=== PATIENT | male | born 1985 | race Caucasian/White ===

== ENCOUNTER 2017-09-03 18:35 | Emergency (ER) | payer MEDICAID, SELFPAY ==
[2017-09-03 18:36] VITALS: BP 155/91; PULSE 110; RESP 16; TEMP 36.9; O2SAT 100; BMI 22.5
--- NOTE | 2017-09-03 18:40 | RAD_ITS ---
STUDY: X-RAY - LEFT ANKLE REASON FOR EXAM: Male, 32 years old. Trauma TECHNIQUE: 3 view(s) of the ankle. COMPARISON: None. FINDINGS: Normal visualized distal tibia and fibula. Normal medial and lateral malleoli. Normal tibiotalar articulation and ankle mortise. Normal visualized talus and calcaneus. The visualized subtalar, talonavicular, calcaneocuboid and tarsal articulations are normal. Soft tissue swelling of the lateral malleolus RAD/Ankle min 3 Views IMPRESSION: Lateral malleolus sprain. No evidence for acute fracture Electronically Signed: Dom Hui MD at 19:10 EDT , Service support ,
--- NOTE | 2017-09-03 20:17 | ED.DCSUM_ITS ---
- ER Visit Summary Date of Service: 09/03/17 Chief Complaint: [Injury left ankle] History of Present Illness: The patient is a 32 M [presents to the emergency department after sustaining an injury to his left ankle yesterday around 8 PM. Patient states that he stepped in a hole as he was coming down the steps. Patient is able to bear some weight but is painful.] Physical Examination: [Ankle-patient has soft tissue swelling over the lateral malleolus. Patient has no pain at the proximal fibular head or the base of the fifth metatarsal. He is neurovascular intact distally. No obvious deformity.] Test Results: [Rays of the left ankle obtained read by radiology as no fractures ] Emergency Department Course and Treatment: [Patient was given crutches and air splint] Treatment Plan: [Patient will be given a prescription for Naprosyn and 12 [place] for pain. Patient advised to ice and elevate extremity.] Disposition: [Discharged to home in stable condition.] Impression: [Left ankle sprain] This note was generated with [employer] dictation software. It may contain incorrect words, spelling, and punctuation that were not noted in review of the chart prior to signing ED Disposition - Plan for ED Patient: Chief Complaint: Lower Extremity Injury Referrals: Dom Yanez MD [Primary Care Provider] -
--- NOTE | 2017-09-03 20:17 | ED.DEP ---
ED Disposition - Plan for ED Patient: Chief Complaint: Lower Extremity Injury Instructions: ED Sprain Ankle W X Ray Prescriptions: Hydrocodone Bitart/Apap 5-325 [[place] 5/325] 1 - 2 tab PO Q4H PRN PRN 3 Days #12 tab PRN Reason: Pain Referrals: Dom Yanez MD [Primary Care Provider] - Alexis Beal DO [NON CLINICAL AFFILIATE] - 5-7 Days
== END 2017-09-03 20:25 | disposition home or self-care (01) ==
PROVIDERS: Emergency Provider Emergency Medicine; Family Provider Family Medicine; PCP Family Medicine
DX: S93.402A Sprain of unspecified ligament of left ankle, initial encounter (principal); X50.1XXA Overexertion from prolonged static or awkward postures, initial encounter; Y93.01 Activity, walking, marching and hiking; Y92.9 Unspecified place or not applicable; Z72.0 Tobacco use
CPT/HCPCS: 73610; 99284

== ENCOUNTER → 2017-11-26 13:31 | Outpatient (CLI) | payer MEDICAID, SELFPAY ==
[2017-11-26 14:51] LABS: Absolute Lymphocyte Count 2.97 X10^3/ul (0.83-4.51); Absolute Neutrophil Count 5.2 X10^3/uL (2.0-7.7); Basophil# 0.04 X10^3/uL; Basophil% 0.4 % (0-1); Eosinophil# 0.34 X10^3/uL; Eosinophils% 3.7 % (0-5); Hematocrit 48.8 % (40-54); Hemoglobin 16.6 g/dl (13.0-16.5); Lymphocyte # 2.97 X10^3/ul (4.0); Mean Corpuscular Hgb 32.5 pg (27.0-32.0); Mean Corpuscular Volume 95.5 fL (80-94); Mean Platelet Vol. 10.6 fl (6.2-12.0); Monocyte# 0.68 X10^3/uL; Monocyte% 7.3 % (0-10); Neutrophil # 5.23 X10^3/uL (2.7-7.7); Neutrophil % 56.4 % (47-70); Platelet Count 274 K/mm3 (150-450); RBC Distribution Width CV 13.5 % (11.6-14.6); RBC Distribution Width SD 46.7 fl (35.1-43.9); Red Blood Count 5.11 M/mm3 (4.6-6.2); White Blood Count 9.3 K/mm3 (4.4-11.0)
[2017-11-26 14:52] LABS: POSITIVE COUNT NO; POSITIVE DIFFERENTIAL NO; POSITIVE MORPHOLOGY NO
[2017-11-26 15:31] LABS: ALB/GLOB Ratio 1.1 RATIO (0.9-2.4); AST(SGOT) 47 U/L (15-37); Alanine Aminotransfer ALT/SGPT 137 U/L (16-61); Alkaline Phosphatase 90 U/L (45-117); Anion Gap 6 (5-15); BUN 7 mg/dL (7-18); BUN/Creat Ratio 8.8 RATIO (10-20); Calcium,Total 8.7 mg/dL (8.5-10.1); Chloride 105 mmol/L (98-107); EST Glomerular Filtration Rate 120 mL/min (>60); Est Glom Filt Rate - Afr Amer 145 mL/min (>60); Globulin 3.6 g/dL (2.2-4.2); Glucose 77 mg/dL (74-106); Protein, Total 7.6 g/dL (6.4-8.2); Sodium Level 142 mmol/L (136-145)
== END ==
PROVIDERS: Family Provider Family Medicine; PCP Family Medicine
DX: Z79.899 Other long term (current) drug therapy (principal); F19.10 Other psychoactive substance abuse, uncomplicated; R53.83 Other fatigue
CPT/HCPCS: 36415; 80053; 80178; 84443; 85025

== ENCOUNTER → 2019-09-25 09:56 | Outpatient (CLI) | payer MEDICAID, SELFPAY ==
[2019-09-25 11:26] LABS: Absolute Lymphocyte Count 3.46 X10^3/uL (0.83-4.51); Absolute Neutrophil Count 8.1 X10^3/uL (2.0-7.7); Basophil# 0.09 X10^3/uL; Basophil% 0.7 % (0-1); Eosinophil# 0.32 X10^3/uL; Eosinophils% 2.4 % (0-5); Hematocrit 49.8 % (40-54); Hemoglobin 16.2 g/dL (13.0-16.5); Lymphocyte # 3.46 X10^3/ul (4.0); Lymphocyte % 26.3 % (19-41); Mean Corp Hgb Conc 32.5 g/dL (32-36); Mean Corpuscular Hgb 31.8 pg (27.0-32.0); Mean Corpuscular Volume 97.6 fL (80-94); Mean Platelet Vol. 10.1 fl (6.2-12.0); Monocyte# 1.16 X10^3/uL; Monocyte% 8.8 % (0-10); NRBC Flagged by Analyzer 0 % (0-5); Neutrophil # 8.06 X10^3/uL (2.7-7.7); Neutrophil % 61.3 % (47-70); Platelet Count 402 K/mm3 (150-450); RBC Distribution Width SD 50.5 fl (35.1-43.9); White Blood Count 13.2 K/mm3 (4.4-11.0)
[2019-09-25 12:08] LABS: ALB/GLOB Ratio 1.1 RATIO (0.9-2.4); AST(SGOT) 201 U/L (15-37); Alanine Aminotransfer ALT/SGPT 596 U/L (16-61); Alkaline Phosphatase 115 U/L (45-117); Anion Gap 6 (5-15); BUN 6 mg/dL (7-18); BUN/Creat Ratio 7.2 RATIO (10-20); Calcium,Total 8.9 mg/dL (8.5-10.1); Chloride 105 mmol/L (98-107); Creatinine, Serum 0.84 mg/dL (0.70-1.30); EST Glomerular Filtration Rate 112 mL/min (>60); Est Glom Filt Rate - Afr Amer 135 mL/min (>60); Globulin 3.6 g/dL (2.2-4.2); Glucose 82 mg/dL (74-106); Potassium 3.6 mmol/L (3.5-5.1); Protein, Total 7.6 g/dL (6.4-8.2); Sodium Level 137 mmol/L (136-145)
== END ==
PROVIDERS: PCP Family Medicine; Referring Provider Nurse Practitioner Family; Visit Provider Nurse Practitioner Family
DX: Z79.899 Other long term (current) drug therapy (principal)
CPT/HCPCS: 36415; 80053; 80178; 84443; 85025

== ENCOUNTER 2024-01-11 22:12 | Emergency (ER) | payer MEDICAID, SELFPAY ==
[2024-01-11 22:12] VITALS: BP 123/93; PULSE 87; RESP 14; TEMP 36.6; O2SAT 98
--- NOTE | 2024-01-11 22:30 | EX.ED.GENINJ ---
HPI History of Present Illness Chief Complaint: Bite Detail of Chief Complaint: Dog bite to left forearm Informant: patient Narrative Narrative: Patient presents the emergency department with left forearm injury related to dog bite. Patient states the dog belongs to a brother from another mother. Patient does not not want to give any history otherwise. He is extremely histrionic and refuses to answer whether or not he has been drinking or using drugs. Denies any significant medical history. Unsure of his last tetanus shot. PFSH PFSH Home Medications ?Medication ?Instructions ?Recorded ?Last Taken ?Type hydrocodone-acetaminophen 5-325mg 1 - 2 tab PO Q4H PRN PRN Pain 3 09/03/17 Unknown Rx 5mg-325mg days #12 tabs Allergy/AdvReac Type Severity Reaction Status Date / Time cyclobenzaprine HCl (From Allergy Hives Verified 01/11/24 22:13 Flexeril) naproxen Allergy Rash Verified 01/11/24 22:13 tramadol HCl (From Ultram) Allergy Rash Verified 01/11/24 22:13 Social History Smoking Status: Current every day smoker ROS ROS ED Review of Systems ROS Unobtainable: other Constitutional Constitutional ED: Reports lethargy; Denies chills, fever(s), sweats or weight loss Eyes Eyes: Denies blurry vision, change in vision or diplopia ENT ENT ED: Denies rhinorrhea or sore throat Cardiovascular Cardiovascular: Denies chest pain, orthopnea or racing heartbeat Respiratory/Chest Respiratory/Chest: Denies cough, dyspnea, dyspnea on exertion, orthopnea or sputum Gastrointestinal Gastrointestinal: Denies abdominal pain, diarrhea, nausea or vomiting Genitourinary Genitourinary ED: Denies dysuria, hematuria or urinary frequency Musculoskeletal Musculoskeletal: Reports other Details: Left forearm dog bite ; Denies arthralgias, back pain, myalgias or neck pain Integumentary Denies abscess, Abrasions or rash Neurologic Neurologic: Denies headache(s) or weakness Psychiatric Psychiatric: Denies anxiety, depression or suicidal thoughts Endocrine Endocrinology: Denies polydipsia, polyphagia or polyuria Hematologic/Lymphatic Hematologic/Lymphatic: Denies easy bleeding, easy bruising or lymphadenopathy Allergic/Immunologic Allergic/Immunologic ED: Denies mouth swelling, tongue swelling or urticaria EXAM Physical Exam Const Vital Signs: 01/11/24 22:12 Temperature 98 F Temperature Source Temporal Pulse Rate 87 Respiratory Rate 14 Blood Pressure 123/93 H Blood Pressure Mean 103 Pulse Ox 98 Oxygen Delivery Method Room Air Discharge Plan Triage Chief Complaint: Bite ED Provider: David Squires Dx/Rx/DC Orders Prescriptions: No Action hydrocodone-acetaminophen 1 TABLET tablet 1 - 2 tab PO Q4H PRN PRN (Reason: Pain) 3 Days Qty: 12 0RF Primary Care Provider: Dom Yanez Referrals: Dom Yanez MD [Primary Care Provider] - Print Language: South African
--- NOTE | 2024-01-11 22:33 | EX.ED.VISEXT ---
HPI History of Present Illness Chief Complaint: Bite PFSH [facility] Medical History IV drug user Home Medications ?Medication ?Instructions ?Recorded ?Last Taken ?Type hydrocodone-acetaminophen 5-325mg 1 - 2 tab PO Q4H PRN PRN Pain 3 09/03/17 Unknown Rx 5mg-325mg days #12 tabs amoxicillin 875 mg-potassium 1 tab PO BID #20 tabs 01/11/24 Unknown Rx clavulanate 125 mg tablet Allergy/AdvReac Type Severity Reaction Status Date / Time cyclobenzaprine HCl (From Allergy Hives Verified 01/11/24 22:13 Flexeril) naproxen Allergy Rash Verified 01/11/24 22:13 tramadol HCl (From Ultram) Allergy Rash Verified 01/11/24 22:13 Social History Smoking Status: Current every day smoker tobacco type: cigarettes, e-cigarettes and smokeless tobacco EXAM Physical Exam Const Vital Signs: 01/11/24 22:12 Temperature 98 F Temperature Source Temporal Pulse Rate 87 Respiratory Rate 14 Blood Pressure 123/93 H Blood Pressure Mean 103 Pulse Ox 98 Oxygen Delivery Method Room Air Positive well nourished and well developed General Appearance ED: well developed and NAD HEENT Reports TM's clear and moist mucous membranes normocephalic and atraumatic; Negative for trauma or tenderness Tympanic Membrane ED: Yes TM's clear Eyes PERRL and EOMs intact bilaterally General Eye ED: Negative for pale conjunctiva or scleral icterus Neck no lymphadenopathy, supple and no JVD General: Negative for tenderness Chest Wall inspection of chest normal and palpation of chest normal Chest: Negative for tenderness Resp normal respiratory effort and clear to auscultation bilaterally Effort and Inspection: Negative for respiratory distress or pain with movement Auscultation: Negative for rhonchi, wheezes or diminished lung sounds Cardio regular rate, regular rhythm, S1 normal heart sound, S2 normal heart sound and no murmurs Peripheral Pulses: pulses 2+ throughout GI normal to inspection, nondistended, normoactive bowel sounds, soft to palpation, non-tender, non-distended and no masses Back/Spine no CVA tenderness and no thoracic nor lumbar tenderness Extremity normal to inspection Extremity Narrative: Left forearm-patient has a 3 cm laceration over the proximal forearm with multiple other small puncture wounds to the dorsum and volar aspect of the forearm. He is neurovascular intact distally. He has normal range of motion flexion extension of all digits. General Extremety ED: Negative for edema General Extremity: Negative for edema Neuro oriented x3, CN's II-XII intact bilaterally, no sensory deficits noted and gait normal Sensorium / Orientation: awake, alert, oriented to person, oriented to place and oriented to time Motor Exam: strength 5/5 throughout and strength abnormal Psych mental status grossly normal Skin no rashes or lesions noted and no wounds MDM MDM MDM Narrative Medical decision making narrative: Patient with dog bite to left forearm. Please see procedure note for suture repair. For the wounds had to be loosely approximated given that there was fat extruding. Patient will be started on Augmentin and given first dose in the emergency department. He was given tetanus booster. Patient does state that he has been drinking alcohol tonight and had 6 sliders. Patient also states that he is an addict and has abused heroin in the past. Patient will be referred to primary care physician on-call for no doc for follow-up to have sutures removed in 10 days. Advised to return if increasing pain, redness, swelling, purulent drainage, or condition worsen anyway. Procedures Lacerations Forearm lacerations: Length: 2.36 in Depth: Sub Q Shape: Linear Prep: [place]ya Laceration repair: Irrigated, Lidocaine and Local Irrigated (ml): 100 Number of Sutures/[place]: 6 Suture Information: Ethilon, Simple and 5-0 Comment: Patient has multiple puncture wounds to the volar and dorsum of the left forearm. Largest wound is about 3 cm with fat extruding and gaping. Patient also with 3 other smaller lacerations about a centimeter each 2 on the volar aspect of the forearm and one on the dorsum of the forearm. All the lacerations were loosely approximated as there was fat extruding from them. He tolerated procedure well. Wounds irrigated with copious saline and cleansed with [place]. Discharge Plan Triage Chief Complaint: Bite ED Provider: David Squires Dx/Rx/DC Orders Clinical Impression: Dog bite, Forearm laceration Instructions: ED Dog Bite, ED Laceration Extremity Prescriptions: New amoxicillin-pot clavulanate 875-125 mg tablet 1 tab PO BID Qty: 20 0RF No Action hydrocodone-acetaminophen 1 TABLET tablet 1 - 2 tab PO Q4H PRN PRN (Reason: Pain) 3 Days Qty: 12 0RF Primary Care Provider: Dom Yanez Referrals: Dom Yanez MD [Primary Care Provider] - 10 Day for suture removal Print Language: Armenian Disposition Disposition: Home, Self Care
[2024-01-11] MEDS: Lidocaine 1% (20 ml mdv) 20 ML Vial 10 ML INFILT (22:37)
[2024-01-11] MEDS: Diphth,Pertuss(Acell),Tet Vac 0.5 ML Vial IM (22:37)
--- NOTE | 2024-01-11 22:59 | ED.RN ---
PATIENT REFUSED TO PROVIDE INFORMATION OR FILL OUT ANIMAL BITE FORM. PATIENT REFUSING TO REMAIN IN BED LONGER THAN NEEDED FOR SUTURING BY PRIMARY MD. HE IS PACING IN THE ROOM AND DIFFICULT TO REDIRECT. NORA CHANDLER AT BEDSIDE.
[2024-01-11] MEDS: Amox/Clavulanate 875 MG Tablet PO (23:00)
== END 2024-01-11 23:09 | disposition home or self-care (01) ==
PROVIDERS: Emergency Provider Emergency Medicine; PCP Family Medicine; Visit Provider Emergency Medicine
DX: S51.812A Laceration without foreign body of left forearm, initial encounter (principal); W54.0XXA Bitten by dog, initial encounter; F17.210 Nicotine dependence, cigarettes, uncomplicated; F17.220 Nicotine dependence, chewing tobacco, uncomplicated; F17.290 Nicotine dependence, other tobacco product, uncomplicated; Z23 Encounter for immunization
CPT/HCPCS: 12002; 90715; 99284

== ENCOUNTER 2024-11-14 15:15 | Emergency (ER) | payer MEDICAID, SELFPAY ==
[2024-11-14 15:23] VITALS: BP 101/84; PULSE 74; RESP 16; TEMP 36.9; O2SAT 97; BMI 26.6
--- NOTE | 2024-11-14 16:26 | EX.ED.DYSGE1 ---
HPI History of Present Illness Chief Complaint: Syncope Detail of Chief Complaint: Syncope Informant: patient, EMS and police/deputy sheriff/investigator Narrative Narrative: Patient brought to the emergency department by EMS for possible syncopal episode. Patient was found in a flower bed reported by alexei's and police was called. Patient apparently told police that he was tired and was taking a nap. Patient is homeless. Please give him the option to come to the hospital get checked out or go to long term as apparently he refused to leave at the time. Patient tells me he thinks he is dehydrated. He denies chest pain or abdominal pain. Denies any injury. He denies alcohol or drug use. He admits occasional marijuana and tobacco. [facility] IV drug user Home Medications ?Medication ?Instructions ?Recorded ?Last Taken ?Type hydrocodone-acetaminophen 5-325mg 1 - 2 tab PO Q4H PRN PRN Pain 3 09/03/17 Unknown Rx 5mg-325mg days #12 tabs amoxicillin 875 mg-potassium 1 tab PO BID #20 tabs 01/11/24 Unknown Rx clavulanate 125 mg tablet Allergy/AdvReac Type Severity Reaction Status Date / Time cyclobenzaprine HCl (From Allergy Hives Verified 11/14/24 15:23 Flexeril) naproxen Allergy Rash Verified 11/14/24 15:23 tramadol HCl (From Ultram) Allergy Rash Verified 11/14/24 15:23 Social History Smoking Status: Current every day smoker tobacco type: cigarettes, e-cigarettes and smokeless tobacco ROS ROS ED ROS Narrative Syncopal episode Review of Systems ROS Unobtainable: other Constitutional Constitutional ED: Reports lethargy; Denies chills, fever(s), sweats or weight loss Eyes Eyes: Denies blurry vision, change in vision or diplopia ENT ENT ED: Denies rhinorrhea or sore throat Cardiovascular Cardiovascular: Denies chest pain, orthopnea or racing heartbeat Respiratory/Chest Respiratory/Chest: Denies cough, dyspnea, dyspnea on exertion, orthopnea or sputum Gastrointestinal Gastrointestinal: Denies abdominal pain, diarrhea, nausea or vomiting Genitourinary Genitourinary ED: Denies dysuria, hematuria or urinary frequency Musculoskeletal Musculoskeletal: Denies arthralgias, back pain, myalgias or neck pain Integumentary Denies abscess, Abrasions or rash Neurologic Neurologic: Denies headache(s) or weakness Psychiatric Psychiatric: Denies anxiety, depression or suicidal thoughts Endocrine Endocrinology: Denies polydipsia, polyphagia or polyuria Hematologic/Lymphatic Hematologic/Lymphatic: Denies easy bleeding, easy bruising or lymphadenopathy Allergic/Immunologic Allergic/Immunologic ED: Denies mouth swelling, tongue swelling or urticaria EXAM Physical Exam Narrative Exam Narrative: Patient awake although somewhat somnolent and falling asleep easily. Appropriate and following commands and answering questions. No external evidence of trauma. Const Vital Signs: 11/14/24 15:23 11/14/24 16:24 11/14/24 17:15 Temperature 98.4 F Temperature Source Oral Pulse Rate 74 60 Respiratory Rate 16 16 Respiratory Effort Normal Respiratory Pattern Normal Blood Pressure 101/84 H 119/66 Blood Pressure Mean 89 83 Pulse Ox 97 98 Oxygen Delivery Method Room Air Room Air Positive well nourished and well developed General Appearance ED: well developed and NAD HEENT Reports TM's clear and moist mucous membranes normocephalic and atraumatic; Negative for trauma or tenderness Tympanic Membrane ED: Yes TM's clear Eyes PERRL and EOMs intact bilaterally General Eye ED: Negative for pale conjunctiva or scleral icterus Neck no lymphadenopathy, supple and no JVD General: Negative for tenderness Chest Wall inspection of chest normal and palpation of chest normal Chest: Negative for tenderness Resp normal respiratory effort and clear to auscultation bilaterally Effort and Inspection: Negative for respiratory distress or pain with movement Auscultation: Negative for rhonchi, wheezes or diminished lung sounds Cardio regular rate, regular rhythm, S1 normal heart sound, S2 normal heart sound and no murmurs Peripheral Pulses: pulses 2+ throughout GI normal to inspection, nondistended, normoactive bowel sounds, soft to palpation, non-tender, non-distended and no masses Back/Spine no CVA tenderness and no thoracic nor lumbar tenderness Extremity normal to inspection General Extremety ED: Negative for edema General Extremity: Negative for edema Neuro oriented x3, CN's II-XII intact bilaterally, no sensory deficits noted and gait normal Sensorium / Orientation: awake, alert, oriented to person, oriented to place and oriented to time Motor Exam: strength 5/5 throughout and strength abnormal Psych mental status grossly normal Skin no rashes or lesions noted and no wounds MDM MDM MDM Narrative Medical decision making narrative: Patient presents via EMS for possible syncopal episode as he was found in flower beds. Patient states he was sleeping. He is not sure if he passed out. He is homeless. He denied illicit drug use. Denies any complaints otherwise but thinks he is dehydrated and wants something to eat. EKG obtained arrival showed a sinus rhythm with rate of 60 bpm with no acute ST segment changes. CBC with differential showing a 7.7 hemoglobin 14.2 and platelet count of 320. Chemistries unremarkable. Alcohol was less than 10. I ordered a urine drug screen however patient refused to give a urine sample and eloped from the emergency department before treatment completion. Etiology of what happened unclear hide suspect possibility of drug abuse. Patient had capacity to refuse treatment and eloped the emergency department before treatment completion. Lab Data Attestation: I reviewed the patient's lab results. Labs: Laboratory Results - last 24 hr 11/14/24 16:52 WBC 7.7 RBC 4.54 L Hgb 14.2 Hct 42.5 MCV 93.6 MCH 31.3 MCHC 33.4 RDW Std Deviation 43.2 RDW Coeff of Pati 12.4 Plt Count 320 MPV 10.9 Immature Gran % (Auto) 0.100 Neut % (Auto) 47.0 Lymph % (Auto) 35.5 [place] % (Auto) 10.5 H Eos % (Auto) 6.1 H Baso % (Auto) 0.8 Absolute Neuts (auto) 3.6 Absolute Lymphs (auto) 2.73 Nucleated RBC % 0 Sodium 141 Potassium 3.7 Chloride 106 Carbon Dioxide 25.4 Anion Gap 10 BUN 9 Creatinine 0.80 Estim Creat Clear Calc 141.49 Est GFR (MDRD) Non-Af 116 BUN/Creatinine Ratio 11.3 Glucose 110 H Calcium 8.8 Ethyl Alcohol < 10.1 EKG Initial EKG: Attestation: I personally reviewed and interpreted this EKG as follows: Comments: Sinus rhythm with ventricular rate of of 60 bpm with no acute ST segment changes Discharge Plan Triage Chief Complaint: Syncope ED Provider: David Squires Dx/Rx/DC Orders Clinical Impression: Syncope Instructions: ED Fainting, Uncertain Cause Prescriptions: No Action hydrocodone-acetaminophen 1 TABLET tablet 1 - 2 tab PO Q4H PRN PRN (Reason: Pain) 3 Days Qty: 12 0RF amoxicillin-pot clavulanate 875-125 mg tablet 1 tab PO BID Qty: 20 0RF Primary Care Provider: Dom Yanez Referrals: Dom Yanez MD [Primary Care Provider] - Print Language: [place] Disposition Disposition: Elopement Discharge Date/Time: 11/14/24 18:53
[2024-11-14 17:15] VITALS: BP 119/66; PULSE 60; RESP 16; O2SAT 98
[2024-11-14 17:36] LABS: Absolute Lymphocyte Count 2.73 X10^3/uL (0.83-4.51); Absolute Neutrophil Count 3.6 X10^3/uL (2.0-7.7); Basophil# 0.06 X10^3/uL; Basophil% 0.8 % (0-1); Eosinophil# 0.47 X10^3/uL; Eosinophils% 6.1 % (0-5); Hematocrit 42.5 % (40-54); Hemoglobin 14.2 g/dL (13.0-16.5); Lymphocyte # 2.73 X10^3/ul (0.83-4.51); Lymphocyte % 35.5 % (19-41); Mean Corp Hgb Conc 33.4 g/dL (32-36); Mean Corpuscular Hgb 31.3 pg (27.0-32.0); Mean Corpuscular Volume 93.6 fL (80-94); Mean Platelet Vol. 10.9 fl (6.2-12.0); Monocyte# 0.81 X10^3/uL; Monocyte% 10.5 % (0-10); NRBC Flagged by Analyzer 0 % (0-5); Neutrophil # 3.62 X10^3/uL (2.7-7.7); Platelet Count 320 K/mm3 (150-450); RBC Distribution Width CV 12.4 % (11.6-14.6); RBC Distribution Width SD 43.2 fl (35.1-43.9); Red Blood Count 4.54 M/mm3 (4.6-6.2); White Blood Count 7.7 K/mm3 (4.4-11.0)
[2024-11-14] MEDS: 0.9% Normal Saline (1000mL) 1,000 ML 1000 ML IV (17:38)
[2024-11-14 17:55] LABS: Anion Gap 10 (5-15); BUN 9 mg/dL (4-19); BUN/Creat Ratio 11.3 RATIO (10-20); Calcium,Total 8.8 mg/dL (7.6-11.0); Carbon Dioxide 25.4 mmol/L (21.0-32.0); Chloride 106 mmol/L (98-108); EST Glomerular Filtration Rate 116 (>60); Estimated Creatinine Clearance 141.49 ml/min (50-250); Glucose 110 mg/dL (70-99); Potassium 3.7 mmol/L (3.3-5.1); Sodium Level 141 mmol/L (133-145)
[2024-11-14 18:03] LABS: Alcohol, Blood (Medical)-Serum < 10.1 mg/dL (<=10.0)
--- NOTE | 2024-11-14 18:18 | CM.ED ---
Social Work SW attempted to meet with patient , patient refused to open eyes or acknowledge SW presence. Several attempts made. Trina Key, PLANT CONTROL AIDE, SITE SPECIALIST
--- NOTE | 2024-11-14 18:52 | ED.RN ---
pt. was given the option to give urine sample or be catheterized. Pt. was offered food to give urine sample but refused to respond to nurses when asked for sample. Pt. wanted to leave. PIV removed and escorted out by security.
== END 2024-11-14 18:53 | disposition left against medical advice (07) ==
PROVIDERS: Emergency Provider Emergency Medicine; PCP Family Medicine; Visit Provider Emergency Medicine
DX: R55 Syncope and collapse (principal); F17.210 Nicotine dependence, cigarettes, uncomplicated; F17.290 Nicotine dependence, other tobacco product, uncomplicated; F17.220 Nicotine dependence, chewing tobacco, uncomplicated; Z59.00 Homelessness unspecified
CPT/HCPCS: 80048; 82077; 85025; 93005; 99284; A4216

== ENCOUNTER 2024-11-21 20:11 | Emergency (ER) | payer MEDICAID, SELFPAY ==
[2024-11-21 20:12] VITALS: BP 133/78; PULSE 71; RESP 18; TEMP 36.4; O2SAT 97; BMI 24.3
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
[2024-11-21 20:30] VITALS: BP 143/81; PULSE 68; RESP 18; O2SAT 97
--- NOTE | 2024-11-21 20:46 | CT_ITS ---
PROCEDURE: SPINE CERVICAL WITHOUT CONTRAS 11/21/2024 REASON FOR EXAM: NECK PAIN TECHNIQUE: SPINE CERVICAL WITHOUT CONTRAS Coronal and Sagittal reconstruction series were provided. One or more dose reduction techniques were used (e.g., Automated exposure control, adjustment of the mA and/or kV according to patient size, use of iterative reconstruction technique. RADIATION DOSE SUMMARY: CTDlvol: 68 mGy DLP: 1409 mGycm COMPARISON: No FINDINGS: No cervical spine fracture or dislocation. No soft tissue injury. No apical pneumothorax. CT/Spine Cervical without Contras IMPRESSION: No acute injury. Reading Location: [place] [id number]
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
--- NOTE | 2024-11-21 20:46 | CT_ITS ---
PROCEDURE: SPINE CERVICAL WITHOUT CONTRAS 11/21/2024 REASON FOR EXAM: NECK PAIN TECHNIQUE: SPINE CERVICAL WITHOUT CONTRAS Coronal and Sagittal reconstruction series were provided. One or more dose reduction techniques were used (e.g., Automated exposure control, adjustment of the mA and/or kV according to patient size, use of iterative reconstruction technique. RADIATION DOSE SUMMARY: CTDlvol: 68 mGy DLP: 1409 mGycm COMPARISON: No FINDINGS: No cervical spine fracture or dislocation. No soft tissue injury. No apical pneumothorax. CT/Spine Cervical without Contras IMPRESSION: No acute injury. Reading Location: [place] [address]
[2024-11-21 21:00] VITALS: BP 147/85; PULSE 71; PULSE 72; RESP 14; RESP 15; O2SAT 98; O2SAT 99
--- OUTSIDE RECORDS SUMMARY | 2024-11-21 21:10 | XMS RPT_ITS | CCD ---
Author Organization [facility] Care Team Providers Care Administrative Fellow Name Role Phone Unavailable Primary Care Provider UnavailDom Gagnon MD Primary Care Provider Dom Yanez MD Primary Care Provider Abimael Carson MD Primary Care Provider YAMILETH WHITTINGTON, DR WEAVER Primary Care Physician ANA JOYCE MD Attending Unavailable YAMILETH WHITTINGTON, DR WEAVER Primary Care UnavailBETHANIE Shaw Attending Unavailable YAMILETH WHITTINGTON, DR WEAVER Primary Care UnavailMONTRELL Palma Referring Unavailable YAMILETH, ABIMAEL Primary Care Unavailable YAMILETH, ABIMAEL Primary Care Unavailable YAMILETHABIMAEL Attending Unavailable YAMILETH, ABIMAEL Primary Care Unavailable CAS SALAMANCA Attending Unavailable BERNICE BLUNT Consulting Unavailable YAMILETH, ABIMAEL Primary Care Unavailable LIAM ZAMORA Admitting Unavailable LIAM ZAMORA Attending Unavailable TU RENO Consulting Unavailable YAMILETH, ABIMAEL Primary Care Unavailable SHANE ZAMARRIPA Attending Unavailable YAMILETH, ABIMAEL Primary Care Unavailable DAYNA JAMES Attending Unavailable YAMILETH, ABIMAEL Primary Care Unavailable YAMILETH, ABIMAEL Primary Care Unavailable YAMILETHABIMAEL Attending Unavailable YAMILETHABIMAEL Attending Unavailable YAMILETH, ABIMAEL Primary Care Unavailable YAMILETHABIMAEL Attending Unavailable YAMILETH, ABIMAEL Primary Care Unavailable YAMILETH, ABIMAEL Attending Unavailable YAMILETH, ABIMAEL Primary Care Unavailable Dom aYnez MD Primary Care Provider Dr. Dom Yanez MD Primary Care Provider [phone] Dr. David Squires DO Emergency Provider Dom Yanez Primary Care Unavailable David Squires Attending Unavailable Dom Yanez Primary Care Unavailable David Squires Attending Unavailable Allergies Allergy Classification Reported Allergen(s) Allergy Type Date of Onset Reaction(s) Facility cyclobenzaprine (2 sources) cyclobenzaprine Drug Allergy 10-24-19 [facility] Opioid Agonists (5 sources) traMADol Drug Allergy 03-08-20 12 [facility] (3 sources) NSAIDs Propensity to adverse reactions to drug 12-15-19 17 [facility] (20 sources) traMADol; Translations: [tramadol] Drug Allergy 03-08-20 12 [facility] (5 sources) traMADol Drug Allergy 03-08-20 12 [facility] (20 sources) Non-steroidal anti-inflammatory agent Drug Intolerance 12-15-19 [facility] (12 sources) cyclobenzaprine; Translations: [cyclobenzaprine] Drug Allergy 10-24-19 24 [facility] (3 sources) Naproxen; Translations: [naproxen] Drug Allergy 11-15-19 25 [facility] (2 sources) cyclobenzaprine; Translations: [cyclobenzaprine HCl] Drug Allergy 11-15-19 25 [facility] (1 source) Naproxen Drug Allergy 11-15-19 25 [facility] (1 source) traMADol Drug Allergy 11-15-19 25 [facility] Medications Current Medications Medication Drug Class(es) Dates Sig (Normalized) Sig (Original) acetaminophen 325 mg / HYDROcodone bitartrate 5 mg oral tablet (1 source) Opioid Agonist Start: 09-03-2017 Hydrocodone-Aceta minophen 1 TABLET tablet Active 1 - 2 {tbl} PO EVERY 4 HOURS NEEDED as needed for Pain 12 3 0 September 03, 2017 12:00am Sprain of ankle Sprain of unspecified ligament of unspecified ankle, initial encounter acetaminophen 325 mg / oxyCODONE hydrochloride 5 mg oral tablet (1 source) Opioid Agonist Start: 09-05-2023 End: 09-12-2023 take 1 tablet by mouth every six hours as needed for pain Percocet 5 mg-325 mg oral tablet Dose = 1 tab(s), Oral, q6hr, PRN for pain, X 7 day(s), # 28 tab(s), 0 Refill(s), Closed fracture of right mandibular alveolar ridge, 79.2 Start Date: 09/05/23 Stop Date: 09/12/23 Status: Ordered amoxicillin 875 mg / clavulanate 125 mg oral tablet (2 sources) Penicillin-class Antibacterial Start: 01-11-2024 Amoxicillin-Pot Clavulanate 875-125 mg tablet Active 1 {tbl} PO TWICE A DAY January 11, 2024 12:00am Start: 10-20-2022 End: 10-27-2022 take 1 tablet by mouth twice daily amoxicillin-clavulanic acid (AUGMENTIN) 875-125 mg per tablet Indications: Dental infection Take 1 tablet by mouth twice daily for 7 days. 14 tablet 0 10/20/2022 10/27/2022 Active Comment on above: Take 1 tablet by sp twice daily for 7 days. ARIPiprazole 5 mg oral tablet (4 sources) Atypical Antipsychotic take 1 tablet by mouth once daily ARIPiprazole (ABILIFY) 5 mg tablet Take 5 mg by mouth once daily. Active Comment on above: Take 5 mg by mouth o nce daily. 12 hr buPROPion hydrochloride 150 mg extended release oral tablet (4 sources) Aminoketone take 1 tablet by mouth once daily buPROPion SR (ZYBAN SR; WELLBUTRIN SR) 150 mg 12 hr tablet Take 150 mg by mouth once daily. Active Comment on above: Take 150 mg by mouth once daily. cephalexin 500 mg oral tablet (8 sources) Cephalosporin Antibacterial Start: 10-16-19 End: 10-26-19 cephalexin (Keftab) 500 MG tablet Take 500 mg by mouth in the morning and 500 mg at noon and 500 mg in the evening and 500 mg before bedtime. 0 10/16/2023 10/26/2023 Active FLUoxetine 40 mg oral capsule (4 sources) Serotonin Reuptake Inhibitor Start: 01-28-20 take 1 capsule by mouth once daily in the morning FLUoxetine (PROZAC) 40 mg capsule Take 40 mg by mouth every morning. 01/27/2022 Active Comment on above: Take 40 mg by mouth every morning. loperamide hydrochloride 2 mg oral tablet (1 source) Opioid Agonist Start: 10-24-19 End: 11-03-19 loperamide (Imodium A-D) 2 MG tablet Take 1-2 tablets (2-4 mg) by mouth as needed for diarrhea for up to 10 days. 30 tablet 2 10/24/2023 11/03/2023 Active PARoxetine hydrochloride 40 mg oral tablet (20 sources) Serotonin Reuptake Inhibitor Start: 11-14-19 take 1 tablet by mouth once daily in the morning PARoxetine (Paxil) 40 MG tablet Take 1 tablet (40 mg) by mouth every morning. 30 tablet 1 11/14/2023 Active Start: 11-14-2023 End: 11-14-2023 take 0.5 tablet by mouth once daily in the morning PARoxetine (Paxil) 40 MG tablet Take 0.5 tablets (20 mg) by mouth every morning. 30 tablet 1 11/14/2023 11/14/2023 Discontinued (Reorder) Start: 10-24-2023 End: 11-14-2023 take 1 tablet by mouth once daily in the morning PARoxetine (Paxil) 20 MG tablet Take 1 tablet (20 mg) by mouth every morning. 10 tablet 11/13/2023 11/14/2023 Discontinued (Reorder) Start: 08-13-2023 End: 10-18-2023 take 1 tablet by mouth once daily in the morning PARoxetine (Paxil) 20 MG tablet take 1 tablet by mouth every morning 30 tablet 1 08/13/2023 10/18/2023 Discontinued (Non-compliance) Start: 06-15-2023 take 1 tablet by sp th once daily in the morning PARoxetine (Paxil) 20 MG tablet Take 1 tablet (20 mg) by mouth every morning. 30 tablet 1 06/15/2023 Active Start: 05-23-2023 take 1 tablet by sp th once daily in the morning PARoxetine (Paxil) 20 MG tablet Take 1 tablet (20 mg) by mouth every morning. 30 tablet 0 05/23/2023 Active penicillin v potassium 500 mg oral tablet (1 source) Start: 09-05-2023 End: 09-15-2023 penicillin V potassium 500 mg oral tablet Dose : 500 mg = 1 tab(s), Oral, BID, X 10 day(s), # 20 tab(s), 0 Refill(s), 09/15/23 11:18:00 AM EDT, 79.2 Start Date: 09/05/23 Stop Date: 09/15/23 Status: Ordered 24 hr divalproex sodium 500 mg extended release oral tablet (4 sources) Mood Stabilizer, Anti-epileptic Agent Start: 02-10-2022 take 2 tablets by mouth once daily at bedtime divalproex ER (DEPAKOTE ER) 500 mg 24 hr tablet TAKE 2 TABLETS BY MOUTH DAILY AT BEDTIME 02/10/2022 Active Comment on above: TAKE 2 TABLETS BY MO UTH DAILY AT BEDTIME Completed/Discontinued Medications Medication Drug Class(es) Dates Sig (Normalized) Sig (Original) Acetaminophen (4 sources) Start: 10-18-2023 End: 10-19-2023 take 1 tablet by mouth every six hours as needed for pain and fever acetaminophen (Tylenol) tablet 650 mg Start: 10-18-2023 End: 10-18-2023 acetaminophen (Tylenol) tabl et 650 mg ampicillin-sulbactam (Unasyn) 3,000 mg in sodium chloride 0.9 % 100 mL IVPB (Mini-Bag Plus) (4 sources) Start: 10-18-2023 End: 10-19-2023 take 3000 mg intravenously every six hours ampicillin-sulbactam (Unasyn) 3,000 mg in sodium chloride 0.9 % 100 mL IVPB (Mini-Bag Plus) Start: 10-18-2023 End: 10-18-2023 ampicillin-sulbactam (Unasyn ) 3,000 mg in sodium chloride 0.9 % 100 mL IVPB (Mini-Bag Plus) cariprazine 1.5 mg oral capsule (1 source) Atypical Antipsychotic End: 02-23-2022 cariprazine (VRAYLAR) 1.5 mg capsule Take 1.5 mg by mouth. 0 02/23/2022 Discontinued Comment on above: Take 1.5 mg by mouth . 1 ml haloperidol 5 mg/ml prefilled syringe (2 sources) Typical Antipsychotic Start: 07-20-2023 End: 07-20-2023 haloperidol lactate (Haldol) injection 5 mg lithium carbonate 300 mg oral capsule (1 source) Start: 11-19-2017 End: 02-23-2022 take 1 capsule by mouth three times daily at mealtime lithium carbonate (ESKALITH) 300 mg capsule Take 1 capsule by mouth three times daily with meals. [facility] 0 11/19/2017 02/23/2022 Discontinued Comment on above: Take 1 capsule by mo uth three times daily with meals. Per [facility]. 1 ml LORazepam 2 mg/ml injection (2 sources) Benzodiazepine Start: 07-20-2023 End: 07-20-2023 LORazepam (Ativan) injection 2 mg 2 ml naloxone hydrochloride 1 mg/ml prefilled syringe (4 sources) Opioid Antagonist Start: 11-06-2023 End: 11-06-2023 8 mg, Nasal, Once, On Sun11/06/23 at 2235, For 1 dose, For oversedation/diff icult to rouse, pinpoint pupils, RR Start: 11-06-2023 End: 11-06-2023 8 mg, Nasal, Once, On Sun at 2235, For 1 dose, For oversedation/difficult to rouse, pinpoint pupils, RR Start: 11-06-2023 End: 11-07-2023 0.4 mg, IntraVENous, PRN, op ioid reversal, respiratory depression, Starting on Sun11/06/23 at 2212, For oversedation/difficult to rouse, pinpoint pupils, RR Nicotine (4 sources) Cholinergic Nicotinic Agonist Start: 10-19-2023 End: 10-19-2023 nicotine (Nicoderm, Step 1) 21 MG/24HR patch 1 patch Start: 10-18-2023 End: 10-18-2023 nicotine (Nicoderm, Step 1) 21 MG/24HR patch 1 patch nitroglycerin 0.4 mg sublingual tablet (1 source) Nitrate Vasodilator Start: 08-26-2018 End: 02-23-2022 nitroglycerin sublingual (NITROQUICK) 0.4 mg SL tablet Dissolve 1 tablet under the tongue as needed. for chest pain,every 5 min x3 1 Bottle of 25 3 08/26/2018 02/23/2022 Discontinued Comment on above: Dissolve 1 tablet un eric the tongue as needed. for chest pain,every 5 min x3 ondansetron ODT (Zofran-ODT) disintegrating tablet 4 mg (2 sources) Start: 10-18-2023 End: 10-19-2023 take 1 tablet by mouth every eight hours as needed for nausea and vomiting ondansetron ODT (Zofran-ODT) disintegrating tablet 4 mg polyethylene glycol 3350 10741 mg powder for oral solution (2 sources) Osmotic Laxative Start: 10-18-2023 End: 10-19-2023 take 17 g by mouth every twenty-four hours as needed for constipation 17 g, Oral, Daily PRN, constipation, Starting on Sun10/18/23 at 2215, 1st line for treatment of constipation - give scheduled if no bowel movement in past 24 hours. 50 ml sodium chloride 9 mg/ml injection (6 sources) Start: 11-06-2023 End: 11-07-2023 1,000 mL, IntraVENous, at 1,000 mL/hr, Administer over 1 Hours, Once, On Sun11/06/23 at 2215, For 1 dose Start: 10-18-2023 End: 10-19-2023 take 100 mL intravenously every hour 100 mL/hr, IntraVENous, Continuous, Starting on Sun10/18/23 at 2230 Start: 10-18-2023 End: 10-18-2023 sodium chloride 0.9 % bolus 2,448 mL sofosbuvir 400 mg / velpatasvir 100 mg oral tablet (1 source) Hepatitis C Virus NS5A Inhibitor, Hepatitis C Virus Nucleotide Analog NS5B Polymerase Inhibitor Start: 12-03-2019 End: 02-23-2022 take 1 tablet by mouth once daily sofosbuvir-velpatasvir (EPCLUSA) 400-100 mg Indications: Chronic hepatitis C without hepatic coma (HCC) Take 1 tablet by mouth once daily. 28 tablet 2 12/03/2019 02/23/2022 Discontinued Comment on above: Take 1 tablet by mouth once daily. valproic acid, as sodium salt, (DEPAKENE ORAL) (1 source) End: 02-23-2022 valproic acid, as sodium salt, (DEPAKENE ORAL) Take by mouth. 0 02/23/2022 Discontinued Comment on above: Take by mouth. Vancomycin (4 sources) Glycopeptide Antibacterial Start: 10-19-2023 End: 10-19-2023 take 1750 mg intravenously every twelve hours vancomycin (Vancocin) 1750 mg in NS 500 mL IVPB (compounded premix) Start: 10-18-2023 End: 10-18-2023 vancomycin IVPB 1250 mg in 2 50 mL NS (premix) Problems Active Problems Problem Classification Problem Date Documented Da te Episodic/Chronic Abdominal pain (2 sources) Abdominal pain; Translations: [Abdominal Pain] Onset: 10-24-2023 Episodic Adjustment disorders (4 sources) Acute situational disturbance; Translations: [Adjustment disorder, unspecified] Onset: 11-12-2023 11-12-2023 Chronic Alcohol-related disorders (1 source) Alcohol abuse; Translations: [Alcohol abuse, uncomplicated] Onset: 01-19-2024 01-19-2024 Chronic Anxiety disorders (20 sources) Severe anxiety (panic); Translations: [Anxiety disorder, unspecified] Onset: 11-26-2015 11-26-2015 Chronic Diseases of white blood cells (4 sources) Leukocytosis; Translations: [Elevated white blood cell count, unspecified] Onset: 10-18-2023 10-18-2023 Chronic Disorders of lipid metabolism (20 sources) Hypercholesterolemi a; Translations: [Pure hypercholesterolemi a, unspecified] Onset: 05-31-2023 05-31-2023 Chronic Disorders of teeth and jaw (1 source) Gingivitis; Translations: [Chronic gingivitis, plaque induced] 05-26-2015 Chronic Disorders of teeth and jaw (15 sources) Tooth disorder; Translations: [Disorder of teeth and supporting structures, unspecified] Onset: 01-04-2015 01-04-2015 Episodic E Codes: Natural/environment (1 source) Dog bite - wound; Translations: [Bitten by dog, initial encounter] 01-19-2024 Episodic Fluid and electrolyte disorders (2 sources) Lactic acidosis; Translations: [Lactic acidosis] 10-18-2023 Episodic Genitourinary symptoms and ill-defined conditions (1 source) Blood in urine; Translations: [Hematuria, unspecified] 06-04-2015 Episodic Immunizations and screening for infectious disease (6 sources) Patient encounter status; Translations: [Encounter for immunization] Episodic Mood disorders (20 sources) Recurrent major depressive episodes, moderate ; Translations: [Major depressive disorder, recurrent, moderate] Onset: 12-28-2015 05-17-2021 Chronic Other aftercare (1 source) Drug therapy finding; Translations: [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] Episodic Other gastrointestinal disorders (13 sources) Functional diarrhea; Translations: [Functional diarrhea] Onset: 10-24-2023 10-24-2023 Episodic Other nervous system disorders (4 sources) Expressive dysphasia; Translations: [Aphasia] Onset: 06-05-2014 06-05-2014 Chronic Other non-traumatic joint disorders (2 sources) Knee pain 01-05-2014 Episodic Residual codes; unclassified (2 sources) Restlessness and agitation; Translations: [Restlessness and agitation] 07-20-2023 Chronic Residual codes; unclassified (2 sources) Restlessness and agitation; Translations: [Restlessness and agitation] Onset: 07-20-2023 Chronic Skin and subcutaneous tissue infections (20 sources) Cellulitis of right lower limb; Translations: [Cellulitis of right lower limb] Onset: 10-18-2023 10-18-2023 Episodic Skull and face fractures (1 source) Closed fracture of alveolar border of body of mandible; Translations: [Fracture of alveolus of right mandible, initial encounter for closed fracture] Onset: 09-05-2023 Episodic Substance-related disorders (20 sources) Cannabis dependence; Translations: [Cannabis dependence, uncomplicated] Onset: 11-19-2017 11-19-2017 Chronic Substance-related disorders (4 sources) Accidental heroin overdose; Translations: [Poisoning by heroin, accidental (unintentional), initial encounter] Onset: 11-06-2023 11-06-2023 Episodic Syncope (1 source) Syncope and collapse; Translations: [Syncope and collapse] Onset: 11-18-2024 Episodic Unclassified (2 sources) ER Follow-up; Translations: [ER Follow-up] Onset: 11-14-2023 Unclassified (2 sources) Transitional Care Management Outreach; Translations: [Transitional Care Management Outreach] Onset: 10-24-2023 Unclassified (2 sources) Hospital Follow-up; Translations: [Hospital Follow-up] Onset: 10-24-2023 Unclassified (2 sources) Medication Adherence; Translations: [Medication Adherence] Onset: 10-24-2023 Unclassified (2 sources) R Foot/ Ankle Wound Onset: 10-20-2023 Unclassified (1 source) Acidosis, unspecified; Translations: [Acidosis, unspecified] Onset: 10-18-2023 Unclassified (2 sources) Bipolar; Translations: [Bipolar] Onset: 06-15-2023 Unclassified (2 sources) PTSD (Post-Traumatic Stress Disorder); Translations: [PTSD (Post-Traumatic Stress Disorder)] Onset: 06-15-2023 Unclassified (2 sources) Med Refill; Translations: [Med Refill] Onset: 06-15-2023 Unclassified (1 source) No history of clinical finding in subject 11-14-2015 Past or Other Problems Problem Classification Problem Date Documented Date Episodic/Chronic Administrative/social admission (4 sources) Clinical management plan agreed; Translations: [Encounter for other administrative examinations] Onset: 02-14-2015 05-16-2021 Episodic Blindness and vision defects (4 sources) Eye / vision finding; Translations: [Unspecified visual disturbance] Onset: 06-05-2014 06-05-2014 Episodic Headache; including migraine (4 sources) Headache; Translations: [Cephalalgia] Onset: 01-04-2015 01-04-2015 Episodic Hepatitis (4 sources) Acute hepatitis C; Translations: [Acute hepatitis C without hepatic coma] Onset: 12-12-2017 12-12-2017 Episodic Intracranial injury (20 sources) Traumatic brain injury with loss of consciousness; Translations: [Unspecified intracranial injury with loss of consciousness of any duration with due to brain injury prior to regaining consciousness, initial encounter] Onset: 06-04-2014 Resolved: 05-23-2023 06-04-2014 Episodic Mood disorders (20 sources) Mood disorders Onset: 05-23-2023 Resolved: 11-28-2023 05-23-2023 Open wounds of extremities (2 sources) Laceration of forearm; Translations: [Laceration without foreign body of unspecified forearm, initial encounter] Onset: 03-23-2024 01-19-2024 Episodic Other circulatory disease (20 sources) Elevated blood-pressure reading without diagnosis of hypertension; Translations: [Elevated blood-pressure reading, without diagnosis of hypertension] Onset: 11-26-2015 11-26-2015 Episodic Other nervous system disorders (4 sources) Slurred speech; Translations: [Slurred speech] Onset: 06-05-2014 06-05-2014 Episodic Other non-traumatic joint disorders (4 sources) Pain in lower limb; Translations: [Pain in unspecified knee] Onset: 10-08-2014 10-08-2014 Episodic Other screening for suspected conditions (not mental disorders or infectious disease) (4 sources) Encounter for screening for diabetes mellitus; Translations: [Encounter for screening for lipoid disorders] Onset: 05-23-2023 Episodic Unclassified (1 source) Acidosis, unspecified; Translations: [Acidosis, unspecified] Onset: 10-18-2023 Results Test Name Value Interpretation Reference Range Facility Absolute lymphocyte countOrd ered By: David Shaw on 11-14-2024 Lymphocytes Auto (Unsp spec) [#/Vol] 2.73 10*3/uL 0.83-4.51 [facility] Absolute neutrophil countOrd ered By: David Squires on 11-14-2024 Neutrophils (Bld) [#/Vol] 3.6 10*3/uL 2.0-7.7 [facility] Alcohol, Blood (Medical)-Ser umon 11-14-2024 SERUM ETOH < 10.1 Normal <=10.0 [facility] Comment on above: Result Comment: This test is for medical purposes only. The legal definition of intoxication varies according to local law. Performed By: #### L 500.2500, L501.9100, L505.5000, L100.0100 #### [facility] [address] [place], [place], [id number] Anion gap in Serum or Plasma Ordered By: David Squires on 11-14-2024 Anion gap [Moles/Vol] 10 mmol/L 5-15 [facility] Automated lymphocyte count a s percentage of total leukocytesOrdered By: [facility] Healthcare[facility] Squires on 11-14-2024 Lymphocytes/100 WBC Auto (Unsp spec) 35.5 % 19-41 [facility] BUN/creatinine ratioOrdered By: David Squires on 11-14-2024 Urea nitrogen/Creatinine [Mass ratio] 11.3 mg/mg 10- [facility] Basic Metabolic Profile (BMP )on 11-14-2024 BUN/CRE 11.3 RATIO Normal - [facility] Comment on above: Performed By: #### L 500.2500, L501.9100, L505.5000, L100.0100 #### [facility] [address] [place], [address] Calcium [Mass/Vol] 8.8 mg/dL Normal 7.6-11.0 [facility] Comment on above: Performed By: #### L 500.2500, L501.9100, L505.5000, L100.0100 #### [facility] [address] [place], [address] Chloride [Moles/Vol] 106 mmol/L Normal 98-108 [facility] Comment on above: Performed By: #### L 500.2500, L501.9100, L505.5000, L100.0100 #### [facility] [address] [place], [address] CO2 [Moles/Vol] 25.4 mmol/L Normal 21.0-32.0 [facility] Comment on above: Performed By: #### L 500.2500, L501.9100, L505.5000, L100.0100 #### [facility] [address] [place], [address] Creatinine [Mass/Vol] 0.80 mg/dL Normal 0.70-1.20 [facility] Comment on above: Performed By: #### L 500.2500, L501.9100, L505.5000, L100.0100 #### [facility] [address] [place], [address] ECRCL 141.49 ml/min Normal 50-250 [facility] Comment on above: Performed By: #### L 500.2500, L501.9100, L505.5000, L100.0100 #### [facility] [address] [place], [address] GAP 10 Normal 5-15 [facility] Comment on above: Performed By: #### L 500.2500, L501.9100, L505.5000, L100.0100 #### [facility] [address] [place], [address] GFR/1.73 sq M.predicted among non-blacks MDRD (S/P/Bld) [Vol rate/Area] 116 mL/min/{1.73_m2} Normal >60 [facility] Comment on above: Result Comment: mL/m in/1.73m2 CKD-EPI Creatinine Equation (2020) Performed By: #### L 500.2500, L501.9100, L505.5000, L100.0100 #### [facility] [address] [place], [address] Glucose [Mass/Vol] 110 mg/dL High 70-99 [facility] Comment on above: Performed By: #### L 500.2500, L501.9100, L505.5000, L100.0100 #### [facility] [address] [place], [address] Potassium [Moles/Vol] 3.7 mmol/L Normal 3.3-5.1 [facility] Comment on above: Result Comment: Hemo lysis present, Results??could be affected. ?? Performed By: #### L 500.2500, L501.9100, L505.5000, L100.0100 #### [facility] [address] [place], [address] Sodium [Moles/Vol] 141 mmol/L Normal 133-145 [facility] Comment on above: Performed By: #### L 500.2500, L501.9100, L505.5000, L100.0100 #### [facility] [address] [place], [address] Urea nitrogen [Mass/Vol] 9 mg/dL Normal 4-19 [facility] Comment on above: Performed By: #### L 500.2500, L501.9100, L505.5000, L100.0100 #### [facility] [address] [place], [address] Basophil percentageOrdered B y: Remus Ungur on 11-14-2024 Basophils/100 WBC (Bld) 0.8 % 0-1 [facility] CBC W/Diff, Automatedon 10-20 Absolute Lymph 2.73 X10 3/uL Normal 0.83-4.51 [facility] Comment on above: Performed By: #### L 500.2500, L501.9100, L505.5000, L100.0100 #### [facility] [address] [place], [address] Absolute Neut 3.6 X10 3/uL Normal 2.0-7.7 [facility] Comment on above: Performed By: #### L 500.2500, L501.9100, L505.5000, L100.0100 #### [facility] [address] [place], [address] Basophils/100 WBC (Bld) 0.8 % Normal 0-1 [facility] Comment on above: Performed By: #### L 500.2500, L501.9100, L505.5000, L100.0100 #### [facility] [address] [place], [address] Eosinophils/100 WBC (Bld) 6.1 % High 0-5 [facility] Comment on above: Performed By: #### L 500.2500, L501.9100, L505.5000, L100.0100 #### [facility] [address] [place], [address] Erythrocyte distribution width (RBC) [Ratio] 12.4 % Normal 11.6-14.6 [facility] Comment on above: Performed By: #### L 500.2500, L501.9100, L505.5000, L100.0100 #### [facility] [address] [place], [address] Hematocrit (Bld) [Volume fraction] 42.5 % Normal 40-54 [facility] Comment on above: Performed By: #### L 500.2500, L501.9100, L505.5000, L100.0100 #### [facility] [address] [place], [address] Hemoglobin (Bld) [Mass/Vol] 14.2 g/dL Normal 13.0-16.5 [facility] Comment on above: Performed By: #### L 500.2500, L501.9100, L505.5000, L100.0100 #### [facility] [address] [place], [address] IG% 0.100 Normal 0.0-0.9 [facility] Comment on above: Result Comment: IG% - Immature Granulocytes (promyelocytes, myelocytes and metamyelocytes) > 1% indicates that a LEFT SHIFT is Present. Performed By: #### L 500.2500, L501.9100, L505.5000, L100.0100 #### [facility] [address] [place], [address] Lymphocytes/100 WBC (Bld) 35.5 % Normal 19-41 [facility] Comment on above: Performed By: #### L 500.2500, L501.9100, L505.5000, L100.0100 #### [facility] [address] [place], [address] MCH (RBC) [Entitic mass] 31.3 pg Normal 27.0-32.0 [facility] Comment on above: Performed By: #### L 500.2500, L501.9100, L505.5000, L100.0100 #### [facility] [address] [place], [address] MCHC (RBC) [Mass/Vol] 33.4 g/dL Normal 32-36 [facility] Comment on above: Performed By: #### L 500.2500, L501.9100, L505.5000, L100.0100 #### [facility] [address] [place], [address] MCV (RBC) [Entitic vol] 93.6 fL Normal 80-94 [facility] Comment on above: Performed By: #### L 500.2500, L501.9100, L505.5000, L100.0100 #### [facility] [address] [place], [address] Monocytes/100 WBC (Bld) 10.5 % High 0-10 [facility] Comment on above: Performed By: #### L 500.2500, L501.9100, L505.5000, L100.0100 #### [facility] [address] [place], [address] Neutrophils/100 WBC (Bld) 47.0 % Normal 47-70 [facility] Comment on above: Performed By: #### L 500.2500, L501.9100, L505.5000, L100.0100 #### [facility] [address] [place], [address] Nucleated RBC (Bld) [#/Vol] 0 10*3/uL Normal 0-5 [facility] Comment on above: Performed By: #### L 500.2500, L501.9100, L505.5000, L100.0100 #### [facility] [address] [place], [address] Platelet mean volume (Bld) [Entitic vol] 10.9 fL Normal 6.2-12.0 [facility] Comment on above: Performed By: #### L 500.2500, L501.9100, L505.5000, L100.0100 #### [facility] [address] [place], [address] Platelets (Bld) [#/Vol] 320 10*3/uL Normal 150-450 [facility] Comment on above: Performed By: #### L 500.2500, L501.9100, L505.5000, L100.0100 #### [facility] [address] [place], [address] RBC (Bld) [#/Vol] 4.54 10*6/uL Low 4.6-6.2 [facility] Comment on above: Performed By: #### L 500.2500, L501.9100, L505.5000, L100.0100 #### [facility] [address] [place], [address] RDW SD 43.2 fl Normal 35.1-43.9 [facility] Comment on above: Performed By: #### L 500.2500, L501.9100, L505.5000, L100.0100 #### [facility] [address] [place], [address] WBC (Bld) [#/Vol] 7.7 10*3/uL Normal 4.4-11.0 [facility] Comment on above: Performed By: #### L 500.2500, L501.9100, L505.5000, L100.0100 #### [facility] [address] [place], [address] Carbon dioxide, total [Moles /volume] in Central venous bloodOrdered By: David Squires on 11-14-2024 CO2 [Moles/Vol] 25.4 mmol/L 21.0-32.0 [facility] Chloride assayOrdered By: Tg Squires on 11-14-2024 Chloride [Moles/Vol] 106 mmol/L 98-108 [facility] Emergency Department Summary on 11-14-2024 Emergency Department Summary [facility] Medical Records Department [address] [place] [address] Emergency Department Summary 11/14/24 MR#: [id number] Acct: [id number] Name: GRANT DANIELLE A Rep #: [id number] : 1985 39 From: David Squires DO PCP: Dr. Dom Yanez MD Status:DEP ER Location: ED HPI History of Present Illness Chief Complaint: Syncope Detail of Chief Complaint: Syncope Informant: patient, EMS and police/deputy sheriff generalist/bailiff Narrative Narrative: Patient brought to the emergency department by EMS for possible syncopal episode. Patient was found in a flower bed reported by passerby's and police was called. Patient apparently told police that he was tired and was taking a nap. Patient is homeless. Please give him the option to come to the hospital get checked out or go to snf as apparently he refused to leave at the time. Patient tells me he thinks he is dehydrated. He denies chest pain or abdominal pain. Denies any injury. He denies alcohol or drug use. He admits occasional marijuana and tobacco. PFSH PFSH Medical History IV drug user Home Medications ???Medication ???Instructions ???Recorded ???Last Taken ???Type hydrocodone-acetamin ophen 5-325mg 1 - 2 tab PO Q4H PRN PRN Pain 3 0 09/03/17 Unknown Rx 5mg-325mg days #12 tabs amoxicillin 875 mg-potassium 1 tab PO BID #20 tabs 01/11/24 Unk nown Rx clavulanate 125 mg tablet Allergy/AdvReac Type Severity Reaction Status Date / Time cyclobenzaprine HCl (From Allergy Hives Verified 11/14/24 15:23 Flexeril) naproxen Allergy Rash Verified 11/14/24 15:23 tramadol HCl (From Ultram) Allergy Rash Verified 11/14/24 15:23 Social History Smoking Status: Current every day smoker tobacco type: cigarettes, e-cigarettes and smokeless tobacco ROS ROS ED ROS Narrative Syncopal episode Review of Systems ROS Unobtainable: other Constitutional Constitutional ED: Reports lethargy; Denies chills, fever(s), sweats or weight loss Eyes Eyes: Denies blurry vision, change in vision or diplopia ENT ENT ED: Denies rhinorrhea or sore throat Cardiovascular Cardiovascular: Denies chest pain, orthopnea or racing heartbeat Respiratory/Chest Respiratory/Chest: Denies cough, dyspnea, dyspnea on exertion, orthopnea or sputum Gastrointestinal Gastrointestinal: Denies abdominal pain, diarrhea, nausea or vomiting Genitourinary Genitourinary ED: Denies dysuria, hematuria or urinary frequency Musculoskeletal Musculoskeletal: Denies arthralgias, back pain, myalgias or neck pain Integumentary Denies abscess, Abrasions or rash Neurologic Neurologic: Denies headache(s) or weakness Psychiatric Psychiatric: Denies anxiety, depression or suicidal thoughts Endocrine Endocrinology: Denies polydipsia, polyphagia or polyuria Hematologic/Lymphati c Hematologic/Lymphati c: Denies easy bleeding, easy bruising or lymphadenopathy Allergic/Immunologic Allergic/Immunologic ED: Denies mouth swelling, tongue swelling or urticaria EXAM Physical Exam Narrative Exam Narrative: Patient awake although somewhat somnolent and falling asleep easily. Appropriate and following commands and answering questions. No external evidence of trauma. Const Vital Signs: 11/14/24 15:23 11/14/24 16:24 11/14/24 17:15 Temperature 98.4 F Temperature Source Oral Pulse Rate 74 60 Respiratory Rate 16 16 Respiratory Effort Normal Respiratory Pattern Normal Blood Pressure 101/84 H 119/66 Blood Pressure Mean 89 83 Pulse Ox 97 98 Oxygen Delivery Method Room Air Room Air Positive well nourished and well developed General Appearance ED: well developed and NAD HEENT Reports TM's clear and moist mucous membranes normocephalic and atraumatic; Negative for trauma or tenderness Tympanic Membrane ED: Yes TM's clear Eyes PERRL and EOMs intact bilaterally General Eye ED: Negative for pale conjunctiva or scleral icterus Neck no lymphadenopathy, supple and no JVD General: Negative for tenderness Chest Wall inspection of chest normal and palpation of chest normal Chest: Negative for tenderness Resp normal respiratory effort and clear to auscultation bilaterally Effort and Inspection: Negative for respiratory distress or pain with movement Auscultation: Negative for rhonchi, wheezes or diminished lung sounds Cardio regular rate, regular rhythm, S1 normal heart sound, S2 normal heart sound and no murmurs Peripheral Pulses: pulses 2+ throughout GI normal to inspection, nondistended, normoactive bowel sounds, soft to palpation, non-tender, non- distended and no masses Back/Spine no CVA tenderness and no thoracic nor lumbar tenderness Extremity normal to inspection General Extremety ED: Negative for edema General Extremity: Negative for edema Neuro oriented x3, CN's II-XII intact bilaterally, no sens (more content not included)... Normal [facility] Eosinophil percentageOrdered By: David Squires on 11-14-2024 Eosinophils/100 WBC (Bld) 6.1 % High 0-5 [facility] Erythrocyte distribution wid th ratioOrdered By: David Squires on 11-14-2024 Erythrocyte distribution width (RBC) [Ratio] 12.4 % 11.6-14.6 [facility] Erythrocyte distribution wid th standard deviationOrdered By: David Squires on 11-14-2024 Erythrocyte distribution width (RBC) [Ratio] 43.2 fl 35.1-43.9 [facility] Glomerular filtration rate ( GFR) estimation/1.73 sq m using serum, plasma, or whole bOrdered By: David Squires on 11-14-2024 GFR/1.73 sq M.predicted among non-blacks MDRD (S/P/Bld) [Vol rate/Area] 116 mL/min/{1.73_m2} >60 [facility] Comment on above: mL/min/1.73m2 CKD-EP I Creatinine Equation (2020) Hematocrit Auto (Bld) [Volum e fraction]Ordered By: David Squires on 11-14-2024 Hematocrit (Bld) [Volume fraction] 42.5 % 40-54 [facility] Hemoglobin measurementOrdere d By: David Squires on 11-14-2024 Hemoglobin (Bld) [Mass/Vol] 14.2 g/dL 13.0-16.5 [facility] Immature granulocytes/100 WB C Auto (Bld)Ordered By: David Squires on 11-14-2024 Immature granulocytes/100 WBC (Bld) 0.100 % 0.0-0.9 [facility] Comment on above: IG% - Immature Granu locytes (promyelocytes, myelocytes and metamyelocytes) > 1% indicates that a LEFT SHIFT is Present. MCV (mean corpuscular volume ) determinationOrdered By: David Squires on 11-14-2024 MCV (RBC) [Entitic vol] 93.6 fL 80-94 [facility] Mean corpuscular hemoglobin (MCH) determinationOrdered By: David Squires on 11-14-2024 MCH (RBC) [Entitic mass] 31.3 pg 27.0-32.0 [facility] Mean corpuscular hemoglobin concentration (MCHC) determinationOrdered By: David Squires on 11-14-2024 MCHC (RBC) [Mass/Vol] 33.4 g/dL 32-36 [facility] Mean platelet volume determi nationOrdered By: David Squires on 11-14-2024 Platelet mean volume (Bld) [Entitic vol] 10.9 fL 6.2-12.0 [facility] Monocyte percentageOrdered B y: David Squires on 11-14-2024 Monocytes/100 WBC (Bld) 10.5 % High 0-10 [facility] Neutrophil percentageOrdered By: David Nunezkristyn on 11-14-2024 Neutrophils/100 WBC (Bld) 47.0 % 47-70 [facility] Nucleated red blood cell per centageOrdered By: David Nunezkristyn on 11-14-2024 Nucleated RBC/100 WBC (Bld) [Ratio] 0 % 0-5 [facility] Platelet countOrdered By: Tg srinivas Nunezkristyn on 11-14-2024 Platelets (Bld) [#/Vol] 320 10*3/uL 150-450 [facility] Potassium measurement (mass/ volume)Ordered By: David Nunezkristyn on 11-14-2024 Potassium (Unsp spec) [Mass/Vol] 3.7 mmol/L 3.3-5.1 [facility] Comment on above: Hemolysis present, R esults could be affected. RBC Auto (Bld) [#/Vol]Ordere d By: David Nunezkristyn on 11-14-2024 RBC (Bld) [#/Vol] 4.54 10*6/uL Low 4.6-6.2 [facility] Serum creatinine measurement (mass/volume)Ordered By: David Nunezkristyn on 11-14-2024 Creatinine [Mass/Vol] 0.80 mg/dL 0.70-1.20 [facility] Serum glucose measurement (m ass/volume)Ordered By: David Nunezkristyn on 11-14-2024 Glucose [Mass/Vol] 110 mg/dL High 70-99 [facility] Serum or plasma calcium ivette urement (mass/volume)Ordered By: David Nunezkristyn on 11-14-2024 Calcium [Mass/Vol] 8.8 mg/dL 7.6-11.0 [facility] Serum or plasma ethanol ivette urement (mass/volume)Ordered By: David Nunezkristyn on 11-14-2024 Ethanol [Mass/Vol] mg/dL <10.1 [facility] Comment on above: This test is for med ical purposes only. The legal definition of intoxication varies according to local law. Serum or plasma urea nitroge n measurement (mass/volume)Ordered By: David Squires on 11-14-2024 Urea nitrogen [Mass/Vol] 9 mg/dL 4-19 [facility] Sodium levelOrdered By: Wendy Squires on 11-14-2024 Sodium [Moles/Vol] 141 mmol/L 133-145 [facility] Urine Drug Screen (VISTA)on 11-14-2024 AMPHETAMINES Normal <1000 ng/mL [facility] Comment on above: Result Comment: PT D EPARTED ER OK BY LSPARR Performed By: #### L 500.2500, L501.9100, L505.5000, L100.0100 #### [facility] [address] [place], [address] BARBITIURATES Normal < 200 ng/mL [facility] Comment on above: Result Comment: PT D EPARTED ER OK BY LSPARR Performed By: #### L 500.2500, L501.9100, L505.5000, L100.0100 #### [facility] [address] [facility] [address] BENZODIAZIPINE Normal < 200 ng/mL [facility] Comment on above: Result Comment: PT D EPARTED ER OK BY LSPARR Performed By: #### L 500.2500, L501.9100, L505.5000, L100.0100 #### [facility] [address] [place], [address] BUP Ur Drug Scr Normal < 200 ng/mL [facility] Comment on above: Result Comment: PT D EPARTED ER OK BY LSPARR Performed By: #### L 500.2500, L501.9100, L505.5000, L100.0100 #### [facility] [address] [place], [address] COCAINE Normal < 300 ng/mL [facility] Comment on above: Result Comment: PT D EPARTED ER OK BY LSPARR Performed By: #### L 500.2500, L501.9100, L505.5000, L100.0100 #### [facility] [address] [place], [address] Fentanyl Normal [facility] Comment on above: Result Comment: PT D EPARTED ER OK BY LSPARR Performed By: #### L 500.2500, L501.9100, L505.5000, L100.0100 #### [facility] [address] [place], [address] METHADONE Normal < 300 ng/mL [facility] Comment on above: Result Comment: PT D EPARTED ER OK BY LSPARR Performed By: #### L 500.2500, L501.9100, L505.5000, L100.0100 #### [facility] [address] [place], [address] OPIATES Normal < 300 ng/mL [facility] Comment on above: Result Comment: PT D EPARTED ER OK BY LSPARR Performed By: #### L 500.2500, L501.9100, L505.5000, L100.0100 #### [facility] [address] [place], [address] OXYCODONE Normal < 100 ng/mL [facility] Comment on above: Result Comment: PT D EPARTED ER OK BY LSPARR Performed By: #### L 500.2500, L501.9100, L505.5000, L100.0100 #### [facility] [address] [place], [address] PCP Normal < 25 ng/mL [facility] Comment on above: Result Comment: PT D EPARTED ER OK BY LSPARR Performed By: #### L 500.2500, L501.9100, L505.5000, L100.0100 #### [facility] [address] [place], [address] THC Normal < 50 ng/mL [facility] Comment on above: Result Comment: PT D EPARTED ER OK BY LSPARR Performed By: #### L 500.2500, L501.9100, L505.5000, L100.0100 #### [facility] [address] [place], [address] White blood cell (WBC) count Ordered By: David Squires on 11-14-2024 WBC (Bld) [#/Vol] 7.7 10*3/uL 4.4-11.0 [facility] GRANT DANIELLE ([id number]) 1985 Date Time Provider Department 01/15/24 MERY HIGGINBOTHAM [facility] During your visit today, we recorded the following information about you: Mery Higginbotham MA 01/22/2024 12:22 PM Addendum Left message for patient to contact office. Updated TDAP Was placed on Antibiotic and 10 suture removal with PCP Patient has also not been since in since 02/2022. Needs scheduled for physical. L/m on cell phone number listed. Home number is Disconnected. Patient needs scheduled for Er follow up and suture removal. Was in ER on 01/12/2024 needs 10 day suture removal. Patient is also past due for a physical. If patient wants to continue with Dr. Yanez he will need a physical. Mery Higginbotham MA Allergies As of Date: 01/15/2024 Noted Allergy Reaction ULTRAM (TRAMADOL HCL) 03/08/2012 2 - Rash Date Reviewed: 10/20/2022 Reviewed by: Camryn Bruno APRN.EPIDEMIOLOGIST - Fully Assessed Reason for Visit: Appointment [186] Cmt: ER appointment Prescriptions as of 01/23/2024 - divalproex ER (DEPAKOTE ER) 500 mg 24 hr tablet TAKE 2 TABLETS BY MOUTH DAILY AT BEDTIME - FLUoxetine (PROZAC) 40 mg capsule Take 40 mg by mouth every morning. - ARIPiprazole (ABILIFY) 5 mg tablet Take 5 mg by mouth once daily. - buPROPion SR (ZYBAN SR; WELLBUTRIN SR) 150 mg 12 hr tablet Take 150 mg by mouth once daily. Problem List As Of Date 01/15/2024 Noted Resolved Traumatic brain injury with loss of consciousne*06/04/19 15 Vision changes [H53.9] 06/05/2014 Slurred speech [R47.81] 06/05/2014 Expressive aphasia [R47.01] 06/05/2014 Pain in joint, lower leg [M25.569] 10/08/2014 Cephalalgia [R51.9] 01/04/2015 Poor dentition [K08.9] 01/04/2015 Pain, dental [K08.89] 01/04/2015 Pain medication agreement [Z02.89] 02/14/2015 Severe anxiety [F41.9] 11/26/2015 Elevated blood pressure reading without diagnos*11/26/2015 Moderate episode of recurrent major depressive *12/28/2015 PTSD (post-traumatic stress disorder) [F43.10] 12/28/2015 Bipolar disorder (HCC) [F31.9] 11/19/2017 Marijuana dependence (HCC) [F12.20] 11/19/2017 Acute hepatitis C virus infection without hepat*12/12/2017 Encounter Status:Closed by MERY HIGGINBOTHAM on 01/23/24 [facility] Emergency Department Summary on 01-11-2024 Emergency Department Summary [facility] Medical Records Department [address] [place] [address] Emergency Department Summary 01/11/24 MR#: [id number] Acct: [id number] Name: GRANT DANIELLE Rep #: [id number] : 1985 38 From: David Squires DO PCP: Dr. Dom Yanez MD Status:DEP ER Location: ED HPI History of Present Illness Chief Complaint: Bite PFSH PFSH Medical History IV drug user Home Medications ???Medication ???Instructions ???Recorded ???Last Taken ???Type hydrocodone-acetamin ophen 5-325mg 1 - 2 tab PO Q4H PRN PRN Pain 3 09/03/17 Unknown Rx 5mg-325mg days #12 tabs amoxicillin 875 mg-potassium 1 tab PO BID #20 tabs 01/11/24 Unknown Rx clavulanate 125 mg tablet Allergy/AdvReac Type Severity Reaction Status Date / Time cyclobenzaprine HCl (From Allergy Hives Verified 01/11/24 22:13 Flexeril) naproxen Allergy Rash Verified 01/11/24 22:13 tramadol HCl (From Ultram) Allergy Rash Verified 01/11/24 22:13 Social History Smoking Status: Current every day smoker tobacco type: cigarettes, e-cigarettes and smokeless tobacco EXAM Physical Exam Const Vital Signs: 01/11/24 22:12 Temperature 98 F Temperature Source Temporal Pulse Rate 87 Respiratory Rate 14 Blood Pressure 123/93 H Blood Pressure Mean 103 Pulse Ox 98 Oxygen Delivery Method Room Air Positive well nourished and well developed General Appearance ED: well developed and NAD HEENT Reports TM's clear and moist mucous membranes normocephalic and atraumatic; Negative for trauma or tenderness Tympanic Membrane ED: Yes TM's clear Eyes PERRL and EOMs intact bilaterally General Eye ED: Negative for pale conjunctiva or scleral icterus Neck no lymphadenopathy, supple and no JVD General: Negative for tenderness Chest Wall inspection of chest normal and palpation of chest normal Chest: Negative for tenderness Resp normal respiratory effort and clear to auscultation bilaterally Effort and Inspection: Negative for respiratory distress or pain with movement Auscultation: Negative for rhonchi, wheezes or diminished lung sounds Cardio regular rate, regular rhythm, S1 normal heart sound, S2 normal heart sound and no murmurs Peripheral Pulses: pulses 2+ throughout GI normal to inspection, nondistended, normoactive bowel sounds, soft to palpation, non-tender, non- distended and no masses Back/Spine no CVA tenderness and no thoracic nor lumbar tenderness Extremity normal to inspection Extremity Narrative: Left forearm-patient has a 3 cm laceration over the proximal forearm with multiple other small puncture wounds to the dorsum and volar aspect of the forearm. He is neurovascular intact distally. He has normal range of motion flexion extension of all digits. General Extremety ED: Negative for edema General Extremity: Negative for edema Neuro oriented x3, CN's II-XII intact bilaterally, no sensory deficits noted and gait normal Sensorium / Orientation: awake, alert, oriented to person, oriented to place and oriented to time Motor Exam: strength 5/5 throughout and strength abnormal Psych mental status grossly normal Skin no rashes or lesions noted and no wounds MDM MDM MDM Narrative Medical decision making narrative: Patient with dog bite to left forearm. Please see procedure note for suture repair. For the wounds had to be loosely approximated given that there was fat extruding. Patient will be started on Augmentin and given first dose in the emergency department. He was given tetanus booster. Patient does state that he has been drinking alcohol tonight and had 6 sliders. Patient also states that he is an addict and has abused heroin in the past. Patient will be referred to primary care physician on-call for no doc for follow-up to have sutures removed in 10 days. Advised to return if increasing pain, redness, swelling, purulent drainage, or condition worsen anyway. Procedures Lacerations Forearm lacerations: Length: 2.36 in Depth: Sub Q Shape: Linear Prep: [place]-Nya Laceration repair: Irrigated, Lidocaine and Local Irrigated (ml): 100 Number of Sutures/Wood: 6 Suture Information: Ethilon, Simple and 5-0 Comment: Patient has multiple puncture wounds to the volar and dorsum of the left forearm. Largest wound is about 3 cm with fat extruding and gaping. Patient also with 3 other smaller lacerations about a centimeter each 2 on the volar aspect of the forearm and one on the dorsum of the forearm. All the lacerations were loosely approximated as there was fat extruding from them. He tolerated procedure well. Wounds irrigated with copious saline and cleansed with [place]. Discharge Plan Triage Chief Complaint: Bite ED Provider: David Squires Dx/Rx/DC Orders Clinical Impression: Dog bite, Forearm laceration Inst (more content not included)... Normal [facility] Emergency Department Summary [facility] Medical Records Department [address] [place] [address] Emergency Department Summary 01/11/24 MR#: [id number] Acct: [id number] Name: GRANT DANIELLE Rep #: [id number] : 1985 38 From: David Squires DO PCP: Dr. Dom Yanez MD Status:DEP ER Location: ED HPI History of Present Illness Chief Complaint: Bite Detail of Chief Complaint: Dog bite to left forearm Informant: patient Narrative Narrative: Patient presents the emergency department with left forearm injury related to dog bite. Patient states the dog belongs to a brother from another mother. Patient does not not want to give any history otherwise. He is extremely histrionic and refuses to answer whether or not he has been drinking or using drugs. Denies any significant medical history. Unsure of his last tetanus shot. PFSH PFSH Home Medications ???Medication ???Instructions ???Recorded ???Last Taken ???Type hydrocodone-acetamin ophen 5-325mg 1 - 2 tab PO Q4H PRN PRN Pain 3 09/03/17 Unknown Rx 5mg-325mg days #12 tabs Allergy/AdvReac Type Severity Reaction Status Date / Time cyclobenzaprine HCl (From Allergy Hives Verified 01/11/24 22:13 Flexeril) naproxen Allergy Rash Verified 01/11/24 22:13 tramadol HCl (From Ultram) Allergy Rash Verified 01/11/24 22:13 Social History Smoking Status: Current every day smoker ROS ROS ED Review of Systems ROS Unobtainable: other Constitutional Constitutional ED: Reports lethargy; Denies chills, fever(s), sweats or weight loss Eyes Eyes: Denies blurry vision, change in vision or diplopia ENT ENT ED: Denies rhinorrhea or sore throat Cardiovascular Cardiovascular: Denies chest pain, orthopnea or racing heartbeat Respiratory/Chest Respiratory/Chest: Denies cough, dyspnea, dyspnea on exertion, orthopnea or sputum Gastrointestinal Gastrointestinal: Denies abdominal pain, diarrhea, nausea or vomiting Genitourinary Genitourinary ED: Denies dysuria, hematuria or urinary frequency Musculoskeletal Musculoskeletal: Reports other Details: Left forearm dog bite ; Denies arthralgias, back pain, myalgias or neck pain Integumentary Denies abscess, Abrasions or rash Neurologic Neurologic: Denies headache(s) or weakness Psychiatric Psychiatric: Denies anxiety, depression or suicidal thoughts Endocrine Endocrinology: Denies polydipsia, polyphagia or polyuria Hematologic/Lymphati c Hematologic/Lymphati c: Denies easy bleeding, easy bruising or lymphadenopathy Allergic/Immunologic Allergic/Immunologic ED: Denies mouth swelling, tongue swelling or urticaria EXAM Physical Exam Const Vital Signs: 01/11/24 22:12 Temperature 98 F Temperature Source Temporal Pulse Rate 87 Respiratory Rate 14 Blood Pressure 123/93 H Blood Pressure Mean 103 Pulse Ox 98 Oxygen Delivery Method Room Air Discharge Plan Triage Chief Complaint: Bite ED Provider: David Squires Dx/Rx/DC Orders Prescriptions: No Action hydrocodone-acetamin ophen 1 TABLET tablet 1 - 2 tab PO Q4H PRN PRN (Reason: Pain) 3 Days Qty: 12 0RF Primary Care Provider: Dom Yanez Referrals: Dom Yanez MD [Primary Care Provider] - Print Language: South Korean What to do if you have Problems For any increased pain, shortness of breath, bleeding, nausea or vomiting, chest pain, or any unexpected problems, contact your Primary Care Provider. Call [facility] ([phone]) or report to the closest Emergency Room. Call 911 if necessary. 01/12/24 0694 Cosigner Signature (if applicable): CC: Dr. Dom Yanez MD Signed [facility] 36on 01-07-2024 36 Patient does not have a working number, unable to reach. [facility] 36 Rx sent with no refills. Needs to reschedule appointment he no showed to on 12/12/23. Please schedule. [facility] 36 Prescription Request: Last medication check: 10/24/23 Last physical exam: 05/23/23 Last completed appointment: 11/28/23 Next scheduled appointment: none Last date of refill on this medication: 11/14/23 [facility] 36on 12-14-2023 36 Unable to call pt or MyChart pt to reschedule the missed 12/13 - appointment. [facility] 36on 12-12-2023 36 Grant missed the appointment scheduled at [facility] today. This appointment will need to be rescheduled. Pt does not have a phone number on file d/t not having a phone. [facility] Office Visiton 11-28-2023 Follow-up visit [id number] Grant Danielle 1985 M Date Provider Department Center 11/28/2023 [id number] CARSON [facility] Family History Problem Relation Age of Onset Emphysema Mother No Known Problems Father Family Status - Relation Status Age at Mother Father Level of Service:73535 CT OFFICE/OUTPATIENT ESTABLISHED LOW MDM 20 MIN Reason for Visit and Comments: Anxiety [9] Depression [32] - Bipolar Follow-up [092011] - 2 week [facility] Progress Noteon 11-28-2023 Progress Note Slightly improved on the increased dose of Paxil will give him another 2 weeks and have him come back and see how he is doing. [facility] Progress Note Slightly improved on the increased dose of Paxil will give him another 2 weeks and have him come back and see how he is doing. [facility] Progress Note 11/28/2023 Grant Danielle (: 1985) is a 38 y.o. male , Established patient, here for evaluation of the following chief complaint(s): Anxiety, Depression (Bipolar/), and Follow-up (2 week ) ASSESSMENT/PLAN: 1. Bipolar affective disorder, currently depressed, moderate (HCC) Assessment & Plan: Slightly improved on the increased dose of Paxil will give him another 2 weeks and have him come back and see how he is doing. 2. PTSD (post-traumatic stress disorder) Assessment & Plan: Slightly improved on the increased dose of Paxil will give him another 2 weeks and have him come back and see how he is doing. Follow up in about 2 weeks (around 12/12/2023). SUBJECTIVE/OBJECTIVE : JASPAL Bullock comes in today for follow-up on his bipolar, we increased his medication to 40 mg of Paxil and he says he feels like it is starting to help however he is only been on it for about 10 days. He said he has been in [facility] for the last almost 2 weeks and he missed about 4 days of his medication. He currently has no complaints. Review of Systems Constitutional: Negative for chills and fever. HENT: Negative for congestion, ear pain, rhinorrhea and sinus pressure. Respiratory: Negative for cough and shortness of breath. Cardiovascular: Negative for chest pain and palpitations. Psychiatric/Behavior al: Positive for dysphoric mood. Negative for hallucinations, self-injury and suicidal ideas. The patient is nervous/anxious. Vitals: 11/28/23 1336 BP: 134/84 Pulse: 82 SpO2: 98% Weight: 166 lb 3.2 oz (75.4 kg) Height: 6' (1.829 m) Physical Exam Vitals and nursing note reviewed. Constitutional: General: He is not in acute distress. Appearance: Normal appearance. HENT: Head: Normocephalic. Mouth/Throat: Mouth: Mucous membranes are moist. Pharynx: Oropharynx is clear. Eyes: Extraocular Movements: Extraocular movements intact. Pupils: Pupils are equal, round, and reactive to light. Cardiovascular: Rate and Rhythm: Normal rate and regular rhythm. Heart sounds: Normal heart sounds. Pulmonary: Effort: Pulmonary effort is normal. Breath sounds: Normal breath sounds. Abdominal: General: Bowel sounds are normal. Palpations: Abdomen is soft. Musculoskeletal: Cervical back: Neck supple. Neurological: Mental Status: He is alert. An electronic signature was used to authenticate this note. Abimael Carson MD 11/28/2023 2:49 PM [facility] Progress Note Patient verified by last name and date of . [facility] Office Visiton 11-14-2023 Follow-up visit [id number] BentonGrant ojeda 1985 M Date Provider Department Center 11/14/2023 [id number] History Problem Relation Age of Onset Emphysema Mother No Known Problems Father Family Status - Relation Status Age at Mother Father Level of Service:51042 CT OFFICE/OUTPATIENT ESTABLISHED LOW [facility] 20 MIN Reason for Visit and Comments: Anxiety [9] - Getting worse Depression [32] - bipolar Follow-up [021096] - 3 week ER Follow-up [831] - [facility] 11/12/23- pt is asking maybe to try rehab facility [facility] Progress Noteon 11-14-2023 Progress Note 11/14/2023 Grant Danielle (: 1985) is a 38 y.o. male , Established patient, here for evaluation of the following chief complaint(s): Anxiety (Getting worse ), Depression (bipolar), Follow-up (3 week ), and ER Follow-up ([facility] 11/12/23- pt is asking maybe to try rehab facility ) ASSESSMENT/PLAN: 1. Bipolar affective disorder, currently depressed, moderate ([facility]) Assessment & Plan: We will increase his Paxil to 40 mg, new Rx sent he is to follow-up in 2 weeks and at that time we will consider adding a mood stabilizer. 2. Severe anxiety Assessment & Plan: Currently active we will increase his Paxil to 40 mg daily and follow-up in 2 weeks. Follow up in about 2 weeks (around 11/28/2023). SUBJECTIVE/OBJECTIVE : JASPAL Bullock comes in today for follow-up on his depression/bipolar he is continuing to take his Paxil but he did lose some pills and he was off of it for couple of days. Says he does not feel like it is really helping much. He also has been in the ER twice since we saw him once he overdosed on heroin and meth. At that time he was found unresponsive but no evidence of drug use at that time. Review of Systems Constitutional: Negative for chills and fever. HENT: Negative for congestion, ear pain, rhinorrhea and sinus pressure. Respiratory: Negative for cough and shortness of breath. Cardiovascular: Negative for chest pain and palpitations. Vitals: 11/14/23 0944 BP: 135/87 Pulse: 66 SpO2: 97% Weight: 169 lb (76.7 kg) Height: 6' (1.829 m) Physical Exam Vitals and nursing note reviewed. Constitutional: General: He is not in acute distress. Appearance: Normal appearance. HENT: Head: Normocephalic. Mouth/Throat: Mouth: Mucous membranes are moist. Pharynx: Oropharynx is clear. Eyes: Extraocular Movements: Extraocular movements intact. Pupils: Pupils are equal, round, and reactive to light. Cardiovascular: Rate and Rhythm: Normal rate and regular rhythm. Heart sounds: Normal heart sounds. Pulmonary: Effort: Pulmonary effort is normal. Breath sounds: Normal breath sounds. Musculoskeletal: Cervical back: Neck supple. Neurological: Mental Status: He is alert. An electronic signature was used to authenticate this note. Abimael Carson MD 11/14/2023 10:03 AM [facility] Progress Note Patient verified by last name and date of . [facility] Progress Note Currently active we will increase his Paxil to 40 mg daily and follow-up in 2 weeks. [facility] Progress Note We will increase his Paxil to 40 mg, new Rx sent he is to follow-up in 2 weeks and at that time we will consider adding a mood stabilizer. [facility] 36on 11-13-2023 36 Patient notified [facility] 36 He needs to file a police report bring us a copy of it and then we can send in a prescription for enough pills till he can get his refill filled. [facility] 36 Patient stopped in and said his pills were stolen and there were about 10 left. States he was unsure if he should file a police report or if there is anything that we can do? [facility] ECG 12-LEADon 11-12-2023 ECG 12-LEAD IMPRESSION: Sinus rhythm RSR' in V1 When compared to 07/20/2023 there has been no significant change Electronically Signed On 11-12-2023 16:35:16 EDT by Shane Zamarripa [facility] ED Nursing Noteon 11-12-2023 ED Nursing Note This nurse to patient's room to give him discharge papers. Patient became angry and aggressive stating he doesn't want to leave. Patient screaming obscenities to this nurse, physician and application security architect. Patient making claims that he shit himself and asked if security wanted to wipe his ass. Patient then began throwing food across the room, stating that he needs help and were not giving him any. Patient then got up from ED bed and left via the ambulance, hitting the door on the way out, without his shoes. Physician picked up shoes and sat them down outside of ambulance door. Patient then came back to get shoesyelling more obscenities at application security architect. This nurse then called 911 and made a report with [place] police informing them the patient is currently walking down [facility] and to be on the lookout for patient as he is extremely aggressive and violent. Dasha Delarosa RN 11/12/23 9815 [facility] ED Nursing Note Patient arrived via squad to room 6. Patient ambulated from [facility] to ED bed without difficulty. Medics state patient was found passed out behind an air conditioning unit and a 3rd constitution party called EMS. Patient states he had an anxiety attack 2 hrs prior to passing out. Patient states he is constantly depressed because he is homeless. Patient states he is supposed to be on medication but has not taken any for the past 3 days. Patient verbally aggressive and rude to staff during triage. [facility] ED Provider Noteon ED Provider Note EMERGENCY DEPARTMENT ENCOUNTER Pt Name: Grant Danielle Birthdate 1985 Date of evaluation: 11/12/2023 ED Provider: Shane Zamarripa MD CHIEF COMPLAINT Chief Complaint Patient presents with Depression History from patient and EMS HISTORY OF PRESENT ILLNESS (Location/Symptom, Timing/Onset, Context/Setting, Quality, Duration, Modifying Factors, Severity) Note limiting factors. I wore appropriate PPE for the entirety of this encounter. HPI Grant Danielle is a 38 y.o. who presents to the emergency department complaining of not wanting to be here. Patient states that he may have passed out because he became anxious. He states the last time he passed out was because of drug use. Denies headache chest pain abdominal pain. Denies alcohol or street drugs today. Was found by a bystander not responsive and EMS was called. Unremarkable transport. Patient states he is homeless and was trying to sleep. Nursing Notes were reviewed. Limitations to history: None Outside historians: EMS REVIEW OF SYSTEMS Review of Systems Constitutional: Negative for fever. Eyes: Negative for visual disturbance. Respiratory: Negative for shortness of breath. Cardiovascular: Negative for chest pain. Gastrointestinal: Negative for abdominal pain. Genitourinary: Negative for difficulty urinating. Musculoskeletal: Negative for back pain and neck pain. Skin: Negative for rash. Neurological: Negative for headaches. Psychiatric/Behavior al: Negative for self-injury and suicidal ideas. Pertinent positives and negatives as per HPI PAST MEDICAL HISTORY Past Medical History: Diagnosis Date ADHD Anemia Depression PTSD (post-traumatic stress disorder) Substance abuse ([facility]) ([facility]) TBI (traumatic brain injury) ([facility]) SURGICAL HISTORY History reviewed. No pertinent surgical history. CURRENT MEDICATIONS Previous Medications PAROXETINE (PAXIL) 20 MG TABLET Take 1 tablet (20 mg) by mouth every morning. ALLERGIES Cyclobenzaprine, Nsaids, and Tramadol FAMILY HISTORY Family History Problem Relation Name Age of Onset Emphysema Mother No Known Problems Father SOCIAL HISTORY Social History Socioeconomic History Marital status: Tobacco Use Smoking status: Every Day Current packs/day: 1.00 Average packs/day: 1 pack/day for 20.0 years (20.0 ttl pk-yrs) Types: Cigarettes Smokeless tobacco: Never Vaping Use Vaping status: Never Used Substance and Sexual Activity Alcohol use: Not Currently Drug use: Yes Types: Marijuana, Heroin Comment: pt states he is not using Sexual activity: Yes Partners: Female Social Determinants of Health Financial Resource Strain: High Risk (05/23/2023) Overall Financial Resource Strain (CARDIA) Difficulty of Paying Living Expenses: Very hard Food Insecurity: Food Insecurity Present (05/23/2023) Hunger Vital Sign Worried About Running Out of Food in the Last Year: Often true Ran Out of Food in the Last Year: Often true Transportation Needs: No Transportation Needs (05/23/2023) PRAPARE - Transportation Lack of Transportation (Medical): No Lack of Transportation (Non-Medical): No Physical Activity: Sufficiently Active (05/23/2023) Exercise Vital Sign Days of Exercise per Week: 7 days Minutes of Exercise per Session: 30 min Housing Stability: High Risk (10/18/2023) Housing Stability Vital Sign Unable to Pay for Housing in the Last Year: Yes Unstable Housing in the Last Year: Yes SCREENINGS PHYSICAL EXAM ED Triage Vitals [11/12/23 1552] Temp Heart Rate Resp BP 36.5 ?C (97.7 ?F) 79 18 134/81 SpO2 Temp Source Heart Rate Source Patient Position 100 % Temporal Monitor Sitting BP Location FiO2 (%) Right arm -- Physical Exam Constitutional: Appearance: Normal appearance. HENT: Head: Normocephalic and atraumatic. Eyes: Extraocular Movements: Extraocular movements intact. Pupils: Pupils are equal, round, and reactive to light. Cardiovascular: Rate and Rhythm: Normal rate. Pulmonary: Effort: Pulmonary effort is normal. Musculoskeletal: General: Normal range of motion. Skin: General: Skin is warm and dry. Capillary Refill: Capillary refill takes less than 2 seconds. Neurological: General: No focal deficit present. Mental Status: He is alert. Not febrile not toxic Denies suicidal or homicidal thoughts Occasionally hostile but cooperative DIAGNOSTIC RESULTS Procedures/EKG: EKG was reviewed by myself. Physician EKG interpretation can be found in [facility] EMERGENCY DEPARTMENT COURSE and DIFFERENTIAL DIAGNOSIS/MDM: Vitals: Vitals: 11/12/23 1552 BP: 134/81 BP Location: Right arm Patient Position: Sitting Pulse: 79 Resp: 18 Temp: 36.5 ?C (97.7 ?F) TempSrc: Temporal SpO2: 100% Weight: 68 kg (150 lb) Medications - No data to display Medical Decision Making and ED Course The patient presented with a chief complaint of unresponsive. The differential diagnos (more content not included)... [facility] No Panel Informationon 11-11 P [place] 36 degrees [facility] CT Interval 120 ms [facility] QRS [place] 69 degrees [facility] QRSD Interval 106 ms [facility] QT Interval 379 ms [facility] QTC Interval 423 ms [facility] T Wave [place] 66 degrees [facility] Sinus rhythm RSR' in V1 When compared to 07/20/2023 there has been no significant change Electronically Signed On 11-12-2023 16:35:16 EDT by Shane Zamarripa Shane Pollock MD - 11/12/2023 IMPRESSION: Sinus rhythm RSR' in V1 When compared to 07/20/2023 there has been no significant change Electronically Signed On 11-12-2023 16:35:16 EDT by Shane Zamarripa [facility] Vital signson 11-12-2023 Heart rate 75 /min bpm [facility] Progress Noteon 11-09-2023 Progress Note Chart reviewed of ED follow up Seen in [facility] ED on 11/06/23 Reason: Drug Overdose Discharge instructions: Follow up with Abimael Carson MD Patient has appointment scheduled with PCP on 11/14/23. [facility] ED Nursing Noteon 11-07-2023 ED Nursing Note Steady gait out of ER Ca Will RN 11/07/23 0725 [facility] ED Nursing Note Steady gait to bathroom. Returned to room and advised that is free to leave. Asking where his belongings are-advised that everything he came with is in the room. Has socks, shoes, shorts, shirt Ca Will RN 11/07/23 0725 [facility] CBC W Auto Differential pane l (Bld)on 11-06-2023 Basophils (Bld) [#/Vol] 0.1 10*3/uL 0.0 - 0.2 10*3/uL [facility] Basophils/100 WBC (Bld) 1.1 % 0.0 - 2.0 % [facility] Eosinophils (Bld) [#/Vol] 0.2 10*3/uL 0.0 - 0.5 10*3/uL [facility] Eosinophils/100 WBC (Bld) 2.8 % 0.0 - 6.0 % [facility] Erythrocyte distribution width (RBC) [Ratio] 13.8 % 11.5 - 15.0 % [facility] Hematocrit (Bld) [Volume fraction] 44.0 % 40.0 - 52.0 % [facility] Hemoglobin (Bld) [Mass/Vol] 14.7 g/dL 13.0 - 18.0 g/dL [facility] Immature granulocytes (Bld) [#/Vol] 0.0 10*3/uL NINF - 0.1 10*3/uL [facility] Immature granulocytes/100 WBC (Bld) 0.1 % 0.0 - 2.0 % [facility] Interpretation and review of laboratory results Normal [facility] Lymphocytes (Bld) [#/Vol] 3.1 10*3/uL 1.0 - 4.3 10*3/uL [facility] Lymphocytes/100 WBC (Bld) 41.2 % 15.0 - 45.0 % [facility] MCH (RBC) [Entitic mass] 31.8 pg 26.0 - 34.0 pg [facility] MCHC (RBC) [Mass/Vol] 33.4 % 30.5 - 36.0 % [facility] MCV (RBC) [Entitic vol] 95.2 fL 77.0 - 99.0 fL [facility] Monocytes (Bld) [#/Vol] 0.7 10*3/uL 0.0 - 0.9 10*3/uL [facility] Monocytes/100 WBC (Bld) 9.1 % 5.0 - 13.0 % [facility] Neutrophils (Bld) [#/Vol] 3.5 10*3/uL 1.8 - 7.5 10*3/uL [facility] Neutrophils/100 WBC (Bld) 45.7 % 38.0 - 82.0 % [facility] Nucleated RBC/100 WBC (Bld) [Ratio] 0.0 % [facility] Platelet mean volume (Bld) [Entitic vol] 9.9 fL 9.0 - 12.7 fL [facility] Comment on above: MPV is a calculated measurement using platelet volume ratio Platelets (Bld) [#/Vol] 381 10*3/uL 140 - 440 10*3/uL [facility] RBC (Bld) [#/Vol] 4.62 10*6/uL 4.40 - 5.9 0 10*6/uL [facility] WBC (Bld) [#/Vol] 7.6 10*3/uL 3.6 - 10.7 10*3/uL [facility] CBC WITH AUTO DIFFERENTIALon 11-06-2023 Basophils (Bld) [#/Vol] 0.1 10*3/uL Normal 0.0-0.2 [facility] Comment on above: Performed By: #### L [id number] ####Packerhead Machine Operator: JERARDO NICHOLE ([id number])[facility] GAYLA RITTMAN (SWRLAB)[address] [place] [address] [place] Basophils/100 WBC (Bld) 1.1 % Normal 0.0-2.0 S [facility] Comment on above: Performed By: #### L [id number] ####Packerhead Machine Operator: JERARDO NICHOLE ([id number])[facility] G[facility]LA [facility]ITTMAN (SWRLAB)[address] [place] [address] [place] Eosinophils (Bld) [#/Vol] 0.2 10*3/uL Normal 0.0-0.5 [facility] Comment on above: Performed By: #### L [id number] ####Packerhead Machine Operator: JERARDO NICHOLE ([id number])[facility] GAYLA RITTMAN (SWRLAB)[address] [place] [address] [place] Eosinophils/100 WBC (Bld) 2.8 % Normal 0.0-6.0 [facility] Comment on above: Performed By: #### L [id number] ####Packerhead Machine Operator: JERARDO NICHOLE ([id number])[facility] GAYLA RITTMAN (SWRLAB)[address] [place] [address] Erythrocyte distribution width (RBC) [Ratio] 13.8 % Normal 11.5-15.0 [facility] Comment on above: Performed By: #### L [id number] ####Packerhead Machine Operator: JERARDO NICHOLE ([id number])[facility] SHUKLA RITTMAN (SWRLAB)[address] [place] [address] Hematocrit (Bld) [Volume fraction] 44.0 % Normal 40.0-52.0 [facility] Comment on above: Performed By: #### L [id number] ####Packerhead Machine Operator: JERARDO NICHOLE ([id number])[facility] SHUKLA RITTMAN (SWRLAB)[address] [place] [address] Hemoglobin (Bld) [Mass/Vol] 14.7 g/dL Normal 13.0-18.0 [facility] Comment on above: Performed By: #### L [id number] ####Packerhead Machine Operator: JERARDO NICHOLE ([id number])[facility] SHUKLA RITTMAN (SWRLAB)[address] [place] [address] IMMATURE GRANS % 0.1 % Normal 0.0-2.0 [facility] Comment on above: Performed By: #### L [id number] ####Packerhead Machine Operator: JERARDO NICHOLE ([id number])[facility] SHUKLA RITTMAN (SWRLAB)[address] [place] [address] IMMATURE GRANS ABSOLUTE 0.0 10*3/uL Normal <0.1 [facility] Comment on above: Performed By: #### L [id number] ####Packerhead Machine Operator: JERARDO NICHOLE ([id number])[facility] SHUKLA RITTMAN (SWRLAB)[address] [place] [address] [place] Lymphocytes (Bld) [#/Vol] 3.1 10*3/uL Normal 1.0-4.3 [facility] Comment on above: Performed By: #### L [id number] ####Packerhead Machine Operator: JERARDO NICHOLE ([id number])JEANNA SHUKLA RITTMAN (SWRLAB)[address] [place] [address] [place] Lymphocytes/100 WBC (Bld) 41.2 % Normal 15.0-45.0 [facility] Comment on above: Performed By: #### L [id number] ####Packerhead Machine Operator: JERARDO NICHOLE ([id number])JEANNA SHUKLA RITTMAN (SWRLAB)[address] [place] [address] MCH (RBC) [Entitic mass] 31.8 pg Normal 26.0-34.0 [facility] Comment on above: Performed By: #### L [id number] ####Packerhead Machine Operator: JERARDO NICHOLE ([phone])[facility] HOSPITALNsah SHUKLA RITTMAN (SWRLAB)[address] [place] [address] MCHC 33.4 % Normal 30.5-36.0 [facility] Comment on above: Performed By: #### L [id number] ####Packerhead Machine Operator: JERARDO NICHOLE ([phone])[facility]OSPITALNash HSUKLA RITTMAN (SWRLAB)[address] [place] [address] [place] MCV (RBC) [Entitic vol] 95.2 fL Normal 77.0-99.0 S [facility] Comment on above: Performed By: #### L [id number] ####Packerhead Machine Operator: JERARDO NICHOLE ([phone])[facility]OSPITALNash SHUKLA RITTMAN (SWRLAB)[address] [place] [address] [place] Monocytes (Bld) [#/Vol] 0.7 10*3/uL Normal 0.0-0.9 [facility] Comment on above: Performed By: #### L [id number] ####Packerhead Machine Operator: JERARDO NICHOLE ([id number])[facility]OSPITALNash SHUKLA RITTMAN (SWRLAB)[address] [place] [address] [place] Monocytes/100 WBC (Bld) 9.1 % Normal 5.0-13.0 S [facility] Comment on above: Performed By: #### L [id number] ####Packerhead Machine Operator: JERARDO NICHOLE ([phone])[facility]OSPITALNash SHUKLA RITTMAN (SWRLAB)[address] [place] [address] [place] NEUTROPHILS ABSOLUTE 3.5 10*3/uL Normal 1.8-7.5 [facility] Comment on above: Performed By: #### L [id number] ####Packerhead Machine Operator: JERARDO NICHOLE ([phone])JEANNA SHUKLA RITTMAN (SWRLAB)[address] [place] [address] Neutrophils/100 WBC (Bld) 45.7 % Normal 38.0-82.0 [facility] Comment on above: Performed By: #### L [id number] ####Packerhead Machine Operator: JERARDO NICHOLE ([phone])JEANNA SHUKLA RITTMAN (SWRLAB)[address] [place] [address] NRBC 0.0 /100 WBCs Normal 0.0-2.0 [facility] Comment on above: Performed By: #### L [id number] ####Packerhead Machine Operator: JERARDO NICHOLE ([phone])[facility]PITALNash SHUKLA RITTMAN (SWRLAB)[address] [place] [address] Platelet mean volume (Bld) [Entitic vol] 9.9 fL Normal 9.0-12.7 [facility] Comment on above: Result Comment: MPV is a calculated measurement using platelet volume ratio Performed By: #### L [id number] ####Packerhead Machine Operator: JERARDO NICHOLE ([phone])[facility]OSPITALNash SHUKLA RITTMAN (SWRLAB)[address] [place] [address] [place] Platelets (Bld) [#/Vol] 381 10*3/uL Normal 140-440 [facility] Comment on above: Performed By: #### L [id number] ####Packerhead Machine Operator: JERARDO NICHOLE ([phone])[facility]ITALNash SHUKLA RITTMAN (SWRLAB)[address] [place] [address] [place] RBC (Bld) [#/Vol] 4.62 10*6/uL Normal 4.40-5.90 [facility] Comment on above: Performed By: #### L [id number] ####Packerhead Machine Operator: JERARDO NICHOLE ([phone])[facility]ITALNash SHUKLA RITTMAN (SWRLAB)[address] [place] [address] WBC (Bld) [#/Vol] 7.6 10*3/uL Normal 3.6-10.7 [facility] Comment on above: Performed By: #### L [id number] ####Packerhead Machine Operator: JERARDO NICHOLE ([phone])[facility]OSPITALNash SHUKLA RITTMAN (SWRLAB)[address] CKon 11-06-2023 CK [Catalytic activity/Vol] 269 U/L High 30-170 [facility] Comment on above: Performed By: #### Rea KEMP46, LAB17, LAB62 ####Packerhead Machine Operator: JERARDO NICHOLE ([phone])[facility]PITALNash SHUKLA RITTMAN (SWRLAB)[address] [place] [address] COMPREHENSIVE METABOLIC PANE Chavo 11-06-2023 Albumin [Mass/Vol] 4.0 g/dL Normal 3.5-5.0 [facility] Comment on above: Performed By: #### Rea KEMP46, LAB17, LAB62 ####Packerhead Machine Operator: JERARDO NICHOLE ([phone])[facility]PITALNash SHUKLA RITTMAN (SWRLAB)[address] [place] [address] ALP [Catalytic activity/Vol] 114 U/L Normal 38-126 [facility] Comment on above: Performed By: #### L AB46, LAB17, LAB62 ####Packerhead Machine Operator: JERARDO NICHOLE ([id number])[facility]ITALNash SHUKLA RITTMAN (SWRLAB)[address] ALT [Catalytic activity/Vol] 35 U/L Normal 0-49 [facility] Comment on above: Performed By: #### Rea AB46, LAB17, LAB62 ####Packerhead Machine Operator: JERARDO NICHOLE ([phone])[facility]PITALNash SHUKLA RITTMAN (SWRLAB)[address] [place] [address] [place] Anion gap [Moles/Vol] 12 mmol/L Normal 3-13 [facility] Comment on above: Performed By: #### L AB46, LAB17, LAB62 ####Packerhead Machine Operator: JERARDO NICHOLE ([id number])[facility]PITALNash SHUKLA RITTMAN (SWRLAB)[address] [place] [address] [place] AST [Catalytic activity/Vol] 51 U/L High 15-46 [facility] Comment on above: Performed By: #### Rea KEMP46, LAB17, LAB62 ####Packerhead Machine Operator: JERARDO NICHOLE ([phone])[facility]PITALNash SHUKLA RITTMAN (SWRLAB)[address] Bilirubin [Mass/Vol] 0.5 mg/dL Normal 0.2-1.3 [facility] Comment on above: Performed By: #### Rea VICENTE, LAB17, LAB62 ####Packerhead Machine Operator: JERARDO NICHOLE ([phone])[facility]ITALNash SHUKLA RITTMAN (SWRLAB)[address] [place] [address] [place] Calcium [Mass/Vol] 8.6 mg/dL Normal 8.4-10.4 [facility] Comment on above: Performed By: #### Rea KEMP46, LAB17, LAB62 ####Packerhead Machine Operator: JERARDO NICHOLE ([phone])[facility]OSPITALNash SHUKLA RITTMAN (SWRLAB)[address] [place] [address] [place] Chloride [Moles/Vol] 102 mmol/L Normal 98-107 [facility] Comment on above: Performed By: #### Rea KEMP46, LAB17, LAB62 ####Packerhead Machine Operator: JERARDO NICHOLE ([phone])[facility]PITALNash SHUKLA RITTMAN (SWRLAB)[address] [place] [address] [place] CO2 [Moles/Vol] 23 mmol/L Normal 22-30 [facility] Comment on above: Performed By: #### L AB46, LAB17, LAB62 ####Packerhead Machine Operator: JERARDO NICHOLE ([id number])[facility]OSPITALNash SHUKLA RITTMAN (SWRLAB)[address] [place] [address] [place] Creatinine [Mass/Vol] 0.85 mg/dL Normal 0.66-1.25 [facility] Comment on above: Performed By: #### Rea AB46, LAB17, LAB62 ####Packerhead Machine Operator: JERARDO NICHOLE ([phone])[facility]PITALNash SHUKLA RITTMAN (SWRLAB)[address] [place] [address] GLOMERULAR FILTRATION RATE ML/MIN/1.73 SQ M.PREDICTED >90.0 Normal >60.0 [facility] Comment on above: Result Comment: Calc ulation based on the Chronic Kidney Disease Epidemiology Collaboration (CKD-EPI) equation refit without adjustment for race Performed By: #### Rea VICENTE, LAB17, LAB62 ####Packerhead Machine Operator: JERARDO NICHOLE ([phone])[facility]PITALNash SHUKLA RITTMAN (SWRLAB)[address] [place] [address] [place] Glucose [Mass/Vol] 197 mg/dL High 70-100 [facility] Comment on above: Performed By: #### Rea KEMP46, LAB17, LAB62 ####Packerhead Machine Operator: JERARDO NICHOLE ([id number])[facility]PITALNash SHUKLA RITTMAN (SWRLAB)[address] [place] [address] [place] Potassium [Moles/Vol] 3.2 mmol/L Low 3.5-5.1 [facility] Comment on above: Performed By: #### Rea AB46, LAB17, LAB62 ####Packerhead Machine Operator: JERARDO NICHOLE ([phone])[facility]ITALNash SHUKLA RITTMAN (SWRLAB)[address] [place] [address] [place] Protein [Mass/Vol] 6.8 g/dL Normal 6.3-8.2 [facility] Comment on above: Performed By: #### Rea AB46, LAB17, LAB62 ####Packerhead Machine Operator: JERARDO NICHOLE ([id number])SUMMNash SHUKLA RITTMAN (SWRLAB)[address] Sodium [Moles/Vol] 137 mmol/L Normal 135-145 [facility] Comment on above: Performed By: #### L AB46, LAB17, LAB62 ####Packerhead Machine Operator: JERARDO NICHOLE ([id number])[facility] CENTERGAYLA NILESHTMAN (SWRLAB)[address] Urea nitrogen [Mass/Vol] 13 mg/dL Normal 9-20 [facility] Comment on above: Performed By: #### L AB46, LAB17, LAB62 ####Packerhead Machine Operator: JERARDO NICHOLE ([phone])[facility] MED[facility] CENTERGAYLA REBECCAAN (SWRLAB)[address] Comprehensive metabolic 1998 panelon 11-06-2023 Albumin [Mass/Vol] 4.0 g/dL 3.5 - 5.0 g/dL [facility] ALP [Catalytic activity/Vol] 114 U/L 38 - 126 U/L [facility] ALT [Catalytic activity/Vol] 35 U/L 0 - 49 U/L [facility] Anion gap [Moles/Vol] 12 mmol/L 3 - 13 mmol/L [facility] AST [Catalytic activity/Vol] 51 U/L High 15 - 46 U/L [facility] Bilirubin [Mass/Vol] 0.5 mg/dL 0.2 - 1 .3 mg/dL [facility] Calcium [Mass/Vol] 8.6 mg/dL 8.4 - 10. 4 mg/dL [facility] Chloride [Moles/Vol] 102 mmol/L 98 - 10 7 mmol/L [facility] CO2 [Moles/Vol] 23 mmol/L 22 - 30 mmol/L [facility] Creatinine [Mass/Vol] 0.85 mg/dL 0.66 - 1.25 mg/dL [facility] GFR/1.73 sq M.predicted MDRD (S/P/Bld) [Vol rate/Area] - PINF [facility] Comment on above: Calculation based on the Chronic Kidney Disease Epidemiology Collaboration (CKD-EPI) equation refit without adjustment for race Glucose [Mass/Vol] 197 mg/dL High 70 - 100 mg/dL [facility] Potassium [Moles/Vol] 3.2 mmol/L Low 3.5 - 5.1 mmol/L [facility] Protein [Mass/Vol] 6.8 g/dL 6.3 - 8.2 g/dL [facility] Sodium [Moles/Vol] 137 mmol/L 135 - 145 mmol/L [facility] Urea nitrogen [Mass/Vol] 13 mg/dL 9 - 20 mg/d L [facility] ED Nursing Noteon 11-06-2023 ED Nursing Note Glucose 209, SPO2 decreased to 2 liters Normal [facility] ED Nursing Note Pt sleeping soundly. Pt diaphoretic. Cool cloths placed on pts head and neck. Pt does not arouse easily. Pt will not answer questions. Pt arouses w painful stimuli. narcan 0.4 mg given ivp. Pt with purposeful movements after the narcan. Pt will not answer questions but does pull the blanket of head and curled up in to a position. VSS, pt remains NSR on monitor Normal [facility] ED Nursing Note Pt arouses to voice. Pt positioned for comfort. VSS Normal [facility] ED Nursing Note Pt awake and alert. Pt given dc instructions and follow up care. Pt verbalizes understanding. IV dc'd, cannula intact. Pt waiting for ride home in [facility] Normal [facility] ED [facility]. Pt was found on the ground w pinpoint pupils per ems. Narcan 8mg given intranasal sea captain. Pt arouses w painful stimuli upon arrival. Pt admits to using heroin and meth. Pupils 3mm, equal and reactive. Pt remains drowsy. Narcan 4mg given intranasal upon arrival. IV started, labs drawn. Pt placed on tele, pt NSR in the 80's. Pt on 6L O2 via nasal cannula Normal [facility] ED Provider Noteon ED Provider Note EMERGENCY DEPARTMENT ENCOUNTER Pt Name: Grant Danielle Birthdate 1985 Date of evaluation: 11/06/2023 ED Provider: Dayna James DO CHIEF COMPLAINT Chief Complaint Patient presents with Drug Overdose HISTORY OF PRESENT ILLNESS (Location/Symptom, Timing/Onset, Context/Setting, Quality, Duration, Modifying Factors, Severity) Note limiting factors. I wore appropriate PPE for the entirety of this encounter. HPI 38-year-old male presents emergency department today found down with pinpoint pupils. Has been given a total of 8 mg of Narcan by EMS prior to arrival. Became slightly more responsive. States he used heroin and methamphetamines. Nursing Notes were reviewed. Limitations to history: Intoxication Outside historians: EMS REVIEW OF SYSTEMS Review of Systems Neurological: Decreased responsiveness Pertinent positives and negatives as per HPI. PAST MEDICAL HISTORY Past Medical History: Diagnosis Date ADHD Anemia Depression PTSD (post-traumatic stress disorder) Substance abuse (CMS/HCC) [facility]) TBI (traumatic brain injury) ([facility]) SURGICAL HISTORY No past surgical history on file. CURRENT MEDICATIONS Previous Medications PAROXETINE (PAXIL) 20 MG TABLET Take 1 tablet (20 mg) by mouth every morning. ALLERGIES Cyclobenzaprine, Nsaids, and Tramadol FAMILY HISTORY Family History Problem Relation Name Age of Onset Emphysema Mother No Known Problems Father SOCIAL HISTORY Social History Socioeconomic History Marital status: Tobacco Use Smoking status: Every Day Current packs/day: 1.00 Average packs/day: 1 pack/day for 20.0 years (20.0 ttl pk-yrs) Types: Cigarettes Smokeless tobacco: Never Vaping Use Vaping status: Never Used Substance and Sexual Activity Alcohol use: Not Currently Drug use: Not Currently Types: Marijuana, Heroin Comment: pt states he is not using Sexual activity: Yes Partners: Female Social Determinants of Health Financial Resource Strain: High Risk (05/23/2023) Overall Financial Resource Strain (CARDIA) Difficulty of Paying Living Expenses: Very hard Food Insecurity: Food Insecurity Present (05/23/2023) Hunger Vital Sign Worried About Running Out of Food in the Last Year: Often true Ran Out of Food in the Last Year: Often true Transportation Needs: No Transportation Needs (05/23/2023) PRAPARE - Transportation Lack of Transportation (Medical): No Lack of Transportation (Non-Medical): No Physical Activity: Sufficiently Active (05/23/2023) Exercise Vital Sign Days of Exercise per Week: 7 days Minutes of Exercise per Session: 30 min Housing Stability: High Risk (10/18/2023) Housing Stability Vital Sign Unable to Pay for Housing in the Last Year: Yes Unstable Housing in the Last Year: Yes SCREENINGS PHYSICAL EXAM ED Triage Vitals [11/06/239] Temp Heart Rate Resp BP -- 86 18 128/80 SpO2 Temp src Heart Rate Source Patient Position 99 % -- -- -- BP Location FiO2 (%) -- -- Physical Exam Vitals and nursing note reviewed. Constitutional: Appearance: Normal appearance. Comments: Drowsy but arousable to verbal stimuli or sternal rub HENT: Head: Normocephalic and atraumatic. Nose: Nose normal. Eyes: Pupils: Pupils are equal, round, and reactive to light. Cardiovascular: Rate and Rhythm: Normal rate. Pulmonary: Effort: Pulmonary effort is normal. Skin: General: Skin is warm and dry. Neurological: Mental Status: He is oriented to person, place, and time. DIAGNOSTIC RESULTS Procedures/EKG: RADIOLOGY (Per Emergency Physician): Interpretation per the Radiologist below, if available at the time of this note: No orders to display ED BEDSIDE ULTRASOUND: Performed by ED Physician - none LABS: Labs Reviewed COMPREHENSIVE METABOLIC PANEL - Abnormal Result Value SODIUM 137 POTASSIUM 3.2 (*) CHLORIDE 102 CARBON DIOXIDE 23 ANION GAP 12 UREA NITROGEN 13 CREATININE 0.85 GLUCOSE 197 (*) CALCIUM 8.6 AST (SGOT) 51 (*) ALT 35 ALKALINE PHOSPHATASE 114 ALBUMIN 4.0 BILIRUBIN, TOTAL 0.5 TOTAL PROTEIN 6.8 eGFR >90.0 CK - Abnormal CK 269 (*) CBC WITH AUTO DIFFERENTIAL - Normal Auto WBC 7.6 RBC 4.62 Hemoglobin 14.7 Hematocrit 44.0 MCV 95.2 MCH 31.8 MCHC 33.4 RDW 13.8 Platelets 381 MPV 9.9 nRBC 0.0 Neutrophils Relative 45.7 Lymphocytes Relative 41.2 Monocytes Relative 9.1 Eosinophils Relative 2.8 Basophils Relative 1.1 Immature Grans % 0.1 Neutrophils Absolute 3.5 Lymphocytes Absolute 3.1 Monocytes Absolute 0.7 Eosinophils Absolute 0.2 Basophils Absolute 0.1 Immature Grans Absolute 0.0 ETHANOL - Normal ETHANOL IN SER/PLAS <0.010 Narrative: NOTE: This result is for medical treatment only. Analysis performed using non-forensic procedures. DRUGS OF ABUSE All other labs were within normal range or not returned as of this dictation. EMERGENCY DEPARTMENT COURSE and DIFFERENTIAL DIAGNOSI (more content not included)... Normal [facility] ETHANOLon 11-06-2023 ETHANOL IN SER/PLAS <0.010 Normal 0.000-0.010 [facility] Comment on above: Result Comment: ORDE R COMMENTS: NOTE: This result is for medical treatment only. Analysis performed using non-forensic procedures. Performed By: #### L AB46, LAB17, LAB62 ####Packerhead Machine Operator: JERARDO NICHOLE ([phone])[facility] GAYLA GALLOWAYMURPHY (SWRLAB)[address] [place] [address] Ethanol (Bld) [Mass/Vol]on 0 11-06-2023 Ethanol [Mass/Vol] g/dL 0.000 - 0 .010 g/dL [facility] Interpretation and review of laboratory results Normal [facility] Laboratory - Chemistry and C hemistry - challengeon 11-06-2023 CK [Catalytic activity/Vol] 269 U/L High 30 - 170 U/L [facility] No Panel Informationon 11-05 Interpretation and review of laboratory results Abnormal [facility] Office Visiton 10-24-2023 Follow-up visit [id number] Grant Danielle 1985 M Date Provider Department Center 10/24/2023 [id number] [facility] Family History Problem Relation Age of Onset Emphysema Mother No Known Problems Father Family Status - Relation Status Age at Mother Father Level of Service:91425 CT OFFICE/OUTPATIENT ESTABLISHED MOD MDM 30 MIN Reason for Visit and Comments: Transitional Care Management Outreach [14402] Hospital Follow-up [832] - [facility] 10/17-10/19/23 Cellulitis RLE pt states he was not sent home with anything Abdominal Pain [806021] - Thought from coffee and dairy -stopped both of them and still having pain Diarrhea - all the time Medication Adherence [893] - Pt is currently on no medications for psychiatric issues Normal [facility] Progress Noteon 10-24-2023 Progress Note Prescription for Imodium to be used as directed. Normal [facility] Progress Note Uncontrolled, Paxil 20 mg daily Normal [facility] Progress Note Uncontrolled, we will start him on Paxil 20 mg daily and he is to follow-up with his counselor MARIAMA. Normal [facility] Progress Note Patient verified by last name and date of . Normal [facility] Progress Note 10/24/2023 Grant Danielle (: 1985) is a 38 y.o. male , Established patient, here for evaluation of the following chief complaint(s): Transitional Care Management Outreach, Hospital Follow-up ([facility] 10/17-10/19/23/Celluli therese RLE pt states he was not sent home with anything ), Abdominal Pain (Thought from coffee and dairy -stopped both of them and still having pain//Diarrhea - all the time ), and Medication Adherence (Pt is currently on no medications for psychiatric issues ) ASSESSMENT/PLAN: 1. Bipolar affective disorder, currently depressed, moderate (HCC) Assessment & Plan: Uncontrolled, we will start him on Paxil 20 mg daily and he is to follow-up with his counselor MARIAMA. 2. Severe anxiety Assessment & Plan: Uncontrolled, Paxil 20 mg daily 3. Functional diarrhea Assessment & Plan: Prescription for Imodium to be used as directed. Follow up in about 4 weeks (around 11/21/2023). SUBJECTIVE/OBJECTIVE : JASPAL Bullock comes in today for follow-up on his depression/anxiety/b ipolar. He has not been taking his medication and he has not been seen his psychiatrist. He also was recently in the ER for a wound on the back of his right heel that was caused by his shoes and is a open wound but looks clean. He currently is on Keflex He also says he has been having diarrhea. Review of Systems Constitutional: Negative for chills and fever. Respiratory: Negative for shortness of breath. Cardiovascular: Negative for chest pain and palpitations. Gastrointestinal: Positive for diarrhea. Negative for abdominal pain, blood in stool and constipation. Genitourinary: Negative for dysuria, frequency, hematuria and urgency. Psychiatric/Behavior al: Positive for dysphoric mood. Negative for self-injury and suicidal ideas. The patient is nervous/anxious. Vitals: 10/24/23 0956 BP: 130/81 Pulse: 83 SpO2: 97% Weight: 162 lb 3.2 oz (73.6 kg) Height: 6' (1.829 m) Physical Exam Vitals and nursing note reviewed. Constitutional: General: He is not in acute distress. Appearance: Normal appearance. HENT: Head: Normocephalic. Mouth/Throat: Mouth: Mucous membranes are moist. Pharynx: Oropharynx is clear. Eyes: Extraocular Movements: Extraocular movements intact. Pupils: Pupils are equal, round, and reactive to light. Cardiovascular: Rate and Rhythm: Normal rate and regular rhythm. Heart sounds: Normal heart sounds. No murmur heard. Pulmonary: Effort: Pulmonary effort is normal. Breath sounds: Normal breath sounds. Abdominal: General: Bowel sounds are normal. Palpations: Abdomen is soft. Musculoskeletal: Cervical back: Neck supple. Neurological: Mental Status: He is alert. An electronic signature was used to authenticate this note. Abimael Carson MD 10/24/2023 12:57 PM Normal [facility] 36on 10-23-2023 36 Complexity of Follow up: [] Moderate Complexity: follow up within 7-14 calendar days (80369) [x] Severe Complexity: follow up within 7 calendar days (21861) Follow up Testing, Pending results or Referrals at Transitional Care Visit: [x] yes [] no Instructions to MA: Please call patient on day after discharge (must document patient contacted within 2 business days of discharge). Follow up questions for MA: 1. Did you get medications filled and taking them as instructed from discharge? No new meds 2. Are you following your discharge instructions from your hospital stay? yes 3. Please confirm patient is scheduled for a follow up appointment within the above time frame. Yes, 10/24/23 10am. Normal [facility] BUPRENORPHINE SCREENon 10-18 BUPRENORPHINE SCREEN-BUPR Negative Normal Negative [facility] Comment on above: Result Comment: SONYA Canela COMMENTS: Buprenorphine (Suboxone) has been screened for by Immunoassay at 5 ng/mL threshold. POSITIVE results are not confirmed by a more specific alternative method unless requested. If confirmation is needed, request confirmation under separate order. NOTE: These results are for medical treatment only. Analysis performed using non-forensic procedures. Performed By: #### L AB40 #### Packerhead Machine Operator: JAROD ESPOSITO ([phone]) [facility]ITALNash [facility]W ([facility]) [address] [place], [place] [id number] [facility] C. DIFFICILE BY PCR WITH REF KIRSTEN TO EIAon 10-19-2023 C. DIFFICILE BY PCR WITH REFLEX TO EIA C. DIFFICILE TOXIN PCR Reference Not Detected Not Detected ORDER COMMENTS: C. difficile infection is unlikely to be present. Methodology: Real-time PCR Normal [facility] Comment on above: Performed By: #### L [id number] #### Packerhead Machine Operator: JERARDO NICHOLE ([phone]) [facility] ([facility]) [address] [place] [address] C. difficile toxin genes TRUONG +probe Ql (Stl)on 10-19-2023 C. difficile toxin B tcdB gene TRUONG+probe Ql (Stl) Not detected Not Detected [facility] Interpretation and review of laboratory results Normal [facility] C. difficile infection is unlikely to be present. Methodology: Real-time PCR [facility]2023 [facility] consult for homeless. Notified in rounds this morning, patient has signed out AMA. Normal [facility] CBC W Auto Differential pane l (Bld)on 10-19-2023 Basophils (Bld) [#/Vol] 0.0 10*3/uL 0.0 - 0.2 10*3/uL [facility] Basophils/100 WBC (Bld) 0.3 % 0.0 - 2.0 % [facility] Eosinophils (Bld) [#/Vol] 0.8 10*3/uL High 0.0 - 0.5 10*3/uL [facility] Eosinophils/100 WBC (Bld) 7.0 % High 0.0 - 6.0 % [facility] Erythrocyte distribution width (RBC) [Ratio] 13.2 % 11.5 - 15.0 % [facility] Hematocrit (Bld) [Volume fraction] 42.6 % 40.0 - 52.0 % [facility] Hemoglobin (Bld) [Mass/Vol] 14.4 g/dL 13.0 - 18.0 g/dL [facility] Immature granulocytes (Bld) [#/Vol] 0.0 10*3/uL NINF - 0.1 10*3/uL [facility] Immature granulocytes/100 WBC (Bld) 0.3 % 0.0 - 2.0 % [facility] Interpretation and review of laboratory results Abnormal [facility] Lymphocytes (Bld) [#/Vol] 1.9 10*3/uL 1.0 - 4.3 10*3/uL [facility] Lymphocytes/100 WBC (Bld) 15.9 % 15.0 - 45.0 % [facility] MCH (RBC) [Entitic mass] 32.0 pg 26.0 - 34.0 pg [facility] MCHC (RBC) [Mass/Vol] 33.8 % 30.5 - 36.0 % [facility] MCV (RBC) [Entitic vol] 94.7 fL 77.0 - 99.0 fL [facility] Monocytes (Bld) [#/Vol] 0.5 10*3/uL 0.0 - 0.9 10*3/uL [facility] Monocytes/100 WBC (Bld) 4.1 % Low 5.0 - 13.0 % [facility] Neutrophils (Bld) [#/Vol] 8.4 10*3/uL High 1.8 - 7.5 10*3/uL [facility] Neutrophils/100 WBC (Bld) 72.4 % 38.0 - 82.0 % [facility] Nucleated RBC/100 WBC (Bld) [Ratio] 0.0 % [facility] Platelet mean volume (Bld) [Entitic vol] 10.6 fL 9.0 - 12.7 fL [facility] Platelets (Bld) [#/Vol] 310 10*3/uL 140 - 440 10*3/uL [facility] RBC (Bld) [#/Vol] 4.50 10*6/uL 4.40 - 5.9 0 10*6/uL [facility] WBC (Bld) [#/Vol] 11.7 10*3/uL High 3.6 - 10.7 10*3/uL [facility] CBC WITH AUTO DIFFERENTIALon 10-19-2023 Basophils (Bld) [#/Vol] 0.0 10*3/uL Normal 0.0-0.2 [facility] Comment on above: Performed By: #### L [id number] ####Packerhead Machine Operator: JAROD ESPOSITO ([phone])[facility] ([facility])[address] [place], [place] [id number] [facility] Basophils/100 WBC (Bld) 0.3 % Normal 0.0-2.0 S [facility] Comment on above: Performed By: #### L [id number] ####Packerhead Machine Operator: JAROD ESPOSITO ([phone])[facility] (SB[facility])[address] Eosinophils (Bld) [#/Vol] 0.8 10*3/uL High 0.0-0.5 [facility] Comment on above: Performed By: #### L [id number] ####Packerhead Machine Operator: JAROD TOVARLINDA ([phone])[facility] ([facility])[address] Eosinophils/100 WBC (Bld) 7.0 % High 0.0-6.0 [facility] Comment on above: Performed By: #### L [id number] ####Packerhead Machine Operator: JAROD TOVARLINDA ([phone])[facility] ([facility])[address] [place] [address] Erythrocyte distribution width (RBC) [Ratio] 13.2 % Normal 11.5-15.0 [facility] Comment on above: Performed By: #### L [id number] ####Packerhead Machine Operator: JAROD TOVARLINDA ([phone])[facility] ([facility])[address] [place] [address] Hematocrit (Bld) [Volume fraction] 42.6 % Normal 40.0-52.0 [facility] Comment on above: Performed By: #### L [id number] ####Packerhead Machine Operator: JAROD ESPOSITO ([phone])[facility] ([facility] [place] [address] Hemoglobin (Bld) [Mass/Vol] 14.4 g/dL Normal 13.0-18.0 [facility] Comment on above: Performed By: #### L [id number] ####Packerhead Machine Operator: JAROD ESPOSITO ([phone])[facility] ([facility])[address] IMMATURE GRANS % 0.3 % Normal 0.0-2.0 [facility] Comment on above: Performed By: #### L [id number] ####Packerhead Machine Operator: JAROD ESPOSITO ([phone])[facility]ITALNash GALANSandra (SBHLAB)[address] IMMATURE GRANS ABSOLUTE 0.0 10*3/uL Normal <0.1 [facility] Comment on above: Performed By: #### L [id number] ####Packerhead Machine Operator: JAROD TOVARLINDA ([phone])[facility]ITALNash [facility]PITALSandra (SBHLAB)[address] Lymphocytes (Bld) [#/Vol] 1.9 10*3/uL Normal 1.0-4.3 [facility] Comment on above: Performed By: #### L [id number] ####Packerhead Machine Operator: JAROD TOVARLINDA ([phone])[facility]ITALNash [facility] (SBHL[facility])[address] Lymphocytes/100 WBC (Bld) 15.9 % Normal 15.0-45.0 [facility] Comment on above: Performed By: #### L [id number] ####Packerhead Machine Operator: JAROD TOVARLINDA ([id number])[facility]ITALNash [facility]andra (SBHLAB)[address] MCH (RBC) [Entitic mass] 32.0 pg Normal 26.0-34.0 [facility] Comment on above: Performed By: #### L [id number] ####Packerhead Machine Operator: JAROD ESPOSITO ([phone])[facility]ITAL[facility]REW (SBHLAB)[address] MCHC 33.8 % Normal 30.5-36.0 [facility] Comment on above: Performed By: #### L [id number] ####Packerhead Machine Operator: JAROD ESPOSITO ([phone])[facility]ITALNash [facility]REW (SBHLAB)[address] MCV (RBC) [Entitic vol] 94.7 fL Normal 77.0-99.0 S [facility] Comment on above: Performed By: #### L [id number] ####Packerhead Machine Operator: JAROD ESPOSITO ([phone])[facility] [place] (SB[facility]AB)[address] Monocytes (Bld) [#/Vol] 0.5 10*3/uL Normal 0.0-0.9 [facility] Comment on above: Performed By: #### L [id number] ####Packerhead Machine Operator: JAROD ESPOSITO ([phone])[facility] [place] (SBHLAB)[address] Monocytes/100 WBC (Bld) 4.1 % Low 5.0-13.0 [facility] Comment on above: Performed By: #### L [id number] ####Packerhead Machine Operator: JAROD ESPOSITO ([phone])[facility] [place] (SBHLAB)[address] NEUTROPHILS ABSOLUTE 8.4 10*3/uL High 1.8-7.5 [facility] Comment on above: Performed By: #### L [id number] ####Packerhead Machine Operator: JAROD ESPOSITO ([phone])[facility] [place] (SB[facility])[address] Neutrophils/100 WBC (Bld) 72.4 % Normal 38.0-82.0 [facility] Comment on above: Performed By: #### L [id number] ####Packerhead Machine Operator: JAROD ESPOSITO ([phone])[facility] [place] (SBHLAB)[address] [place] [address] [place] NRBC 0.0 /100 WBCs Normal 0.0-2.0 [facility] Comment on above: Performed By: #### L [id number] ####Packerhead Machine Operator: JAROD ESPOSITO ([phone])[facility] [place] (SB[facility])[address] Platelet mean volume (Bld) [Entitic vol] 10.6 fL Normal 9.0-12.7 [facility] Comment on above: Performed By: #### L [id number] ####Packerhead Machine Operator: JAROD ESPOSITO ([phone])[facility] [place] (SB[facility])[address] Platelets (Bld) [#/Vol] 310 10*3/uL Normal 140-440 [facility] Comment on above: Performed By: #### L [id number] ####Packerhead Machine Operator: JAROD ESPOSITO ([phone])[facility] [place] (SB[facility])[address] RBC (Bld) [#/Vol] 4.50 10*6/uL Normal 4.40-5.90 [facility] Comment on above: Performed By: #### L [id number] ####Packerhead Machine Operator: JAROD ESPOSITO ([phone])[facility] [place] (SB[facility])[address] WBC (Bld) [#/Vol] 11.7 10*3/uL High 3.6-10.7 [facility] Comment on above: Performed By: #### L [id number] ####Packerhead Machine Operator: JAROD ESPOSITO ([phone])[facility] (SB[facility])[address] COMPREHENSIVE METABOLIC PANE Chavo 10-19-2023 Albumin [Mass/Vol] 3.0 g/dL Low 3.5-5.0 [facility] Comment on above: Performed By: #### L [id number] ####Packerhead Machine Operator: JAROD ESPOSITO ([phone])[facility] (SBHLAB)[address] ALP [Catalytic activity/Vol] 86 U/L Normal 38-126 [facility] Comment on above: Performed By: #### L AB17 ####Packerhead Machine Operator: JAROD ESPOSITO ([phone])[facility] (SB[facility]AB)[address] ALT [Catalytic activity/Vol] 20 U/L Normal 0-49 [facility] Comment on above: Performed By: #### L AB17 ####Packerhead Machine Operator: JAROD ESPOSITO ([phone])[facility] [place] (SBHLAB)[address] Anion gap [Moles/Vol] 9 mmol/L Normal 3-13 [facility] Comment on above: Performed By: #### L AB17 ####Packerhead Machine Operator: JAROD ESPOSITO ([id number])[facility] [place] (SBHL[facility])[address] AST [Catalytic activity/Vol] 25 U/L Normal 15-46 [facility] Comment on above: Performed By: #### L AB17 ####Packerhead Machine Operator: JAROD ESPOSITO ([phone])[facility] [place] (SB[facility])[address] Bilirubin [Mass/Vol] 0.3 mg/dL Normal 0.2-1.3 [facility] Comment on above: Performed By: #### L AB17 ####Packerhead Machine Operator: JAROD ESPOSITO ([phone])[facility] [place] (SBHL[facility])[address] Calcium [Mass/Vol] 8.2 mg/dL Low 8.4-10.4 [facility] Comment on above: Performed By: #### L AB17 ####Packerhead Machine Operator: JAROD ESPOSITO ([phone])[facility] [place] (SBHLAB)[address] [place] [address] [place] Chloride [Moles/Vol] 104 mmol/L Normal 98-107 [facility] Comment on above: Performed By: #### L AB17 ####Packerhead Machine Operator: JAROD ESPOSITO ([phone])[facility] [place] (SBHLAB)[address] [place] [address] [place] CO2 [Moles/Vol] 26 mmol/L Normal 22-30 [facility] Comment on above: Performed By: #### L AB17 ####Packerhead Machine Operator: JAROD ESPOSITO ([phone])[facility] [place] (SBHLAB)[address] [place] [address] [place] Creatinine [Mass/Vol] 0.57 mg/dL Low 0.66-1.25 [facility] Comment on above: Performed By: #### L AB17 ####Packerhead Machine Operator: JAROD ESPOSITO ([phone])[facility]OSPITALNash [facility] ([facility])[address] GLOMERULAR FILTRATION RATE ML/MIN/1.73 SQ M.PREDICTED >90.0 Normal >60.0 [facility] Comment on above: Result Comment: Calc ulation based on the Chronic Kidney Disease Epidemiology Collaboration (CKD-EPI) equation refit without adjustment for race Performed By: #### L AB17 ####Packerhead Machine Operator: JAROD ESPOSITO ([phone])[facility]ITALNash [place] ([facility])[address] Glucose [Mass/Vol] 97 mg/dL Normal 70-100 [facility] Comment on above: Performed By: #### L AB17 ####Packerhead Machine Operator: JAROD ESPOSITO ([phone])[facility] ([facility])[address] Potassium [Moles/Vol] 3.7 mmol/L Normal 3.5-5.1 [facility] Comment on above: Performed By: #### L AB17 ####Packerhead Machine Operator: JAROD ESPOSITO ([phone])[facility] ([facility])[address] Protein [Mass/Vol] 5.5 g/dL Low 6.3-8.2 [facility] Comment on above: Performed By: #### L AB17 ####Packerhead Machine Operator: JAROD ESPOSITO ([phone])[facility] (HLAB)[address] Sodium [Moles/Vol] 139 mmol/L Normal 135-145 [facility] Comment on above: Performed By: #### L AB17 ####Packerhead Machine Operator: JAROD ESPOSITO ([phone])[facility] ([facility])[address] [place] [address] [place] Urea nitrogen [Mass/Vol] 9 mg/dL Normal 9-20 [facility] Comment on above: Performed By: #### L AB17 ####Packerhead Machine Operator: JAROD ESPOSITO ([phone])[facility] (SBHLAB)[address] CREATININE, URINE, RANDOMon 10-19-2023 CREATININE, URINE 94.3 mg/dL Normal No Range [facility] Comment on above: Performed By: #### L AB748, [id number], [id number], [id number], [id number] ####Packerhead Machine Operator: JAROD ESPOSITO ([phone])[facility] (SBHLAB)[address] Comprehensive metabolic 1998 panelon 10-19-2023 Albumin [Mass/Vol] 3.0 g/dL Low 3.5 - 5.0 g/dL [facility] ALP [Catalytic activity/Vol] 86 U/L 38 - 126 U/L [facility] ALT [Catalytic activity/Vol] 20 U/L 0 - 49 U/L [facility] Anion gap [Moles/Vol] 9 mmol/L 3 - 13 mmol/L [facility] AST [Catalytic activity/Vol] 25 U/L 15 - 46 U/L [facility] Bilirubin [Mass/Vol] 0.3 mg/dL 0.2 - 1 .3 mg/dL [facility] Calcium [Mass/Vol] 8.2 mg/dL Low 8.4 - 10. 4 mg/dL [facility] Chloride [Moles/Vol] 104 mmol/L 98 - 10 7 mmol/L [facility] CO2 [Moles/Vol] 26 mmol/L 22 - 30 mmol/L [facility] Creatinine [Mass/Vol] 0.57 mg/dL Low 0.66 - 1.25 mg/dL [facility] GFR/1.73 sq M.predicted MDRD (S/P/Bld) [Vol rate/Area] - PINF [facility] Comment on above: Calculation based on the Chronic Kidney Disease Epidemiology Collaboration (CKD-EPI) equation refit without adjustment for race Glucose [Mass/Vol] 97 mg/dL 70 - 100 mg/dL [facility] Interpretation and review of laboratory results Abnormal [facility] Potassium [Moles/Vol] 3.7 mmol/L 3.5 - 5.1 mmol/L [facility] Protein [Mass/Vol] 5.5 g/dL Low 6.3 - 8.2 g/dL [facility] Sodium [Moles/Vol] 139 mmol/L 135 - 145 mmol/L [facility] Urea nitrogen [Mass/Vol] 9 mg/dL 9 - 20 mg/d L [facility] Creatinine (U) [Mass/Vol]on 10-19-2023 CREATININE, URINE 94.3 mg/dL No Range [facility] ealt DRUGS OF ABUSEon 10-19-2023 AMPHETAMINE SCREEN Negative Normal [facility] Comment on above: Performed By: #### L AB748, [id number], [id number], [id number], [id number] ####Packerhead Machine Operator: JAROD ESPOSITO ([phone])[facility] (SBHLAB)[address] [place] [address] BARBITURATES SCREEN Negative Normal [facility] Comment on above: Performed By: #### L AB748, [id number], [id number], [id number], [id number] ####Packerhead Machine Operator: JAROD ESPOSITO ([phone])[facility] (SB[facility])[address] [place] [address] BENZODIAZEPINE SCREEN Negative Normal [facility] Comment on above: Performed By: #### L AB748, TMV784, UAT028, [id number], [id number] ####Packerhead Machine Operator: JAROD ESPOSITO ([phone])[facility] ([facility])[address] [place] [address] COCAINE METAB. SCREEN Negative Normal [facility] Comment on above: Performed By: #### L AB748, OUV681, CGP492, [id number], [id number] ####Packerhead Machine Operator: JAROD ESPOSITO ([phone])[facility] ([facility])[address] [place] [address] METHADONE SCREEN Negative Normal [facility] Comment on above: Performed By: #### L AB748, IOO934, TNV836, [id number], [id number] ####Packerhead Machine Operator: JAROD ESPOSITO ([phone])[facility] (SB[facility])[address] OPIATES SCREEN Negative Normal [facility] Comment on above: Performed By: #### L AB748, UOZ456, LNB283, [id number], YSC515 ####Packerhead Machine Operator: JAROD ESPOSITO ([phone])[facility] (SBHLAB)[address] OXYCODONE SCREEN Negative Normal [facility] Comment on above: Performed By: #### L AB748, ENF793, DMY076, [id number], VTL115 ####Packerhead Machine Operator: JAROD ESPOSITO ([phone])[facility] (HLAB)[address] PHENCYCLIDINE SCREEN Negative Normal [facility] Comment on above: Result Comment: SONYA Canela COMMENTS: The expected value for all of the drugs listed above is Negative. The following drugs or drug groups have been screened for by Immunoassay at the following thresholds: Amphetamine class (1000 ng/mL) Barbiturates (200 ng/mL) Benzodiazepines (200 ng/mL) Cocaine (300 ng/mL) Methadone (300 ng/mL) Opiates (300 ng/mL) Oxycodone (100 ng/mL) PCP (25 ng/mL) NOTE: These results are for medical treatment only. Analysis performed using non-forensic procedures. POSITIVE results are NOT confirmed by a more specific alternative method unless requested. If confirmation is needed, request confirmation under separate order. Performed By: #### L AB748, OZE852, SRM214, [id number], [id number] ####Packerhead Machine Operator: JAROD ESPOSITO ([phone])[facility] (SBHLAB)[address] ETHANOL, URINEon 10-19-2023 ETHANOL, URINE-CAT LIST Not detected Normal None Available. Reporting Limit 0.01 g/dL [facility] Comment on above: Result Comment: SONYA Canela COMMENTS: NOTE:These results are for medical treatment only. Analysis performed using non-forensic procedures. This test has not been cleared by the [place] Food and Drug Administration (FDA). The FDA has determined that such clearance or approval is not necessary. The performance chararcteristics have been determined by the clinical laboratories of [facility]. Performed By: #### L AB40 #### Packerhead Machine Operator: JAROD ESPOSITO ([phone]) [facility] (SBHL[facility]) [address] FENTANYL, URINEon 10-19-2023 FENTANYL SCREEN, URINE Negative Normal Negative [facility] Comment on above: Result Comment: SONYA Canela COMMENTS: Fentanyl has been screened for by Immunoassay at a 1 ng/ml threshold. POSITIVE results are not confirmed by a more specific alternative method unless requested. If confirmation is needed, request confirmation under separate order. NOTE: These results are for medical treatment only. Analysis performed using non-forensic procedures. Performed By: #### L AB40 #### Packerhead Machine Operator: JAROD ESPOSITO ([phone]) [facility] (SB[facility]) [address] GASTROINTESTINAL PCR PANELon 10-19-2023 GASTROINTESTINAL PCR PANEL CAMPYLOBACTER Reference Not Detected Not Detected PLESIOMONAS SHIGELLOIDES Reference Not Detected Not Detected SALMONELLA Reference Not Detected Not Detected VIBRIO SPECIES Reference Not Detected Not Detected VIBRIO CHOLERAE Reference Not Detected Not Detected YERSINIA ENTEROCOLITICA Reference Not Detected Not Detected ENTEROTOXIGENIC E COLI (ETEC) Reference Not Detected Not Detected SHIGA TOXIN-PRODUCING E COLI (STEC) Reference Not Detected Not Detected SHIGELLA/ENTEROINVAS ANGEL E COLI (EIEC) Reference Not Detected Not Detected CRYPTOSPORIDIUM Reference Not Detected Not Detected CYCLOSPORA CAYETANENSIS Reference Not Detected Not Detected ENTAMOEBA HISTOLYTICA Reference Not Detected Not Detected GIARDIA LAMBLIA Reference Not Detected Not Detected ADENOVIRUS F 40/41 Reference Not Detected Not Detected ASTROVIRUS Reference Not Detected Not Detected NOROVIRUS GI/GII (A) Reference Detected Not Detected ROTAVIRUS A Reference Not Detected Not Detected SAPOVIRUS Reference Not Detected Not Detected ORDER COMMENTS: A positive Norovirus result on the Film Array GI panel should be interpreted in the context of the patient's history and clinical picture. If results are not consistent, result should be confirmed with a Norovirus specific assay. Methodology: Multiplex PCR Normal [facility] Comment on above: Performed By: #### L [id number] #### Packerhead Machine Operator: JERARDO NICHOLE ([phone]) [facility] ([facility]) [address] [place] [address] Gastrointestinal pathogens p jose r TRUONG+probe (Stl)Ordered By: Deo Reyes on 10-19-2023 Adenovirus F 40/41 Not detected Not Detected [facility] Astrovirus Not detected Not Detected [facility] Campylobacter Not detected Not Detected [facility] Cryptosporidium Not detected Not Detected [facility] Cyclospora cayetanensis Not detected Not Detect ed [facility] Entamoeba histolytica Not detected Not Detected [facility] Enterotoxigenic E coli (ETEC) Not detected Not Detected [facility] Giardia lamblia Not detected Not Detected [facility] Interpretation and review of laboratory results Abnormal [facility] Norovirus GI/GII Detected Abnormal Not Detected [facility] Plesiomonas shigelloides Not detected Not Detec peter [facility] Rotavirus A Not detected Not Detected [facility] Salmonella Not detected Not Detected [facility] Sapovirus Not detected Not Detected [facility] Shiga toxin-producing E coli (STEC) Not detected Not Detected [facility] Shigella/Enteroinvasive E coli (EIEC) Not detected Not Detected [facility] Vibrio cholerae Not detected Not Detected [facility] Vibrio species Not detected Not Detected [facility] Yersinia enterocolitica Not detected Not Detect ed [facility] A positive Norovirus result on the Film Array GI panel should be interpreted in the context of the patient's history and clinical picture. If results are not consistent, result should be confirmed with a Norovirus specific assay. Methodology: Multiplex PCR [facility] HEPATITIS PANEL, ACUTEon HCV Ab IA Ql Detected Abnormal Not Detected [facility] Comment on above: Result Comment: Rylee ents with DETECTED Hepatitis C Ab results should have a new specimen submitted for supplemental testing with a Hepatitis C Quantitative RNA assay (viral load), if clinically indicated. Performed By: #### L AB551 ####Packerhead Machine Operator: JERARDO NICHOLE ([phone])[facility] ([facility])[address] HEPATITIS A VIRUS AB, IGM Not detected Normal Not Detected [facility] Comment on above: Performed By: #### L AB551 ####Packerhead Machine Operator: JERARDO NICHOLE ([phone])[facility] ([facility])[address] [place] [address] HEPATITIS B VIRUS CORE IGM AB Not detected Normal Not Detected [facility] Comment on above: Performed By: #### L AB551 ####Packerhead Machine Operator: JERARDO NICHOLE ([phone])[facility] ([facility])[address] [place] [address] HEPATITIS B VIRUS SURFACE AG Not detected Normal Not Detected [facility] Comment on above: Performed By: #### L AB551 ####Packerhead Machine Operator: JERARDO NICHOLE ([phone])[facility] ([facility])[address] [place] [address] HIV 1+2 Ab+HIV1 p24 Ag IA Ql Ordered By: Pretty Diamond on 10-19-2023 Interpretation and review of laboratory results Normal [facility] HIV1,2 COMBO ANTIGEN-ANTIBOD Y SCREENon 10-19-2023 HIV 1,2 COMBO ANTIGEN/ANTIBODY Non-Reactive Normal Nonreactive [facility] Comment on above: Result Comment: The specimen was non-reactive for HIV-1 and HIV-2 antibodies and p24 antigen using an FDA-cleared 4th generation HIV test. Based on this non-reactive screen result, further reflexive testing was not indicated and was, therefore, not performed. Performed By: #### L [id number] ####Packerhead Machine Operator: JERARDO NICHOLE ([id number])[facility] [place] [address] Hepatitis 1995 panel (S)Orde red By: Meredith Ruano on 10-19-2023 HAV IgM IA Ql Not detected Not Detected [facility] HBV core IgM IA Ql Not detected Not Detected [facility] HBV surface Ag IA Ql Not detected Not Detected [facility] HCV Ab IA Ql Detected Abnormal Not Detected [facility] Comment on above: Patients with DETECT ED Hepatitis C Ab results should have a new specimen submitted for supplemental testing with a Hepatitis C Quantitative RNA assay (viral load), if clinically indicated. Interpretation and review of laboratory results Abnormal [facility] Laboratory - Chemistry and C hemistry - challengeon 10-19-2023 Osmolality [Osmolality] 285 mosm/kg [facility] Sodium (24H U) [Mass/Vol] 88 mmol/L 30 - 90 mmol/L [facility] Urea nitrogen (U) [Mass/Vol] 639 mg/dL No Range [facility] Laboratory - Drug toxicology on 10-19-2023 Vancomycin [Mass/Vol] 17.6 ug/mL 15.0 - 20.0 ug/mL [facility] Laboratory - Drug toxicology Ordered By: Pretty Burnham on 10-19-2023 Amphetamines Screen method >1000 ng/mL Ql (U) Negative [facility] Barbiturates Screen method >200 ng/mL Ql (U) Negative [facility] Benzodiazepines Ql (U) Negative [facility] Methadone Screen Ql (U) Negative S [facility] Opiates Screen Ql (U) Negative [facility] oxyCODONE Ql (U) Negative [facility]th Phencyclidine Ql (U) Negative [facility] Laboratory - Microbiology an d Antimicrobial susceptibilityOrdered By: Pretty Diamond on 10-19-2023 HIV 1+2 Ab+HIV1 p24 Ag IA Ql Non-Reactive Nonreactive [facility] Comment on above: The specimen was non -reactive for HIV-1 and HIV-2 antibodies and p24 antigen using an FDA-cleared 4th generation HIV test. Based on this non-reactive screen result, further reflexive testing was not indicated and was, therefore, not performed. No Panel InformationOrdered By: Carla Simpson on 10-19-2023 BUPRENORPHINE SCREEN Negative Negative [facility] Buprenorphine (Suboxone) has been screened for by Immunoassay at 5 ng/mL threshold. POSITIVE results are not confirmed by a more specific alternative method unless requested. If confirmation is needed, request confirmation under separate order. NOTE: These results are for medical treatment only. Analysis performed using non-forensic procedures. [facility] No Panel Informationon 10-18 THC Positive Negative [facility] THC metabolites have been screened for by Immunoassay at 50 ng/mL threshold. POSITIVE results are not confirmed by a more specific alternative method unless requested. If confirmation is needed, request confirmation under separate order. NOTE: These results are for medical treatment only. Analysis performed using non-forensic procedures. [facility] FENTANYL SCREEN, URINE Negative Negative [facility] Fentanyl has been screened for by Immunoassay at a 1 ng/ml threshold. POSITIVE results are not confirmed by a more specific alternative method unless requested. If confirmation is needed, request confirmation under separate order. NOTE: These results are for medical treatment only. Analysis performed using non-forensic procedures. [facility] ETHANOL, URINE Not detected None Available. Reporting Limit 0.01 g/dL g/dL [facility] Interpretation and review of laboratory results Normal [facility] Interpretation and review of laboratory results Normal [facility] Interpretation and review of laboratory results Normal [facility] Interpretation and review of laboratory results Normal [facility] OSMOLALITY, URINE 456 [facility] No Panel InformationOrdered By: Pretty Burnham on 10-19-2023 COCAINE METAB. SCREEN Negative [facility] The expected value for all of the drugs listed above is Negative. The following drugs or drug groups have been screened for by Immunoassay at the following thresholds: Amphetamine class (1000 ng/mL) Barbiturates (200 ng/mL) Benzodiazepines (200 ng/mL) Cocaine (300 ng/mL) Methadone (300 ng/mL) Opiates (300 ng/mL) Oxycodone (100 ng/mL) PCP (25 ng/mL) NOTE: These results are for medical treatment only. Analysis performed using non-forensic procedures. POSITIVE results are NOT confirmed by a more specific alternative method unless requested. If confirmation is needed, request confirmation under separate order. [facility] Nursing Noteon 10-19-2023 Nursing Note This RN was informed by Dr. Zamora that patient wanted to leave [place] and to have his iv removed. This RN went to the patient room and asked if he wanted to stay or leave AMA. Patient turned his arm over to have iv removed. Asked what I was doing and this RN stated I was applying pressure to slow bleeding from removal of iv and he stated I don't bleed that bad. This RN taped his iv site. Patient asked to be able to get dressed and was told he could and he would need to sign ama form. I'm not signing until I'm out of here. This RN offered to leave the room and patient stated she was fine. He said what are you waiting for. Told patient just waiting for you to be finished. He stated let's go now. Informed patient I would not be leaving the floor with him that I would show him the elevator. At the central elevator patient signed the ama form and was given instructions on where to go when he stated I know where to go to get out. Normal [facility] Nursing Note This FIRER BOILER was at bedside preparing to insert new IV, pt was cooperative and understanding at the time. Pt asked if cafeteria was open to have a mountain dew and this nurse stated that the cafeteria was open at 0600. Pt immediately became and agitated and sat up removing his tourniquet. Pt began to yell at this FIRER BOILER, becoming verbally aggressive. This FIRER BOILER stepped out of room and called protective services at 0346. Pt became cooperative with protective services at bedside and allowed this FIRER BOILER put in new IV. Pt given jello and is calm at this time. Normal [facility] OSMOLALITY, SERUMon 10-19-19 24 OSMOLALITY, SERUM 285 mOsm/kg Normal 280-300 [facility] Comment on above: Performed By: #### L [id number] #### Packerhead Machine Operator: JAROD ESPOSITO ([id number]) [facility] ([facility]) [address] [place] [address] OSMOLALITY, URINEon 10-19-19 24 OSMOLALITY, URINE 456 mOsm/kg Normal 300-1000 [facility] Comment on above: Performed By: #### L [id number], [id number], [id number], [id number], [id number] ####Packerhead Machine Operator: JAROD ESPOSITO ([phone])[facility] ([facility] [place] [address] SODIUM, URINE, RANDOMon 05- Sodium (U) [Moles/Vol] 88 mmol/L Normal 30-90 [facility] Comment on above: Performed By: #### L [id number], [id number], [id number], [id number], [id number] ####Packerhead Machine Operator: JAROD ESPOSITO ([id number])[facility])[address] THC SCREENon 10-19-2023 THC- THC50 Positive Normal Negative [facility] Comment on above: Result Comment: SONYA Canela COMMENTS: THC metabolites have been screened for by Immunoassay at 50 ng/mL threshold. POSITIVE results are not confirmed by a more specific alternative method unless requested. If confirmation is needed, request confirmation under separate order. NOTE: These results are for medical treatment only. Analysis performed using non-forensic procedures. Performed By: #### L [id number] #### Packerhead Machine Operator: JAROD ESPOSITO ([id number]) [facility] ([facility]) [address] [place] [address] UREA NITROGEN, URINEon 10-18 UREA NITROGEN, URINE 639 mg/dL Normal No Range [facility] Comment on above: Performed By: #### L [id number], [id number], [id number], [id number], [id number] ####Packerhead Machine Operator: JAROD ESPOSITO ([id number])[facility] ([facility])[address] [place] [address] VANCOMYCIN, RANDOMon 024 VANCOMYCIN 17.6 ug/mL Normal 15.0-20.0 [facility] Comment on above: Performed By: #### L [id number] #### Packerhead Machine Operator: JAROD ESPOSITO ([id number]) [facility] ([facility]) [address] [place] [address] BASIC METABOLIC PANELon 09-20 Anion gap [Moles/Vol] 8 mmol/L Normal 3-13 [facility] Comment on above: Performed By: #### L [id number] #### Packerhead Machine Operator: JERARDO NICHOLE ([id number]) [facility] ([facility]) [address] [place] [address] [place] Calcium [Mass/Vol] 8.7 mg/dL Normal 8.4-10.4 [facility] Comment on above: Performed By: #### L [id number] #### Packerhead Machine Operator: JERARDO NICHOLE ([id number]) [facility] ([facility]) [address] [place] [address] [place] Chloride [Moles/Vol] 95 mmol/L Low 98-107 [facility] Comment on above: Performed By: #### L [id number] #### Packerhead Machine Operator: JERARDO NICHOLE ([id number]) [facility] ([facility]) [address] [place] [address] CO2 [Moles/Vol] 27 mmol/L Normal 22-30 [facility] Comment on above: Performed By: #### L [id number] #### Packerhead Machine Operator: JERARDO NICHOLE ([phone]) [facility] ([facility]) [address] [place] [address] Creatinine [Mass/Vol] 0.86 mg/dL Normal 0.66-1.25 [facility] Comment on above: Performed By: #### L [id number] #### Packerhead Machine Operator: JERARDO NICHOLE ([id number]) [facility] ([facility]) [address] [place] [address] GLOMERULAR FILTRATION RATE ML/MIN/1.73 SQ M.PREDICTED >90.0 Normal >60.0 [facility] Comment on above: Result Comment: Calc ulation based on the Chronic Kidney Disease Epidemiology Collaboration (CKD-EPI) equation refit without adjustment for race Performed By: #### L [id number] #### Packerhead Machine Operator: JERARDO NICHOLE ([id number]) [facility] ([facility]) [address] [place] [address] Glucose [Mass/Vol] 109 mg/dL High 70-100 [facility] Comment on above: Performed By: #### L [id number] #### Packerhead Machine Operator: JERARDO NICHOLE ([id number]) [facility] ([facility]) [address] [place] [address] [place] Potassium [Moles/Vol] 3.7 mmol/L Normal 3.5-5.1 [facility] Comment on above: Performed By: #### L [id number] #### Packerhead Machine Operator: JERARDO NICHOLE ([id number]) [facility] ([facility]) [address] [place] [address] [place] Sodium [Moles/Vol] 130 mmol/L Low 135-145 [facility] Comment on above: Performed By: #### L [id number] #### Packerhead Machine Operator: JERARDO NICHOLE ([id number]) [facility]) [address] [place] [address] Urea nitrogen [Mass/Vol] 11 mg/dL Normal 9-20 [facility] Comment on above: Performed By: #### L [id number] #### Packerhead Machine Operator: JERARDO NICHOLE ([id number]) [facility]) [address] [place] [address] BLOOD CULTUREon 10-18-2023 Bacteria identified Cx Nom (Bld) BLOOD CULTURE Reference No growth at 5 days ORDER COMMENTS: Blood Collection Site: Right Antecubital [ S = SUSCEPTIBLE R = RESISTANT I = INTERMEDIATE S-DD = Susceptible-dose dependent NS = Non-susceptible NO = No Interpretation ] Normal [facility] Comment on above: Performed By: #### L [id number] #### Packerhead Machine Operator: JERARDO NICHOLE ([id number]) [facility] ([facility]) [address] [place] [address] Basic metabolic 1998 panelon 10-18-2023 Anion gap [Moles/Vol] 8 mmol/L 3 - 13 mmol/L [facility] Calcium [Mass/Vol] 8.7 mg/dL 8.4 - 10. 4 mg/dL [facility] Chloride [Moles/Vol] 95 mmol/L Low 98 - 10 7 mmol/L [facility] CO2 [Moles/Vol] 27 mmol/L 22 - 30 mmol/L [facility] Creatinine [Mass/Vol] 0.86 mg/dL 0.66 - 1.25 mg/dL [facility] GFR/1.73 sq M.predicted MDRD (S/P/Bld) [Vol rate/Area] - PINF [facility] Comment on above: Calculation based on the Chronic Kidney Disease Epidemiology Collaboration (CKD-EPI) equation refit without adjustment for race Glucose [Mass/Vol] 109 mg/dL High 70 - 100 mg/dL [facility] Interpretation and review of laboratory results Abnormal [facility] Potassium [Moles/Vol] 3.7 mmol/L 3.5 - 5.1 mmol/L [facility] Sodium [Moles/Vol] 130 mmol/L Low 135 - 145 mmol/L [facility] Urea nitrogen [Mass/Vol] 11 mg/dL 9 - 20 mg/d L [facility] C-REACTIVE PROTEINon 024 CRP [Mass/Vol] 132.1 mg/L High <10.0 [facility] Comment on above: Performed By: #### L [id number] #### Packerhead Machine Operator: JAROD ESPOSITO ([id number]) [facility] ([facility]) [address] [place] [address] CBC W Auto Differential pane l (Bld)on 10-18-2023 Basophils (Bld) [#/Vol] 0.1 10*3/uL 0.0 - 0.2 10*3/uL [facility] Basophils/100 WBC (Bld) 0.4 % 0.0 - 2.0 % [facility]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 incisors. IMPRESSION: 1. Displaced fracture of the right mandibular ramus just caudal to the mandibular condylar head and coronoid process with medial displacement of the distal fracture fragment. 2. Associated intramuscular edema/hematoma of the temporalis, masseter, and pterygoid muscles. 3. Soft tissue contusions of the right buccal space with thickening of the platysma. 4. Lucencies surround the left medial and right lateral maxillary incisors. Dental consultation advised. Interpreted by: Rory Thomson MD Preliminary Report By: Rory Thomson MD Electronically signed By Rory Thomson MD Dictated Date: 09/05/2023 10:52:33 AM Prelim Date: 09/05/2023 11:09:54 AM Sign Date: 09/05/2023 11:09:54 AM Ordering Provider: BETHANIE GUERRA [facility] ([facility] 36on 08-13-2023 36 Scheduled. [facility] 36 Rx sent, needs scheduled for follow-up appointment in November Normal [facility] 36 Prescription Request: Last medication check: none, new patient as of 05/23/23 Last physical exam: 05/23/23 Last completed appointment: 06/15/23 Next scheduled appointment: none Last date of refill on this medication: 06/15/23 [facility] 36on 08-10-2023 36 Called the patient and LM---he had a NCNS for an 8 week followup [facility] 36on 07-24-2023 36 Called patient and LM due to missed appointment. Please schedule the patient for an appointment with the same visit type if they call to reschedule. [facility] 36 Okay, thank you looks like he was just in the ER couple of days ago, looks like at that time he was doing methamphetamines [facility] 36 Patient walked into office this morning stating he wanted his blood pressure checked because he felt it is really high. While front office help staff was scheduling a nurse visit appointment she stated he was pacing back and forth and frigidity trying to talk with him. Upon going out to waiting room to call patient back, he was no longer in waiting room, advised front office help staff to advise me if he returns for Blood pressure check. Last Blood pressure documented was on 07/20/23 at [facility] ER and was 128/74. [facility] CBC W Auto Differential pane l (Bld)on 07-20-2023 Basophils (Bld) [#/Vol] 0.1 10*3/uL 0.0 - 0.2 10*3/uL [facility] Basophils/100 WBC (Bld) 0.6 % 0.0 - 2.0 % [facility] Eosinophils (Bld) [#/Vol] 0.1 10*3/uL 0.0 - 0.5 10*3/uL [facility] Eosinophils/100 WBC (Bld) 0.7 % 0.0 - 6.0 % [facility] Erythrocyte distribution width (RBC) [Ratio] 13.1 % 11.5 - 15.0 % [facility] Hematocrit (Bld) [Volume fraction] 46.5 % 40.0 - 52.0 % [facility] Hemoglobin (Bld) [Mass/Vol] 15.6 g/dL 13.0 - 18.0 g/dL [facility] Immature granulocytes (Bld) [#/Vol] 0.0 10*3/uL NINF - 0.1 10*3/uL [facility] Immature granulocytes/100 WBC (Bld) 0.3 % 0.0 - 2.0 % [facility] Interpretation and review of laboratory results Abnormal [facility] Lymphocytes (Bld) [#/Vol] 2.0 10*3/uL 1.0 - 4.3 10*3/uL [facility] Lymphocytes/100 WBC (Bld) 14.6 % Low 15.0 - 45.0 % [facility] MCH (RBC) [Entitic mass] 31.1 pg 26.0 - 34.0 pg [facility] MCHC (RBC) [Mass/Vol] 33.5 % 30.5 - 36.0 % [facility] MCV (RBC) [Entitic vol] 92.8 fL 77.0 - 99.0 fL [facility] Monocytes (Bld) [#/Vol] 0.8 10*3/uL 0.0 - 0.9 10*3/uL [facility] Monocytes/100 WBC (Bld) 5.6 % 5.0 - 13.0 % [facility] Neutrophils (Bld) [#/Vol] 10.5 10*3/uL High 1.8 - 7.5 10*3/uL [facility] Neutrophils/100 WBC (Bld) 78.2 % 38.0 - 82.0 % [facility] Nucleated RBC/100 WBC (Bld) [Ratio] 0.0 % [facility] Platelet mean volume (Bld) [Entitic vol] 9.8 fL 9.0 - 12.7 fL [facility] Platelets (Bld) [#/Vol] 393 10*3/uL 140 - 440 10*3/uL [facility] RBC (Bld) [#/Vol] 5.01 10*6/uL 4.40 - 5.9 0 10*6/uL [facility] WBC (Bld) [#/Vol] 13.4 10*3/uL High 3.6 - 10.7 10*3/uL [facility] CBC WITH AUTO DIFFERENTIALon 07-20-2023 Basophils (Bld) [#/Vol] 0.1 10*3/uL Normal 0.0-0.2 [facility] Comment on above: Performed By: #### L [id number] ####Packerhead Machine Operator: JAROD SUGGSNemesioLINDA ([id number])[facility] ([facility])[address] Basophils/100 WBC (Bld) 0.6 % Normal 0.0-2.0 [facility] Comment on above: Performed By: #### L [id number] ####Packerhead Machine Operator: JAROD VAIBHAV ([id number])[facility] ([facility])[address] Eosinophils (Bld) [#/Vol] 0.1 10*3/uL Normal 0.0-0.5 [facility] Comment on above: Performed By: #### L [id number] ####Packerhead Machine Operator: JAROD VAIBHAV ([id number])[facility] ([facility])[address] Eosinophils/100 WBC (Bld) 0.7 % Normal 0.0-6.0 [facility] Comment on above: Performed By: #### L [id number] ####Packerhead Machine Operator: JAROD VAIBHAV ([id number])[facility] [place] ([facility])[address] Erythrocyte distribution width (RBC) [Ratio] 13.1 % Normal 11.5-15.0 [facility] Comment on above: Performed By: #### L [id number] ####Packerhead Machine Operator: JAROD TOVARLINDA ([id number])[facility] [place] ([facility])[address] Hematocrit (Bld) [Volume fraction] 46.5 % Normal 40.0-52.0 [facility] Comment on above: Performed By: #### L [id number] ####Packerhead Machine Operator: JAROD TOVARLINDA ([id number])[facility] ([facility])[address] Hemoglobin (Bld) [Mass/Vol] 15.6 g/dL Normal 13.0-18.0 [facility] Comment on above: Performed By: #### L [id number] ####Packerhead Machine Operator: JAROD ESPOSITO ([id number])[facility] ([facility])[address] IMMATURE GRANS % 0.3 % Normal 0.0-2.0 [facility] [facility] Comment on above: Performed By: #### L [id number] ####Packerhead Machine Operator: JAROD ESPOSITO ([phone])[facility] (SBHLAB)[address] IMMATURE GRANS ABSOLUTE 0.0 10*3/uL Normal <0.1 [facility] Comment on above: Performed By: #### L [id number] ####Packerhead Machine Operator: JAROD ESPOSITO ([id number])[facility] (SBAB)[address] [place] [address] Lymphocytes (Bld) [#/Vol] 2.0 10*3/uL Normal 1.0-4.3 [facility] Comment on above: Performed By: #### L [id number] ####Packerhead Machine Operator: JAROD ESPOSITO ([id number])[facility] ([facility] Lymphocytes/100 WBC (Bld) 14.6 % Low 15.0-45.0 [facility] Comment on above: Performed By: #### L [id number] ####Packerhead Machine Operator: JAROD ESPOSITO ([id number])[facility] (SBHLAB)[address] MCH (RBC) [Entitic mass] 31.1 pg Normal 26.0-34.0 [facility] Comment on above: Performed By: #### L [id number] ####Packerhead Machine Operator: JAROD ESPOSITO ([id number])[facility] (SBHLAB)[address] MCHC 33.5 % Normal 30.5-36.0 [facility] Comment on above: Performed By: #### L [id number] ####Packerhead Machine Operator: JAROD ESPOSITO ([id number])[facility] (SBHLAB)[address] MCV (RBC) [Entitic vol] 92.8 fL Normal 77.0-99.0 S [facility] Comment on above: Performed By: #### L [id number] ####Packerhead Machine Operator: JAROD ESPOSITO ([id number])[facility] (SBHLAB)[address] Monocytes (Bld) [#/Vol] 0.8 10*3/uL Normal 0.0-0.9 [facility] Comment on above: Performed By: #### L [id number] ####Packerhead Machine Operator: JAROD TOVARLINDA ([id number])[facility] [place] (SBHL[facility])[address] Monocytes/100 WBC (Bld) 5.6 % Normal 5.0-13.0 [facility] Comment on above: Performed By: #### L [id number] ####Packerhead Machine Operator: JAROD TOVARLINDA ([id number])[facility] (SBHLAB)[address] NEUTROPHILS ABSOLUTE 10.5 10*3/uL High 1.8-7.5 [facility] Comment on above: Performed By: #### L [id number] ####Packerhead Machine Operator: JAROD ESPOSITO ([id number])[facility] [place] (SB[facility])[address] Neutrophils/100 WBC (Bld) 78.2 % Normal 38.0-82.0 [facility] Comment on above: Performed By: #### L [id number] ####Packerhead Machine Operator: JAROD ESPOSITO ([id number])[facility] [place] ([facility])[address] NRBC 0.0 /100 WBCs Normal 0.0-2.0 [facility] Comment on above: Performed By: #### L [id number] ####Packerhead Machine Operator: JAROD ESPOSITO ([id number])[facility] (SBHLAB)[address] Platelet mean volume (Bld) [Entitic vol] 9.8 fL Normal 9.0-12.7 [facility] Comment on above: Performed By: #### L [id number] ####Packerhead Machine Operator: JAROD ESPOSITO ([id number])[facility] (SBHLAB)[address] Platelets (Bld) [#/Vol] 393 10*3/uL Normal 140-440 [facility] Comment on above: Performed By: #### L [id number] ####Packerhead Machine Operator: JAROD ESPOSITO ([id number])[facility] (SBHLAB)[address] RBC (Bld) [#/Vol] 5.01 10*6/uL Normal 4.40-5.90 [facility] Comment on above: Performed By: #### L [id number] ####Packerhead Machine Operator: JAROD TOVARLINDA ([phone])[facility] (SBHLAB)[address] WBC (Bld) [#/Vol] 13.4 10*3/uL High 3.6-10.7 [facility] Comment on above: Performed By: #### L [id number] ####Packerhead Machine Operator: JAROD ESPOSITO ([id number])[facility] (SBHLAB)[address] CKon 07-20-2023 CK [Catalytic activity/Vol] 271 U/L High 30-170 [facility] Comment on above: Performed By: #### L AB46, LAB17, HHN156, LAB62 ####Packerhead Machine Operator: JAROD TOVARLINDA ([id number])[facility] (SB[facility]AB)[address] CK [Catalytic activity/Vol]o n 07-20-2023 Interpretation and review of laboratory results Abnormal [facility] COMPREHENSIVE METABOLIC PANE Chavo 07-20-2023 Albumin [Mass/Vol] 4.2 g/dL Normal 3.5-5.0 [facility] Comment on above: Performed By: #### L AB46, LAB17, AUW029, LAB62 ####Packerhead Machine Operator: JAROD ESPOSITO ([id number])[facility] [place] (SBHLAB)[address] ALP [Catalytic activity/Vol] 100 U/L Normal 38-126 [facility] Comment on above: Performed By: #### L AB46, LAB17, EKX145, LAB62 ####Packerhead Machine Operator: JAROD ESPOSITO ([id number])[facility] (SB[facility])[address] ALT [Catalytic activity/Vol] 20 U/L Normal 0-49 [facility] Comment on above: Performed By: #### L AB46, LAB17, LQC701, LAB62 ####Packerhead Machine Operator: JAROD ESPOSITO ([id number])[facility] [place] (SBHLAB)[address] Anion gap [Moles/Vol] 7 mmol/L Normal 3-13 [facility] Comment on above: Performed By: #### L AB46, LAB17, MJA713, LAB62 ####Packerhead Machine Operator: JAROD ESPOSITO ([id number])[facility] ([facility])[address] AST [Catalytic activity/Vol] 32 U/L Normal 15-46 [facility] Comment on above: Performed By: #### L AB46, LAB17, TAO311, LAB62 ####Packerhead Machine Operator: JAROD ESPOSITO ([id number])[facility] ([facility])[address] Bilirubin [Mass/Vol] 0.4 mg/dL Normal 0.2-1.3 [facility] Comment on above: Performed By: #### L AB46, LAB17, YPP968, LAB62 ####Packerhead Machine Operator: JAROD ESPOSITO ([id number])[facility] [place] (SBHLAB)[address] Calcium [Mass/Vol] 9.3 mg/dL Normal 8.4-10.4 [facility] Comment on above: Performed By: #### L AB46, LAB17, EVP660, LAB62 ####Packerhead Machine Operator: JAROD ESPOSITO ([id number])[facility] [place] (SBHLAB)[address] Chloride [Moles/Vol] 104 mmol/L Normal 98-107 [facility] Comment on above: Performed By: #### L AB46, LAB17, XGM877, LAB62 ####Packerhead Machine Operator: JAROD ESPOSITO ([id number])[facility] [place] (SBHLAB)[address] CO2 [Moles/Vol] 30 mmol/L Normal 22-30 [facility] Comment on above: Performed By: #### L AB46, LAB17, BZL630, LAB62 ####Packerhead Machine Operator: JAROD ESPOSITO ([id number])[facility] [place] (SBHLAB)[address] Creatinine [Mass/Vol] 0.84 mg/dL Normal 0.66-1.25 [facility] Comment on above: Performed By: #### L AB46, LAB17, NGW876, LAB62 ####Packerhead Machine Operator: JAROD ESPOSITO ([id number])[facility] [place] (SBHLAB)[address] GLOMERULAR FILTRATION RATE ML/MIN/1.73 SQ M.PREDICTED >90.0 Normal >60.0 [facility] Comment on above: Result Comment: Calc ulation based on the Chronic Kidney Disease Epidemiology Collaboration (CKD-EPI) equation refit without adjustment for race Performed By: #### L AB46, LAB17, VQN906, LAB62 ####Packerhead Machine Operator: JAROD ESPOSITO ([id number])[facility] [place] (SBHLAB)[address] Glucose [Mass/Vol] 89 mg/dL Normal 70-100 [facility] Comment on above: Performed By: #### L AB46, LAB17, WHW431, LAB62 ####Packerhead Machine Operator: JAROD ESPOSITO ([id number])[facility] (SBHLAB)[address] Potassium [Moles/Vol] 4.4 mmol/L Normal 3.5-5.1 [facility] Comment on above: Performed By: #### L AB46, LAB17, CAN053, LAB62 ####Packerhead Machine Operator: JAROD ESOPSITO ([phone])[facility] (SBHLAB)[address] Protein [Mass/Vol] 6.9 g/dL Normal 6.3-8.2 [facility] Comment on above: Performed By: #### L AB46, LAB17, LHX682, LAB62 ####Packerhead Machine Operator: JAROD ESPOSITO ([id number])[facility] (SBHLAB)[address] Sodium [Moles/Vol] 141 mmol/L Normal 135-145 [facility] Comment on above: Performed By: #### L AB46, LAB17, MLL899, LAB62 ####Packerhead Machine Operator: JAROD ESPOSITO ([id number])[facility] (SBHLAB)[address] Urea nitrogen [Mass/Vol] 9 mg/dL Normal 9-20 [facility] Comment on above: Performed By: #### L AB46, LAB17, AJL770, LAB62 ####Packerhead Machine Operator: JAROD ESPOSITO ([id number])[facility] (SBHLAB)[address] Comprehensive metabolic 1998 panelon 07-20-2023 Albumin [Mass/Vol] 4.2 g/dL 3.5 - 5.0 g/dL [facility] ALP [Catalytic activity/Vol] 100 U/L 38 - 126 U/L [facility] ALT [Catalytic activity/Vol] 20 U/L 0 - 49 U/L [facility] Anion gap [Moles/Vol] 7 mmol/L 3 - 13 mmol/L [facility] AST [Catalytic activity/Vol] 32 U/L 15 - 46 U/L [facility] Bilirubin [Mass/Vol] 0.4 mg/dL 0.2 - 1 .3 mg/dL [facility] Calcium [Mass/Vol] 9.3 mg/dL 8.4 - 10. 4 mg/dL [facility] Chloride [Moles/Vol] 104 mmol/L 98 - 10 7 mmol/L [facility] CO2 [Moles/Vol] 30 mmol/L 22 - 30 mmol/L [facility] Creatinine [Mass/Vol] 0.84 mg/dL 0.66 - 1.25 mg/dL [facility] GFR/1.73 sq M.predicted MDRD (S/P/Bld) [Vol rate/Area] - PINF [facility] Comment on above: Calculation based on the Chronic Kidney Disease Epidemiology Collaboration (CKD-EPI) equation refit without adjustment for race Glucose [Mass/Vol] 89 mg/dL 70 - 100 mg/dL [facility] Potassium [Moles/Vol] 4.4 mmol/L 3.5 - 5.1 mmol/L [facility] Protein [Mass/Vol] 6.9 g/dL 6.3 - 8.2 g/dL [facility] Sodium [Moles/Vol] 141 mmol/L 135 - 145 mmol/L [facility] Urea nitrogen [Mass/Vol] 9 mg/dL 9 - 20 mg/d L [facility] ECG 12-LEADon 07-20-2023 ECG 12-LEAD IMPRESSION: Sinus rhythm Borderline short CT interval Normal [place] No ST or T wave changes Electronically Signed On 07-20-2023 13:18:23 EST by Cas Salamanca Normal [facility] ED Provider Noteon ED Provider Note EMERGENCY DEPARTMENT ENCOUNTER Pt Name: Grant Danielle Birthdate 1985 Date of evaluation: 07/20/2023 ED Provider: Cas Salamanca MD CHIEF COMPLAINT Chief Complaint Patient presents with Altered Mental Status HISTORY OF PRESENT ILLNESS (Location/Symptom, Timing/Onset, Context/Setting, Quality, Duration, Modifying Factors, Severity) Note limiting factors. I wore appropriate PPE for the entirety of this encounter. HPI Grant Danielle is a 37 y.o. male who presents to the emergency department with chief complaint of concern for altered mental status due to drug use. Apparently patient was at his 's workplace and causing a public disturbance. Concern was that he was intoxicated with drugs and he admitted to 1 police communications dispatcher that he has used methamphetamines today. He also complained to the police that he had chest pain. He tells me he does not have any chest pain. He denies recent fevers. Denies cough. Denies shortness of breath. Patient appears anxious. Patient exhibits some paranoia. Patient appears intoxicated with drug use, possibly methamphetamines Nursing Notes were reviewed. Limitations to history: None Outside historians: EMS and Law enforcement REVIEW OF SYSTEMS Review of Systems: Pertinent positives as above per history of present illness. Other systems reviewed and found to be negative to a total of 10 systems reviewed. Review may be limited due to drug use. PAST MEDICAL HISTORY Past Medical History: Diagnosis Date ADHD Anemia Depression PTSD (post-traumatic stress disorder) Substance abuse ([facility]) ([facility]) TBI (traumatic brain injury) ([facility]) SURGICAL HISTORY No past surgical history on file. CURRENT MEDICATIONS Previous Medications PAROXETINE (PAXIL) 20 MG TABLET Take 1 tablet (20 mg) by mouth every morning. ALLERGIES Nsaids and Tramadol FAMILY HISTORY Family History Problem Relation Name Age of Onset Emphysema Mother No Known Problems Father SOCIAL HISTORY Social History Socioeconomic History Marital status: Tobacco Use Smoking status: Every Day Packs/day: 0.50 Years: 20.00 Additional pack years: 0.00 Total pack years: 10.00 Types: Cigarettes Vaping Use Vaping Use: Never used Substance and Sexual Activity Alcohol use: Not Currently Drug use: Yes Types: Marijuana Sexual activity: Yes Partners: Female Social Determinants of Health Financial Resource Strain: High Risk (05/23/2023) Overall Financial Resource Strain (CARDIA) Difficulty of Paying Living Expenses: Very hard Food Insecurity: Food Insecurity Present (05/23/2023) Hunger Vital Sign Worried About Running Out of Food in the Last Year: Often true Ran Out of Food in the Last Year: Often true Transportation Needs: No Transportation Needs (05/23/2023) PRAPARE - Transportation Lack of Transportation (Medical): No Lack of Transportation (Non-Medical): No Physical Activity: Sufficiently Active (05/23/2023) Exercise Vital Sign Days of Exercise per Week: 7 days Minutes of Exercise per Session: 30 min Housing Stability: High Risk (05/23/2023) Housing Stability Vital Sign Unable to Pay for Housing in the Last Year: Yes Unstable Housing in the Last Year: Yes SCREENINGS Erika Coma Scale Best Eye Response: Spontaneous Best Verbal Response: Confused Best Motor Response: Follows commands Erika Coma Scale Score: 14 PHYSICAL EXAM ED Triage Vitals [07/20/23 1300] Temp Heart Rate Resp BP 37.2 ?C (98.9 ?F) 105 20 128/74 SpO2 Temp Source Heart Rate Source Patient Position 96 % Tympanic Monitor Lying BP Location FiO2 (%) Left arm -- Physical Exam: Vital signs reviewed in nurse's notes. Patient is nontoxic in appearance. No respiratory distress. Head: Normocephalic, atraumatic Eyes: Pupils are equal, round and reactive to light. EOMI. Conjunctiva clear. Sclera anicteric ENT: Mucous membranes moist. Throat shows no erythema exudates or edema. Mastoids nontender. Neck: No anterior adenopathy. No tenderness or stiffness. Chest: Nontender. No obvious flail segments. Lungs: Clear to auscultation bilaterally. No wheezing rales or rhonchi. Heart: Tachycardic rate and regular rhythm. No audible murmur or gallop. Abdomen: Soft, nondistended, nontender. No rebound or guarding. No signs of peritonitis. Back: No midline tenderness. No flank area tenderness. Extremities: No gross deformity. No obvious tenderness. No obvious joint swelling. No calf tenderness. Negative Homans sign. Good distal pulses in all 4 extremities. Neurologic: Alert and fully oriented. No focal motor, sensory deficits in all 4 extremities. Cranial nerves II through XII grossly intact. Cerebellar testing intact. DIAGNOSTIC RESULTS Procedures/EKG: Normal sinus rhythm. Rate of 93. Normal axis. No acute appearing ST segment elevation. No significant change compared to previous of 08/18/2008. Today's EKG interpreted by this examiner. EK (more content not included)... Normal [facility] ETHANOLon 07-20-2023 ETHANOL IN SER/PLAS <0.010 Normal 0.000-0.010 [facility] Comment on above: Result Comment: SONYA Canela COMMENTS: NOTE: This result is for medical treatment only. Analysis performed using non-forensic procedures. Performed By: #### L AB46, LAB17, [id number], LAB62 ####Packerhead Machine Operator: JAROD ESPOSITO ([id number])[facility] (SBHLAB)[address] [place] [address] Ethanol (Bld) [Mass/Vol]on 0 07-20-2023 Ethanol [Mass/Vol] g/dL 0.000 - 0 .010 g/dL [facility] Laboratory - Chemistry and C hemistry - challengeon 07-20-2023 Troponin I.cardiac [Mass/Vol] ng/mL NINF - 0.034 ng/mL [facility] CK [Catalytic activity/Vol] 271 U/L High 30 - 170 U/L [facility] Laboratory - Microbiology an d Antimicrobial susceptibilityOrdered By: Dalila He on 07-20-2023 SARS-CoV-2 (COVID-19) Ag IA.rapid Ql (Resp) Negative Negative [facility] Comment on above: A negative result do es not rule out the possibility of SARS-CoV-2 infection. NAAT-based methods should be considered for symptomatic patients presenting greater than seven days after onset of symptoms. Method: Lateral flow immunoassay. Fact sheets for healthcare providers and patients can be found at the following sites: https://www.fda.gov/media/882100/download https://www.fda.gov/media/377208/download No Panel Informationon 07-19 Interpretation and review of laboratory results Normal [facility] P [place] 33 degrees [facility] CT Interval 116 ms [facility] QRS [place] 59 degrees [facility] QRSD Interval 98 ms [facility] QT Interval 337 ms [facility] QTC Interval 420 ms [facility] T Wave [place] 54 degrees [facility] Sinus rhythm Borderline short CT interval Normal [place] No ST or T wave changes Electronically Signed On 07-20-2023 13:18:23 EST by Cas Salamanca CV Cas Ozuna MD - 07/20/2023 IMPRESSION: Sinus rhythm Borderline short CT interval Normal [place] No ST or T wave changes Electronically Signed On 07-20-2023 13:18:23 EST by Cas Salamanca [facility] SARS-COV-2 ANTIGENon 024 SARS-COV-2 ANTIGEN SARS-COV-2 ANTIGEN -BINAX Reference Negative Negative A negative result does not rule out the possibility of SARS-CoV-2 infection. NAAT-based methods should be considered for symptomatic patients presenting greater than seven days after onset of symptoms. Method: Lateral flow immunoassay. Fact sheets for healthcare providers and patients can be found at the following sites: https://www.fda.gov/ media/712946/downloa d https://www.fda.gov/ media/499146/downloa d Normal [facility] Comment on above: Performed By: #### L [id number] #### Packerhead Machine Operator: JERARDO NICHOLE ([phone]) [facility] (SACLAB) [address] [place] [address] SARS-CoV-2 (COVID-19) Ag IA. rapid Ql (Resp)Ordered By: Dalila He on 07-20-2023 Interpretation and review of laboratory results Normal [facility] TROPONIN Ion 07-20-2023 Troponin I.cardiac [Mass/Vol] ng/mL Normal <0.034 [facility] Comment on above: Result Comment: SONYA Canela COMMENTS: Patients with high levels of Biotin oral intake (ie >5 mg/day) may have falsely decreased Troponin levels. Performed By: #### L AB46, LAB17, GQW659, LAB62 ####Packerhead Machine Operator: JAROD ESPOSITO ([id number])[facility] (SBHLAB)[address] [place] [address] Troponin I.cardiac [Mass/Vol ]on 07-20-2023 Interpretation and review of laboratory results Normal [facility] Patients with high levels of Biotin oral intake (ie >5 mg/day) may have falsely decreased Troponin levels. [facility] Vital signson 07-20-2023 Heart rate 93 /min bpm [facility] Office Visiton 06-15-2023 Follow-up visit [id number] Grant Danielle 1985 Date Provider Department Center 06/15/2023 [facility] Family History Problem Relation Age of Onset Emphysema Mother No Known Problems Father Family Status - Relation Status Age at Mother Father Level of Service:09365 CT OFFICE/OUTPATIENT ESTABLISHED MOD MDM 30 MIN Reason for Visit and Comments: Bipolar [566741] Anxiety [9] PTSD (Post-Traumatic Stress Disorder) [996427] Follow-up [806023] Med Refill [288180] Normal [facility] Progress Noteon 06-15-2023 Progress Note Partial remission, continue Paxil 20 mg, Rx sent. 5 him follow-up in 8 weeks. Normal [facility] Progress Note Partial remission, continue Paxil 20 mg, Rx sent. 5 him follow-up in 8 weeks. Normal [facility] Progress Note Partial remission, continue Paxil 20 mg, Rx sent. 5 him follow-up in 8 weeks. Normal [facility] Progress Note Blood pressure was initially elevated, he left before we could recheck Normal [facility] Progress Note Awaiting on neurology to set up an appointment Normal [facility] Progress Note 06/15/2023 Grant Danielle (: 1985) is a 37 y.o. male , Established patient, here for evaluation of the following chief complaint(s): Bipolar, Anxiety, PTSD (Post-Traumatic Stress Disorder), Follow-up, and Med Refill ASSESSMENT/PLAN: 1. Bipolar affective disorder, currently depressed, moderate (HCC) Assessment & Plan: Partial remission, continue Paxil 20 mg, Rx sent. 5 him follow-up in 8 weeks. 2. Severe anxiety Assessment & Plan: Partial remission, continue Paxil 20 mg, Rx sent. 5 him follow-up in 8 weeks. 3. PTSD (post-traumatic stress disorder) Assessment & Plan: Partial remission, continue Paxil 20 mg, Rx sent. 5 him follow-up in 8 weeks. 4. History of traumatic brain injury Assessment & Plan: Awaiting on neurology to set up an appointment 5. Elevated BP without diagnosis of hypertension Assessment & Plan: Blood pressure was initially elevated, he left before we could recheck Follow up in about 8 weeks (around 08/10/2023). SUBJECTIVE/OBJECTIVE : JASPAL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 Tomas Pathak on 02-15-2021 Ammonia (P) [Mass/Vol] ug/dL 9 - 30 umol/L [facility] Work Phone: Test Performed by [facility], [address], [place] [address] [facility] Work Phone: 1 [facility] Work Phone: CBC Auto DifferentialOrdered By: Alfred Pathak on 02-15-2021 Absolute Baso # 0.0 10*3/uL 0.0 - 0.2 10*3/uL [facility] Work Phone: 1 Absolute Neut # 6.4 10*3/uL 1.8 - 7.0 10*3/uL [facility] Work Phone: 1 22 Basophils/100 WBC (Bld) 0.4 % 0.0 - 2.0 % [facility] Work Phone: Eosinophils (Bld) [#/Vol] 0.3 10*3/uL 0.0 - 0.5 10*3/uL [facility] Work Phone: 1) 22 Eosinophils/100 WBC (Bld) 2.7 % 1.0 - 6.0 % [facility] Work Phone: Granulocytes/100 WBC (Bld) 58.8 % 40.0 - 80.0 % [facility] Work Phone: 1 Hematocrit (Bld) [Volume fraction] 44.6 % 40.0 - 52.0 % [employer] [facility] Work Phone: 1 Hemoglobin.gastrointesti nal spec 1 Ql (Stl) 15.1 g/dL 13.0 - 18.0 g/dL [facility] Work Phone: Interpretation and review of laboratory results Abnormal [employer] Work Phone: Lymphocytes (Bld) [#/Vol] 3.4 10*3/uL 1.0 - 4.3 10*3/uL [employer] [facility] Work Phone: 1 Lymphocytes/100 WBC (Bld) 31.4 % 20.0 - 40.0 % [employer] [facility] Work Phone: 1 MCH (RBC) [Entitic mass] 32.3 pg 26.0 - 34.0 pg [employer] Work Phone: MCHC (RBC) [Mass/Vol] 33.9 % 32.0 - 36.0 % [employer] [facility] Work Phone: MCV (RBC) [Entitic vol] 95.3 fL 80.0 - 98.0 fL [employer] [facility] Work Phone: Monocytes (Bld) [#/Vol] 0.7 10*3/uL 0.0 - 0.8 10*3/uL [employer] [facility] Work Phone: Monocytes/100 WBC (Bld) 6.7 % 2.0 - 10.0 % [employer] [facility] Work Phone: Platelet distribution width (Bld) [Ratio] 13.7 % 11.5 - 14.5 % [employer] Phone: Platelet mean volume (Bld) [Entitic vol] 7.7 fL 7.4 - 10.4 fL [facility] Work Phone: Platelets (Bld) [#/Vol] 386 10*3/uL 140 - 440 10*3/uL [facility] Work Phone: RBC (Bld) [#/Vol] 4.68 10*6/uL 4.40 - 5.9 0 10*6/uL [facility] Work Phone: WBC (Bld) [#/Vol] 10.9 10*3/uL High 3.6 - 10.7 10*3/uL [facility] Work Phone: Test Performed by [facility], [address] , [place], [place] [address] Work Phone: [phone] [facility] Work Phone: Comp Metabolic Panelon 02-15 ALP [Catalytic activity/Vol] 74 U/L Normal 38-126 [facility] Comment on above: Performed By: #### C MP3, HEMDF, TSH5 #### [facility] [address] [place] [address] #### LI3, VALP3, NH33 #### [facility] [address] [place] [address] ALT [Catalytic activity/Vol] 13 U/L Normal 0-49 [facility] Comment on above: Result Comment: The ALT test is performed by an updated assay method. Please note that the reference intervals have been changed and are now sex specific. Performed By: #### C MP3, HEMDF, TSH5 #### [facility] [address] [place] [address] #### LI3, VALP3, NH33 #### [facility] [address] [place] [address] Calcium [Mass/Vol] 9.7 mg/dL Normal 8.4-10.4 [facility] Comment on above: Performed By: #### C MP3, HEMDF, TSH5 #### [facility] [address] [place] [address] #### LI3, VALP3, NH33 #### [facility] [address] [place] [address] Glucose [Mass/Vol] 97 mg/dL Normal 70-100 [facility] Comment on above: Performed By: #### C MP3, HEMDF, TSH5 #### [facility] [address] [place] [address] #### LI3, VALP3, NH33 #### [facility] [address] [place] [address] Protein [Mass/Vol] 7.3 g/dL Normal 6.3-8.2 [facility] Comment on above: Performed By: #### C MP3, HEMDF, TSH5 #### [facility] [address] [place] [address] #### LI3, VALP3, NH33 #### [facility] [address] [place] [address] Urea nitrogen [Mass/Vol] 7 mg/dL Normal 7-17 [facility] Comment on above: Performed By: #### C MP3, HEMDF, TSH5 #### [facility] [address] [place] [address] #### LI3, VALP3, NH33 #### [place] [address] [place] [address] Anion gap [Moles/Vol] 6 mmol/L Normal 3-13 [facility] Comment on above: Performed By: #### C MP3, HEMDF, TSH5 #### [facility] [address] [place] [address] #### LI3, VALP3, NH33 #### [facility] [address] [place] [address] AST [Catalytic activity/Vol] 23 U/L Normal 15-46 [facility] Comment on above: Performed By: #### C MP3, HEMDF, TSH5 #### [facility] [address] [place] [address] #### LI3, VALP3, NH33 #### [facility] [address] [place] [address] Bilirubin [Mass/Vol] 0.6 mg/dL Normal 0.2-1.3 [facility] Comment on above: Performed By: #### C MP3, HEMDF, TSH5 #### [facility] [address] [place] [address] #### LI3, VALP3, NH33 #### [facility] [address] [place] [address] CO2 [Moles/Vol] 29 mmol/L Normal 22-30 [facility] Comment on above: Performed By: #### C MP3, HEMDF, TSH5 #### [facility] [address] [place] [address] #### LI3, VALP3, NH33 #### [facility] [address] [place] [address] Creatinine [Mass/Vol] 0.86 mg/dL Normal 0.52-1.25 [facility] Comment on above: Performed By: #### C MP3, HEMDF, TSH5 #### [facility] [address] [place] [address] #### LI3, VALP3, NH33 #### [facility] [address] [place] [address] eGFR OTHER > 90.0 Normal >60 [facility] Comment on above: Result Comment: KDIG O guidelines provide the following GFR categories: Stage GFR(ml/min/1.73 m2) Terms G1 >=90 Normal or high G2 60-89 Mildly decreased* G3a 45-59 Mildly to moderately decreased G3b 30-44 Moderately to severely decreased G4 15-29 Severely decreased G5 <15 Kidney failure *Relative to young adult level. In the absence of evidence of kidney damage, neither GFR category G1 nor G2 fulfill the criteria for CKD. The CKD-EPI equation is validated in individuals 18 years of age and older. Currently the best equation for estimating glomerular filtration rate (GFR) from serum creatinine in children is the Bedside Denney equation. It is less accurate in patients with extremes of muscle mass, restriction of dietary protein, ingestion of creatine, extra-renal metabolism of creatinine, or treatment with medications that affect renal tubular creatinine secretion. Performed By: #### C MP3, HEMDF, TSH5 #### [facility] [address] [place] [address] #### LI3, VALP3, NH33 #### [facility] [address] [place] [address] GFR/1.73 sq M.predicted among blacks MDRD (S/P/Bld) [Vol rate/Area] mL/min/{1.73_m2} Normal >60 [facility] Comment on above: Performed By: #### C MP3, HEMDF, TSH5 #### [facility] [address] [place] [address] #### LI3, VALP3, NH33 #### [facility] [address] [place] [address] Chloride [Moles/Vol] 106 mmol/L Normal 98-107 [facility] Comment on above: Performed By: #### C MP3, HEMDF, TSH5 #### [facility] [address] [place] [address] #### LI3, VALP3, NH33 #### [facility] [address] [place] [address] Potassium [Moles/Vol] 3.8 mmol/L Normal 3.5-5.1 [facility] Comment on above: Performed By: #### C MP3, HEMDF, TSH5 #### [facility] [address] [place] [address] #### LI3, VALP3, NH33 #### [facility] [address] [place] [address] Sodium [Moles/Vol] 141 mmol/L Normal 135-145 [facility] Comment on above: Performed By: #### C MP3, HEMDF, TSH5 #### [facility] [address] [place] [address] #### LI3, VALP3, NH33 #### [facility] [address] [place] [address] Albumin [Mass/Vol] 4.4 g/dL Normal 3.5-5.0 [facility] Comment on above: Performed By: #### C MP3, HEMDF, TSH5 #### [facility] [address] [place] [address] #### LI3, VALP3, NH33 #### [facility] [address] [place] [address] Comprehensive Metabolic Pane lOrdered By: Alfred Pathak on 02-15-2021 Albumin [Mass/Vol] 4.4 g/dL 3.5 - 5.0 g/dL [facility] Work Phone: [phone] ALP (Bld) [Catalytic activity/Vol] 74 U/L 38 - 126 U/L [facility] Work Phone: [phone] ALT [Catalytic activity/Vol] 13 U/L 0 - 49 U/L [facility] Work Phone: [phone] Comment on above: The ALT test is perf ormed by an updated assay method. Please note that the reference intervals have been changed and are now sex specific. Anion gap [Moles/Vol] 6 mmol/L 3 - 13 mmol/L [facility] Work Phone: [phone] AST [Catalytic activity/Vol] 23 U/L 15 - 46 U/L [facility] Work Phone: [phone] Bilirubin [Mass/Vol] 0.6 mg/dL 0.2 - 1 .3 mg/dL [facility] Work Phone: [phone] Calcium [Mass/Vol] 9.7 mg/dL 8.4 - 10. 4 mg/dL [facility] Work Phone: [phone] Chloride [Moles/Vol] 106 mmol/L 98 - 10 7 mmol/L [facility] Work Phone: CO2 [Moles/Vol] 29 mmol/L 22 - 30 mmol/L [facility] Work Phone: [phone] Creatinine [Mass/Vol] 0.86 mg/dL 0.52 - 1.25 mg/dL [facility] Work Phone: [phone] EGFR IF NonAfrican Moroccan >90.0 >60 mL/min [facility] Work Phone: [phone] Comment on above: KDIGO guidelines pro vide the following GFR categories: Stage GFR(ml/min/1.73 m2) Terms G1 >=90 Normal or high G2 60-89 Mildly decreased* G3a 45-59 Mildly to moderately decreased G3b 30-44 Moderately to severely decreased G4 15-29 Severely decreased G5 <15 Kidney failure *Relative to young adult level. In the absence of evidence of kidney damage, neither GFR category G1 nor G2 fulfill the criteria for CKD. The CKD-EPI equation is validated in individuals 18 years of age and older. Currently the best equation for estimating glomerular filtration rate (GFR) from serum creatinine in children is the Bedside Denney equation. It is less accurate in patients with extremes of muscle mass, restriction of dietary protein, ingestion of creatine, extra-renal metabolism of creatinine, or treatment with medications that affect renal tubular creatinine secretion. Free PSA/Total PSA [Mass fraction] 7.3 g/dL 6.3 - 8.2 g/dL [facility] Work Phone: [phone] GFR/1.73 sq M.predicted among blacks MDRD (S/P/Bld) [Vol rate/Area] mL/min/{1.73_m2} >60 mL/min [facility] Work Phone: [phone] Glucose [Mass/Vol] 97 mg/dL 70 - 100 mg/dL [facility] Work Phone: [phone] Potassium [Moles/Vol] 3.8 mmol/L 3.5 - 5.1 mmol/L [facility] Work Phone: Sodium [Moles/Vol] 141 mmol/L 135 - 145 mmol/L [facility] Work Phone: [phone] Urea nitrogen (BldV) [Mass/Vol] 7 mg/dL 7 - 17 mg/dL [facility] Work Phone: Test Performed by [facility], [address] , [address] Work Phone: [phone] [facility] Work Phone: [phone] Hemogram w/ Autodiffon 02-15 Abs Baso Cnt 0.0 10*3/uL Normal 0.0-0.2 [facility] Comment on above: Performed By: #### C MP3, HEMDF, TSH5 #### [facility] [address] [place] [address] #### LI3, VALP3, NH33 #### [facility] [address] [place] [address] Abs Neutrophile Cnt 6.4 10*3/uL Normal 1.8-7.0 [facility] Comment on above: Performed By: #### C MP3, HEMDF, TSH5 #### [facility] [address] [place] [address] #### LI3, VALP3, NH33 #### [facility] [address] [place] [address] Basophils/100 WBC (Bld) 0.4 % Normal 0.0-2.0 [facility] Comment on above: Performed By: #### C MP3, HEMDF, TSH5 #### [facility] [address] [place] [address] #### LI3, VALP3, NH33 #### [facility] [address] [place] [address] Eosinophils (Bld) [#/Vol] 0.3 10*3/uL Normal 0.0-0.5 [facility] Comment on above: Performed By: #### C MP3, HEMDF, TSH5 #### [facility] [address] [place] [address] #### LI3, VALP3, NH33 #### [facility] [address] [place] [address] Eosinophils/100 WBC (Bld) 2.7 % Normal 1.0-6.0 [facility] Comment on above: Performed By: #### C MP3, HEMDF, TSH5 #### [facility] [address] [place] [address] #### LI3, VALP3, NH33 #### [facility] [address] [place] [address] Erythrocyte distribution width (RBC) [Ratio] 13.7 % Normal 11.5-14.5 [facility] Comment on above: Performed By: #### C MP3, HEMDF, TSH5 #### [facility] [address] [place] [address] #### LI3, VALP3, NH33 #### [facility] [address] [place] [address] Granulocytes/100 WBC (Bld) 58.8 % Normal 40.0-80.0 [facility] Comment on above: Performed By: #### C MP3, HEMDF, TSH5 #### [facility] [address] [place] [address] #### LI3, VALP3, NH33 #### [facility] [address] [place] [address] Hematocrit (Bld) [Volume fraction] 44.6 % Normal 40.0-52.0 [facility] Comment on above: Performed By: #### C MP3, HEMDF, TSH5 #### [facility] [address] [place] [address] #### LI3, VALP3, NH33 #### [facility] [address] [place] [address] Hemoglobin (Bld) [Mass/Vol] 15.1 g/dL Normal 13.0-18.0 [facility] Comment on above: Performed By: #### C MP3, HEMDF, TSH5 #### [address] [place] [address] #### LI3, VALP3, NH33 #### [place] [address] [place] [address] Lymphocytes (Bld) [#/Vol] 3.4 10*3/uL Normal 1.0-4.3 [facility] Comment on above: Performed By: #### C MP3, HEMDF, TSH5 #### [facility] [address] [place] [address] #### LI3, VALP3, NH33 #### [place] [address] [place] [address] Lymphocytes/100 WBC (Bld) 31.4 % Normal 20.0-40.0 [facility] Comment on above: Performed By: #### C MP3, HEMDF, TSH5 #### [address] [place] [address] #### LI3, VALP3, NH33 #### [facility] [address] [place] [address] MCH (RBC) [Entitic mass] 32.3 pg Normal 26.0-34.0 [facility] Comment on above: Performed By: #### C MP3, HEMDF, TSH5 #### [address] [place] [address] #### LI3, VALP3, NH33 #### [facility] [address] [place] [address] MCHC 33.9 % Normal 32.0-36.0 [facility] Comment on above: Performed By: #### C MP3, HEMDF, TSH5 #### [facility] [address] [place] [address] #### LI3, VALP3, NH33 #### [facility] [address] [place] [address] MCV (RBC) [Entitic vol] 95.3 fL Normal 80.0-98.0 [facility] Comment on above: Performed By: #### C MP3, HEMDF, TSH5 #### [facility] [address] [place] [address] #### LI3, VALP3, NH33 #### [place] [address] [place] [address] Monocytes (Bld) [#/Vol] 0.7 10*3/uL Normal 0.0-0.8 [facility] Comment on above: Performed By: #### C MP3, HEMDF, TSH5 #### [facility] [address] [place] [address] #### LI3, VALP3, NH33 #### [place] [address] [place] [address] Monocytes/100 WBC (Bld) 6.7 % Normal 2.0-10.0 [facility] Comment on above: Performed By: #### C MP3, HEMDF, TSH5 #### [facility] [address] [place] [address] #### LI3, VALP3, NH33 #### [facility] [address] [place] [address] Platelet mean volume (Bld) [Entitic vol] 7.7 fL Normal 7.4-10.4 [facility] Comment on above: Performed By: #### C MP3, HEMDF, TSH5 #### [facility] [address] [place] [address] #### LI3, VALP3, NH33 #### [facility] [address] [place] [address] Platelets (Bld) [#/Vol] 386 10*3/uL Normal 140-440 [facility] Comment on above: Performed By: #### C MP3, HEMDF, TSH5 #### [facility] [address] [place] [address] #### LI3, VALP3, NH33 #### [facility] [address] [place] [address] RBC (Bld) [#/Vol] 4.68 10*6/uL Normal 4.40-5.90 [facility] Comment on above: Performed By: #### C MP3, HEMDF, TSH5 #### [facility] [address] [place] [address] #### LI3, VALP3, NH33 #### [facility] [address] [place] [address] WBC (Bld) [#/Vol] 10.9 10*3/uL High 3.6-10.7 [facility] Comment on above: Performed By: #### C MP3, HEMDF, TSH5 #### [facility] [address] [place] [address] #### LI3, VALP3, NH33 #### [facility] [address] [place] [address] Lithiumon 02-15-2021 [place] [Moles/Vol] 0.5 mmol/L Low 0.6-1.2 [facility] Comment on above: Performed By: #### V ALP3, NH33 #### [facility] [address] [place] [address] #### CMP3 #### [facility] [address] [place] [address] [place] LevelOrdered By: Derek Pathak on 02-15-2021 Interpretation and review of laboratory results Abnormal [facility] Work Phone: [place] Lvl 0.5 mmol/L Low 0.6 - 1.2 mmol/L [facility] Work Phone: 1 Test Performed by [facility], [address], [place], [place] [address] [facility] Work Phone: 1 [facility] Work Phone: TSH without ReflexOrdered By : Alfred Pathak on 02-15-2021 TSH Qn 3.494 u[IU]/mL 0.465 - 4.680 u[IU]/mL [facility] Work Phone: 1 Test Performed by [facility], [address] , [place] [address] [facility] Work Phone: 1 [facility] Work Phone: 1 Thyroid Stim. Hormoneon 01-20 Thyroid Stim. Hormone 3.494 u[IU]/mL Normal 0.465-4.68 0 [facility] Comment on above: Performed By: #### V ALP3, NH33 #### [facility] [address] [place] [address] #### CMP3 #### [facility] [address] [place] [address] Valproic Acidon 02-15-2021 Valproic Acid 33 ug/mL Low 50-120 [facility] Comment on above: Performed By: #### V ALP3, NH33 #### [facility] [address] [place] [address] #### CMP3 #### [facility] [address] [place] [address] Valproic acid level, totalOr dered By: Alfred Pathak on 02-15-2021 Interpretation and review of laboratory results Abnormal [facility] Work Phone: 1 Valproic Acid Lvl 33 ug/mL Low 50 - 120 ug/mL [facility] Work Phone: Test Performed by [facility], [address] [place], [place] [address] [facility] Work Phone: 1 [facility] Work Phone: [phone] PROGRESSon 07-02-2020 PROGRESS HNO ID: [id number] Author: Alpa Nunez Service: ? Author Type: Nurse Practitioner Type: Progress Notes Filed: 07/02/2020 3:09 PM Note Text: Completed treatment for Hep C in January of 2020. Alpa Nunez RN OUTSOLE M[employer]DER.[facility] US ABD RIGHT UPPER QUADRANTo n 11-13-2019 US ABD RIGHT UPPER QUADRANT Final Report DATE OF EXAM: Nov 13 2019 2:58PM [facility] 1032 - US ABD RIGHT UPPER QUADRANT / PROCEDURE REASON: Chronic hepatitis C without hepatic coma (HCC) Physician Interpretation EXAMINATION: RIGHT UPPER QUADRANT ULTRASOUND CLINICAL HISTORY: Chronic hepatitis C TECHNIQUE: Sonography of the right upper quadrant was performed. Images were obtained and stored in a permanent archive. MQ: [id number] COMPARISON: None. RESULT: Pancreas: Normal sonographic appearance. Portions obscured: tail Liver: Echotexture: Normal, homogeneous. Echogenicity: Normal Surface contour: Smooth Lesions: None. Biliary: No intrahepatic biliary duct dilation. CBD: 0.4 cm at the hilum. Gallbladder: Normal caliber -Contents: No cholelithiasis -Wall: Normal -Other: No pericholecystic fluid. Right Kidney: No hydronephrosis. Ascites: None. IMPRESSION: Normal sonographic appearance of the right upper quadrant. House Rn: PSCB Transcribe Date/Time: Nov 13 2019 4:56P Dictated by : SERGEI DUMONT MD This examination was interpreted and the report reviewed and electronically signed by: SERGEI DUMONT MD on Nov 13 2019 4:57PM EST Normal [facility] Vital Signs Date Time Vital Sign Value Performing Clinician Facility 11-14-2024 17:15-0400 Diastolic blood pressure 66 mm[Hg] Dr. Dom Yanez MD Work Phone: [facility] 11-14-2024 17:15-0400 Heart rate 60 /min Dr. Dom Yanez MD Work Phone: [facility] 11-14-2024 17:15-0400 Respiratory rate 16 /min Dr. Dom Yanez MD Work Phone: [facility] 11-14-2024 17:15-0400 SaO2% (BldA) [Mass fraction] 98 % Dr. Dom Yanez MD Work Phone: [facility] 11-14-2024 17:15-0400 Systolic blood pressure 119 mm[Hg] Dr. Dom Yanez MD Work Phone: [facility] 11-14-2024 15:23-0400 Body height 185.[address] Dom Yanez MD Work Phone: [facility] 11-14-2024 15:23-0400 Body mass index (BMI) [Ratio] 26.6 kg/m2 Dr. Dom Yanez MD Work Phone: [facility] 11-14-2024 15:23-0400 Body temperature 98.4 [degF] Dr. Dom Yanez MD Work Phone: [facility] 11-14-2024 15:23-0400 Body weight 91.[address] Dom Yanez MD Work Phone: [facility] 11-28-2023 13:36-0400 Body height 182.9 cm Abimael Carson MD Work Phone: [facility] 11-28-2023 13:36-0400 Body mass index (BMI) [Ratio] 22.54 kg/m2 Abimael Carson MD Work Phone: [facility] 11-28-2023 13:36-0400 Body weight 75.39 kg Abimael Carson MD Work Phone: [facility] 11-28-2023 13:36-0400 Diastolic blood pressure 84 mm[Hg] Abimael Carson MD Work Phone: [facility] 11-28-2023 13:36-0400 Heart rate 82 /min Abimael Carson MD Work Phone: [facility] 11-28-2023 13:36-0400 SaO2% (BldA) [Mass fraction] 98 % Abimael Carson MD Work Phone: [facility] 11-28-2023 13:36-0400 Systolic blood pressure 134 mm[Hg] Abimael Carson MD Work Phone: [facility] 11-14-2023 09:44-0400 Body height 182.9 cm Abimael Carson MD Work Phone: [facility] 11-14-2023 09:44-0400 Body mass index (BMI) [Ratio] 22.92 kg/m2 Abimael Carson MD Work Phone: [facility] 11-14-2023 09:44-0400 Body weight 76.66 kg Abimael Carson MD Work Phone: [facility] 11-14-2023 09:44-0400 Diastolic blood pressure 87 mm[Hg] Abimael Carson MD Work Phone: [facility] 11-14-2023 09:44-0400 Heart rate 66 /min Abimael Carson MD Work Phone: [facility] 11-14-2023 09:44-0400 SaO2% (BldA) [Mass fraction] 97 % Abimael Carson MD Work Phone: [facility] 11-14-2023 09:44-0400 Systolic blood pressure 135 mm[Hg] Abimael Carson MD Work Phone: [facility] 11-12-2023 15:52-0400 Body mass index (BMI) [Ratio] 20.34 kg/m2 Shane Zamarripa MD Work Phone: [facility] 11-12-2023 15:52-0400 Body temperature 97.7 [degF] Shane Zamarripa MD Work Phone: [facility] 11-12-2023 15:52-0400 Body weight 68.04 kg Shane Zamarripa MD Work Phone: [facility] 11-12-2023 15:52-0400 Diastolic blood pressure 81 mm[Hg] Shane Zamarripa MD Work Phone: [facility] 11-12-2023 15:52-0400 Heart rate 79 /min Shane Zamarripa MD Work Phone: [facility] 11-12-2023 15:52-0400 Respiratory rate 18 /min Shane Zamarripa MD Work Phone: [employer] 11-12-2023 15:52-0400 SaO2% (BldA) [Mass fraction] 100 % Shane Zamarripa MD Work Phone: [employer] 11-12-2023 15:52-0400 Systolic blood pressure 134 mm[Hg] Shane Zamarripa MD Work Phone: [employer] [facility] 11-07-2023 06:05-0400 Diastolic blood pressure 84 mm[Hg] Dayna Jacob DO Work Phone: [employer] 11-07-2023 06:05-0400 Heart rate 59 /min Dayna Jacob DO Work Phone: [employer] 11-07-2023 06:05-0400 Respiratory rate 13 /min Dayna Jacob DO Work Phone: [employer] 11-07-2023 06:05-0400 SaO2% (BldA) [Mass fraction] 100 % Dayna Jacob DO Work Phone: [employer] 11-07-2023 06:05-0400 Systolic blood pressure 136 mm[Hg] Dayna Jacob DO Work Phone: [facility] 10-24-2023 09:56-0400 Body height 182.9 cm Abimael Carson MD Work Phone: [facility] 10-24-2023 09:56-0400 Body mass index (BMI) [Ratio] 22 kg/m2 Abimael Carson MD Work Phone: [employer] 10-24-2023 09:56-0400 Body weight 73.57 kg Abimael Carson MD Work Phone: [employer] 10-24-2023 09:56-0400 Diastolic blood pressure 81 mm[Hg] Abimael Carson MD Work Phone: [facility] 10-24-2023 09:56-0400 Heart rate 83 /min Abimael Carson MD Work Phone: [facility] 10-24-2023 09:56-0400 SaO2% (BldA) [Mass fraction] 97 % Abimael Carson MD Work Phone: [facility] 10-24-2023 09:56-0400 Systolic blood pressure 130 mm[Hg] Abimael Carson MD Work Phone: [facility] 10-19-2023 08:57-0400 Body height 182.9 cm Montrell Delarosa MD Work Phone: [facility] 10-19-2023 07:50-0400 Body temperature 97.81 [degF] Montrell Delarosa MD Work Phone: [facility] 10-19-2023 07:50-0400 Diastolic blood pressure 67 mm[Hg] Montrell Delarosa MD Work Phone: [facility] 10-19-2023 07:50-0400 Heart rate 78 /min Montrell Delarosa MD Work Phone: [facility] 10-19-2023 07:50-0400 Respiratory rate 16 /min Montrell Delarosa MD Work Phone: [facility] 10-19-2023 07:50-0400 SaO2% (BldA) [Mass fraction] 98 % Montrell Delarosa MD Work Phone: [facility] 10-19-2023 07:50-0400 Systolic blood pressure 127 mm[Hg] Montrell Delarosa MD Work Phone: [facility] 10-18-2023 08:16-0400 Body mass index (BMI) [Ratio] 24.41 kg/m2 Montrell Delarosa MD Work Phone: [facility] 10-18-2023 08:16-0400 Body weight 81.65 kg Montrell Delarosa MD Work Phone: [facility] 10-16-2023 19:48-0400 Body height 185.4 cm ANA JOYCE MD [facility] 10-16-2023 19:48-0400 Body temperature 100.04 [degF] ANA JOYCE MD [facility] 10-16-2023 19:48-0400 Body weight 81.8 kg ANA JOYCE MD [facility] 10-16-2023 19:48-0400 Diastolic Blood Pressure Non-Invasive 78 mm[Hg] ANA JOYCE MD [facility] 10-16-2023 19:48-0400 Heart rate 90 /min ANA JOYCE MD [facility] 10-16-2023 19:48-0400 Respiratory rate 18 /min ANA JOYCE MD [facility] 10-16-2023 19:48-0400 Systolic Blood Pressure Non-Invasive 148 mm[Hg] ANA JOYCE MD [facility] 09-05-2023 10:15-0400 Body temperature 97.7 [degF] BETHANIE GUERRA MD [facility] 09-05-2023 10:15-0400 Body weight 79.2 kg BETHANIE GUERRA MD [facility] 09-05-2023 10:15-0400 Diastolic Blood Pressure Non-Invasive 83 mm[Hg] BETHANIE GUERRA MD [facility] 09-05-2023 10:15-0400 Heart rate 95 /min BETHANIE GUERRA MD [facility] 09-05-2023 10:15-0400 Respiratory rate 16 /min BETHANIE GUERRA MD [facility] 09-05-2023 10:15-0400 Systolic Blood Pressure Non-Invasive 137 mm[Hg] BETHANIE GUERRA MD [facility] 07-20-2023 17:06-0500 Diastolic blood pressure 71 mm[Hg] Cas Salamanca MD Work Phone: [facility] 07-20-2023 17:06-0500 Heart rate 66 /min Cas Salamanca MD Work Phone: [facility] 07-20-2023 17:06-0500 Respiratory rate 14 /min Cas Salamanca MD Work Phone: [facility] 07-20-2023 17:06-0500 SaO2% (BldA) [Mass fraction] 98 % Cas Salamanca MD Work Phone: [facility] 07-20-2023 17:06-0500 Systolic blood pressure 122 mm[Hg] Cas Salamanca MD Work Phone: [facility] 07-20-2023 13:00-0500 Body height 182.9 cm Cas Salamanca MD Work Phone: [facility] 07-20-2023 13:00-0500 Body mass index (BMI) [Ratio] 25.5 kg/m2 Cas Salamanca MD Work Phone: [facility] 07-20-2023 13:00-0500 Body temperature 98.91 [degF] Cas Salamanca MD Work Phone: [facility] 07-20-2023 13:00-0500 Body weight 85.28 kg Cas Salamanca MD Work Phone: [employer] 05-23-2023 10:31-0500 Body height 185.4 cm Abimael Carson MD Work Phone: [facility] 05-23-2023 10:31-0500 Body mass index (BMI) [Ratio] 23.88 kg/m2 Abimael Carson MD Work Phone: [facility] 05-23-2023 10:31-0500 Body weight 82.1 kg Abimael Carson MD Work Phone: [facility] 05-23-2023 10:31-0500 Diastolic blood pressure 86 mm[Hg] Abimael Carson MD Work Phone: [facility] 05-23-2023 10:31-0500 Heart rate 80 /min Abimael Carson MD Work Phone: [facility] 05-23-2023 10:31-0500 SaO2% (BldA) [Mass fraction] 97 % Abimael Carson MD Work Phone: [facility] 05-23-2023 10:31-0500 Systolic blood pressure 134 mm[Hg] Abimael Carson MD Work Phone: [facility] 10-20-2022 18:06-0400 Body weight 94.35 kg Camryn Bruno OUTSOLE MOLDER.EPIDEMIOLOGIST Work Phone: [facility] 10-20-2022 18:06-0400 Diastolic blood pressure 95 mm[Hg] Camryn Bruno OUTSOLE MOLDER.EPIDEMIOLOGIST Work Phone: [facility] 10-20-2022 18:06-0400 Heart rate 77 /min Camryn Bruno OUTSOLE MOLDER.EPIDEMIOLOGIST Work Phone: [facility] 10-20-2022 18:06-0400 SaO2% (BldA) [Mass fraction] 97 % Camryn Bruno OUTSOLE MOLDER.EPIDEMIOLOGIST Work Phone: [facility] 10-20-2022 18:06-0400 Systolic blood pressure 140 mm[Hg] Camryn Bruno OUTSOLE MOLDER.EPIDEMIOLOGIST Work Phone: [facility] 02-23-2022 12:06-0400 Body weight 93.8 kg Sarah Prabha OUTSOLE MOLDER.EPIDEMIOLOGIST Work Phone: [facility] 02-23-2022 12:06-0400 Diastolic blood pressure 82 mm[Hg] Sarah Prabha OUTSOLE MOLDER.EPIDEMIOLOGIST Work Phone: [facility] 10-06-2022 12:06-0400 Heart rate 81 /min Sarah Armando OUTSOLE MOLDER.EPIDEMIOLOGIST Work Phone: [facility] 02-23-2022 12:06-0400 Respiratory rate 16 /min Sarah Armando OUTSOLE MOLDER.EPIDEMIOLOGIST Work Phone: [facility] 02-23-2022 12:06-0400 SaO2% (BldA) [Mass fraction] 98 % Sarah Armando OUTSOLE MOLDER.EPIDEMIOLOGIST Work Phone: [facility] 02-23-2022 12:06-0400 Systolic blood pressure 112 mm[Hg] Sarah Armando OUTSOLE MOLDER.EPIDEMIOLOGIST Work Phone: [facility] Encounters Encounter Date Encounter Type Care Provider Facility Start: 11-14-2024 End: 11-14-2024 Emergency department patient visit Dr. Dom Yanez MD Work Phone: -Emergency Department Work Phone: Start: 01-15-2024 End: 01-15-2024 Chart abstracting Mery Higginbotham MA [facility] [place] Comment on above: ER F/U ([facility] ) Start: 01-15-2024 End: 01-23-2024 Telephone encounter Mery Higginbotham MA [facility] [place] Comment on above: Appointment (ER appo intment ) Start: 01-11-2024 End: 01-11-2024 Emergency department patient visit Dom Yanez Facility:[facility] Start: 12-14-2023 End: 12-14-2023 Telephone encounter Abimael Carson MD Work Phone: [facility] Start: 11-28-2023 End: 11-28-2023 Office outpatient visit 15 minutes Abimael Carson MD Work Phone: [facility] Comment on above: Bipolar affective di sorder, currently depressed, moderate (HCC) (Primary Dx); PTSD (post-traumatic stress disorder) Start: 11-28-2023 End: 11-28-2023 ambulatory ABIMAEL CARSON [facility] Start: 11-14-2023 End: 11-14-2023 Office outpatient visit 15 minutes Abimael Carson MD Work Phone: [facility] Comment on above: Bipolar affective di sorder, currently depressed, moderate (HCC) (Primary Dx); Severe anxiety Start: 11-14-2023 End: 11-14-2023 ambulatory [facility] Start: 11-13-2023 End: 11-13-2023 Telephone encounter Abimael Carson MD Work Phone: [facility] Start: 11-12-2023 End: 11-12-2023 Emergency department patient visit Shane Zamarripa MD Work Phone: [facility] ED Comment on above: Adult situational st ress disorder (Primary Dx) Start: 11-06-2023 End: 11-07-2023 Emergency department patient visit Dayna Angulojhoana NICOLE Work Phone: [facility] Comment on above: Accidental overdose of heroin, initial encounter ([facility]) (Primary Dx); Methamphetamine abuse (CMS/HCC) (HCC) Start: 10-24-2023 End: 10-24-2023 Office outpatient visit 25 minutes Abimael Carson MD Work Phone: [facility] Comment on above: Bipolar affective di sorder, currently depressed, moderate (HCC) (Primary Dx); Severe anxiety; Functional diarrhea Start: 10-24-2023 End: 10-24-2023 ambulatory [facility] Start: 10-20-2023 End: 10-20-2023 Emergency department patient visit [facility] Start: 10-18-2023 End: 10-18-2023 Subsequent hospital visit by physician [facility] [employer] [facility] Radiology Comment on above: Arrived Start: 10-18-2023 End: 10-18-2023 Emergency department patient visit MONTRELL DELAROSA [facility] Start: 10-18-2023 End: 10-19-2023 Evaluation and management of inpatient Montrell Delarosa MD Work Phone: [facility] Medical Surgical Unit MSU 1E Comment on above: Cellulitis of right lower extremity (Primary Dx); Leukocytosis, unspecified type; Lactic acidosis Start: 10-16-2023 End: 10-16-2023 Emergency department patient visit ANA JOYCE MD [facility] Start: 09-05-2023 End: 09-05-2023 Emergency department patient visit BETHANIE GUERRA MD [facility] Start: 07-24-2023 Telephone encounter Karissa Menon [facility] Comment on above: Other Start: 07-20-2023 End: 07-20-2023 Emergency department patient visit Cas Salamanca MD Work Phone: [facility] ED Comment on above: Agitation (Primary D x); Methamphetamine abuse (CMS/HCC) (HCC) Start: 06-15-2023 End: 06-15-2023 ambulatory [facility] Start: 05-23-2023 End: 05-23-2023 Initial preventive medicine new pt age 18-39yrs Abimael Carson MD Work Phone: [facility] Comment on above: Annual physical exam (Primary Dx); Bipolar affective disorder, currently depressed, moderate (HCC); Severe anxiety; PTSD (post-traumatic stress disorder); History of traumatic brain injury; Screening for diabetes mellitus; Screening for lipid disorders Start: 05-23-2023 End: 05-23-2023 Patient encounter procedure Abimael Carson MD Work Phone: [facility] Work Phone: Start: 05-23-2023 End: 05-23-2023 ambulatory [facility] Start: 05-23-2023 End: 05-23-2023 Encounter for general adult medical examination without abnormal findings [facility] Start: 10-20-2022 End: 10-20-2022 Patient encounter procedure Camryn Bruno APRN.CNP Work Phone: [facility] Comment on above: Dental infection (Pr imary Dx) Start: 02-23-2022 End: 02-23-2022 Patient encounter procedure Sarah Armando EPIDEMIOLOGIST Work Phone: [facility] Comment on above: Wellness examination (Primary Dx); On plumbing and heating contractor drug therapy; Screening for lipid disorders; Screening for thyroid disorder; Screening for diabetes mellitus; Encounter for immunization Start: 02-23-2022 End: 02-23-2022 Patient encounter status Sarah Armando EPIDEMIOLOGIST Work Phone: [facility] [place] Start: 11-02-2021 End: 11-02-2021 Subsequent hospital visit by physician Alfred Pathak APRN Work Phone: [facility] Start: 09-13-2021 End: 09-13-2021 Subsequent hospital visit by physician Alfred Pathak APRN Work Phone: [facility] Start: 02-15-2021 End: 02-15-2021 Subsequent hospital visit by physician Alfred Pathak APRN Work Phone: [facility] Procedures Date Procedure Procedure Detail Performing Clinician Start: 11-14-[address] Dom Yanez MD Work Phone: Start: 11-14-2023 Follow-up visit Follow-up ABIMAEL WHITNEYMER Start: 11-12-2023 Ecg routine ecg w/le ast 12 lds i&r only Shane Zamarripa MD Work Phone: Start: 11-06-2023 Comprehensive metabo lic panel Dayna James DO Work Phone: Start: 11-06-2023 Drug test def 1-7 classes Dayna James DO Work Phone: Start: 10-19-2023 Comprehensive metabo lic panel Ruthie Costa MD Work Phone: Start: 10-19-2023 End: 10-19-2023 Drug screen quantitative vancomycin Ruthie Costa MD Work Phone: Start: 10-19-2023 End: 10-19-2023 Iaad ia hiv-1 ag w/hiv-1 & hiv-2 antbdy single Ruthie Costa MD Work Phone: Start: 10-19-2023 BUPRENORPHINE SCREEN Ca joaquin Costa MD Work Phone: Start: 10-19-2023 Creatinine other source Ruthie Costa MD Work Phone: Start: 10-19-2023 Drug test def 1-7 classes Ruthie Costa MD Work Phone: Start: 10-19-2023 THC SCREEN Ruthie Costa MD Work Phone: Start: 10-18-2023 Assay of lactate Rodolfo Delarosa MD Work Phone: Start: 10-18-2023 End: 10-18-2023 Radex ankle complete minimum 3 views Montrell Delarosa MD Work Phone: Start: 10-18-2023 Bacteria identified in Blood by Culture Montrell Delarosa MD Work Phone: Start: 10-18-2023 Basic metabolic pane l calcium total Montrell Delarosa MD Work Phone: Start: 10-18-2023 C-reactive protein Bronson Delarosa MD Work Phone: Start: 07-20-2023 SARS-CoV-2 (COVID-19 ) Ag [Presence] in Respiratory specimen by Rapid immunoassay Cas Salamanca MD Work Phone: Start: 07-20-2023 Comprehensive metabo lic panel Cas Salamanca MD Work Phone: Start: 07-20-2023 Drug test def 1-7 classes Cas Salamanca MD Work Phone: Start: 07-20-2023 Ecg routine ecg w/le ast 12 lds trcg only w/o i&r Cas Salamanca MD Work Phone: Start: 05-23-2023 Lipid 1996 panel - S teetee or Plasma Cas Salamanca MD Work Phone: Start: 11-02-2021 Comprehensive metabo lic panel Alfred Pathak OUTSOLE MOLDER Work Phone: Start: 11-02-2021 Drug assay valproic dipropylacetic acid total Alfred Pathak OUTSOLE MOLDER Work Phone: Start: 09-13-2021 Comprehensive metabo lic panel Alfred Pathak OUTSOLE MOLDER Work Phone: Start: 09-13-2021 Drug assay valproic dipropylacetic acid total Alfred Pathak OUTSOLE MOLDER Work Phone: Start: 02-15-2021 Comprehensive metabo lic panel Alfred Pathak OUTSOLE MOLDER Work Phone: Start: 02-15-2021 Drug assay valproic dipropylacetic acid total Alfred Pathak OUTSOLE MOLDER Work Phone: None (qualifier value) BETHANIE GUERRA MD Plan of Treatment Date Care Activity Detail Author Start: 2046 RSV Immunization age d 60 or older (1 - 1-dose 60+ series) RSV Immunization aged 60 or older (1 - 1-dose 60+ series) [facility] Start: 2036 Zoster Vaccines (1 of 2) Zoste r Vaccines (1 of 2) [facility] Start: 01-11-2034 Urine microalbumin profile DTaP,Tdap,Td Vaccine (3 - Td or Tdap) [facility] Start: 02-24-2032 DTaP/Tdap/Td Vaccine s (2 - Td or Tdap) DTaP/Tdap/Td Vaccines (2 - Td or Tdap) [facility] Start: 02-24-2032 Urine microalbumin profile DTAP,TDAP,TD (2 - Td or Tdap) [facility] Start: 05-23-2028 Lipid panel Lipid Panel [facility] Start: 05-30-2024 Depression Monitoring [facility] Start: 05-23-2024 Hepatitis A Vaccines (1 of 2 - Risk 2-dose series) Hepatitis A Vaccines (1 of 2 - Risk 2-dose series) [facility] Comment on above: Postponed from 07/28 (Patient Refused) Start: 05-23-2024 Hepatitis B Vaccines (1 of 3 - 19+ 3-dose series) Hepatitis B Vaccines (1 of 3 - 19+ 3-dose series) [facility] Comment on above: Postponed from 07/28 (Patient Refused) Start: 05-23-2024 HIV screening HIV Screening [facility] ever Comment on above: Postponed from 07/28 (Patient Refused) Start: 05-23-2024 Pneumococcal Vaccine : Pediatrics (0 to 5 Years) and At-Risk Patients (6 to 64 Years) (1 of 2 - PCV) Pneumococcal Vaccine: Pediatrics (0 to 5 Years) and At-Risk Patients (6 to 64 Years) (1 of 2 - PCV) [facility] Comment on above: Postponed from 07/28 (Patient Refused) Start: 05-15-2024 Depression Monitoring Depression [facility] Start: 04-24-2024 Depression Monitoring Depression [facility] Start: 01-20-2024 Covid-19 Vaccine ( season) Covid-19 Vaccine ( season) [facility] Start: 01-20-2024 Influenza vaccination [facility] Start: 12-14-2023 End: 12-14-2023 Patient encounter procedure 12/14/2023 9:30 AM EDT Office Visit [address] [place] [address] Abimael Carson MD [address] [place], [place] [address] [address] [facility] Start: 12-12-2023 End: 12-12-2023 Patient encounter procedure 12/12/2023 1:00 PM EDT Office Visit [address] [place] [address] Abimael Carson MD [address] [place], [place] [address] [address] [facility] Start: 11-28-2023 End: 11-28-2023 Patient encounter procedure 11/28/2023 2:45 PM EDT Office Visit [address] [place] [address] Abimael Carson MD [address] [facility] [place] [address] [facility] Start: 11-21-2023 Depression Monitoring Depression Mon itoring [facility] Start: 11-21-2023 Depresssion Monitoring Depresssion M onitoring [facility] Start: 11-14-2023 End: 11-14-2023 Patient encounter procedure 11/14/2023 9:00 AM EDT Office Visit [facility] [address] [facility] [place] [address] Abimael Carson MD [address] [facility] [place] [address] [facility] Start: 08-10-2023 End: 08-10-2023 Patient encounter procedure 08/10/2023 11:15 AM EDT Office Visit [address] [place] [address] Abimael Carson MD [address] [facility] [place] [address] [facility] Start: 05-23-2023 End: 05-23-2024 Comprehensive metabolic 1998 panel - Serum or Plasma Comprehensive metabolic panel Lab Routine Screening for diabetes mellitus Expected: 05/23/2023 (Approximate), Expires: 05/23/2024 [facility] Comment on above: Expected: 05/23/2023 (Approximate), Expires: 05/23/2024 Start: 05-23-2023 End: 05-23-2024 Lipid 1996 panel - Serum or Plasma Lipid panel Lab Routine Screening for lipid disorders Expected: 05/23/2023 (Approximate), Expires: 05/23/2024 [facility] Work Phone: Comment on above: Expected: 05/23/2023 (Approximate), Expires: 05/23/2024 Start: 02-23-2023 COVID-19 VACCINE (#1) COVID-19 VACCI NE (#1) [facility] Comment on above: Postponed from 01/28 (Declined at this time) Start: 02-23-2023 HEPATITIS B (1 of 3 - 3-dose series) HEPATITIS B (1 of 3 - 3-dose series) [facility] Comment on above: Postponed from 07/28 (Declined at this time) Start: 02-23-2023 PNEUMOCOCCAL (1 - PCV) PNEUMOCOCCAL (1 - PCV) [facility] Comment on above: Postponed from 07/28 (Declined at this time) Start: 01-19-2023 Covid-19 Vaccine (2022- season) Covid-19 Vaccine ( season) [facility] Start: 01-19-2023 Influenza vaccination [facility] Start: 11-17-2022 Influenza vaccination INFLUENZA (#1) [facility] Comment on above: Postponed from 01/19 (Declined at this time) Start: 02-23-2022 End: 04-25-2022 25-hydroxyvitamin D3 [Mass/volume] in Serum or Plasma VITAMIN D 25 HYDROXY Lab Routine On plumbing and heating contractor drug therapy Wellness examination Expected: 02/23/2022, Expires: 04/25/2022 [facility] Work Phone: Comment on above: Expected: 02/23/2022 , Expires: 04/25/2022 Start: 02-23-2022 End: 04-25-2022 Ammonia [Moles/volume] in Plasma AMMONIA BLD Lab Routine On [facility] drug therapy Expected: 02/23/2022, Expires: 04/25/2022 [facility] Work Phone: Comment on above: Expected: 02/23/2022 , Expires: 04/25/2022 Start: 02-23-2022 End: 04-25-2022 CBC panel - Blood by Automated count CBC Lab Routine On plumbing and heating contractor drug therapy Wellness examination Screening for diabetes mellitus Expected: 02/23/2022, Expires: 04/25/2022 [facility] Work Phone: Comment on above: Expected: 02/23/2022 , Expires: 04/25/2022 Start: 02-23-2022 End: 04-25-2022 Comprehensive metabolic 2000 panel - Serum or Plasma COMP METABOLIC PANEL Lab Routine On mcc drug therapy Wellness examination Screening for diabetes mellitus Expected: 02/23/2022, Expires: 04/25/2022 [facility] Work Phone: Comment on above: Expected: 02/23/2022 , Expires: 04/25/2022 Start: 02-23-2022 End: 04-25-2022 Hemoglobin A1c in Blood HGB A1C Lab Routine On mcc drug therapy Wellness examination Screening for diabetes mellitus Expected: 02/23/2022, Expires: 04/25/2022 [facility] Work Phone: Comment on above: Expected: 02/23/2022 , Expires: 04/25/2022 Start: 02-23-2022 End: 04-25-2022 Lipid 1996 panel - Serum or Plasma LIPID PANEL BASIC Lab Routine Wellness examination Screening for lipid disorders Expected: 02/23/2022, Expires: 04/25/2022 [facility] Work Phone: Comment on above: Expected: 02/23/2022 , Expires: 04/25/2022 Start: 02-23-2022 End: 04-25-2022 Thyrotropin [Units/volume] in Serum or Plasma TSH BLD Lab Routine On plumbing and heating contractor drug therapy Wellness examination Screening for thyroid disorder Expected: 02/23/2022, Expires: 04/25/2022 [facility] Work Phone: Comment on above: Expected: 02/23/2022 , Expires: 04/25/2022 Start: 02-23-2022 End: 04-25-2022 Valproate [Mass/volume] in Serum or Plasma VALPROIC A/DEPAKENE Lab Routine On mcc drug therapy Expected: 02/23/2022, Expires: 04/25/2022 [facility] Work Phone: Comment on above: Expected: 02/23/2022 , Expires: 04/25/2022 Start: 01-19-2022 Influenza vaccination Flu vacc ine (Season Ended) [facility] Start: 2021 Lipid panel Lipid Screening [facility] Start: 2021 LIPID SCREEN LIPID SCREEN [facility] Start: 01-19-2021 Influenza vaccination Flu vaccine (# 1) [facility] Start: 2005 DTaP/Tdap/Td vaccine (1 - Tdap) DTaP/Tdap/Td vaccine (1 - Tdap) [facility] Start: 2005 Hepatitis A Vaccines (1 of 2 - Risk 2-dose series) Hepatitis A Vaccines (1 of 2 - Risk 2-dose series) [facility] Start: 2005 Hepatitis B Vaccine (1 of 3 - 19+ 3-dose series) Hepatitis B Vaccine (1 of 3 - 19+ 3-dose series) [facility] System Start: 2004 Hepatitis C screening Hepatitis C Sc reening [facility] Start: 1998 COVID-19 Vaccine (1) COVID-19 Vaccin e (1) [facility] Work Phone: Start: 1992 Pneumococcal vaccination Pneum ococcal Vaccine (1 of 2 - PCV) [facility] Start: 1992 Pneumococcal Vaccine : Pediatrics (0 to 5 Years) and At-Risk Patients (6 to 64 Years) (1 of 2 - PCV) Pneumococcal Vaccine: Pediatrics (0 to 5 Years) and At-Risk Patients (6 to 64 Years) (1 of 2 - PCV) [facility] Start: 07-29-1991 COVID-19 Vaccine (1) COVID-19 Vaccin e (1) [facility] Start: 07-29-1987 MMR Vaccines (1 of 1 - Standard series) MMR Vaccines (1 of 1 - Standard series) [facility] Start: 07-29-1987 Varicella vaccination Varicell a Vaccines (1 of 2 - 2-dose childhood series) [facility] Start: 01-28-1987 COVID-19 Vaccine (#1) COVID-19 Vacci ne (#1) [facility] Start: 1986 Hepatitis B Vaccines (1 of 3 - 3-dose series) Hepatitis B Vaccines (1 of 3 - 3-dose series) [facility] Start: 1986 HIV screening HIV Screening [facility] ever Start: 1986 Lipid panel Lipid Panel [facility] End: 11-02-2021 Ammonia [Mass/volume] in Plasma Ammonia Lab Routine Once for 1 Occurrences starting 11/02/2021 until 11/02/2021 [facility] Work Phone: Comment on above: Once for 1 Occurrenc es starting 11/02/2021 until 11/02/2021 Ammonia [Mass/volume ] in Plasma Ammonia Lab Routine 11/02/2021 2:50 PM EDT [facility] Work Phone: Amphetamines [Presen ce] in Urine by Screen method >1000 ng/mL [facility] Bacteria identified in Blood by Culture Blood culture Site #1 - Suspected Infection Microbiology STAT 10/18/2023 9:23 AM EDT [facility] System Work Phone: Benzodiazepine measurement, urine [facility] Cocaine measurement, urine [facility] fentaNYL [Presence] in Urine by Screen method [facility] Methadone measuremen t, urine [facility] Phencyclidine [Prese nce] in Urine [facility] Urine cannabinoid measurement [facility] Urine opiate measurement [facility] Immunizations Immunization Date Immunization Notes Care Provider Brett jaramillo 01-12-2024 tetanus toxoid, redu brock diphtheria toxoid, and acellular pertussis vaccine, adsorbed Mery Higginbotham MA [facility] 01-11-2024 tetanus toxoid, redu brock diphtheria toxoid, and acellular pertussis vaccine, adsorbed Dr. Dom Yanez MD Work Phone: [facility] 02-23-2022 tetanus toxoid, redu brock diphtheria toxoid, and acellular pertussis vaccine, adsorbed Sarah Armando APRN.CNP Work Phone: [facility] Payers Date Payer Category Payer Self-pay 2023 Unknown MIHAI RESENDEZ [facility] [employer] [id number] 2023-Present [phone] [address] [address] [place] [address] Exchange Plan [id number] 2023 Unknown [id number] 2020 Unknown [id number] 2018 Medicaid [id number] 1985 Unknown [id number] 1986 Unknown [id number] Unknown [id number] Unknown [id number] Unknown [id number] Social History Date Type Detail Facility Start: 12-14-2016 End: 11-14-2024 Tobacco smoking status [email or web address] Start: 1985 Sex Assigned At Not on file [employer] Phone: History of tobacco use Cigarette Smoker [facility] Start: 02-23-2022 End: 06-13-2022 Cigarettes smoked current (pack per day) - Reported 1.5 [facility] Start: 02-23-2022 End: 11-12-2023 Tobacco use and exposure Smokeless tobacco non-user [facility] Start: 02-23-2022 End: 10-20-2022 Alcohol intake Current non-drinker of alcohol (finding) [facility] Start: 03-08-2012 History SDOH Alcohol Comment occasionally [facility] Start: 02-13-2022 End: 02-23-2022 Exposure to SARS-CoV-2 (event) Not sure [facility] Start: 05-23-2023 End: 11-28-2023 Alcohol intake Ex-drinker (finding) [facility] Start: 06-13-2022 End: 05-23-2023 Alcohol Use Disorder Identification Test - Consumption [AUDIT-C] [facility] Frequency of Alcohol Consumption Not on file [facility] How hard is it for y ou to pay for the very basics like food, housing, medical care, and heating Very hard [facility] (I/We) worried wheth er (my/our) food would run out before (I/we) got money to buy more. Often true [facility] In the past 12 month s, was there a time when you were not able to pay the mortgage or rent on time? Yes [facility] How often to you hav e a drink containing alcohol? Never [facility] Sex Assigned At Sex [facility] Start: 05-25-2015 Alcohol Alcohol [facility] Start: 05-25-2015 Drugs Drugs [facility] Start: 05-25-2015 Lives Lives [facility] Start: 1985 Sex Assigned At Male [facility] Functional Status Date Assessment Result Facility 10-16-2023 Functional Status ID band on, Call device within reach, Bed in low position, Wheels locked, Upper/Half-Length side-rails up [facility] 09-05-2023 [facility] 09-05-2023 Functional Status Standard Safet y ID band on, Allergy Band on, Call device within reach, Bed in low position, Wheels locked, personal items within reach [facility] Mental Status Date Assessment Result Facility 11-14-2024 Cognitive function Level Of Cons ciousness Awake;Alert;Appropriate;Follow s Commands [facility] Work Phone: 10-16-2023 Mental Status Orientation Oriented x 4 [facility] 09-05-2023 Mental Status Orientation Oriented x 4 [facility] 09-05-2023 Mental Status [facility] Clinical Notes 02-23-2022 to 01-15-2024 Telephone Encounter - Mery Higginbotham MA - 01/15/2024 8:39 AM EDTTelephone Encounter - Mery Higginbotham MA - 01/15/2024 8:39 AM Mery Abarca MA - 01/15/2024 8:31 AM EDTPatient Instructions Note Date & Type Note Facility 01-15-2024 Telephone encounter Note Left message for patient to contact office. Updated TDAP Was placed on Antibiotic and 10 suture removal with PCP Patient has also not been since in since 02/2022. Needs scheduled for physical. L/m on cell phone number listed. Home number is Disconnected. Patient needs scheduled for Er follow up and suture removal. Was in ER on 01/12/2024 needs 10 day suture removal. Patient is also past due for a physical. If patient wants to continue with Dr. Yanez he will need a physical. Mery Higginbotham MA [facility] 01-15-2024 Miscellaneous Notes Left message for patient to contact office. Updated TDAP Was placed on Antibiotic and 10 suture removal with PCP Patient has also not been since in since 02/2022. Needs scheduled for physical. L/m on cell phone number listed. Home number is Disconnected. Patient needs scheduled for Er follow up and suture removal. Was in ER on 01/12/2024 needs 10 day suture removal. Patient is also past due for a physical. If patient wants to continue with Dr. Yanez he will need a physical. Mery Higginbotham MA documented in this encounter [facility] 01-15-2024 Note HNO ID: [id number] Author: MERY HIGGINBOTHAM MA Service: ? Author Type: [employer] Type: Progress Notes Filed: 01/15/2024 08:40 Note Text: Scan on 01/12/2024 7:02 AM by Provider, External, PA-C: Consultation - Emergency Medicine Updated TDAP Was placed on Antibiotic and 10 suture removal with PCP Patient has also not been since in since 02/2022. Needs scheduled for physical. L/m on cell phone number listed. Home number is Disconnected. Patient needs scheduled for Er follow up and suture removal. Was in ER on 01/12/2024 needs 10 day suture removal. Patient is also past due for a physical. If patient wants to continue with Dr. Yanez he will need a physical. SEE PHONE NOTE. Mery Higginbotham MA [facility] 01-15-2024 History of Presen t illness Narrative Scan on 01/12/2024 7:02 AM by Provider, VERONICA Boland: Consultation - Emergency Medicine Updated TDAP Was placed on Antibiotic and 10 suture removal with PCP Patient has also not been since in since 02/2022. Needs scheduled for physical. L/m on cell phone number listed. Home number is Disconnected. Patient needs scheduled for Er follow up and suture removal. Was in ER on 01/12/2024 needs 10 day suture removal. Patient is also past due for a physical. If patient wants to continue with Dr. Yanez he will need a physical. SEE PHONE NOTE. Mery Higginbotham MA documented in this encounter [facility] 12-14-2023 Telephone encounter Note Unable to call pt or MyChart pt to reschedule the missed 12/13 - appointment. [facility] 12-14-2023 Miscellaneous Notes Unable to call pt or MyChart pt to reschedule the missed 12/13 - appointment. documented in this encounter [facility] 11-28-2023 Evaluation + Plan note Associated Problem(s): PTSD (post-traumatic stress disorder) Slightly improved on the increased dose of Paxil will give him another 2 weeks and have him come back and see how he is doing. [facility] 11-28-2023 Evaluation + Plan note Associated Problem(s): Bipolar disorder (HCC) Slightly improved on the increased dose of Paxil will give him another 2 weeks and have him come back and see how he is doing. [facility] 11-28-2023 Miscellaneous Notes Associated Problem(s): PTSD (post-traumatic stress disorder) Slightly improved on the increased dose of Paxil will give him another 2 weeks and have him come back and see how he is doing. Associated Problem(s): Bipolar disorder (HCC) Slightly improved on the increased dose of Paxil will give him another 2 weeks and have him come back and see how he is doing. documented in this encounter [facility] 11-28-2023 History of Presen t illness Narrative Patient verified by last name and date of . Images from the original note were not included. 11/28/2023 Grant Danielle (: 1985) is a 38 y.o. male , Established patient, here for evaluation of the following chief complaint(s): Anxiety, Depression (Bipolar/), and Follow-up (2 week ) ASSESSMENT/PLAN: 1. Bipolar affective disorder, currently depressed, moderate (HCC) Assessment & Plan: Slightly improved on the increased dose of Paxil will give him another 2 weeks and have him come back and see how he is doing. 2. PTSD (post-traumatic stress disorder) Assessment & Plan: Slightly improved on the increased dose of Paxil will give him another 2 weeks and have him come back and see how he is doing. Follow up in about 2 weeks (around 12/12/2023). SUBJECTIVE/OBJECTIVE: JASPAL Bullock comes in today for follow-up on his bipolar, we increased his medication to 40 mg of Paxil and he says he feels like it is starting to help however he is only been on it for about 10 days. He said he has been in [place] sn[place] for the last almost 2 weeks and he missed about 4 days of his medication. He currently has no complaints. Review of Systems Constitutional: Negative for chills and fever. HENT: Negative for congestion, ear pain, rhinorrhea and sinus pressure. Respiratory: Negative for cough and shortness of breath. Cardiovascular: Negative for chest pain and palpitations. Psychiatric/Behavioral: Positive for dysphoric mood. Negative for hallucinations, self-injury and suicidal ideas. The patient is nervous/anxious. Vitals: 11/28/23 1336 BP: 134/84 Pulse: 82 SpO2: 98% Weight: 166 lb 3.2 oz (75.4 kg) Height: 6' (1.829 m) Physical Exam Vitals and nursing note reviewed. Constitutional: General: He is not in acute distress. Appearance: Normal appearance. HENT: Head: Normocephalic. Mouth/Throat: Mouth: Mucous membranes are moist. Pharynx: Oropharynx is clear. Eyes: Extraocular Movements: Extraocular movements intact. Pupils: Pupils are equal, round, and reactive to light. Cardiovascular: Rate and Rhythm: Normal rate and regular rhythm. Heart sounds: Normal heart sounds. Pulmonary: Effort: Pulmonary effort is normal. Breath sounds: Normal breath sounds. Abdominal: General: Bowel sounds are normal. Palpations: Abdomen is soft. Musculoskeletal: Cervical back: Neck supple. Neurological: Mental Status: He is alert. An electronic signature was used to authenticate this note. Abimael Carson MD 11/28/2023 2:49 PM documented in this encounter [facility] 11-14-2023 History of Presen t illness Narrative Patient verified by last name and date of . Images from the original note were not included. 11/14/2023 Grant Danielle (: 1985) is a 38 y.o. male , Established patient, here for evaluation of the following chief complaint(s): Anxiety (Getting worse ), Depression (bipolar), Follow-up (3 week ), and ER Follow-up (WR 11/12/23- pt is asking maybe to try rehab facility ) ASSESSMENT/PLAN: 1. Bipolar affective disorder, currently depressed, moderate (HCC) Assessment & Plan: We will increase his Paxil to 40 mg, new Rx sent he is to follow-up in 2 weeks and at that time we will consider adding a mood stabilizer. 2. Severe anxiety Assessment & Plan: Currently active we will increase his Paxil to 40 mg daily and follow-up in 2 weeks. Follow up in about 2 weeks (around 11/28/2023). SUBJECTIVE/OBJECTIVE: JASPAL Bullock comes in today for follow-up on his depression/bipolar he is continuing to take his Paxil but he did lose some pills and he was off of it for couple of days. Says he does not feel like it is really helping much. He also has been in the ER twice since we saw him once he overdosed on heroin and meth. At that time he was found unresponsive but no evidence of drug use at that time. Review of Systems Constitutional: Negative for chills and fever. HENT: Negative for congestion, ear pain, rhinorrhea and sinus pressure. Respiratory: Negative for cough and shortness of breath. Cardiovascular: Negative for chest pain and palpitations. Vitals: 11/14/23 0944 BP: 135/87 Pulse: 66 SpO2: 97% Weight: 169 lb (76.7 kg) Height: 6' (1.829 m) Physical Exam Vitals and nursing note reviewed. Constitutional: General: He is not in acute distress. Appearance: Normal appearance. HENT: Head: Normocephalic. Mouth/Throat: Mouth: Mucous membranes are moist. Pharynx: Oropharynx is clear. Eyes: Extraocular Movements: Extraocular movements intact. Pupils: Pupils are equal, round, and reactive to light. Cardiovascular: Rate and Rhythm: Normal rate and regular rhythm. Heart sounds: Normal heart sounds. Pulmonary: Effort: Pulmonary effort is normal. Breath sounds: Normal breath sounds. Musculoskeletal: Cervical back: Neck supple. Neurological: Mental Status: He is alert. An electronic signature was used to authenticate this note. Abimael Carson MD 11/14/2023 10:03 AM documented in this encounter [facility] 11-14-2023 Evaluation + Plan note Associated Problem(s): Severe anxiety Currently active we will increase his Paxil to 40 mg daily and follow-up in 2 weeks. [facility] 11-14-2023 Evaluation + Plan note Associated Problem(s): Bipolar disorder (HCC) We will increase his Paxil to 40 mg, new Rx sent he is to follow-up in 2 weeks and at that time we will consider adding a mood stabilizer. [facility] 11-14-2023 Miscellaneous Notes Associated Problem(s): Severe anxiety Currently active we will increase his Paxil to 40 mg daily and follow-up in 2 weeks. Associated Problem(s): Bipolar disorder (HCC) We will increase his Paxil to 40 mg, new Rx sent he is to follow-up in 2 weeks and at that time we will consider adding a mood stabilizer. documented in this encounter [facility] 11-13-2023 Telephone encounter Note Patient notified [facility] 11-13-2023 Miscellaneous Notes Patient notified He needs to file a police report bring us a copy of it and then we can send in a prescription for enough pills till he can get his refill filled. Patient stopped in and said his pills were stolen and there were about 10 left. States he was unsure if he should file a police report or if there is anything that we can do? documented in this encounter [facility] 11-13-2023 Telephone encounter Note He needs to file a police report bring us a copy of it and then we can send in a prescription for enough pills till he can get his refill filled. [facility] 11-13-2023 Telephone encounter Note Patient stopped in and said his pills were stolen and there were about 10 left. States he was unsure if he should file a police report or if there is anything that we can do? [facility] 11-12-2023 Emergency department Note This nurse to patient's room to give him discharge papers. Patient became angry and aggressive stating he doesn't want to leave. Patient screaming obscenities to this nurse, physician and application security architect. Patient making claims that he shit himself and asked if security wanted to wipe his ass. Patient then began throwing food across the room, stating that he needs help and were not giving him any. Patient then got up from ED bed and left via the ambulance, hitting the door on the way out, without his shoes. Physician picked up shoes and sat them down outside of ambulance door. Patient then came back to get shoes yelling more obscenities at application security architect. This nurse then called 911 and made a report with [place] police informing them the patient is currently walking down [facility] and to be on the lookout for patient as he is extremely aggressive and violent. Dasha Delarosa RN 11/12/23 2118 [facility] 11-12-2023 Emergency department Note This nurse to patient's room to give him discharge papers. Patient became angry and aggressive stating he doesn't want to leave. Patient screaming obscenities to this nurse, physician and application security architect. Patient making claims that he shit himself and asked if security wanted to wipe his ass. Patient then began throwing food across the room, stating that he needs help and were not giving him any. Patient then got up from ED bed and left via the ambulance, hitting the door on the way out, without his shoes. Physician picked up shoes and sat them down outside of ambulance door. Patient then came back to get shoes yelling more obscenities at application security architect. This nurse then called 911 and made a report with [place] police informing them the patient is currently walking down [facility] and to be on the lookout for patient as he is extremely aggressive and violent. Dasha Delarosa RN 11/12/23 1649 EMERGENCY DEPARTMENT ENCOUNTER Pt Name: Grant Danielle Birthdate 1985 Date of evaluation: 11/12/2023 ED Provider: Shane Zamarripa MD CHIEF COMPLAINT Chief Complaint Patient presents with Depression History from patient and EMS HISTORY OF PRESENT ILLNESS (Location/Symptom, Timing/Onset, Context/Setting, Quality, Duration, Modifying Factors, Severity) Note limiting factors. I wore appropriate PPE for the entirety of this encounter. HPI Grant Danielle is a 38 y.o. who presents to the emergency department complaining of not wanting to be here. Patient states that he may have passed out because he became anxious. He states the last time he passed out was because of drug use. Denies headache chest pain abdominal pain. Denies alcohol or street drugs today. Was found by a bystander not responsive and EMS was called. Unremarkable transport. Patient states he is homeless and was trying to sleep. Nursing Notes were reviewed. Limitations to history: None Outside historians: EMS REVIEW OF SYSTEMS Review of Systems Constitutional: Negative for fever. Eyes: Negative for visual disturbance. Respiratory: Negative for shortness of breath. Cardiovascular: Negative for chest pain. Gastrointestinal: Negative for abdominal pain. Genitourinary: Negative for difficulty urinating. Musculoskeletal: Negative for back pain and neck pain. Skin: Negative for rash. Neurological: Negative for headaches. Psychiatric/Behavioral: Negative for self-injury and suicidal ideas. Pertinent positives and negatives as per HPI PAST MEDICAL HISTORY Past Medical History: Diagnosis Date ADHD Anemia Depression PTSD (post-traumatic stress disorder) Substance abuse ([facility]/HCC) ([facility]) TBI (traumatic brain injury) ([facility]) SURGICAL HISTORY History reviewed. No pertinent surgical history. CURRENT MEDICATIONS Previous Medications PAROXETINE (PAXIL) 20 MG TABLET Take 1 tablet (20 mg) by mouth every morning. ALLERGIES Cyclobenzaprine, Nsaids, and Tramadol FAMILY HISTORY Family History Problem Relation Name Age of Onset Emphysema Mother No Known Problems Father SOCIAL HISTORY Social History Socioeconomic History Marital status: Tobacco Use Smoking status: Every Day Current packs/day: 1.00 Average packs/day: 1 pack/day for 20.0 years (20.0 ttl pk-yrs) Types: Cigarettes Smokeless tobacco: Never Vaping Use Vaping status: Never Used Substance and Sexual Activity Alcohol use: Not Currently Drug use: Yes Types: Marijuana, Heroin Comment: pt states he is not using Sexual activity: Yes Partners: Female Social Determinants of Health Financial Resource Strain: High Risk (05/23/2023) Overall Financial Resource Strain (CARDIA) Difficulty of Paying Living Expenses: Very hard Food Insecurity: Food Insecurity Present (05/23/2023) Hunger Vital Sign Worried About Running Out of Food in the Last Year: Often true Ran Out of Food in the Last Year: Often true Transportation Needs: No Transportation Needs (05/23/2023) PRAPARE - Transportation Lack of Transportation (Medical): No Lack of Transportation (Non-Medical): No Physical Activity: Sufficiently Active (05/23/2023) Exercise Vital Sign Days of Exercise per Week: 7 days Minutes of Exercise per Session: 30 min Housing Stability: High Risk (10/18/2023) Housing Stability Vital Sign Unable to Pay for Housing in the Last Year: Yes Unstable Housing in the Last Year: Yes SCREENINGS PHYSICAL EXAM ED Triage Vitals [11/12/23 1552] Temp Heart Rate Resp BP 36.5 C (97.7 F) 79 18 134/81 SpO2 Temp Source Heart Rate Source Patient Position 100 % Temporal Monitor Sitting BP Location FiO2 (%) Right arm -- Physical Exam Constitutional: Appearance: Normal appearance. HENT: Head: Normocephalic and atraumatic. Eyes: Extraocular Movements: Extraocular movements intact. Pupils: Pupils are equal, round, and reactive to light. Cardiovascular: Rate and Rhythm: Normal rate. Pulmonary: Effort: Pulmonary effort is normal. Musculoskeletal: General: Normal range of motion. Skin: General: Skin is warm and dry. Capillary Refill: Capillary refill takes less than 2 seconds. Neurological: General: No focal deficit present. Mental Status: He is alert. Not febrile not toxic Denies suicidal or homicidal thoughts Occasionally hostile but cooperative DIAGNOSTIC RESULTS Procedures/EKG: EKG was reviewed by myself. Physician EKG interpretation can be found in [facility] EMERGENCY DEPARTMENT COURSE and DIFFERENTIAL DIAGNOSIS/MDM: Vitals: Vitals: 11/12/23 1552 BP: 134/81 BP Location: Right arm Patient Position: Sitting Pulse: 79 Resp: 18 Temp: 36.5 C (97.7 F) TempSrc: Temporal SpO2: 100% Weight: 68 kg (150 lb) Medications - No data to display Medical Decision Making and ED Course The patient presented with a chief complaint of unresponsive. The differential diagnosis associated with this patient's presentation includes syncope sleeping drug use cardiac rhythm disturbance. Our workup consisted of ordering/reviewing history physical exam and EKG. patient denies drug use today. He said he is depressed but does not have an active suicidal or homicidal plan. He states all he wants to do is sleep. He was given food and water in the emergency department and allowed to sleep. EKG showed no acute process. He will be referred for outpatient follow-up. Independent test interpretation by me: EKG Chronic conditions impacting care: Substance use disorder Social determinants of health affecting care: Homeless Consideration of hospitalization or de-escalation of care: Alert oriented x 3 no focal neurologic deficit and not suicidal or homicidal does not meet criteria for hospitalization REVAL: 4:15 PM All data now available and reviewed with patient. FINAL IMPRESSION 1. Adult situational stress disorder DISPOSITION Discharge 11/12/2023 04:21:32 PM PATIENT REFERRED TO: Abimael Carson MD [address] [place] [address], [facility] B [facility] [id number] as previously scheduled [facility] Psychiatry [address] [facility] [phone] As needed DISCHARGE MEDICATIONS: New Prescriptions No medications on file (Comment: Please note this report has been produced using speech recognition software and may contain errors related to that system including errors in grammar, punctuation, and spelling, as well as words and phrases that may be inappropriate. If there are any questions or concerns please feel free to contact the dictating provider for clarification.) Shane Zamarripa MD (electronically signed) Emergency Medicine Provider Shane Zamarripa MD 11/12/23 1717 Patient arrived via squad to room 6. Patient ambulated from gurney to ED bed without difficulty. Medics state patient was found passed out behind an air conditioning unit and a 3rd constitution party called EMS. Patient states he had an anxiety attack 2 hrs prior to passing out. Patient states he is constantly depressed because he is homeless. Patient states he is supposed to be on medication but has not taken any for the past 3 days. Patient verbally aggressive and rude to staff during triage. documented in this encounter [facility] 11-12-2023 Emergency department Triage note Patient arrived via squad to room 6. Patient ambulated from gurney to ED bed without difficulty. Medics state patient was found passed out behind an air conditioning unit and a 3rd constitution party called EMS. Patient states he had an anxiety attack 2 hrs prior to passing out. Patient states he is constantly depressed because he is homeless. Patient states he is supposed to be on medication but has not taken any for the past 3 days. Patient verbally aggressive and rude to staff during triage. [facility] 11-12-2023 Physician Emergency department Note EMERGENCY DEPARTMENT ENCOUNTER Pt Name: Grant Danielle Birthdate 1985 Date of evaluation: 11/12/2023 ED Provider: Shane Zamarripa MD CHIEF COMPLAINT Chief Complaint Patient presents with Depression History from patient and EMS HISTORY OF PRESENT ILLNESS (Location/Symptom, Timing/Onset, Context/Setting, Quality, Duration, Modifying Factors, Severity) Note limiting factors. I wore appropriate PPE for the entirety of this encounter. HPI Grant Danielle is a 38 y.o. who presents to the emergency department complaining of not wanting to be here. Patient states that he may have passed out because he became anxious. He states the last time he passed out was because of drug use. Denies headache chest pain abdominal pain. Denies alcohol or street drugs today. Was found by a bystander not responsive and EMS was called. Unremarkable transport. Patient states he is homeless and was trying to sleep. Nursing Notes were reviewed. Limitations to history: None Outside historians: EMS REVIEW OF SYSTEMS Review of Systems Constitutional: Negative for fever. Eyes: Negative for visual disturbance. Respiratory: Negative for shortness of breath. Cardiovascular: Negative for chest pain. Gastrointestinal: Negative for abdominal pain. Genitourinary: Negative for difficulty urinating. Musculoskeletal: Negative for back pain and neck pain. Skin: Negative for rash. Neurological: Negative for headaches. Psychiatric/Behavioral: Negative for self-injury and suicidal ideas. Pertinent positives and negatives as per HPI PAST MEDICAL HISTORY Past Medical History: Diagnosis Date ADHD Anemia Depression PTSD (post-traumatic stress disorder) Substance abuse ([facility]) ([facility]) TBI (traumatic brain injury) ([facility]) SURGICAL HISTORY History reviewed. No pertinent surgical history. CURRENT MEDICATIONS Previous Medications PAROXETINE (PAXIL) 20 MG TABLET Take 1 tablet (20 mg) by mouth every morning. ALLERGIES Cyclobenzaprine, Nsaids, and Tramadol FAMILY HISTORY Family History Problem Relation Name Age of Onset Emphysema Mother No Known Problems Father SOCIAL HISTORY Social History Socioeconomic History Marital status: Tobacco Use Smoking status: Every Day Current packs/day: 1.00 Average packs/day: 1 pack/day for 20.0 years (20.0 ttl pk-yrs) Types: Cigarettes Smokeless tobacco: Never Vaping Use Vaping status: Never Used Substance and Sexual Activity Alcohol use: Not Currently Drug use: Yes Types: Marijuana, Heroin Comment: pt states he is not using Sexual activity: Yes Partners: Female Social Determinants of Health Financial Resource Strain: High Risk (05/23/2023) Overall Financial Resource Strain (CARDIA) Difficulty of Paying Living Expenses: Very hard Food Insecurity: Food Insecurity Present (05/23/2023) Hunger Vital Sign Worried About Running Out of Food in the Last Year: Often true Ran Out of Food in the Last Year: Often true Transportation Needs: No Transportation Needs (05/23/2023) PRAPARE - Transportation Lack of Transportation (Medical): No Lack of Transportation (Non-Medical): No Physical Activity: Sufficiently Active (05/23/2023) Exercise Vital Sign Days of Exercise per Week: 7 days Minutes of Exercise per Session: 30 min Housing Stability: High Risk (10/18/2023) Housing Stability Vital Sign Unable to Pay for Housing in the Last Year: Yes Unstable Housing in the Last Year: Yes SCREENINGS PHYSICAL EXAM ED Triage Vitals [11/12/23 1552] Temp Heart Rate Resp BP 36.5 C (97.7 F) 79 18 134/81 SpO2 Temp Source Heart Rate Source Patient Position 100 % Temporal Monitor Sitting BP Location FiO2 (%) Right arm -- Physical Exam Constitutional: Appearance: Normal appearance. HENT: Head: Normocephalic and atraumatic. Eyes: Extraocular Movements: Extraocular movements intact. Pupils: Pupils are equal, round, and reactive to light. Cardiovascular: Rate and Rhythm: Normal rate. Pulmonary: Effort: Pulmonary effort is normal. Musculoskeletal: General: Normal range of motion. Skin: General: Skin is warm and dry. Capillary Refill: Capillary refill takes less than 2 seconds. Neurological: General: No focal deficit present. Mental Status: He is alert. Not febrile not toxic Denies suicidal or homicidal thoughts Occasionally hostile but cooperative DIAGNOSTIC RESULTS Procedures/EKG: EKG was reviewed by myself. Physician EKG interpretation can be found in [facility] EMERGENCY DEPARTMENT COURSE and DIFFERENTIAL DIAGNOSIS/MDM: Vitals: Vitals: 11/12/23 1552 BP: 134/81 BP Location: Right arm Patient Position: Sitting Pulse: 79 Resp: 18 Temp: 36.5 C (97.7 F) TempSrc: Temporal SpO2: 100% Weight: 68 kg (150 lb) Medications - No data to display Medical Decision Making and ED Course The patient presented with a chief complaint of unresponsive. The differential diagnosis associated with this patient's presentation includes syncope sleeping drug use cardiac rhythm disturbance. Our workup consisted of ordering/reviewing history physical exam and EKG. patient denies drug use today. He said he is depressed but does not have an active suicidal or homicidal plan. He states all he wants to do is sleep. He was given food and water in the emergency department and allowed to sleep. EKG showed no acute process. He will be referred for outpatient follow-up. Independent test interpretation by me: EKG Chronic conditions impacting care: Substance use disorder Social determinants of health affecting care: Homeless Consideration of hospitalization or de-escalation of care: Alert oriented x 3 no focal neurologic deficit and not suicidal or homicidal does not meet criteria for hospitalization REVAL: 4:15 PM All data now available and reviewed with patient. FINAL IMPRESSION 1. Adult situational stress disorder DISPOSITION Discharge 11/12/2023 04:21:32 PM PATIENT REFERRED TO: Abimael Carson MD [address] [place] [address] B [facility] [address] as previously scheduled [facility] Psychiatry [address] [place] [phone] As needed DISCHARGE MEDICATIONS: New Prescriptions No medications on file (Comment: Please note this report has been produced using speech recognition software and may contain errors related to that system including errors in grammar, punctuation, and spelling, as well as words and phrases that may be inappropriate. If there are any questions or concerns please feel free to contact the dictating provider for clarification.) Shane Zamarripa MD (electronically signed) Emergency Medicine Provider Shane Zamarripa MD 11/12/23 1717 [facility] 11-07-2023 Emergency department Note Steady gait out of ER Ca Will RN 11/07/23 0725 [facility] 11-07-2023 Emergency department Note Steady gait out of ER Ca Will RN 11/07/23 0725 Steady gait to bathroom. Returned to room and advised that is free to leave. Asking where his belongings are-advised that everything he came with is in the room. Has socks, shoes, shorts, shirt Ca Will RN 11/07/23 0725 EMERGENCY DEPARTMENT ENCOUNTER Pt Name: Grant Danielle Birthdate 1985 Date of evaluation: 11/06/2023 ED Provider: Dayna James DO CHIEF COMPLAINT Chief Complaint Patient presents with Drug Overdose HISTORY OF PRESENT ILLNESS (Location/Symptom, Timing/Onset, Context/Setting, Quality, Duration, Modifying Factors, Severity) Note limiting factors. I wore appropriate PPE for the entirety of this encounter. HPI 38-year-old male presents emergency department today found down with pinpoint pupils. Has been given a total of 8 mg of Narcan by EMS prior to arrival. Became slightly more responsive. States he used heroin and methamphetamines. Nursing Notes were reviewed. Limitations to history: Intoxication Outside historians: EMS REVIEW OF SYSTEMS Review of Systems Neurological: Decreased responsiveness Pertinent positives and negatives as per HPI. PAST MEDICAL HISTORY Past Medical History: Diagnosis Date ADHD Anemia Depression PTSD (post-traumatic stress disorder) Substance abuse ([facility]) ([facility]) TBI (traumatic brain injury) ([facility]) SURGICAL HISTORY No past surgical history on file. CURRENT MEDICATIONS Previous Medications PAROXETINE (PAXIL) 20 MG TABLET Take 1 tablet (20 mg) by mouth every morning. ALLERGIES Cyclobenzaprine, Nsaids, and Tramadol FAMILY HISTORY Family History Problem Relation Name Age of Onset Emphysema Mother No Known Problems Father SOCIAL HISTORY Social History Socioeconomic History Marital status: Tobacco Use Smoking status: Every Day Current packs/day: 1.00 Average packs/day: 1 pack/day for 20.0 years (20.0 ttl pk-yrs) Types: Cigarettes Smokeless tobacco: Never Vaping Use Vaping status: Never Used Substance and Sexual Activity Alcohol use: Not Currently Drug use: Not Currently Types: Marijuana, Heroin Comment: pt states he is not using Sexual activity: Yes Partners: Female Social Determinants of Health Financial Resource Strain: High Risk (05/23/2023) Overall Financial Resource Strain (CARDIA) Difficulty of Paying Living Expenses: Very hard Food Insecurity: Food Insecurity Present (05/23/2023) Hunger Vital Sign Worried About Running Out of Food in the Last Year: Often true Ran Out of Food in the Last Year: Often true Transportation Needs: No Transportation Needs (05/23/2023) PRAPARE - Transportation Lack of Transportation (Medical): No Lack of Transportation (Non-Medical): No Physical Activity: Sufficiently Active (05/23/2023) Exercise Vital Sign Days of Exercise per Week: 7 days Minutes of Exercise per Session: 30 min Housing Stability: High Risk (10/18/2023) Housing Stability Vital Sign Unable to Pay for Housing in the Last Year: Yes Unstable Housing in the Last Year: Yes SCREENINGS PHYSICAL EXAM ED Triage Vitals [11/06/23 2219] Temp Heart Rate Resp BP -- 86 18 128/80 SpO2 Temp src Heart Rate Source Patient Position 99 % -- -- -- BP Location FiO2 (%) -- -- Physical Exam Vitals and nursing note reviewed. Constitutional: Appearance: Normal appearance. Comments: Drowsy but arousable to verbal stimuli or sternal rub HENT: Head: Normocephalic and atraumatic. Nose: Nose normal. Eyes: Pupils: Pupils are equal, round, and reactive to light. Cardiovascular: Rate and Rhythm: Normal rate. Pulmonary: Effort: Pulmonary effort is normal. Skin: General: Skin is warm and dry. Neurological: Mental Status: He is oriented to person, place, and time. DIAGNOSTIC RESULTS Procedures/EKG: RADIOLOGY (Per Emergency Physician): Interpretation per the Radiologist below, if available at the time of this note: No orders to display ED BEDSIDE ULTRASOUND: Performed by ED Physician - none LABS: Labs Reviewed COMPREHENSIVE METABOLIC PANEL - Abnormal Result Value SODIUM 137 POTASSIUM 3.2 (*) CHLORIDE 102 CARBON DIOXIDE 23 ANION GAP 12 UREA NITROGEN 13 CREATININE 0.85 GLUCOSE 197 (*) CALCIUM 8.6 AST (SGOT) 51 (*) ALT 35 ALKALINE PHOSPHATASE 114 ALBUMIN 4.0 BILIRUBIN, TOTAL 0.5 TOTAL PROTEIN 6.8 eGFR >90.0 CK - Abnormal CK 269 (*) CBC WITH AUTO DIFFERENTIAL - Normal Auto WBC 7.6 RBC 4.62 Hemoglobin 14.7 Hematocrit 44.0 MCV 95.2 MCH 31.8 MCHC 33.4 RDW 13.8 Platelets 381 MPV 9.9 nRBC 0.0 Neutrophils Relative 45.7 Lymphocytes Relative 41.2 Monocytes Relative 9.1 Eosinophils Relative 2.8 Basophils Relative 1.1 Immature Grans % 0.1 Neutrophils Absolute 3.5 Lymphocytes Absolute 3.1 Monocytes Absolute 0.7 Eosinophils Absolute 0.2 Basophils Absolute 0.1 Immature Grans Absolute 0.0 ETHANOL - Normal ETHANOL IN SER/PLAS <0.010 Narrative: NOTE: This result is for medical treatment only. Analysis performed using non-forensic procedures. DRUGS OF ABUSE All other labs were within normal range or not returned as of this dictation. EMERGENCY DEPARTMENT COURSE and DIFFERENTIAL DIAGNOSIS/MDM: Vitals: Vitals: 11/07/23 0404 11/07/23 0435 11/07/23 0505 11/07/23 0605 BP: (!) 136/97 (!) 145/99 116/73 136/84 Pulse: 63 61 60 59 Resp: 16 14 13 SpO2: 94% 94% 98% 100% ED Course as of 11/07/23 0648 SunNov 06, [id number] 38-year-old male presents emergency department today found down with pinpoint pupils. Has been given a total of 8 mg of Narcan by EMS prior to arrival. Became slightly more responsive. Here in the ED becoming less responsive 90% on room air was placed on 6 L nasal cannula and given another total of 8 mg of Narcan now becoming more responsive and answering some questions. Will monitor closely, titrated down to 3 L nasal cannula. [BM] ED Course User Index [BM] Dayna James DO Diagnoses as of 11/07/23 0648 Accidental overdose of heroin, initial encounter ([facility]) Methamphetamine abuse ([facility]) ([facility]) On reevaluation at 6:45 AM patient is easily arousable and he states he wants a cigarette. Will discharge home. Medications naloxone (Narcan) injection 0.4 mg (0.4 mg IntraVENous Given 11/06/232299) sodium chloride 0.9 % bolus 1,000 mL (1,000 mL IntraVENous New Bag 11/06/232316) naloxone (Narcan) injection 8 mg (8 mg Nasal Given 11/06/232201) REVAL: CRITICAL CARE TIME FINAL IMPRESSION 1. Accidental overdose of heroin, initial encounter ([facility]) 2. Methamphetamine abuse (CMS/HCC) ([facility]) DISPOSITION Discharge 11/07/2023 05:41:03 AM PATIENT REFERRED TO: Abmiael Carson MD [address] [facility] [facility] [id number] In 1 week [facility] ED [address] [facility] [phone] As needed, If symptoms worsen DISCHARGE MEDICATIONS: New Prescriptions No medications on file (Comment: Please note this report has been produced using speech recognition software and may contain errors related to that system including errors in grammar, punctuation, and spelling, as well as words and phrases that may be inappropriate. If there are any questions or concerns please feel free to contact the dictating provider for clarification.) Dayna James DO (electronically signed) Emergency Medicine Provider Dayna James DO 11/07/23 0649 Pt arrives to the ED via [facility] for a overdose. Pt was found on the ground w pinpoint pupils per ems. Narcan 8mg given intranasal sea captain. Pt arouses w painful stimuli upon arrival. Pt admits to using heroin and meth. Pupils 3mm, equal and reactive. Pt remains drowsy. Narcan 4mg given intranasal upon arrival. IV started, labs drawn. Pt placed on tele, pt NSR in the 80's. Pt on 6L O2 via nasal cannula Glucose 209, SPO2 decreased to 2 liters Pt sleeping soundly. Pt diaphoretic. Cool cloths placed on pts head and neck. Pt does not arouse easily. Pt will not answer questions. Pt arouses w painful stimuli. narcan 0.4 mg given ivp. Pt with purposeful movements after the narcan. Pt will not answer questions but does pull the blanket of head and curled up in to a position. VSS, pt remains NSR on monitor Pt arouses to voice. Pt positioned for comfort. VSS Pt awake and alert. Pt given dc instructions and follow up care. Pt verbalizes understanding. IV dc'd, cannula intact. Pt waiting for ride home in lobby documented in this encounter [facility] 11-07-2023 Emergency department Note Steady gait to bathroom. Returned to room and advised that is free to leave. Asking where his belongings are-advised that everything he came with is in the room. Has socks, shoes, shorts, shirt Ca Will RN 11/07/23 0725 [facility] 11-06-2023 Note NOTE: This result is for medical treatment only. Analysis performed using non-forensic procedures. [facility] 11-06-2023 Emergency department Triage note Pt arrives to the ED via [facility] for a overdose. Pt was found on the ground w pinpoint pupils per ems. Narcan 8mg given intranasal sea captain. Pt arouses w painful stimuli upon arrival. Pt admits to using heroin and meth. Pupils 3mm, equal and reactive. Pt remains drowsy. Narcan 4mg given intranasal upon arrival. IV started, labs drawn. Pt placed on tele, pt NSR in the 80's. Pt on 6L O2 via nasal cannula [facility] 11-06-2023 Emergency department Triage note Glucose 209, SPO2 decreased to 2 liters [facility] 11-06-2023 Emergency department Triage note Pt sleeping soundly. Pt diaphoretic. Cool cloths placed on pts head and neck. Pt does not arouse easily. Pt will not answer questions. Pt arouses w painful stimuli. narcan 0.4 mg given ivp. Pt with purposeful movements after the narcan. Pt will not answer questions but does pull the blanket of head and curled up in to a position. VSS, pt remains NSR on monitor [facility] 11-06-2023 Emergency department Triage note Pt arouses to voice. Pt positioned for comfort. VSS [facility] 11-06-2023 Emergency department Triage note Pt awake and alert. Pt given dc instructions and follow up care. Pt verbalizes understanding. IV dc'd, cannula intact. Pt waiting for ride home in [facility] 11-06-2023 Physician Emergency department Note EMERGENCY DEPARTMENT ENCOUNTER Pt Name: Grant Danielle Birthdate 1985 Date of evaluation: 11/06/2023 ED Provider: Dayna James DO CHIEF COMPLAINT Chief Complaint Patient presents with Drug Overdose HISTORY OF PRESENT ILLNESS (Location/Symptom, Timing/Onset, Context/Setting, Quality, Duration, Modifying Factors, Severity) Note limiting factors. I wore appropriate PPE for the entirety of this encounter. HPI 38-year-old male presents emergency department today found down with pinpoint pupils. Has been given a total of 8 mg of Narcan by EMS prior to arrival. Became slightly more responsive. States he used heroin and methamphetamines. Nursing Notes were reviewed. Limitations to history: Intoxication Outside historians: EMS REVIEW OF SYSTEMS Review of Systems Neurological: Decreased responsiveness Pertinent positives and negatives as per HPI. PAST MEDICAL HISTORY Past Medical History: Diagnosis Date ADHD Anemia Depression PTSD (post-traumatic stress disorder) Substance abuse (CMS/HCC) ([facility]) TBI (traumatic brain injury) ([facility]) SURGICAL HISTORY No past surgical history on file. CURRENT MEDICATIONS Previous Medications PAROXETINE (PAXIL) 20 MG TABLET Take 1 tablet (20 mg) by mouth every morning. ALLERGIES Cyclobenzaprine, Nsaids, and Tramadol FAMILY HISTORY Family History Problem Relation Name Age of Onset Emphysema Mother No Known Problems Father SOCIAL HISTORY Social History Socioeconomic History Marital status: Tobacco Use Smoking status: Every Day Current packs/day: 1.00 Average packs/day: 1 pack/day for 20.0 years (20.0 ttl pk-yrs) Types: Cigarettes Smokeless tobacco: Never Vaping Use Vaping status: Never Used Substance and Sexual Activity Alcohol use: Not Currently Drug use: Not Currently Types: Marijuana, Heroin Comment: pt states he is not using Sexual activity: Yes Partners: Female Social Determinants of Health Financial Resource Strain: High Risk (05/23/2023) Overall Financial Resource Strain (CARDIA) Difficulty of Paying Living Expenses: Very hard Food Insecurity: Food Insecurity Present (05/23/2023) Hunger Vital Sign Worried About Running Out of Food in the Last Year: Often true Ran Out of Food in the Last Year: Often true Transportation Needs: No Transportation Needs (05/23/2023) PRAPARE - Transportation Lack of Transportation (Medical): No Lack of Transportation (Non-Medical): No Physical Activity: Sufficiently Active (05/23/2023) Exercise Vital Sign Days of Exercise per Week: 7 days Minutes of Exercise per Session: 30 min Housing Stability: High Risk (10/18/2023) Housing Stability Vital Sign Unable to Pay for Housing in the Last Year: Yes Unstable Housing in the Last Year: Yes SCREENINGS PHYSICAL EXAM ED Triage Vitals [11/06/23 2219] Temp Heart Rate Resp BP -- 86 18 128/80 SpO2 Temp src Heart Rate Source Patient Position 99 % -- -- -- BP Location FiO2 (%) -- -- Physical Exam Vitals and nursing note reviewed. Constitutional: Appearance: Normal appearance. Comments: Drowsy but arousable to verbal stimuli or sternal rub HENT: Head: Normocephalic and atraumatic. Nose: Nose normal. Eyes: Pupils: Pupils are equal, round, and reactive to light. Cardiovascular: Rate and Rhythm: Normal rate. Pulmonary: Effort: Pulmonary effort is normal. Skin: General: Skin is warm and dry. Neurological: Mental Status: He is oriented to person, place, and time. DIAGNOSTIC RESULTS Procedures/EKG: RADIOLOGY (Per Emergency Physician): Interpretation per the Radiologist below, if available at the time of this note: No orders to display ED BEDSIDE ULTRASOUND: Performed by ED Physician - none LABS: Labs Reviewed COMPREHENSIVE METABOLIC PANEL - Abnormal Result Value SODIUM 137 POTASSIUM 3.2 (*) CHLORIDE 102 CARBON DIOXIDE 23 ANION GAP 12 UREA NITROGEN 13 CREATININE 0.85 GLUCOSE 197 (*) CALCIUM 8.6 AST (SGOT) 51 (*) ALT 35 ALKALINE PHOSPHATASE 114 ALBUMIN 4.0 BILIRUBIN, TOTAL 0.5 TOTAL PROTEIN 6.8 eGFR >90.0 CK - Abnormal CK 269 (*) CBC WITH AUTO DIFFERENTIAL - Normal Auto WBC 7.6 RBC 4.62 Hemoglobin 14.7 Hematocrit 44.0 MCV 95.2 MCH 31.8 MCHC 33.4 RDW 13.8 Platelets 381 MPV 9.9 nRBC 0.0 Neutrophils Relative 45.7 Lymphocytes Relative 41.2 Monocytes Relative 9.1 Eosinophils Relative 2.8 Basophils Relative 1.1 Immature Grans % 0.1 Neutrophils Absolute 3.5 Lymphocytes Absolute 3.1 Monocytes Absolute 0.7 Eosinophils Absolute 0.2 Basophils Absolute 0.1 Immature Grans Absolute 0.0 ETHANOL - Normal ETHANOL IN SER/PLAS <0.010 Narrative: NOTE: This result is for medical treatment only. Analysis performed using non-forensic procedures. DRUGS OF ABUSE All other labs were within normal range or not returned as of this dictation. EMERGENCY DEPARTMENT COURSE and DIFFERENTIAL DIAGNOSIS/MDM: Vitals: Vitals: 11/07/23 0404 11/07/23 0435 11/07/23 0505 11/07/23 0605 BP: (!) 136/97 (!) 145/99 116/73 136/84 Pulse: 63 61 60 59 Resp: 16 14 13 SpO2: 94% 94% 98% 100% ED Course as of 11/07/23 0648 SunNov 06, [id number] 38-year-old male presents emergency department today found down with pinpoint pupils. Has been given a total of 8 mg of Narcan by EMS prior to arrival. Became slightly more responsive. Here in the ED becoming less responsive 90% on room air was placed on 6 L nasal cannula and given another total of 8 mg of Narcan now becoming more responsive and answering some questions. Will monitor closely, titrated down to 3 L nasal cannula. [BM] ED Course User Index [BM] Dayna James DO Diagnoses as of 11/07/23 0648 Accidental overdose of heroin, initial encounter ([facility]) Methamphetamine abuse ([facility]) ([facility]) On reevaluation at 6:45 AM patient is easily arousable and he states he wants a cigarette. Will discharge home. Medications naloxone (Narcan) injection 0.4 mg (0.4 mg IntraVENous Given 11/06/230) sodium chloride 0.9 % bolus 1,000 mL (1,000 mL IntraVENous New Bag 11/06/23 2317) naloxone (Narcan) injection 8 mg (8 mg Nasal Given 11/06/232201) REVAL: CRITICAL CARE TIME FINAL IMPRESSION 1. Accidental overdose of heroin, initial encounter ([facility]) 2. Methamphetamine abuse ([facility]) ([facility]) DISPOSITION Discharge 11/07/2023 05:41:03 AM PATIENT REFERRED TO: Abimael Carson MD [address] [place] [address], [address] [facility] [address] In 1 week [facility] ED [address] [facility] [id number] As needed, If symptoms worsen DISCHARGE MEDICATIONS: New Prescriptions No medications on file (Comment: Please note this report has been produced using speech recognition software and may contain errors related to that system including errors in grammar, punctuation, and spelling, as well as words and phrases that may be inappropriate. If there are any questions or concerns please feel free to contact the dictating provider for clarification.) Dayna James DO (electronically signed) Emergency Medicine Provider Dayna James DO 11/07/23 0649 [facility] 10-24-2023 Evaluation + Plan note Associated Problem(s): Functional diarrhea Prescription for Imodium to be used as directed. [facility] 10-24-2023 Miscellaneous Notes Associated Problem(s): Functional diarrhea Prescription for Imodium to be used as directed. Associated Problem(s): Severe anxiety Uncontrolled, Paxil 20 mg daily Associated Problem(s): Bipolar disorder (HCC) Uncontrolled, we will start him on Paxil 20 mg daily and he is to follow-up with his counselor MARIAMA. documented in this encounter [facility] 10-24-2023 Evaluation + Plan note Associated Problem(s): Severe anxiety Uncontrolled, Paxil 20 mg daily [facility] 10-24-2023 Evaluation + Plan note Associated Problem(s): Bipolar disorder (HCC) Uncontrolled, we will start him on Paxil 20 mg daily and he is to follow-up with his counselor MARIAMA. [facility] 10-24-2023 History of Presen t illness Narrative Patient verified by last name and date of . Images from the original note were not included. 10/24/2023 Grant Danielle (: 1985) is a 38 y.o. male , Established patient, here for evaluation of the following chief complaint(s): Transitional Care Management Outreach, Hospital Follow-up ([facility] 10/17-10/19/23/Cellulitis RLE pt states he was not sent home with anything ), Abdominal Pain (Thought from coffee and dairy -stopped both of them and still having pain//Diarrhea - all the time ), and Medication Adherence (Pt is currently on no medications for psychiatric issues ) ASSESSMENT/PLAN: 1. Bipolar affective disorder, currently depressed, moderate (HCC) Assessment & Plan: Uncontrolled, we will start him on Paxil 20 mg daily and he is to follow-up with his counselor MARIAMA. 2. Severe anxiety Assessment & Plan: Uncontrolled, Paxil 20 mg daily 3. Functional diarrhea Assessment & Plan: Prescription for Imodium to be used as directed. Follow up in about 4 weeks (around 11/21/2023). SUBJECTIVE/OBJECTIVE: JASPAL Bullock comes in today for follow-up on his depression/anxiety/bipolar. He has not been taking his medication and he has not been seen his psychiatrist. He also was recently in the ER for a wound on the back of his right heel that was caused by his shoes and is a open wound but looks clean. He currently is on Keflex He also says he has been having diarrhea. Review of Systems Constitutional: Negative for chills and fever. Respiratory: Negative for shortness of breath. Cardiovascular: Negative for chest pain and palpitations. Gastrointestinal: Positive for diarrhea. Negative for abdominal pain, blood in stool and constipation. Genitourinary: Negative for dysuria, frequency, hematuria and urgency. Psychiatric/Behavioral: Positive for dysphoric mood. Negative for self-injury and suicidal ideas. The patient is nervous/anxious. Vitals: 10/24/23 0956 BP: 130/81 Pulse: 83 SpO2: 97% Weight: 162 lb 3.2 oz (73.6 kg) Height: 6' (1.829 m) Physical Exam Vitals and nursing note reviewed. Constitutional: General: He is not in acute distress. Appearance: Normal appearance. HENT: Head: Normocephalic. Mouth/Throat: Mouth: Mucous membranes are moist. Pharynx: Oropharynx is clear. Eyes: Extraocular Movements: Extraocular movements intact. Pupils: Pupils are equal, round, and reactive to light. Cardiovascular: Rate and Rhythm: Normal rate and regular rhythm. Heart sounds: Normal heart sounds. No murmur heard. Pulmonary: Effort: Pulmonary effort is normal. Breath sounds: Normal breath sounds. Abdominal: General: Bowel sounds are normal. Palpations: Abdomen is soft. Musculoskeletal: Cervical back: Neck supple. Neurological: Mental Status: He is alert. An electronic signature was used to authenticate this note. Abimael Carson MD 10/24/2023 12:57 PM documented in this encounter [facility] 10-19-2023 Note Formatting of this n ote might be different from the original. SW consult for homeless. Notified in rounds this morning, patient has signed out AMA. [facility] 10-19-2023 Note Formatting of this n ote might be different from the original. SW consult for homeless. Notified in rounds this morning, patient has signed out AMA. [facility] 10-19-2023 Miscellaneous Notes SW consult for homeless. Notified in rounds this morning, patient has signed out AMA. [employer] Grant Danielle : 1985 Primary Care Physician: Abimael Carson MD The patient and/or family/surrogate voluntarily agreed to participate in ACP services. Patient s cognitive capacity: intact Code Status: [X] [FULL CODE - Continue all advanced life support: CPR,intubation,invasive procedures] [_] [DNR-CCA - DO NOT do CPR, intubation] [_] [DNR-STEMMING MACHINE OPERATOR - Comfort care only] [_] DNR form [was/was not] signed Summary of discussion: The patient health care POA/ surrogate is the following: does not have one. [Condition that instigated the ACP on this DOS, relevant PMH, functional status, goals of care, and whom this was discussed with including names and relationship to the patient, and any relevant advance care documentation discussion] I answered all the patient/family questions that I could within the range and scope of the current medical situation. We discussed the medical conditions, risks, benefits, outcomes, and goals of care at this time for the patient's medical issues at hand in the face of the patient's chronic issues and current presentation. Total time spent: 2 minutes were spent discussing the patient's resuscitation status, advance care planning, and end of life care, with patient and/or family/surrogate. Ruthie Costa MD Division of Hospitalist Medicine [facility] documented in this encounter [facility] 10-19-2023 Nurse Note This RN was informed by Dr. Zamora that patient wanted to leave AMA and to have his iv removed. This RN went to the patient room and asked if he wanted to stay or leave AMA. Patient turned his arm over to have iv removed. Asked what I was doing and this RN stated I was applying pressure to slow bleeding from removal of iv and he stated I don't bleed that bad. This RN taped his iv site. Patient asked to be able to get dressed and was told he could and he would need to sign ama form. I'm not signing until I'm out of here. This RN offered to leave the room and patient stated she was fine. He said what are you waiting for. Told patient just waiting for you to be finished. He stated let's go now. Informed patient I would not be leaving the floor with him that I would show him the elevator. At the central elevator patient signed the ama form and was given instructions on where to go when he stated I know where to go to get out. [facility] 10-19-2023 Nurse Note This RN was informed by Dr. Zamora that patient wanted to leave AMA and to have his iv removed. This RN went to the patient room and asked if he wanted to stay or leave AMA. Patient turned his arm over to have iv removed. Asked what I was doing and this RN stated I was applying pressure to slow bleeding from removal of iv and he stated I don't bleed that bad. This RN taped his iv site. Patient asked to be able to get dressed and was told he could and he would need to sign ama form. I'm not signing until I'm out of here. This RN offered to leave the room and patient stated she was fine. He said what are you waiting for. Told patient just waiting for you to be finished. He stated let's go now. Informed patient I would not be leaving the floor with him that I would show him the elevator. At the central elevator patient signed the ama form and was given instructions on where to go when he stated I know where to go to get out. This FIRER BOILER was at bedside preparing to insert new IV, pt was cooperative and understanding at the time. Pt asked if cafeteria was open to have a mountain dew and this nurse stated that the cafeteria was open at 0600. Pt immediately became and agitated and sat up removing his tourniquet. Pt began to yell at this FIRER BOILER, becoming verbally aggressive. This FIRER BOILER stepped out of room and called protective services at 0346. Pt became cooperative with protective services at bedside and allowed this FIRER BOILER put in new IV. Pt given jello and is calm at this time. Upon entering pt room pt is yelling and cussing. Pt states he does not want to be bothered. Pt states he is bipolar and has not been able to take his medication since he has been homeless. Pt states he is anxious and depressed because he relapsed using heroin 5 days ago. Pt states he also uses to marijuana and states, if I could get my hands on some percocet I would. documented in this encounter [facility] 10-19-2023 Hospital course Narrative Hospitalist Discharge Summary Grant Danielle : 1985 Admit date: 10/18/2023 Discharge date: 10/19/2023 Admitting Physician: Liam Zamora MD Primary Care Physician: Abimael Carson MD Visit Status: OBS Code Status: Full Code BRIEF HOSPITAL COURSE: Mr. Danielle is a 38 year old male who presents to [facility] ED with complaints of right ankle pain. States that he injured it in [place] and placed in a wrap around it. However a blister and redness developed. Of note, patient is homeless and currently uses methamphetamines and heroin. Due to worsening symptoms, came to the ED for further evaluation. In the ED, patient was febrile at 100.5 with otherwise stable vital signs. Labs are consistent with a WBC of 16.3, sodium 130, chloride 95, glucose 109, lactic acid 2.5, ESR 19, CRP 132, UDS + THC. X-ray of the right foot and ankle consistent with no acute process. Patient met criteria for severe sepsis and septic 1 core measure documented per ED provider. Started on vancomycin, Unasyn and 30 ml/kg bolus and admitted for further evaluation. Infectious workup was come back for norovirus in the GI panel. Treated with vancomycin and Unasyn therapy. Patient became verbally aggressive with staff and asked to leave AMA. Acute, acute on chronic, unstable/uncontrolled chronic problems/diagnoses: Severe sepsis RLE cellulitis Norovirus Lactic acidosis Acute hyponatremia with overcorrection Polysubstance use - Meth and Heroin Homelessness Stable chronic problems affecting care, new non-acute diagnoses: Chronic Hep C Hx of TBI Bipolar disorder ADHD Depression Past Medical History: Diagnosis Date ADHD Anemia Depression PTSD (post-traumatic stress disorder) Substance abuse (CMS/HCC) ([facility]) TBI (traumatic brain injury) ([facility]) Procedures: None Hospital Course: See discharge diagnoses list above and medication adjustments below in med rec.The patient is discharged in improved and stable condition. Consults: PHARMACY TO DOSE VANCO IP WOUND CARE NURSE CONSULT TO EVAL IP CONSULT TO SOCIAL WORK IP CONSULT TO CASE MANAGEMENT PHARMACY TO DOSE VANCO IP CONSULT TO PSYCHIATRY IP CONSULT TO NEPHROLOGY Discharge Instructions: Diet: Dietary Orders (From admission, onward) Start Ordered 10/18/232215 Adult diet Regular Diet effective now Question: Diet type Answer: Regular 10/18/232224 Activity: as tolerated Recommended Outpatient Tests: Disposition: Patient discharged in stable condition to [facility]. Spent 40 min discharging the patient and coming up with patient discharge plan. Vitals: BP 127/67 Pulse 78 Temp 36.6 C (97.8 F) (Temporal) Resp 16 Ht 6' (1.829 m) Wt 180 lb (81.6 kg) SpO2 98% BMI 24.41 kg/m Pulse Ox: SpO2 Av.4 % Min: 96 % Max: 99 % Supplemental O2: Physical Exam Constitutional: Appearance: He is not ill-appearing. Cardiovascular: Rate and Rhythm: Normal rate. Heart sounds: No murmur heard. Pulmonary: Effort: No respiratory distress. Breath sounds: No wheezing. Abdominal: General: There is no distension. Tenderness: There is no abdominal tenderness. Musculoskeletal: General: Tenderness and signs of injury present. Skin: Findings: Erythema present. Neurological: Mental Status: Mental status is at baseline. LABS: Recent Labs 10/18/23 0923 10/19/23 0416 NA 130* 139 K 3.7 3.7 CL 95* 104 CO2 27 26 BUN 11 9 CREATININE 0.86 0.57* GLUCOSE 109* 97 CALCIUM 8.7 8.2* Recent Labs 10/18/23 0923 10/19/23 0416 WBC 16.3* 11.7* RBC 5.13 4.50 HGB 16.3 14.4 HCT 47.6 42.6 MCV 92.8 94.7 MCH 31.8 32.0 MCHC 34.2 33.8 RDW 12.9 13.2 PLT 320 310 MPV 10.4 10.6 Discharge Medications: Medication List ASK your doctor about these medications cephalexin 500 MG tablet Commonly known as: Keftab Recommended Follow-up: Abimael Carson MD [facility] [id number] Complexity of Follow up: [] Moderate Complexity: follow up within 7-14 calendar days (92601) [x] Severe Complexity: follow up within 7 calendar days (12245) Follow up Testing, Pending results or Referrals at Transitional Care Visit: [x] yes [] no Instructions to MA: Please call patient on day after discharge (must document patient contacted within 2 business days of discharge). Follow up questions for MA: 1. Did you get medications filled and taking them as instructed from discharge? 2. Are you following your discharge instructions from your hospital stay? 3. Please confirm patient is scheduled for a follow up appointment within the above time frame. Signed: Liam Zamora MD Division of Hospitalist Medicine [facility] 10/19/2023, 11:02 AM documented in this encounter [facility] 10-19-2023 Note Hospitalist Discharg e Summary Grant Danielle : 1985 Admit date: 10/18/2023 Discharge date: 10/19/2023 Admitting Physician: Liam Zamora MD Primary Care Physician: Abimael Carson MD Visit Status: OBS Code Status: Full Code BRIEF HOSPITAL COURSE: Mr. Danielle is a 38 year old male who presents to [facility] ED with complaints of right ankle pain. States that he injured it in [place] and placed in a wrap around it. However a blister and redness developed. Of note, patient is homeless and currently uses methamphetamines and heroin. Due to worsening symptoms, came to the ED for further evaluation. In the ED, patient was febrile at 100.5 with otherwise stable vital signs. Labs are consistent with a WBC of 16.3, sodium 130, chloride 95, glucose 109, lactic acid 2.5, ESR 19, CRP 132, UDS + THC. X-ray of the right foot and ankle consistent with no acute process. Patient met criteria for severe sepsis and septic 1 core measure documented per ED provider. Started on vancomycin, Unasyn and 30 ml/kg bolus and admitted for further evaluation. Infectious workup was come back for norovirus in the GI panel. Treated with vancomycin and Unasyn therapy. Patient became verbally aggressive with staff and asked to leave AMA. Acute, acute on chronic, unstable/uncontrolled chronic problems/diagnoses: Severe sepsis RLE cellulitis Norovirus Lactic acidosis Acute hyponatremia with overcorrection Polysubstance use - Meth and Heroin Homelessness Stable chronic problems affecting care, new non-acute diagnoses: Chronic Hep C Hx of TBI Bipolar disorder ADHD Depression Past Medical History: Diagnosis Date ADHD Anemia Depression PTSD (post-traumatic stress disorder) Substance abuse ([facility]/HCC) ([facility]) TBI (traumatic brain injury) ([facility]) Procedures: None Hospital Course: See discharge diagnoses list above and medication adjustments below in med rec.The patient is discharged in improved and stable condition. Consults: PHARMACY TO DOSE VANCO IP WOUND CARE NURSE CONSULT TO EVAL IP CONSULT TO SOCIAL WORK IP CONSULT TO CASE MANAGEMENT PHARMACY TO DOSE VANCO IP CONSULT TO PSYCHIATRY IP CONSULT TO NEPHROLOGY Discharge Instructions: Diet: Dietary Orders (From admission, onward) Start Ordered 10/18/232215 Adult diet Regular Diet effective now Question: Diet type Answer: Regular 10/18/232224 Activity: as tolerated Recommended Outpatient Tests: Disposition: Patient discharged in stable condition to [facility]. Spent 40 min discharging the patient and coming up with patient discharge plan. Vitals: BP 127/67 Pulse 78 Temp 36.6 ?C (97.8 ?F) (Temporal) Resp 16 Ht 6' (1.829 m) Wt 180 lb (81.6 kg) SpO2 98% BMI 24.41 kg/m? Pulse Ox: SpO2 Av.4 % Min: 96 % Max: 99 % Supplemental O2: Physical Exam Constitutional: Appearance: He is not ill-appearing. Cardiovascular: Rate and Rhythm: Normal rate. Heart sounds: No murmur heard. Pulmonary: Effort: No respiratory distress. Breath sounds: No wheezing. Abdominal: General: There is no distension. Tenderness: There is no abdominal tenderness. Musculoskeletal: General: Tenderness and signs of injury present. Skin: Findings: Erythema present. Neurological: Mental Status: Mental status is at baseline. LABS: Recent Labs 10/18/23 0923 10/19/23 0416 NA 130* 139 K 3.7 3.7 CL 95* 104 CO2 27 26 BUN 11 9 CREATININE 0.86 0.57* GLUCOSE 109* 97 CALCIUM 8.7 8.2* Recent Labs 10/18/23 0923 10/19/23 0416 WBC 16.3* 11.7* RBC 5.13 4.50 HGB 16.3 14.4 HCT 47.6 42.6 MCV 92.8 94.7 MCH 31.8 32.0 MCHC 34.2 33.8 RDW 12.9 13.2 PLT 320 310 MPV 10.4 10.6 Discharge Medications: Medication List ASK your doctor about these medications cephalexin 500 MG tablet Commonly known as: Keftab Recommended Follow-up: Abimael Carson MD [address] [place] [address], [address] [facility] [address] Complexity of Follow up: [] Moderate Complexity: follow up within 7-14 calendar days (14237) [x] Severe Complexity: follow up within 7 calendar days (81446) Follow up Testing, Pending results or Referrals at Transitional Care Visit: [x] yes [] no Instructions to MA: Please call patient on day after discharge (must document patient contacted within 2 business days of discharge). Follow up questions for MA: 1. Did you get medications filled and taking them as instructed from discharge? 2. Are you following your discharge instructions from your hospital stay? 3. Please confirm patient is scheduled for a follow up appointment within the above time frame. Signed: Liam Zamora MD Division of Hospitalist Medicine [facility] 10/19/2023, 11:02 AM [facility] 10-19-2023 Note Hospitalist Progress Note 10/19/2023 Subjective: Admit Date: 10/18/2023 PCP: Abimael Carson MD Room#: B1145/[id number] A BRIEF HOSPITAL COURSE: Mr. Danielle is a 38 year old male who presents to [facility] ED with complaints of right ankle pain. States that he injured it in [place] and placed in a wrap around it. However a blister and redness developed. Of note, patient is homeless and currently uses methamphetamines and heroin. Due to worsening symptoms, came to the ED for further evaluation. In the ED, patient was febrile at 100.5 with otherwise stable vital signs. Labs are consistent with a WBC of 16.3, sodium 130, chloride 95, glucose 109, lactic acid 2.5, ESR 19, CRP 132, UDS + THC. X-ray of the right foot and ankle consistent with no acute process. Patient met criteria for severe sepsis and septic 1 core measure documented per ED provider. Started on vancomycin, Unasyn and 30 ml/kg bolus and admitted for further evaluation. Interval History: No overnight issues. Case and plan discussed with patient and bedside nurse. All questions answered. Adult diet Regular 24HR INTAKE/OUTPUT: Intake/Output Summary (Last 24 hours) at 10/19/2023 0757 Last data filed at 10/19/2023 0000 Gross per 24 hour Intake 2898 ml Output 900 ml Net 1998 ml Past Medical History: Past Medical History: Diagnosis Date ADHD Anemia Depression PTSD (post-traumatic stress disorder) Substance abuse ([facility]) ([facility]) TBI (traumatic brain injury) ([facility]) LABS: CBC: Recent Labs 10/18/2392210/19/23415 WBC 16.3* 11.7* RBC 5.13 4.50 HGB 16.3 14.4 HCT 47.6 42.6 MCV 92.8 94.7 RDW 12.9 13.2 PLT 320 310 BMP: Recent Labs 10/18/23 0910/19/23415 NA 130* 139 K 3.7 3.7 CL 95* 104 CO2 27 26 BUN 11 9 CREATININE 0.86 0.57* GLUCOSE 109* 97 CALCIUM 8.7 8.2* ANIONGAP 8 9 LIVER PROFILE: Recent Labs 10/19/23415 AST 25 ALT 20 BILITOT 0.3 ALKPHOS 86 PROT 5.5* PT/INR: No results for input(s): PROTIME, INR in the last 72 hours. CARDIAC ENZYMES: No results for input(s): TROPONINI in the last 72 hours. Procalcitonin: No results found for: PROCAL COVID-19 PCR: No results for input(s): COVID19 in the last 72 hours. Objective: Vitals: BP 127/67 Pulse 78 Temp 36.6 ?C (97.8 ?F) (Temporal) Resp 16 Wt 180 lb (81.6 kg) SpO2 98% BMI 24.41 kg/m? Pulse Ox: SpO2 Av % Min: 96 % Max: 100 % Supplemental O2: Physical Exam Constitutional: Appearance: He is not ill-appearing. Cardiovascular: Rate and Rhythm: Normal rate. Heart sounds: No murmur heard. Pulmonary: Effort: No respiratory distress. Breath sounds: No wheezing. Abdominal: General: There is no distension. Tenderness: There is no abdominal tenderness. Musculoskeletal: General: Tenderness and signs of injury present. Skin: Findings: Erythema present. Neurological: Mental Status: Mental status is at baseline. Medications: Scheduled PRN ampicillin-sulbactam, 3,000 mg, IntraVENous, q6h nicotine, 1 patch, TransDERmal, Daily Followed by [START ON 11/30/2023] nicotine, 1 patch, TransDERmal, Daily Followed by [START ON 12/14/2023] nicotine, 1 patch, TransDERmal, Daily vancomycin, 1,750 mg, IntraVENous, q12h PRN medications: acetaminophen OR acetaminophen, ondansetron ODT OR ondansetron, polyethylene glycol (PEG) 3350 Continuous sodium chloride, 100 mL/hr, Last Rate: 100 mL/hr (10/18/23 8245) Assessment Data: (CAT1) Reviewed 3 or more notes from different specialty or health system (each=1). (CAT1) Reviewed 3 or more labs/studies ordered by another provider not previously counted (each=1, panels count as 1). (CAT1) Reviewed 3 or more labs/studies previously ordered by me not previously counted (each=1, panels count as 1). (CAT1) Ordered 3 or more new labs and/or studies (each=1, panels count as 1). (LOW: 2x CAT1 or independent historian MOD: 3x CAT1 or 1x CAT3 EXTENSIVE: 3x CAT1 and 1x CAT3) Acute, acute on chronic, unstable/uncontrolled chronic problems/diagnoses: Severe sepsis RLE cellulitis Norovirus Lactic acidosis Acute hyponatremia with overcorrection Polysubstance use - Meth and Heroin Homelessness Stable chronic problems affecting care, new non-acute diagnoses: Chronic Hep C Hx of TBI Bipolar disorder ADHD Depression Plan As a result of the above findings & factors, the following mgmt was pursued: -Infectious workup was come back for norovirus in the GI panel. Will continue vancomycin and Unasyn therapy and de-escalate accordingly after following up blood culture results. Lactic acid resolved. -Consult nephrology given overcorrection of sodium from 130->139. Likely induced by a normal saline bolus. -Psychiatry consulted by overnight physician due to untreated bipolar disorder - Patient was verbally abrasive and asking to leave AMA. Discussed with risks and benefits of staying and leaving. Patient insisted (more content not included)... [facility] 10-19-2023 History of Presen t illness Narrative Hospitalist Progress Note 10/19/2023 Subjective: Admit Date: 10/18/2023 PCP: Abimael Carson MD Room#: [id number] A BRIEF HOSPITAL COURSE: Mr. Danielle is a 38 year old male who presents to [facility] ED with complaints of right ankle pain. States that he injured it in [place] and placed in a wrap around it. However a blister and redness developed. Of note, patient is homeless and currently uses methamphetamines and heroin. Due to worsening symptoms, came to the ED for further evaluation. In the ED, patient was febrile at 100.5 with otherwise stable vital signs. Labs are consistent with a WBC of 16.3, sodium 130, chloride 95, glucose 109, lactic acid 2.5, ESR 19, CRP 132, UDS + THC. X-ray of the right foot and ankle consistent with no acute process. Patient met criteria for severe sepsis and septic 1 core measure documented per ED provider. Started on vancomycin, Unasyn and 30 ml/kg bolus and admitted for further evaluation. Interval History: No overnight issues. Case and plan discussed with patient and bedside nurse. All questions answered. Adult diet Regular 24HR INTAKE/OUTPUT: Intake/Output Summary (Last 24 hours) at 10/19/2023 0757 Last data filed at 10/19/2023 0000 Gross per 24 hour Intake 2898 ml Output 900 ml Net 1998 ml Past Medical History: Past Medical History: Diagnosis Date ADHD Anemia Depression PTSD (post-traumatic stress disorder) Substance abuse ([facility]) ([facility]) TBI (traumatic brain injury) ([facility]) LABS: CBC: Recent Labs 10/18/23 0923 10/19/23 0416 WBC 16.3* 11.7* RBC 5.13 4.50 HGB 16.3 14.4 HCT 47.6 42.6 MCV 92.8 94.7 RDW 12.9 13.2 PLT 320 310 BMP: Recent Labs 10/18/23 0923 10/19/23 0416 NA 130* 139 K 3.7 3.7 CL 95* 104 CO2 27 26 BUN 11 9 CREATININE 0.86 0.57* GLUCOSE 109* 97 CALCIUM 8.7 8.2* ANIONGAP 8 9 LIVER PROFILE: Recent Labs 10/19/23 0416 AST 25 ALT 20 BILITOT 0.3 ALKPHOS 86 PROT 5.5* PT/INR: No results for input(s): PROTIME, INR in the last 72 hours. CARDIAC ENZYMES: No results for input(s): TROPONINI in the last 72 hours. Procalcitonin: No results found for: PROCAL COVID-19 PCR: No results for input(s): COVID19 in the last 72 hours. Objective: Vitals: BP 127/67 Pulse 78 Temp 36.6 C (97.8 F) (Temporal) Resp 16 Wt 180 lb (81.6 kg) SpO2 98% BMI 24.41 kg/m Pulse Ox: SpO2 Av % Min: 96 % Max: 100 % Supplemental O2: Physical Exam Constitutional: Appearance: He is not ill-appearing. Cardiovascular: Rate and Rhythm: Normal rate. Heart sounds: No murmur heard. Pulmonary: Effort: No respiratory distress. Breath sounds: No wheezing. Abdominal: General: There is no distension. Tenderness: There is no abdominal tenderness. Musculoskeletal: General: Tenderness and signs of injury present. Skin: Findings: Erythema present. Neurological: Mental Status: Mental status is at baseline. Medications: Scheduled PRN ampicillin-sulbactam, 3,000 mg, IntraVENous, q6h nicotine, 1 patch, TransDERmal, Daily Followed by [START ON 11/30/2023] nicotine, 1 patch, TransDERmal, Daily Followed by [START ON 12/14/2023] nicotine, 1 patch, TransDERmal, Daily vancomycin, 1,750 mg, IntraVENous, q12h PRN medications: acetaminophen OR acetaminophen, ondansetron ODT OR ondansetron, polyethylene glycol (PEG) 3350 Continuous sodium chloride, 100 mL/hr, Last Rate: 100 mL/hr (10/18/23 4275) Assessment Data: (CAT1) Reviewed 3 or more notes from different specialty or health system (each=1). (CAT1) Reviewed 3 or more labs/studies ordered by another provider not previously counted (each=1, panels count as 1). (CAT1) Reviewed 3 or more labs/studies previously ordered by me not previously counted (each=1, panels count as 1). (CAT1) Ordered 3 or more new labs and/or studies (each=1, panels count as 1). (LOW: 2x CAT1 or independent historian MOD: 3x CAT1 or 1x CAT3 EXTENSIVE: 3x CAT1 and 1x CAT3) Acute, acute on chronic, unstable/uncontrolled chronic problems/diagnoses: Severe sepsis RLE cellulitis Norovirus Lactic acidosis Acute hyponatremia with overcorrection Polysubstance use - Meth and Heroin Homelessness Stable chronic problems affecting care, new non-acute diagnoses: Chronic Hep C Hx of TBI Bipolar disorder ADHD Depression Plan As a result of the above findings & factors, the following mgmt was pursued: -Infectious workup was come back for norovirus in the GI panel. Will continue vancomycin and Unasyn therapy and de-escalate accordingly after following up blood culture results. Lactic acid resolved. -Consult nephrology given overcorrection of sodium from 130->139. Likely induced by a normal saline bolus. -Psychiatry consulted by overnight physician due to untreated bipolar disorder - Patient was verbally abrasive and asking to leave AMA. Discussed with risks and benefits of staying and leaving. Patient insisted on leaving AMA - Discussed with nurse and TCC during IDR's this morning - am labs, replace lytes prn - PT/OT/CM/SW - delirium precautions: increase activity - DVT prophylaxis: SCDs and encourage ambulation Complexity: Acute illness or injury posing a threat to life or body function (HIGH). Chronic illness with mild to moderate exacerbation, progression, or side effect of tx (MOD). Risk: Admission to hospital-level care was considered or occurred (HIGH). Advance Directive: Full Code Anticipated Discharge - Date - 10/19 - Location - Home with Home Health Care - Pending the following - Sx Total time spent (which include face to face and non face to face encounters) : 54 minutes Toxic drug monitoring/narrow therapeutic index drug monitoring : # Drug name : Vanco # Route administered : IV # Method of monitoring : Vanco Trough Extended Emergency Contact Information Primary Emergency Contact: Ca Danielle Mobile Relation: Sister Secondary Emergency Contact: Crystal Danielle Mobile Relation: Spouse Liam Zamora MD Division of Hospitalist Medicine [employer] [facility] Pharmacy to Dose Vancomycin - Progress Note Recent Labs 10/18/2392210/19/23 0416 BUN 11 9 CREATININE 0.86 0.57* Lab Results Component Value Date VANCJUVENALNDOM 17.6 10/19/2023 Doses, serum creatinine, and vancomycin levels interfaced automatically to Agent Partner and data has been analyzed and interpreted. Infectious Diagnosis: SSTI Est CrCl: 125 mL/min (Cockcroft-Gault) Assessment: Current regimen vancomycin 1750 mg every 12 hours. Predicted AUC = 408 mg/L*hr (goal 400-600 mg/L*hr) Plan: Is the current dose therapeutic? [x] Yes - obtain next level on 10/25 unless predicted AUC is sub-/supra-therapeutic or change in serum creatinine. Trend serum creatinine. Trend AUC using Bayesian Modeling. Orders placed. DATE: 10/19/23 TIME: 6:12 AM Naila Orellana RPh Clinical Pharmacist Available via Secure Chat documented in this encounter [facility] 10-19-2023 Note NOTE:These results a re for medical treatment only. Analysis performed using non-forensic procedures. This test has not been cleared by the US Food and Drug Administration (FDA). The FDA has determined that such clearance or approval is not necessary. The performance chararcteristics have been determined by the clinical laboratories of [facility]. [facility] 10-19-2023 Note NOTE:These results a re for medical treatment only. Analysis performed using non-forensic procedures. This test has not been cleared by the US Food and Drug Administration (FDA). The FDA has determined that such clearance or approval is not necessary. The performance chararcteristics have been determined by the clinical laboratories of [facility]. [facility] 10-19-2023 Note Pharmacy to Dose Van comycin - Progress Note Recent Labs 05/30/24 0923 05/31/24 0416 BUN 11 9 CREATININE 0.86 0.57* Lab Results Component Value Date VANCORANDOM 17.6 10/19/2023 Doses, serum creatinine, and vancomycin levels interfaced automatically to Agent Partner and data has been analyzed and interpreted. Infectious Diagnosis: SSTI Est CrCl: 125 mL/min (Cockcroft-Gault) Assessment: Current regimen vancomycin 1750 mg every 12 hours. Predicted AUC = 408 mg/L*hr (goal 400-600 mg/L*hr) Plan: Is the current dose therapeutic? [x] Yes - obtain next level on 10/25 unless predicted AUC is sub-/supra-therapeutic or change in serum creatinine. Trend serum creatinine. Trend AUC using Bayesian Modeling. Orders placed. DATE: 10/19/23 TIME: 6:12 AM Naila Orellana [facility] Clinical Pharmacist Available via Secure Chat [facility] 10-19-2023 Nurse Note This FIRER BOILER was at bedside preparing to insert new IV, pt was cooperative and understanding at the time. Pt asked if cafeteria was open to have a mountain dew and this nurse stated that the cafeteria was open at 0600. Pt immediately became and agitated and sat up removing his tourniquet. Pt began to yell at this FIRER BOILER, becoming verbally aggressive. This FIRER BOILER stepped out of room and called protective services at 0346. Pt became cooperative with protective services at bedside and allowed this FIRER BOILER put in new IV. Pt given jello and is calm at this time. [facility] 10-18-2023 Consult note Formatting of th is note is different from the original. Images from the original note were not included. Pharmacy Managed Vancomycin Dosing Service Consult Note Consult Date: 10/18/23 Patient Name: Grant Danielle Allergies: Nsaids and Tramadol Age: 38 y.o. Sex: male Estimated body mass index is 24.41 kg/m as calculated from the following: Height as of 07/20/23: 1.829 m (6'). Weight as of this encounter: 81.6 kg (180 lb). Lab Results Component Value Date CREATININE 0.86 10/18/2023 CREATININE 0.84 07/20/2023 BUN 11 10/18/2023 BUN 9 07/20/2023 WBC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 (Patient not taking: Reported on 10/18/2023) 30 tablet 1 Allergies: Allergies Allergen Reactions Nsaids Tramadol Rash REVIEW OF SYSTEMS: As above Vitals: BP 100/50 (BP Location: Right arm, Patient Position: Lying) Pulse 98 Temp 37 C (98.6 F) (Temporal) Resp 18 Wt 180 lb (81.6 kg) SpO2 97% BMI 24.41 kg/m BMI Classification: Normal Weight (BMI 18.5-24.9) Pulse Ox: SpO2 Av % Min: 96 % Max: 100 % Supplemental O2: PHYSICAL EXAM: Physical Exam Vitals and nursing note reviewed. Constitutional: General: He is not in acute distress. Appearance: Normal appearance. He is not ill-appearing. Comments: Agitated, HENT: Head: Normocephalic. Nose: No congestion or rhinorrhea. Mouth/Throat: Mouth: Mucous membranes are moist. Pharynx: Oropharynx is clear. Eyes: General: No scleral icterus. Right eye: No discharge. Left eye: No discharge. Extraocular Movements: Extraocular movements intact. Conjunctiva/sclera: Conjunctivae normal. Pupils: Pupils are equal, round, and reactive to light. Neck: Vascular: No carotid bruit. Cardiovascular: Rate and Rhythm: Regular rhythm. Tachycardia present. Heart sounds: No murmur heard. Pulmonary: Effort: No respiratory distress. Breath sounds: No wheezing or rales. Abdominal: General: Abdomen is flat. Bowel sounds are normal. Comments: flatus Musculoskeletal: General: Signs of injury present. Cervical back: No tenderness. Right lower leg: No edema. Left lower leg: No edema. Lymphadenopathy: Cervical: No cervical adenopathy. Skin: General: Skin is warm and dry. Coloration: Skin is pale. Neurological: Mental Status: He is alert and oriented to person, place, and time. DATA: CBC: Recent Labs 10/18/23 0923 WBC 16.3* RBC 5.13 HGB 16.3 HCT 47.6 MCV 92.8 RDW 12.9 PLT 320 BMP: Recent Labs 10/18/23 0923 NA 130* K 3.7 CL 95* CO2 27 BUN 11 CREATININE 0.86 GLUCOSE 109* CALCIUM 8.7 ANIONGAP 8 LIVER PROFILE:No results for input(s): AST, ALT, BILITOT, ALKPHOS, PROT in the last 72 hours. No lab exists for component: LABALBU PT/INR: No results for input(s): PROTIME, INR in the last 72 hours. CARDIAC ENZYMES: No results for input(s): TROPONINI in the last 72 hours. Procalcitonin: No results found for: PROCAL Urine Culture: No results found for this or any previous visit. COVID-19 PCR: No results for input(s): COVID19 in the last 72 hours. I reviewed: [x] laboratory results [x] radiographic results At the time of today's encounter. Pt was advised of the results. Data: (CAT1) Reviewed 3 or more notes from different specialty or health system (each=1). (CAT1) Reviewed 3 or more labs/studies ordered by another provider not previously counted (each=1, panels count as 1). (CAT1) Ordered 3 or more new labs and/or studies (each=1, panels count as 1). (LOW: 2x CAT1 or independent historian MOD: 3x CAT1 or 1x CAT3 EXTENSIVE: 3x CAT1 and 1x CAT3) Assessment Discussed management with the ED provider and agree with hospitalization. Acute, acute on chronic, unstable/uncontrolled chronic problems/diagnoses: Right foot cellulitis 2/2 to blister from walking in tight shoes Admit to floor Antibiotics, wound care, and monitor progression LEONELA mIVF Severe sepsis - 100.4, HR>90, Lactate >2; WBC 16.3, down to 1.7 after fluids. Antibiotics Vancomycin Amp-Sulbactam. Wound care Analgesic and anti-emetic Follow up blood cultures. Nausea & diarrhea GI panel, C-diff Hx of hep c - treated - will repeat hepatitis panel, and HIV Hx of Hep C- treated. Smoking Nicotine patch Homeless Methamphetamine use Obtain drug screen. Un treated bipolar, Psychiatry consult Hx of Traumatic brain injury - when 18 Plan As a result of the above findings & factors, the following mgmt was pursued: - - am labs, replace lytes prn - PT/OT/CM/SW - delirium precautions: increase activity and limit nighttime disturbances - DVT prophylaxis: encourage ambulation Complexity: Acute illness with systemic symptoms (MOD). Risk: Admission to hospital-level care was considered or occurred (HIGH). Care and management is being impacted by the following SDOH: homelessness/undomiciled, unemployed or low income, alcohol or polysubstance abuse, and relational problems with spouse or partner (MOD). Advance Directive: No Order Anticipated Discharge - Date - 2 - Location - home vs [facility] - Pending the following - clinical improvement Total time spent (which include face to face and non face to face encounters) : 79 minutes. Toxic drug monitoring/narrow therapeutic index drug monitoring : # Drug name : NA # Route administered : Na # Method of monitoring : NA No emergency contact information on file. ADVANCED CARE PLANNING Grant Danielle : 1985 Primary Care Physician: Abimael Carson MD The patient and/or family/surrogate voluntarily agreed to participate in ACP services. Patient s cognitive capacity: intact Code Status: [X] [FULL CODE - Continue all advanced life support: CPR,intubation,invasive procedures] [_] [DNR-CCA - DO NOT do CPR, intubation] [_] [DNR-STEMMING MACHINE OPERATOR - Comfort care only] [_] DNR form [was/was not] signed Summary of discussion: The patient health care POA/ surrogate is the following: does not have one. [Condition that instigated the ACP on this DOS, relevant PMH, functional status, goals of care, and whom this was discussed with including names and relationship to the patient, and any relevant advance care documentation discussion] I answered all the patient/family questions that I could within the range and scope of the current medical situation. We discussed the medical conditions, risks, benefits, outcomes, and goals of care at this time for the patient's medical issues at hand in the face of the patient's chronic issues and current presentation. Total time spent: 2 minutes were spent discussing the patient's resuscitation status, advance care planning, and end of life care, with patient and/or family/surrogate. Ruthie Costa MD Division of Hospitalist Medicine [facility] documented in this encounter [facility] 10-18-2023 Emergency department Note Report called to 1E at [facility] Elvia Lee RN 10/18/[id number] [facility] 10-18-2023 Emergency department Note Report called to 1E at [facility] Elvia Lee RN 10/18/232044 Phoned [facility] regarding bed assignment. They are currently moving patients around and will be cleaning his room soon. Patient informed. Dasha Delarosa RN 10/18/23 1839 Patient rang call light to go to restroom. IV antibx stopped and patient ambulated to restroom without difficulty. Dasha Delarosa RN 10/18/23 1421 Phoned patient's sister, Ca, and informed patient will be getting admitted. Communicated that he doesn't have a room yet and we don't know how long it will be for transportation. Sister verbalized understanding and appreciated information. Dasha Delarosa RN 10/18/23 1341 Patient disconnected from IV fluids to go to restroom. Patient given socks to ambulate to restroom. Patient carried socks in hands and states he'll be going outside to smoke a cigarette after he gets back. Informed patient he is not allowed to go outside to smoke and that he has nicotine patch on. Dasha Delarosa RN 10/18/23 1135 Patient requested that his sister be contacted to let her know he is currently in ED. Ca Danielle, sister, called and informed patient is currently here. Sister would like to be updated on patient's condition and whether or not he is admitted. Dasha Delarosa RN 10/18/23 1055 Patient rang call light to use restroom. Patient declined to put socks on to ambulate down hernandez. Patient ambulated down hernandez to restroom and back to room without socks on. Dasha Delarosa RN 10/18/23 1041 Tried for second set of blood cultures in left arm without success. After sticking patient twice in left arm, patient states that we are unable to use left arm due to his previous drug abuse. Patient refuses to be stuck again in right arm for second set of cultures. Physician informed. Dasha Delarosa RN 10/18/23 1005 Patient given a meal and taking a shower per request. Dasha Delarosa RN 10/18/23 0841 [facility] ED EMERGENCY DEPARTMENT ENCOUNTER Pt Name: Grant Danielle Birthdate 1985 Date of evaluation: 10/18/2023 Provider: Montrell Delarosa MD CHIEF COMPLAINT Chief Complaint Patient presents with Ankle Pain Right HISTORY OF PRESENT ILLNESS (Location/Symptom, Timing/Onset,Context/Setting, Quality, Duration, Modifying Factors, Severity) Note limiting factors. Grant Danielle is a 38 y.o. male who presents to the emergency department with right ankle pain. He says that he injured it and was seen at [place] they put an Jb wrap on it he said it was too tight he has been walking now he has a blister and redness there. He said he slept in a silas potty last night because he is homeless. Brought here via squad. He denies chest pain, shortness breath, fever, chills, lightheadedness, dizziness. Patient has history of post medic stress disorder anxiety bipolar HPI Historian is the patient and squad Nurse's notes for past medical history, surgical history, social history were reviewed. Medications and allergies reviewed. PAST MEDICAL HISTORY Past Medical History: Diagnosis Date ADHD Anemia Depression PTSD (post-traumatic stress disorder) Substance abuse ([facility]) ([facility]) TBI (traumatic brain injury) ([facility]) SURGICALHISTORY History reviewed. No pertinent surgical history. CURRENT MEDICATIONS Previous Medications PAROXETINE (PAXIL) 20 MG TABLET take 1 tablet by mouth every morning Nsaids and Tramadol FAMILY HISTORY Family History Problem Relation Name Age of Onset Emphysema Mother No Known Problems Father SOCIAL HISTORY Social History Socioeconomic History Marital status: Tobacco Use Smoking status: Every Day Packs/day: 1.00 Years: 20.00 Additional pack years: 0.00 Total pack years: 20.00 Types: Cigarettes Vaping Use Vaping Use: Never used Substance and Sexual Activity Alcohol use: Not Currently Drug use: Not Currently Types: Marijuana Sexual activity: Yes Partners: Female Social Determinants of Health Financial Resource Strain: High Risk (05/23/2023) Overall Financial Resource Strain (CARDIA) Difficulty of Paying Living Expenses: Very hard Food Insecurity: Food Insecurity Present (05/23/2023) Hunger Vital Sign Worried About Running Out of Food in the Last Year: Often true Ran Out of Food in the Last Year: Often true Transportation Needs: No Transportation Needs (05/23/2023) PRAPARE - Transportation Lack of Transportation (Medical): No Lack of Transportation (Non-Medical): No Physical Activity: Sufficiently Active (05/23/2023) Exercise Vital Sign Days of Exercise per Week: 7 days Minutes of Exercise per Session: 30 min Housing Stability: High Risk (05/23/2023) Housing Stability Vital Sign Unable to Pay for Housing in the Last Year: Yes Unstable Housing in the Last Year: Yes SCREENINGS PHYSICAL EXAM (up to 7 for level 4, 8 or more for level 5) @EDTRIAGEVSS@ Appropriate PPE including n 95, gown, gloves, goggles where worn when appropriate with this patient. Physical Exam Vital signs reviewed general: Alert and oriented 3 but seems angry but cooperative. Patient is very head: Atraumatic eyes: Equal round reactive to light and accommodating, pupils are equal, round and reactive to light and accommodation oropharynx: Clear and well hydrated neck: Supple heart: Regular rate and rhythm, no murmurs lungs: Clear to auscultation bilaterally abdomen: Soft nontender, positive bowel sounds, no peritoneal findings. Extremities: Moving all fours, no tenderness. Normal capillary refill. Skin: Patient has significant blister and redness to the right ankle heel region. There is local erythema around this there is nothing to drain but I do believe this is likely his source of infection. He has equal pulses distally neurologically: Alert and oriented 3, no focal deficit DIAGNOSTIC RESULTS RADIOLOGY: Interpretation per the Radiologist below, if availableat the time of this note: XR foot 3+ views right Final Result Impression: Unremarkable right foot and ankle radiographs. Report Dictated on Electronically Signed By: Abhi Marrufo MD Electronically Signed Date/Time: 10/18/2023 10:29 AM EDT XR ankle 3+ views right Final Result Impression: Unremarkable right foot and ankle radiographs. Report Dictated on Electronically Signed By: Abhi Marrufo MD Electronically Signed Date/Time: 10/18/2023 10:29 AM EDT ED BEDSIDE ULTRASOUND: Performed by ED Physician - none LABS: Labs Reviewed BASIC METABOLIC PANEL - Abnormal Result Value SODIUM 130 (*) POTASSIUM 3.7 CHLORIDE 95 (*) CARBON DIOXIDE 27 UREA NITROGEN 11 CREATININE 0.86 GLUCOSE 109 (*) CALCIUM 8.7 ANION GAP 8 eGFR >90.0 LACTIC ACID WITH REFLEX - Abnormal LACTIC ACID 2.5 (*) CBC WITH AUTO DIFFERENTIAL - Abnormal Auto WBC 16.3 (*) RBC 5.13 Hemoglobin 16.3 Hematocrit 47.6 MCV 92.8 MCH 31.8 MCHC 34.2 RDW 12.9 Platelets 320 MPV 10.4 nRBC 0.0 Neutrophils Relative 89.4 (*) Lymphocytes Relative 5.0 (*) Monocytes Relative 4.5 (*) Eosinophils Relative 0.4 Basophils Relative 0.4 Immature Grans % 0.3 Neutrophils Absolute 14.6 (*) Lymphocytes Absolute 0.8 (*) Monocytes Absolute 0.7 Eosinophils Absolute 0.1 Basophils Absolute 0.1 Immature Grans Absolute 0.1 (*) C-REACTIVE PROTEIN - Abnormal C REACTIVE PROTEIN 132.1 (*) SEDIMENTATION RATE, AUTOMATED - Abnormal Sed Rate 19 (*) BLOOD CULTURE - Normal Blood Culture Blood culture incubation started Narrative: Blood Collection Site: Right Antecubital CK - Normal CK 137 LACTIC ACID WITH REFLEX - Normal LACTIC ACID 1.7 All other labs were within normal range or not returned as of thisdictation. EMERGENCYDEPARTMENT COURSE and DIFFERENTIAL DIAGNOSIS/MDM: Vitals: Vitals: 10/18/23 1333 10/18/23 1358 10/18/23 18310/18/232028 BP: (!) 99/42 114/52 126/58 115/69 BP Location: Left arm Right arm Right arm Patient Position: Lying Lying Sitting Pulse: 76 84 74 Resp: 12 14 Temp: 37.1 C (98.8 F) 36.8 C (98.3 F) 37.4 C (99.3 F) TempSrc: Oral Oral SpO2: 97% 96% 99% Weight: Medical Decision Making Problems Addressed: Cellulitis of right lower extremity: complicated acute illness or injury Lactic acidosis: complicated acute illness or injury Leukocytosis, unspecified type: complicated acute illness or injury Amount and/or Complexity of Data Reviewed Labs: ordered. Radiology: ordered. Risk OTC drugs. Prescription drug management. Decision regarding hospitalization. EMERGENCY DEPARTMENT COURSE and DIFFERENTIAL DIAGNOSIS/MDM: Vitals: Vitals: 10/18/23 1333 10/18/23 1358 10/18/23183810/18/232028 BP: (!) 99/42 114/52 126/58 115/69 BP Location: Left arm Right arm Right arm Patient Position: Lying Lying Sitting Pulse: 76 84 74 Resp: 12 14 Temp: 37.1 C (98.8 F) 36.8 C (98.3 F) 37.4 C (99.3 F) TempSrc: Oral Oral SpO2: 97% 96% 99% Weight: The patient presented with a chief complaint of ankle pain. The differential diagnosis associated with this patient's presentation includes ankle fracture, ankle sprain, cellulitis, deep space infection, osteomyelitis. Our workup consisted of ordering/reviewing patient had a temperature here orally of 100.5. Heart rate 97 blood pressure 102/55.. Will check blood work including lactic acid blood culture sed rate CRP. Will get x-rays of the right ankle and foot. Given his overall unkept and dirt on his skin I thought it was in the best interest to have the patient shower and then we will initiate blood work and labs. He is not hypotensive he is not tachycardic. Obviously does have a fever which I believe is likely from cellulitis. Patient will be given a nicotine patch. ED Course as of 10/18/232050 [facility] October 18, [id number] I did write for every 6 hours Unasyn. Will also do every 12 hours vancomycin [GS] 2049 Patient's vancomycin was completed at 1:00 so is not yet due for second dose of that. He did get a second dose of Unasyn. Has been afebrile. Hemodynamically stable. He is being transferred to [place] at 850. [GS] ED Course User Index [GS] Montrell Delarosa MD Diagnoses as of 10/18/232050 Cellulitis of right lower extremity Leukocytosis, unspecified type Lactic acidosis SEP-1 CORE MEASURE DATA SIRS Criteria Sepsis Criteria Severe Sepsis Criteria Septic Shock Criteria Must meet 2: [x] Temperature > 100.4 F (38 C) or < 96.8 F (36 C) [x] HR > 90 [] RR > 20 [] WBC > 12 or < 4 or 10% bands Must be confirmed or suspected to move forward with diagnosis of sepsis. Must select at least one: [] Bacterial Infection Confirmed or Suspected. [] Viral Infection Confirmed or Suspected. [] No infection present. Patient does not meet criteria for Sepsis. Must meet 1: [x] Lactate > 2 or [] Signs of Organ Dysfunction: - SBP < 90 or MAP < 65 - Altered mental status - Creatinine > 2 or increased from baseline - Urine Output < 0.5 ml/kg/hr - Bilirubin > 2 - INR > 1.5 - Platelets < 100,000 - Acute Respiratory Failure as evidenced by new need for NIPPV or mechanical ventilation [] No criteria met for Severe Sepsis. Must meet 1: [] Lactate = or > 4 or [] SBP < 90 or MAP < 65 for at least two readings in the first hour after fluid bolus administration [] No criteria met for Septic Shock. No data found. Recent Labs 10/18/23 0923 10/18/23 1150 WBC 16.3* -- LACTATE 2.5* 1.7 CREATININE 0.86 -- PLT 320 -- Sepsis Identified at 945 - when we were called by lab . Fluid Resuscitation Rational: at least 30mL/kg based on ideal body weight due to obesity defined as BMI >30 (patient's BMI is @BMI@ and IBW is @idealbodyweight@) Infection Source: Skin or Soft Tissue Reassessment Exam: Not applicable. Patient does not have Septic Shock. Montrell Delarosa MD C-reactive protein is 132. Sodium 130. ESR 19. Normal CK. Initial lactic acid 2.5 after treatment is 1.7. Initially the patient did not have hypotension or tachycardia above 100 although he did have a fever. I had a shoulders of his leg and I believe the blister secondary infected and cellulitis x-ray of his right foot and leg revealed no osteomyelitis, however his lactic acid came back at 2.5. Before this the patient was given 30 cc/kg of IV fluids. I did order IV Unasyn. Repeat lactic acid is 1.7. He is not septic shock. I do not believe he has severe sepsis. I believe he does have cellulitis and infection and I think given his initial presentation having cellulitis the derangements on labs I think he warrants admission for IV antibiotics possible ID or wound center consult and also will need social work involvement because he currently is homeless. Patient agrees to this. I spoke with Dr. Zamora via secure chat who agreed to accept the patient. Diagnostics considered but not indicated based on history, physical, testing: None External records reviewed: Records reviewed it appears that he was seen on the at [facility] however could not review those records. He has a history of bipolar and agitation seen on 07/20/2023 for agitation methamphetamine abuse. Will also check a CK level today. Radiologic diagnostics interpreted by me: film images such as CT, Ultrasound and MRI are read by the radiologist. Plain radiographic images are visualized and preliminarily interpreted by the emergency physician with the below findings: Xray(s) of right foot and ankle per my interpretation no acute fracture or osteolytic lesion. Discussions with other clinicians: Admitting team hospitalist Dr. Zamora. I explained all clinical findings, signs, symptoms, diagnostic studies, treatment, intervention, in the Emergency Department. Chronic conditions impacting care: Bipolar + stress disorder anxiety Traumatic brain injury attention deficit post medic stress disorder Social determinants of health affecting care: Drug addiction Patient is homeless Shared decision making: Patient agrees to treatment plan Reasons for admission: Patient has acute cellulitis with laboratory derangement initial elevation of lactic acid. In addition, patient is currently homeless. Patient will need social work involvement, IV antibiotics repeat assessment possible ID and wound care involvement. Given his initial presentation my concern if this patient goes home is that he would not get his prescriptions filled it would not be able to take proper care of his leg and therefore would lead to further healthcare issues and debility and therefore requires admission. ED Medications managed: Medications nicotine (Nicoderm, Step 1) 21 MG/24HR patch 1 patch (1 patch TransDERmal Medication Applied 10/18/23 09) ampicillin-sulbactam (Unasyn) 3,000 mg in sodium chloride 0.9 % 100 mL IVPB (Mini-Bag Plus) (0 mg IntraVENous Stopped 10/18/23 1735) acetaminophen (Tylenol) tablet 650 mg (650 mg Oral Given 10/18/23933) sodium chloride 0.9 % bolus 2,448 mL (0 mL IntraVENous Stopped 10/18/23 1133) ampicillin-sulbactam (Unasyn) 3,000 mg in sodium chloride 0.9 % 100 mL IVPB (Mini-Bag Plus) (0 mg IntraVENous Stopped 10/18/23 1047) vancomycin IVPB 1250 mg in 250 mL NS (premix) (0 mg IntraVENous Stopped 10/18/23 1510) Critical care time: I personally saw the patient and independently provided at least 35 minutes of non-concurrent critical care out of the total shared critical care time provided. Independent of any separately billable procedures. Prescription drugs prescribed: PROCEDURES: Unless otherwise noted below, none Procedures IMPRESSION 1. Cellulitis of right lower extremity 2. Leukocytosis, unspecified type 3. Lactic acidosis DISPOSITION/PLAN DISPOSITION Admit 10/18/2023 01:19:39 PM PATIENT REFERRED TO: No follow-up provider specified. DISCHARGE MEDICATIONS: New Prescriptions No medications on file @[facility]([id number]:LAST:1)@ (Comment: Please notethis report has been produced using speech recognition software and may contain errors related to that system including errors in grammar, punctuation, and spelling, as well as words and phrases that may be inappropriate.If there is any questions or concerns please feel free to contact the dictating provider for clarification). Montrell Delarosa MD (electronically signed) Attending Emergency Physician Montrell Delarosa MD 10/18/23 9913 Montrell Delarosa MD 10/18/232050 Patient arrived via [facility] squad to room 7. Patient transferred himself from [facility] to ED without difficulty. Medics state patient walked to station and asked for help with his bandage. Patient states he got a blister on his right ankle from walking and riding his bike. Patient unsure of timeline because he is homeless. Patient was seen at [place] on 10/15 and patient states they wrapped his bandage too tight. Patient's ankle is red and warm to touch. Patient verbally aggressive to this nurse and physician during triage. documented in this encounter [facility] 10-18-2023 Emergency department Note Phoned [facility] regarding bed assignment. They are currently moving patients around and will be cleaning his room soon. Patient informed. Dasha Delarosa RN 10/18/23 1839 [facility] 10-18-2023 Emergency department Note Patient rang call light to go to restroom. IV antibx stopped and patient ambulated to restroom without difficulty. Dasha Delarosa RN 10/18/23 1421 [facility] 10-18-2023 Emergency department Note Phoned patient's sister, Ca, and informed patient will be getting admitted. Communicated that he doesn't have a room yet and we don't know how long it will be for transportation. Sister verbalized understanding and appreciated information. Dasha Delarosa RN 10/18/23 1341 [facility] 10-18-2023 Emergency department Note Patient disconnected from IV fluids to go to restroom. Patient given socks to ambulate to restroom. Patient carried socks in hands and states he'll be going outside to smoke a cigarette after he gets back. Informed patient he is not allowed to go outside to smoke and that he has nicotine patch on. Dasha Delarosa RN 10/18/23 1135 [facility] 10-18-2023 Emergency department Note Patient requested that his sister be contacted to let her know he is currently in ED. Ca Danielle, sister, called and informed patient is currently here. Sister would like to be updated on patient's condition and whether or not he is admitted. Dasha Delarosa RN 10/18/23 1055 [facility] 10-18-2023 Emergency department Note Patient rang call light to use restroom. Patient declined to put socks on to ambulate down hernandez. Patient ambulated down hernandez to restroom and back to room without socks on. Dasha Delarosa RN 10/18/23 1041 [facility] 10-18-2023 Emergency department Note Tried for second set of blood cultures in left arm without success. After sticking patient twice in left arm, patient states that we are unable to use left arm due to his previous drug abuse. Patient refuses to be stuck again in right arm for second set of cultures. Physician informed. Dasha Delarosa RN 10/18/23 1005 [facility] 10-18-2023 Emergency department Note Patient given a meal and taking a shower per request. Dasha Delarosa RN 10/18/23 0841 [facility] 10-18-2023 Emergency department Triage note Patient arrived via [facility] to room 7. Patient transferred himself from [facility] to ED without difficulty. Medics state patient walked to station and asked for help with his bandage. Patient states he got a blister on his right ankle from walking and riding his bike. Patient unsure of timeline because he is homeless. Patient was seen at [place] on 10/15 and patient states they wrapped his bandage too tight. Patient's ankle is red and warm to touch. Patient verbally aggressive to this nurse and physician during triage. [facility] 10-18-2023 Physician Emergency department Note [facility] ED EMERGENCY DEPARTMENT ENCOUNTER Pt Name: Grant Danielle Birthdate 1985 Date of evaluation: 10/18/2023 Provider: Montrell Delarosa MD CHIEF COMPLAINT Chief Complaint Patient presents with Ankle Pain Right HISTORY OF PRESENT ILLNESS (Location/Symptom, Timing/Onset,Context/Setting, Quality, Duration, Modifying Factors, Severity) Note limiting factors. Grant Danielle is a 38 y.o. male who presents to the emergency department with right ankle pain. He says that he injured it and was seen at [place] they put an Jb wrap on it he said it was too tight he has been walking now he has a blister and redness there. He said he slept in a silas potty last night because he is homeless. Brought here via squad. He denies chest pain, shortness breath, fever, chills, lightheadedness, dizziness. Patient has history of post medic stress disorder anxiety bipolar HPI Historian is the patient and squad Nurse's notes for past medical history, surgical history, social history were reviewed. Medications and allergies reviewed. PAST MEDICAL HISTORY Past Medical History: Diagnosis Date ADHD Anemia Depression PTSD (post-traumatic stress disorder) Substance abuse (CMS/HCC) ([facility]) TBI (traumatic brain injury) ([facility]) SURGICALHISTORY History reviewed. No pertinent surgical history. CURRENT MEDICATIONS Previous Medications PAROXETINE (PAXIL) 20 MG TABLET take 1 tablet by mouth every morning Nsaids and Tramadol FAMILY HISTORY Family History Problem Relation Name Age of Onset Emphysema Mother No Known Problems Father SOCIAL HISTORY Social History Socioeconomic History Marital status: Tobacco Use Smoking status: Every Day Packs/day: 1.00 Years: 20.00 Additional pack years: 0.00 Total pack years: 20.00 Types: Cigarettes Vaping Use Vaping Use: Never used Substance and Sexual Activity Alcohol use: Not Currently Drug use: Not Currently Types: Marijuana Sexual activity: Yes Partners: Female Social Determinants of Health Financial Resource Strain: High Risk (05/23/2023) Overall Financial Resource Strain (CARDIA) Difficulty of Paying Living Expenses: Very hard Food Insecurity: Food Insecurity Present (05/23/2023) Hunger Vital Sign Worried About Running Out of Food in the Last Year: Often true Ran Out of Food in the Last Year: Often true Transportation Needs: No Transportation Needs (05/23/2023) PRAPARE - Transportation Lack of Transportation (Medical): No Lack of Transportation (Non-Medical): No Physical Activity: Sufficiently Active (05/23/2023) Exercise Vital Sign Days of Exercise per Week: 7 days Minutes of Exercise per Session: 30 min Housing Stability: High Risk (05/23/2023) Housing Stability Vital Sign Unable to Pay for Housing in the Last Year: Yes Unstable Housing in the Last Year: Yes SCREENINGS PHYSICAL EXAM (up to 7 for level 4, 8 or more for level 5) @EDTRIAGEVSS@ Appropriate PPE including n 95, gown, gloves, goggles where worn when appropriate with this patient. Physical Exam Vital signs reviewed general: Alert and oriented 3 but seems angry but cooperative. Patient is very head: Atraumatic eyes: Equal round reactive to light and accommodating, pupils are equal, round and reactive to light and accommodation oropharynx: Clear and well hydrated neck: Supple heart: Regular rate and rhythm, no murmurs lungs: Clear to auscultation bilaterally abdomen: Soft nontender, positive bowel sounds, no peritoneal findings. Extremities: Moving all fours, no tenderness. Normal capillary refill. Skin: Patient has significant blister and redness to the right ankle heel region. There is local erythema around this there is nothing to drain but I do believe this is likely his source of infection. He has equal pulses distally neurologically: Alert and oriented 3, no focal deficit DIAGNOSTIC RESULTS RADIOLOGY: Interpretation per the Radiologist below, if availableat the time of this note: XR foot 3+ views right Final Result Impression: Unremarkable right foot and ankle radiographs. Report Dictated on Electronically Signed By: Abhi Marrufo MD Electronically Signed Date/Time: 10/18/2023 10:29 AM EDT XR ankle 3+ views right Final Result Impression: Unremarkable right foot and ankle radiographs. Report Dictated on Electronically Signed By: Abhi Marrufo MD Electronically Signed Date/Time: 10/18/2023 10:29 AM EDT ED BEDSIDE ULTRASOUND: Performed by ED Physician - none LABS: Labs Reviewed BASIC METABOLIC PANEL - Abnormal Result Value SODIUM 130 (*) POTASSIUM 3.7 CHLORIDE 95 (*) CARBON DIOXIDE 27 UREA NITROGEN 11 CREATININE 0.86 GLUCOSE 109 (*) CALCIUM 8.7 ANION GAP 8 eGFR >90.0 LACTIC ACID WITH REFLEX - Abnormal LACTIC ACID 2.5 (*) CBC WITH AUTO DIFFERENTIAL - Abnormal Auto WBC 16.3 (*) RBC 5.13 Hemoglobin 16.3 Hematocrit 47.6 MCV 92.8 MCH 31.8 MCHC 34.2 RDW 12.9 Platelets 320 MPV 10.4 nRBC 0.0 Neutrophils Relative 89.4 (*) Lymphocytes Relative 5.0 (*) Monocytes Relative 4.5 (*) Eosinophils Relative 0.4 Basophils Relative 0.4 Immature Grans % 0.3 Neutrophils Absolute 14.6 (*) Lymphocytes Absolute 0.8 (*) Monocytes Absolute 0.7 Eosinophils Absolute 0.1 Basophils Absolute 0.1 Immature Grans Absolute 0.1 (*) C-REACTIVE PROTEIN - Abnormal C REACTIVE PROTEIN 132.1 (*) SEDIMENTATION RATE, AUTOMATED - Abnormal Sed Rate 19 (*) BLOOD CULTURE - Normal Blood Culture Blood culture incubation started Narrative: Blood Collection Site: Right Antecubital CK - Normal CK 137 LACTIC ACID WITH REFLEX - Normal LACTIC ACID 1.7 All other labs were within normal range or not returned as of thisdictation. EMERGENCYDEPARTMENT COURSE and DIFFERENTIAL DIAGNOSIS/MDM: Vitals: Vitals: 10/18/23 1333 10/18/23 1358 10/18/23 1839 05/30/24 2029 BP: (!) 99/42 114/52 126/58 115/69 BP Location: Left arm Right arm Right arm Patient Position: Lying Lying Sitting Pulse: 76 84 74 Resp: 12 14 Temp: 37.1 C (98.8 F) 36.8 C (98.3 F) 37.4 C (99.3 F) TempSrc: Oral Oral SpO2: 97% 96% 99% Weight: Medical Decision Making Problems Addressed: Cellulitis of right lower extremity: complicated acute illness or injury Lactic acidosis: complicated acute illness or injury Leukocytosis, unspecified type: complicated acute illness or injury Amount and/or Complexity of Data Reviewed Labs: ordered. Radiology: ordered. Risk OTC drugs. Prescription drug management. Decision regarding hospitalization. EMERGENCY DEPARTMENT COURSE and DIFFERENTIAL DIAGNOSIS/MDM: Vitals: Vitals: 10/18/23 1333 10/18/23 1358 10/18/23 1839 10/18/232028 BP: (!) 99/42 114/52 126/58 115/69 BP Location: Left arm Right arm Right arm Patient Position: Lying Lying Sitting Pulse: 76 84 74 Resp: 12 14 Temp: 37.1 C (98.8 F) 36.8 C (98.3 F) 37.4 C (99.3 F) TempSrc: Oral Oral SpO2: 97% 96% 99% Weight: The patient presented with a chief complaint of ankle pain. The differential diagnosis associated with this patient's presentation includes ankle fracture, ankle sprain, cellulitis, deep space infection, osteomyelitis. Our workup consisted of ordering/reviewing patient had a temperature here orally of 100.5. Heart rate 97 blood pressure 102/55.. Will check blood work including lactic acid blood culture sed rate CRP. Will get x-rays of the right ankle and foot. Given his overall unkept and dirt on his skin I thought it was in the best interest to have the patient shower and then we will initiate blood work and labs. He is not hypotensive he is not tachycardic. Obviously does have a fever which I believe is likely from cellulitis. Patient will be given a nicotine patch. ED Course as of 10/18/232050 [facility] October 18, [id number] I did write for every 6 hours Unasyn. Will also do every 12 hours vancomycin [GS] 2049 Patient's vancomycin was completed at 1:00 so is not yet due for second dose of that. He did get a second dose of Unasyn. Has been afebrile. Hemodynamically stable. He is being transferred to [place] at 850. [GS] ED Course User Index [GS] Montrell Delarosa MD Diagnoses as of 10/18/232050 Cellulitis of right lower extremity Leukocytosis, unspecified type Lactic acidosis SEP-1 CORE MEASURE DATA SIRS Criteria Sepsis Criteria Severe Sepsis Criteria Septic Shock Criteria Must meet 2: [x] Temperature > 100.4 F (38 C) or < 96.8 F (36 C) [x] HR > 90 [] RR > 20 [] WBC > 12 or < 4 or 10% bands Must be confirmed or suspected to move forward with diagnosis of sepsis. Must select at least one: [] Bacterial Infection Confirmed or Suspected. [] Viral Infection Confirmed or Suspected. [] No infection present. Patient does not meet criteria for Sepsis. Must meet 1: [x] Lactate > 2 or [] Signs of Organ Dysfunction: - SBP < 90 or MAP < 65 - Altered mental status - Creatinine > 2 or increased from baseline - Urine Output < 0.5 ml/kg/hr - Bilirubin > 2 - INR > 1.5 - Platelets < 100,000 - Acute Respiratory Failure as evidenced by new need for NIPPV or mechanical ventilation [] No criteria met for Severe Sepsis. Must meet 1: [] Lactate = or > 4 or [] SBP < 90 or MAP < 65 for at least two readings in the first hour after fluid bolus administration [] No criteria met for Septic Shock. No data found. Recent Labs 10/18/23 0923 10/18/23 1150 WBC 16.3* -- LACTATE 2.5* 1.7 CREATININE 0.86 -- PLT 320 -- Sepsis Identified at [phone] - when we were called by lab . Fluid Resuscitation Rational: at least 30mL/kg based on ideal body weight due to obesity defined as BMI >30 (patient's BMI is @BMI@ and IBW is @idealbodyweight@) Infection Source: Skin or Soft Tissue Reassessment Exam: Not applicable. Patient does not have Septic Shock. Montrell Delarosa MD C-reactive protein is 132. Sodium 130. ESR 19. Normal CK. Initial lactic acid 2.5 after treatment is 1.7. Initially the patient did not have hypotension or tachycardia above 100 although he did have a fever. I had a shoulders of his leg and I believe the blister secondary infected and cellulitis x-ray of his right foot and leg revealed no osteomyelitis, however his lactic acid came back at 2.5. Before this the patient was given 30 cc/kg of IV fluids. I did order IV Unasyn. Repeat lactic acid is 1.7. He is not septic shock. I do not believe he has severe sepsis. I believe he does have cellulitis and infection and I think given his initial presentation having cellulitis the derangements on labs I think he warrants admission for IV antibiotics possible ID or wound center consult and also will need social work involvement because he currently is homeless. Patient agrees to this. I spoke with Dr. Zamora via secure chat who agreed to accept the patient. Diagnostics considered but not indicated based on history, physical, testing: None External records reviewed: Records reviewed it appears that he was seen on the at [facility] however could not review those records. He has a history of bipolar and agitation seen on 07/20/2023 for agitation methamphetamine abuse. Will also check a CK level today. Radiologic diagnostics interpreted by me: film images such as CT, Ultrasound and MRI are read by the radiologist. Plain radiographic images are visualized and preliminarily interpreted by the emergency physician with the below findings: Xray(s) of right foot and ankle per my interpretation no acute fracture or osteolytic lesion. Discussions with other clinicians: Admitting team hospitalist Dr. Zamora. I explained all clinical findings, signs, symptoms, diagnostic studies, treatment, intervention, in the Emergency Department. Chronic conditions impacting care: Bipolar + stress disorder anxiety Traumatic brain injury attention deficit post medic stress disorder Social determinants of health affecting care: Drug addiction Patient is homeless Shared decision making: Patient agrees to treatment plan Reasons for admission: Patient has acute cellulitis with laboratory derangement initial elevation of lactic acid. In addition, patient is currently homeless. Patient will need social work involvement, IV antibiotics repeat assessment possible ID and wound care involvement. Given his initial presentation my concern if this patient goes home is that he would not get his prescriptions filled it would not be able to take proper care of his leg and therefore would lead to further healthcare issues and debility and therefore requires admission. ED Medications managed: Medications nicotine (Nicoderm, Step 1) 21 MG/24HR patch 1 patch (1 patch TransDERmal Medication Applied 10/18/23 0934) ampicillin-sulbactam (Unasyn) 3,000 mg in sodium chloride 0.9 % 100 mL IVPB (Mini-Bag Plus) (0 mg IntraVENous Stopped 10/18/23 1735) acetaminophen (Tylenol) tablet 650 mg (650 mg Oral Given 10/18/23 0934) sodium chloride 0.9 % bolus 2,448 mL (0 mL IntraVENous Stopped 10/18/23 1133) ampicillin-sulbactam (Unasyn) 3,000 mg in sodium chloride 0.9 % 100 mL IVPB (Mini-Bag Plus) (0 mg IntraVENous Stopped 10/18/23 1047) vancomycin IVPB 1250 mg in 250 mL NS (premix) (0 mg IntraVENous Stopped 10/18/23 1510) Critical care time: I personally saw the patient and independently provided at least 35 minutes of non-concurrent critical care out of the total shared critical care time provided. Independent of any separately billable procedures. Prescription drugs prescribed: PROCEDURES: Unless otherwise noted below, none Procedures IMPRESSION 1. Cellulitis of right lower extremity 2. Leukocytosis, unspecified type 3. Lactic acidosis DISPOSITION/PLAN DISPOSITION Admit 10/18/2023 01:19:39 PM PATIENT REFERRED TO: No follow-up provider specified. DISCHARGE MEDICATIONS: New Prescriptions No medications on file @[id number]:LAST:1)@ (Comment: Please notethis report has been produced using speech recognition software and may contain errors related to that system including errors in grammar, punctuation, and spelling, as well as words and phrases that may be inappropriate.If there is any questions or concerns please feel free to contact the dictating provider for clarification). Montrell Delarosa MD (electronically signed) Attending Emergency Physician Montrell Delarosa MD 10/18/231746 Montrell Delarosa MD 10/18/232050 [facility] 10-16-2023 Hospital Discharg e instructions Patient Education 10/16/2023 20:57:25 Cellulitis Skin Infection Cellulitis Cellulitis is an infection of the deep layers of skin. A break in the skin, such as a cut or scratch, can let bacteria under the skin. If the bacteria get to deep layers of the skin, it can be serious. If not treated, cellulitis can get into the bloodstream and lymph nodes. The infection can then spread throughout the body. This causes serious illness. Cellulitis causes the affected skin to become red, swollen, warm, and sore. The reddened areas have a visible border. An open sore may leak fluid (pus). You may have a fever, chills, and pain. Cellulitis is treated with antibiotics taken for 7 to 10 days. An open sore may be cleaned and covered with cool wet gauze. Symptoms should get better 1 to 2 days after treatment is started. Make sure to take all the antibiotics for the full number of days until they are gone. Keep taking the medicine even if your symptoms go away. Home care Follow these tips: Limit the use of the part of your body with cellulitis. If the infection is on your leg, keep your leg raised while sitting. This will help to reduce swelling. Take all of the antibiotic medicine exactly as directed until it is gone. Do not miss any doses, especially during the first 7 days. Don t stop taking the medicine when your symptoms get better. Keep the affected area clean and dry. Wash your hands with soap and warm water before and after touching your skin. Anyone else who touches your skin should also wash his or her hands. Don't share towels. Follow-up care Follow up with your healthcare provider, or as advised. If your infection does not go away on the first antibiotic, your healthcare provider will prescribe a different one. When to seek medical advice Call your healthcare provider right away if any of these occur: Red areas that spread Swelling or pain that gets worse Fluid leaking from the skin (pus) Fever higher of 100.4 F (38.0 C) or higher after 2 days on antibiotics [id number] [employer]. [address] [place] [address], [place] [address]. All rights reserved. This information is not intended as a substitute for professional medical care. Always follow your healthcare professional's instructions. 10/16/2023 20:57:16 Blister (Adult) Blister (Adult) A blister is a raised area of skin with clear, watery fluid inside. A blister can occur when the skin is damaged. Blisters can hurt when they are pressed, or if they break open. Blisters can be caused in many ways. This can happen if the skin is rubbed too hard or often. Or they can occur if the skin is hurt by the sun, a virus, or even a medicine. Most blisters need little treatment. They often dry up and go away in a few days to weeks after the cause is stopped. A blister may need to be cleaned. A broken (open) blister may be bandaged to prevent infection. Blisters caused by insect bites or drug reactions may be more serious. These should be looked at by a healthcare provider. Home care Your healthcare provider may prescribe pain medicine. He or she may also prescribe an antibiotic cream or ointment to put on an open blister. Follow all instructions when using these medicines. General care: Follow all instructions on how to care for the blister. If a bandage was put on, change the bandage as instructed. . If the blister breaks, the area will leak a clear fluid for a day or 2. Wash the area with soap and water every day or as advised by your healthcare provider. You may use njiq-pfi-hqkuzuo pain medicines to control pain, unless another medicine was prescribed. If you have chronic liver or kidney disease, talk with your healthcare provider before using these medicines. Also talk with your provider if you've had a stomach ulcer or gastrointestinal bleeding. Follow-up care Follow up with your healthcare provider, or as advised. When to seek medical advice Call your healthcare provider right away if any of these occur: Fever of 100.4 F (38 C) or higher Redness or swelling that is new or gets worse Foul-smelling fluid leaking from the blister Pain doesn t go away, or gets worse Increase in size of the blister Blister doesn t get better after several days [id number] [employer]. [address] [place] [address], [place] [address]. All rights reserved. This information is not intended as a substitute for professional medical care. Always follow your healthcare professional's instructions. Follow Up Care 10/16/2023 19:18:25 With:ABIMAEL CARSON Address: [address] [place] [id number] Business (1) When:2-4 days Comments:Schedule appointment for close follow-up.Daily wound care with application of topical antibiotic ointment and dressing changes.Use Tylenol for pain and fever as needed.Use antibiotic (cephalexin) as prescribed to treat for skin infection.Return to the ED if symptoms worsen. [facility] 10-16-2023 Note Discharge Instructions Thank you for allowing [facility] to assist you with your healthcare needs. The following is important discharge information regarding your hospital visit. What to Do Next Instructions from Your Care Team No qualifying data available. Post Acute Orders No qualifying data available. You Need to Schedule the Following Appointments Follow Up with ABIMAEL CARSON When:Within 2-4 days [facility] [facility] [place] [address]- Business (1) Additional Information: Schedule appointment for close follow-up. Daily wound care with application of topical antibiotic ointment and dressing changes. Use Tylenol for pain and fever as needed. Use antibiotic (cephalexin) as prescribed to treat for skin infection. Return to the ED if symptoms worsen. Allergies Flexeril Ultram Hives naproxen Medications Please ask your primary doctor or pharmacist before taking any other medication not listed, including over the counter drugs, herbal medications, vitamins and or supplements as they may interact with your home medications. What How Much When Instructions Last Dose New cephalexin (cephalexin 500 mg oral tablet) 1 tab(s) by mouth Four (4) times a day Duration: 10 Days Printed Prescription Please take this list to your next doctor s visit. Bring all medications you take, including over the counter medications, herbals and other supplements with you to your doctor s visit. Patients and families are reminded to discard old lists and to update any records with all medication providers or retail pharmacies. Education Materials Cellulitis Cellulitis is an infection of the deep layers of skin. A break in the skin, such as a cut or scratch, can let bacteria under the skin. If the bacteria get to deep layers of the skin, it can be serious. If not treated, cellulitis can get into the bloodstream and lymph nodes. The infection can then spread throughout the body. This causes serious illness. Cellulitis causes the affected skin to become red, swollen, warm, and sore. The reddened areas have a visible border. An open sore may leak fluid (pus). You may have a fever, chills, and pain. Cellulitis is treated with antibiotics taken for 7 to 10 days. An open sore may be cleaned and covered with cool wet gauze. Symptoms should get better 1 to 2 days after treatment is started. Make sure to take all the antibiotics for the full number of days until they are gone. Keep taking the medicine even if your symptoms go away. Home care Follow these tips: Limit the use of the part of your body with cellulitis. If the infection is on your leg, keep your leg raised while sitting. This will help to reduce swelling. Take all of the antibiotic medicine exactly as directed until it is gone. Do not miss any doses, especially during the first 7 days. Don t stop taking the medicine when your symptoms get better. Keep the affected area clean and dry. Wash your hands with soap and warm water before and after touching your skin. Anyone else who touches your skin should also wash his or her hands. Don't share towels. Follow-up care Follow up with your healthcare provider, or as advised. If your infection does not go away on the first antibiotic, your healthcare provider will prescribe a different one. When to seek medical advice Call your healthcare provider right away if any of these occur: Red areas that spread Swelling or pain that gets worse Fluid leaking from the skin (pus) Fever higher of 100.4 F (38.0 C) or higher after 2 days on antibiotics [id number] [employer]. [address] [place] [address]. All rights reserved. This information is not intended as a substitute for professional medical care. Always follow your healthcare professional's instructions. Blister (Adult) A blister is a raised area of skin with clear, watery fluid inside. A blister can occur when the skin is damaged. Blisters can hurt when they are pressed, or if they break open. Blisters can be caused in many ways. This can happen if the skin is rubbed too hard or often. Or they can occur if the skin is hurt by the sun, a virus, or even a medicine. Most blisters need little treatment. They often dry up and go away in a few days to weeks after the cause is stopped. A blister may need to be cleaned. A broken (open) blister may be bandaged to prevent infection. Blisters caused by insect bites or drug reactions may be more serious. These should be looked at by a healthcare provider. Home care Your healthcare provider may prescribe pain medicine. He or she may also prescribe an antibiotic cream or ointment to put on an open blister. Follow all instructions when using these medicines. General care: Follow all instructions on how to care for the blister. If a bandage was put on, change the bandage as instructed. . If the blister breaks, the area will leak a clear fluid for a day or 2. Wash the area with soap and water every day or as advised by your healthcare provider. You may use nrdv-wbu-upridth pain medicines to control pain, unless another medicine was prescribed. If you have chronic liver or kidney disease, talk with your healthcare provider before using these medicines. Also talk with your provider if you've had a stomach ulcer or gastrointestinal bleeding. Follow-up care Follow up with your healthcare provider, or as advised. When to seek medical advice Call your healthcare provider right away if any of these occur: Fever of 100.4 F (38 C) or higher Redness or swelling that is new or gets worse Foul-smelling fluid leaking from the blister Pain doesn t go away, or gets worse Increase in size of the blister Blister doesn t get better after several days [id number] [employer]. [address] [place] [address]. All rights reserved. This information is not intended as a substitute for professional medical care. Always follow your healthcare professional's instructions. Additional Information VACCINATE! IT SAVES LIVES! Members of the community who have not yet received the COVID-19 vaccine and would like to receive it can visit one of [facility] vaccine clinics. There are many vaccine clinic locations within the [facility]. For locations and available times, please visit www.[email or web address].[place]. gov/. It is important to note that some COVID mobile vaccine clinics are held outdoors and may be canceled in rainy or stormy conditions. To learn more about pediatric vaccinations (ages 5-11), we invite you to visit the [facility] webpage. https://www.[facility].org/p ages/8013-Zxlpu-Yrijznfqhpx-Freq xsyqbi-Odiuz-Iriqwofun.html To learn more about the COVID-19 vaccine, we invite you to visit the CDC website for a list of frequently asked questions. https://www.cdc.gov/coronavirus/ 2019-ncov/vaccines/faq.html [facility] Patient Portal Access Instructions: Stay connected with your healthcare team and access your personal medical information anytime with the [facility] Patient Portal. If you would like a full copy of your medical records please contact the [facility] Medical Records Department Sunday through Sunday between 8a.m. and 4:30p.m. Please follow the directions below to access the portal: 1.Access the email account you provided upon registration to the [facility].2.Look for an invitation email from [facility].3.Open the email and access the invitation link: Accept Invitation to [facility]4.Fill in the required garcia to create your account. Sign into www.[employer] with your username and password that you created in the above steps to stay up to date. You can then view a summary of results, a summary of your visits, and the ability to download your summaries to your computer or send the information securely to a physician. Remember that your healthcare information is confidential, so carefully consider who you will allow to register on the [facility] Patient Portal for access to your information. You can also access the [facility] Patient Portal on the [employer] kyleigh. Simply click on Health Records under Health Data and then click on the [facility] logo. HOW TO SAFELY DISPOSE OF PRESCRIPTION MEDICATIONS Please use one of the following methods to safely dispose of your unused medications. 1.Use a drug disposal kit: the drug disposal pouch allows you to safely discard your old and unused drugs. Ask your nurse to give you one when you are discharged.2.Visit a local take-back location: Many local pharmacies and police departments have programs that collect old and unwanted prescription drugs. Call your local pharmacy or go to http://bit.[employer]/2F0Qm6e to find one close to you.3.Make use of household items: Use cat litter or old coffee grounds to dispose medications if other options are not available. Mix your drugs with these household products, seal them in an airtight container and throw it into the garbage. Call [facility]: [phone] to be sure your drugs can be disposed of in this way. Some medicines may require a different approach.4.Never flush your medications down the toilet. IF YOU HAVE BEEN PRESCRIBED AN OPIOIDS FOR PAIN If you have been prescribed an opioid (such as hydrocodone, oxycodone or morphine), it is critical to understand the possible side effects and risks of opioid pain medications. Even when taken as directed, opioids can have several side effects including: Tolerance, meaning you might need to take more of a medication for the same pain relief. Nausea, vomiting and/or constipation. Sleepiness, dizziness, dry mouth, confusion, depression or itching. Physical dependence, meaning you have withdrawal symptoms when a medication is stopped ? this can develop within a few days. KNOW YOUR RESPONSIBILITIES It is important to know exactly how much and how often to take the opioid pain medications you are prescribed. Never take opioids in higher amounts or more often than prescribed. Do not combine opioids with alcohol or other drugs that cause drowsiness, such as benzodiazepines, also known as benzos, including diazepam and alprazolam, muscle relaxants or sleep aids. Never sell or share prescription opioids. This is illegal. Store opioids in a secure place and out of reach of others (including children, family, friends and visitors). The last page(s) of this document has been signed and retained as a CHART COPY Signatures Patient Education Materials Cellulitis Skin Infection Blister (Adult) Medication Leaflets My discharge plan and instructions have been reviewed and explained to me and I,GRANT DANIELLE understand my current condition and have read and understand these discharge instructions. I have received a written copy of the plan/instructions. If I have questions, I am aware that I should contact my doctor. Patient/[employer] Signature: Date/Time: Relationship to Patient: Witness Name/Signature: Date/Time: [facility] 09-05-2023 Hospital Discharg e instructions Patient Education 09/05/2023 11:28:06 Jaw Fracture Jaw Fracture You have a broken jaw, or mandible bone. It may be a minor break in the bone. Or you may have a major break, with the bone moving out of place. This causes swelling, pain, and bruising in your lower face. You may have a cut and bleeding inside your mouth. Most jaw fractures are stable. They can be treated by wiring the upper and lower teeth together. This keeps the fracture from moving while the bone heals. The bone should heal in about 4 to 6 weeks. But you may need surgery to put the broken bone back in place. A blow to the face that s strong enough to break a jaw may also cause a concussion or more serious brain injury. You should watch for the warning signs listed below. Home care If your jaw was wired shut, it s important for you to be able to open the wires in any emergency that makes it hard to breathe. This includes vomiting, extreme coughing, or choking. You must carry a pair of small wire-cutters with you at all times. Keep them near your bed at night. Be sure you know which wires to cut in case you need to do this. If you don't know, ask your healthcare provider. If a bandage was wrapped around your jaw, leave this in place, even when you are sleeping. Do this until you are seen at your next appointment. This will keep the broken bones from moving until you see the oral surgeon or ENT (ear, nose and throat surgeon). If your jaw was wired shut, follow a full liquid diet. Drink liquids and blended drinks, or smoothies, through a straw. If your jaw was not wired shut, you may follow a full liquid diet plus soft foods. Don t try to open your mouth wide or chew on solid food. Use an ice pack on the injured area for no more than 20 minutes at a time. Do this every 1 to 2 hours for the first 24 to 48 hours. Then use ice packs as needed to ease pain and swelling. To make an ice pack, put ice cubes in a plastic bag that seals at the top. Wrap the bag in a clean, thin towel or cloth. Never put ice or an ice pack directly on the skin. You may use amdf-ahu-weaegjn pain medicine to control pain, unless another pain medicine was prescribed. If you have chronic liver or kidney disease, talk with your provider before using this medicine. Use the children's liquid form of the medicine if your jaw was wired closed. If you were given antibiotics to prevent an infection, take them as directed until you have finished the prescription Special note on concussions If you had any symptoms of a concussion today, don t return to sports or any activity that could result in another head injury. These are symptoms of a concussion: Nausea Vomiting Dizziness Confusion Headache Memory loss Loss of consciousness Wait until all of your symptoms are gone and your provider says it s OK to resume your activity. Having a second head injury before you fully recover from the first one can lead to serious brain injury. Follow-up care Follow up with your healthcare provider in 1 week, or as advised. If you had X-rays or CT scans taken, you will be told of any new findings that may affect your care. When to seek medical advice Call your healthcare provider right away if any of these occur: Facial swelling or pain that gets worse Fever of 100.4 F (38 C) or higher, or as directed by your healthcare provider Chills You can t swallow liquids Bleeding from mouth or gums You had to cut the wires placed on your teeth Call 911 Call 911 if you have: Repeated vomiting Severe headache or dizziness Headache or dizziness that gets worse Abnormal drowsiness, or you can't wake up as usual Confusion or change in behavior or speech Convulsion or seizure [id number] [employer]. [address] [place] [address]. All rights reserved. This information is not intended as a substitute for professional medical care. Always follow your healthcare professional's instructions. 09/05/2023 11:18:18 Dental Abscess Dental Abscess An abscess is a sac of pus. A dental abscess forms when a tooth or the tissue around it becomes infected with bacteria. The bacteria can enter through a cavity or a crack in a tooth. It can also infect the gum tissue or bone around a tooth. An untreated abscess can cause the loss of the tooth. It can even spread to other parts of the body and become life-threatening. Symptoms of a dental abscess Signs of a dental abscess include: Toothache, often severe Tooth pain with hot, cold, or pressure Pain in the gums, cheek, or jaw Bad breath or bitter taste in the mouth Trouble swallowing or opening the mouth Fever Swollen or enlarged glands in the neck Diagnosing a dental abscess An abscess is diagnosed by looking at your teeth and gums. You will be told if any tests are needed, such as dental X-rays. Treating a dental abscess Treatments for a dental abscess may include the following: Antibiotic medicines. These treat the underlying infection. Pain relievers. These help you feel more comfortable. Your healthcare provider may prescribe a medicine for you. Or you may use gble-hqz-dohrwzg pain relievers, such as acetaminophen or ibuprofen. Warm saltwater rinses. These can soothe discomfort and help clear away pus. Root canal surgery. This may be done if needed to save the tooth. With a root canal, the infected part of the tooth is removed. A special substance is then used to fill the empty space in the tooth. Draining the abscess. This may be doneif needed. Incisions are made to allow the infected material to drain from the tooth. Removing the tooth. This is done in cases of severe infection that can t be treated another way. You may need to be admitted to a hospital if the infection is severe, has spread, or doesn t respond to treatment. When to call the dentist Call your dentist right away if you have any of the following: Fever of 100.4 F (38 C) or higher Increased pain, redness, drainage, or swelling in the treated area Swelling of the face or jawbone Pain that can't be controlled with medicines Preventing dental abscess To prevent another abscess in the future, keep your teeth clean and healthy. Tiline twice a day and floss at least once daily. See your dentist for regular tooth cleanings. And stay away from sugary foods and drinks that can lead to tooth decay. 5942-3127 [employer]. [address] [place] [address]. All rights reserved. This information is not intended as a substitute for professional medical care. Always follow your healthcare professional's instructions. Follow Up Care 09/05/2023 10:14:05 With:VIRIDIANA DYE DO Address: [address] [place] [address] [phone] When:2-4 days With:NEVAEH NGUYEN MD, [facility] Address: [address] [facility] [place] [address] [phone] When:2-4 days With:ABIMAEL CARSON MD Address: [address] [place] [address]- When:2-4 days [facility] 09-05-2023 Note Discharge Instructions Thank you for allowing [facility] to assist you with your healthcare needs. The following is important discharge information regarding your hospital visit. Diagnosis from Today's Visit Closed fracture of right mandibular alveolar ridge Dental infection Jaw pain Jaw pain What to Do Next Instructions from Your Care Team No qualifying data available. Post Acute Orders No qualifying data available. You Need to Schedule the Following Appointments Follow Up with VIRIDIANA DYE DO When Within 2-4 days Where: [address] [place], [place] [address]- [phone] Follow Up with NEVAEH NGUYEN MD, [facility] When Within 2-4 days Where: [address] [place] [address]- [phone] Follow Up with ABIMAEL CARSON MD When Within 2-4 days Where: [address] [place] [address]- Allergies Flexeril Ultram (Hives) naproxen Medications Please ask your primary doctor or pharmacist before taking any other medication not listed, including over the counter drugs, herbal medications, vitamins and or supplements as they may interact with your home medications. What How Much When Why Instructions Last Dose New acetaminophen-oxyCODONE (Percocet 5 mg-325 mg oral tablet) 1 tab(s) by mouth Every 6 hours as needed for for pain Closed fracture of right mandibular alveolar ridge Duration: 7 Days Printed Prescription New penicillin V potassium (penicillin V potassium 500 mg oral tablet) 1 tab(s) by mouth Two (2) times a day Duration: 10 Days Printed Prescription Please take this list to your next doctor s visit. Bring all medications you take, including over the counter medications, herbals and other supplements with you to your doctor s visit. Patients and families are reminded to discard old lists and to update any records with all medication providers or retail pharmacies. Medication Leaflets penicillin V potassium (oral) (PEN i FRANSISCO in V mark TAS ee um) What is the most important information I should know about penicillin V potassium? You should not be treated with this medicine if you are allergic to penicillin. What is penicillin V potassium? Penicillin V potassium is a slow-onset antibiotic that is used to treat many types of mild to moderate infections caused by bacteria, including scarlet fever, pneumonia, skin infections, and infections affecting the nose, mouth, or throat. Penicillin V potassium is also used to prevent the symptoms of rheumatic fever. Penicillin V potassium is also used to prevent infections of the heart valves in people with certain heart conditions who need to have dental work or surgery. Penicillin V potassium may also be used for purposes not listed in this medication guide. What should I discuss with my healthcare provider before taking penicillin V potassium? You should not be treated with this medicine if you are allergic to penicillin. Tell your doctor if you have ever had: an allergic reaction to a cephalosporin antibiotic (Keflex, Omnicef, and others); any type of allergy; asthma or breathing problems; a stomach or intestinal disorder; heart disease; or kidney disease. If you have stomach problems or are sick with severe vomiting or diarrhea, your medication may not be as effective. Penicillin V potassium oral liquid may contain phenylalanine. Tell your doctor if you have phenylketonuria (PKU). Tell your doctor if you are or . Do not give this medicine to a child without medical advice. How should I take penicillin V potassium? Follow all directions on your prescription label and read all medication guides or instruction sheets. Use the medicine exactly as directed. You may take penicillin V potassium with or without food. Shake the oral liquid before you measure a dose. Use the dosing syringe provided, or use a medicine dose-measuring device (not a kitchen spoon). When given before surgery or dental work, penicillin V potassium is usually taken 1 hour before and 6 hours after the procedure. Follow your doctor's dosing instructions very carefully. Use this medicine for the full prescribed length of time, even if your symptoms quickly improve. Skipping doses can increase your risk of infection that is resistant to medication. Penicillin V potassium will not treat a viral infection such as the flu or a common cold. After you have finished all doses, your doctor may want to do tests to make sure your infection has completely cleared up. Store the tablets at room temperature away from moisture, heat, and light. Store the liquid in a refrigerator. Do not freeze. Throw away any unused liquid after 14 days. What happens if I miss a dose? Take the medicine as soon as you can, but skip the missed dose if it is almost time for your next dose. Do not take two doses at one time. What happens if I overdose? Seek emergency medical attention or call the Poison Help line at . What should I avoid while taking penicillin V potassium? Do not share this medicine with another person, even if they have the same symptoms you have. Antibiotic medicines can cause diarrhea, which may be a sign of a new infection. If you have diarrhea that is watery or bloody, call your doctor before using anti-diarrhea medicine. What are the possible side effects of penicillin V potassium? Get emergency medical help if you have signs of an allergic reaction: hives; fever, chills, joint pain; difficult breathing; swelling of your face, lips, tongue, or throat. Call your doctor at once if you have: severe stomach pain, diarrhea that is watery or bloody (even if it occurs months after your last dose); easy bruising or bleeding; pale or yellowed skin, dark colored urine; numbness, tingling, or burning pain; urination problems; or fever, swollen glands, itching, joint pain, or not feeling well. Common side effects may include: nausea, vomiting, upset stomach; diarrhea; swollen, black, or 'hairy' tongue; rash; or vaginal itching or discharge. This is not a complete list of side effects and others may occur. Call your doctor for medical advice about side effects. You may report side effects to FDA at 3-936-RKJ-5799. What other drugs will affect penicillin V potassium? Penicillin V potassium can make control pills less effective. Ask your doctor about using a non-hormonal control (condom, diaphragm with spermicide) to prevent . Other drugs may affect penicillin V potassium, including prescription and tshq-qmb-thxbbig medicines, vitamins, and herbal products. Tell your doctor about all your current medicines and any medicine you start or stop using. Where can I get more information? Your doctor or pharmacist can provide more information about penicillin V potassium. Remember, keep this and all other medicines out of the reach of children, never share your medicines with others, and use this medication only for the indication prescribed. Every effort has been made to ensure that the information provided by [employer]') is accurate, up-to-date, and complete, but no guarantee is made to that effect. Drug information contained herein may be time sensitive. [employer] information has been compiled for use by healthcare practitioners and consumers in the [place] and therefore [employer] does not warrant that uses outside of the [place] are appropriate, unless specifically indicated otherwise. [employer]'s drug information does not endorse drugs, diagnose patients or recommend therapy. [employer] drug information is an informational resource designed to assist licensed healthcare practitioners in caring for their patients and/or to serve consumers viewing this service as a supplement to, and not a substitute for, the expertise, skill, knowledge and judgment of healthcare practitioners. The absence of a warning for a given drug or drug combination in no way should be construed to indicate that the drug or drug combination is safe, effective or appropriate for any given patient. [employer] does not assume any responsibility for any aspect of healthcare administered with the aid of information [employer] provides. The information contained herein is not intended to cover all possible uses, directions, precautions, warnings, drug interactions, allergic reactions, or adverse effects. If you have questions about the drugs you are taking, check with your doctor, nurse or pharmacist. Copyright 8478-0961 [employer]. Version: 2.01. Revision Date: 02/03/2019. acetaminophen and oxycodone (a SEET a MIN oh fen and OX i KOE done) Endocet 10/325, Endocet 2.5/325, Endocet 5/325, Endocet 7.5/325, Nalocet, Percocet, Prolate What is the most important information I should know about acetaminophen and oxycodone? MISUSE OF OPIOID MEDICINE CAN CAUSE ADDICTION, OVERDOSE, OR . Keep the medication in a place where others cannot get to it. Taking opioid medicine during may cause life-threatening withdrawal symptoms in the . Fatal side effects can occur if you use opioid medicine with alcohol, or with other drugs that cause drowsiness or slow your breathing. Stop taking this medicine and call your doctor right away if you have skin redness or a rash that spreads and causes blistering and peeling. What is acetaminophen and oxycodone? Acetaminophen and oxycodone is a combination medicine used to relieve moderate to severe pain. Acetaminophen and oxycodone contains an opioide medicine and may be habit-forming. Acetaminophen and oxycodone may also be used for purposes not listed in this medication guide. What should I discuss with my healthcare provider before taking acetaminophen and oxycodone? You should not use this medicine if you are allergic to acetaminophen or oxycodone, or if you have: severe asthma or breathing problems; or a blockage in your stomach or intestines. Tell your doctor if you have ever had: breathing problems, sleep apnea; liver disease; a drug or alcohol addiction; kidney disease; a head injury or seizures; urination problems; or problems with your thyroid, pancreas, or gallbladder. If you use opioid medicine while you are , your baby could become dependent on the drug. This can cause life-threatening withdrawal symptoms in the baby after it is born. Babies born dependent on opioids may need medical treatment for several weeks. Ask a doctor before using opioid medicine if you are . Tell your doctor if you notice severe drowsiness or slow breathing in the nursing baby. How should I take acetaminophen and oxycodone? Follow all directions on your prescription label. Never take this medicine in larger amounts, or for longer than prescribed. An overdose can damage your liver or cause . Tell your doctor if you feel an increased urge to use more of this medicine. Never share opioid medicine with another person, especially someone with a history of drug abuse or addiction. MISUSE CAN CAUSE ADDICTION, OVERDOSE, OR . Keep the medicine in a place where others cannot get to it. Selling or giving away opioid medicine is against the law. Measure liquid medicine carefully. Use the dosing syringe provided, or use a medicine dose-measuring device (not a kitchen spoon). If you need surgery or medical tests, tell the doctor ahead of time that you are using this medicine. You should not stop using this medicine suddenly. Follow your doctor's instructions about tapering your dose. Store at room temperature away from moisture and heat. Keep track of your medicine. You should be aware if anyone is using it improperly or without a prescription. Do not keep leftover opioid medication. Just one dose can cause in someone using this medicine accidentally or improperly. Ask your pharmacist where to locate a drug take-back disposal program. If there is no take-back program, flush the unused medicine down the toilet. What happens if I miss a dose? Since this medicine is used for pain, you are not likely to miss a dose. Skip any missed dose if it is almost time for your next dose. Do not use two doses at one time. What happens if I overdose? Seek emergency medical attention or call the Poison Help line at . An overdose of this medicine can be fatal, especially in a child or other person using the medicine without a prescription. Overdose symptoms may include nausea, vomiting, sweating, severe drowsiness, pinpoint pupils, slow breathing, or no breathing. Your doctor may recommend you get naloxone (a medicine to reverse an opioid overdose) and keep it with you at all times. A person caring for you can give the naloxone if you stop breathing or don't wake up. Your caregiver must still get emergency medical help and may need to perform CPR (cardiopulmonary resuscitation) on you while waiting for help to arrive. Anyone can buy naloxone from a pharmacy or local health department. Make sure any person caring for you knows where you keep naloxone and how to use it. What should I avoid while taking acetaminophen and oxycodone? Avoid driving or operating machinery until you know how this medicine will affect you. Dizziness or drowsiness can cause falls, accidents, or severe injuries. Do not drink alcohol. Dangerous side effects or could occur. Ask a doctor or pharmacist before using any other medicine that may contain acetaminophen (sometimes abbreviated as APAP). Taking certain medications together can lead to a fatal overdose. What are the possible side effects of acetaminophen and oxycodone? Get emergency medical help if you have signs of an allergic reaction: hives; difficulty breathing; swelling of your face, lips, tongue, or throat. Opioid medicine can slow or stop your breathing, and may occur. A person caring for you should give naloxone and/or seek emergency medical attention if you have slow breathing with long pauses, blue colored lips, or if you are hard to wake up. In rare cases, acetaminophen may cause a severe skin reaction that can be fatal. This could occur even if you have taken acetaminophen in the past and had no reaction. Stop taking this medicine and call your doctor right away if you have skin redness or a rash that spreads and causes blistering and peeling. Call your doctor at once if you have: noisy breathing, sighing, shallow breathing, breathing that stops; a light-headed feeling, like you might pass out; weakness, tiredness, fever, unusual bruising or bleeding; confusion, unusual thoughts or behavior; problems with urination; liver problems--nausea, upper stomach pain, tiredness, loss of appetite, dark urine, roberta-colored stools, jaundice (yellowing of the skin or eyes); low cortisol levels-- nausea, vomiting, loss of appetite, dizziness, worsening tiredness or weakness; or high levels of serotonin in the body--agitation, hallucinations, fever, sweating, shivering, fast heart rate, muscle stiffness, twitching, loss of coordination, nausea, vomiting, diarrhea. Serious breathing problems may be more likely in older adults and in those who are debilitated or have wasting syndrome or chronic breathing disorders. Common side effects include: dizziness, drowsiness, feeling tired; feelings of extreme happiness or sadness; nausea, vomiting, stomach pain; constipation; or headache. This is not a complete list of side effects and others may occur. Call your doctor for medical advice about side effects. You may report side effects to FDA at 9-694-RYD-2201. What other drugs will affect acetaminophen and oxycodone? You may have breathing problems or withdrawal symptoms if you start or stop taking certain other medicines. Tell your doctor if you also use an antibiotic, antifungal medication, heart or blood pressure medication, seizure medication, or medicine to treat HIV or hepatitis C. Opioid medication can interact with many other drugs and cause dangerous side effects or . Be sure your doctor knows if you also use: cold or allergy medicines, bronchodilator asthma/COPD medication, or a diuretic ('water pill'); medicines for motion sickness, irritable bowel syndrome, or overactive bladder; other opioids--opioid pain medicine or prescription cough medicine; a sedative like Valium--diazepam, alprazolam, lorazepam, Xanax, Klonopin, Versed, and others; drugs that make you sleepy or slow your breathing--a sleeping pill, muscle relaxer, medicine to treat mood disorders or mental illness; drugs that affect serotonin levels in your body--a stimulant, or medicine for depression, Parkinson's disease, migraine headaches, serious infections, or nausea and vomiting. This list is not complete. Other drugs may affect acetaminophen and oxycodone, including prescription and oiae-tbp-kbllrzd medicines, vitamins, and herbal products. Not all possible interactions are listed here. Where can I get more information? Your doctor or pharmacist can provide more information about acetaminophen and oxycodone. Remember, keep this and all other medicines out of the reach of children, never share your medicines with others, and use this medication only for the indication prescribed. Every effort has been made to ensure that the information provided by [employer]') is accurate, up-to-date, and complete, but no guarantee is made to that effect. Drug information contained herein may be time sensitive. [employer] information has been compiled for use by healthcare practitioners and consumers in the [place] and therefore [employer] does not warrant that uses outside of the [place] are appropriate, unless specifically indicated otherwise. [employer] drug information does not endorse drugs, diagnose patients or recommend therapy. [employer] drug information is an informational resource designed to assist licensed healthcare practitioners in caring for their patients and/or to serve consumers viewing this service as a supplement to, and not a substitute for, the expertise, skill, knowledge and judgment of healthcare practitioners. The absence of a warning for a given drug or drug combination in no way should be construed to indicate that the drug or drug combination is safe, effective or appropriate for any given patient. [employer] does not assume any responsibility for any aspect of healthcare administered with the aid of information [employer] provides. The information contained herein is not intended to cover all possible uses, directions, precautions, warnings, drug interactions, allergic reactions, or adverse effects. If you have questions about the drugs you are taking, check with your doctor, nurse or pharmacist. Copyright 7296-4648 [employer]. Version: 22.. Revision Date: 12/21/2022. penicillin V potassium (oral) (PEN i FRANSISCO in V mark TAS ee um) What is the most important information I should know about penicillin V potassium? You should not be treated with this medicine if you are allergic to penicillin. What is penicillin V potassium? Penicillin V potassium is a slow-onset antibiotic that is used to treat many types of mild to moderate infections caused by bacteria, including scarlet fever, pneumonia, skin infections, and infections affecting the nose, mouth, or throat. Penicillin V potassium is also used to prevent the symptoms of rheumatic fever. Penicillin V potassium is also used to prevent infections of the heart valves in people with certain heart conditions who need to have dental work or surgery. Penicillin V potassium may also be used for purposes not listed in this medication guide. What should I discuss with my healthcare provider before taking penicillin V potassium? You should not be treated with this medicine if you are allergic to penicillin. Tell your doctor if you have ever had: an allergic reaction to a cephalosporin antibiotic (Keflex, Omnicef, and others); any type of allergy; asthma or breathing problems; a stomach or intestinal disorder; heart disease; or kidney disease. If you have stomach problems or are sick with severe vomiting or diarrhea, your medication may not be as effective. Penicillin V potassium oral liquid may contain phenylalanine. Tell your doctor if you have phenylketonuria (PKU). Tell your doctor if you are or . Do not give this medicine to a child without medical advice. How should I take penicillin V potassium? Follow all directions on your prescription label and read all medication guides or instruction sheets. Use the medicine exactly as directed. You may take penicillin V potassium with or without food. Shake the oral liquid before you measure a dose. Use the dosing syringe provided, or use a medicine dose-measuring device (not a kitchen spoon). When given before surgery or dental work, penicillin V potassium is usually taken 1 hour before and 6 hours after the procedure. Follow your doctor's dosing instructions very carefully. Use this medicine for the full prescribed length of time, even if your symptoms quickly improve. Skipping doses can increase your risk of infection that is resistant to medication. Penicillin V potassium will not treat a viral infection such as the flu or a common cold. After you have finished all doses, your doctor may want to do tests to make sure your infection has completely cleared up. Store the tablets at room temperature away from moisture, heat, and light. Store the liquid in a refrigerator. Do not freeze. Throw away any unused liquid after 14 days. What happens if I miss a dose? Take the medicine as soon as you can, but skip the missed dose if it is almost time for your next dose. Do not take two doses at one time. What happens if I overdose? Seek emergency medical attention or call the Poison Help line at . What should I avoid while taking penicillin V potassium? Do not share this medicine with another person, even if they have the same symptoms you have. Antibiotic medicines can cause diarrhea, which may be a sign of a new infection. If you have diarrhea that is watery or bloody, call your doctor before using anti-diarrhea medicine. What are the possible side effects of penicillin V potassium? Get emergency medical help if you have signs of an allergic reaction: hives; fever, chills, joint pain; difficult breathing; swelling of your face, lips, tongue, or throat. Call your doctor at once if you have: severe stomach pain, diarrhea that is watery or bloody (even if it occurs months after your last dose); easy bruising or bleeding; pale or yellowed skin, dark colored urine; numbness, tingling, or burning pain; urination problems; or fever, swollen glands, itching, joint pain, or not feeling well. Common side effects may include: nausea, vomiting, upset stomach; diarrhea; swollen, black, or 'hairy' tongue; rash; or vaginal itching or discharge. This is not a complete list of side effects and others may occur. Call your doctor for medical advice about side effects. You may report side effects to FDA at 4-744-CAA-4989. What other drugs will affect penicillin V potassium? Penicillin V potassium can make control pills less effective. Ask your doctor about using a non-hormonal control (condom, diaphragm with spermicide) to prevent . Other drugs may affect penicillin V potassium, including prescription and pqrx-jxh-ahqjbbi medicines, vitamins, and herbal products. Tell your doctor about all your current medicines and any medicine you start or stop using. Where can I get more information? Your doctor or pharmacist can provide more information about penicillin V potassium. Remember, keep this and all other medicines out of the reach of children, never share your medicines with others, and use this medication only for the indication prescribed. Every effort has been made to ensure that the information provided by [employer]. ('[employer]') is accurate, up-to-date, and complete, but no guarantee is made to that effect. Drug information contained herein may be time sensitive. [employer] information has been compiled for use by healthcare practitioners and consumers in the [place] and therefore [employer] does not warrant that uses outside of the [place] are appropriate, unless specifically indicated otherwise. [employer] drug information does not endorse drugs, diagnose patients or recommend therapy. [employer] drug information is an informational resource designed to assist licensed healthcare practitioners in caring for their patients and/or to serve consumers viewing this service as a supplement to, and not a substitute for, the expertise, skill, knowledge and judgment of healthcare practitioners. The absence of a warning for a given drug or drug combination in no way should be construed to indicate that the drug or drug combination is safe, effective or appropriate for any given patient. [facility] does not assume any responsibility for any aspect of healthcare administered with the aid of information [facility] provides. The information contained herein is not intended to cover all possible uses, directions, precautions, warnings, drug interactions, allergic reactions, or adverse effects. If you have questions about the drugs you are taking, check with your doctor, nurse or pharmacist. Copyright 9986-4169 [employer]. Version: 2.01. Revision Date: 02/03/2019. Education Materials Jaw Fracture You have a broken jaw, or mandible bone. It may be a minor break in the bone. Or you may have a major break, with the bone moving out of place. This causes swelling, pain, and bruising in your lower face. You may have a cut and bleeding inside your mouth. Most jaw fractures are stable. They can be treated by wiring the upper and lower teeth together. This keeps the fracture from moving while the bone heals. The bone should heal in about 4 to 6 weeks. But you may need surgery to put the broken bone back in place. A blow to the face that s strong enough to break a jaw may also cause a concussion or more serious brain injury. You should watch for the warning signs listed below. Home care If your jaw was wired shut, it s important for you to be able to open the wires in any emergency that makes it hard to breathe. This includes vomiting, extreme coughing, or choking. You must carry a pair of small wire-cutters with you at all times. Keep them near your bed at night. Be sure you know which wires to cut in case you need to do this. If you don't know, ask your healthcare provider. If a bandage was wrapped around your jaw, leave this in place, even when you are sleeping. Do this until you are seen at your next appointment. This will keep the broken bones from moving until you see the oral surgeon or ENT (ear, nose and throat surgeon). If your jaw was wired shut, follow a full liquid diet. Drink liquids and blended drinks, or smoothies, through a straw. If your jaw was not wired shut, you may follow a full liquid diet plus soft foods. Don t try to open your mouth wide or chew on solid food. Use an ice pack on the injured area for no more than 20 minutes at a time. Do this every 1 to 2 hours for the first 24 to 48 hours. Then use ice packs as needed to ease pain and swelling. To make an ice pack, put ice cubes in a plastic bag that seals at the top. Wrap the bag in a clean, thin towel or cloth. Never put ice or an ice pack directly on the skin. You may use laym-sde-yjvhcxk pain medicine to control pain, unless another pain medicine was prescribed. If you have chronic liver or kidney disease, talk with your provider before using this medicine. Use the children's liquid form of the medicine if your jaw was wired closed. If you were given antibiotics to prevent an infection, take them as directed until you have finished the prescription Special note on concussions If you had any symptoms of a concussion today, don t return to sports or any activity that could result in another head injury. These are symptoms of a concussion: Nausea Vomiting Dizziness Confusion Headache Memory loss Loss of consciousness Wait until all of your symptoms are gone and your provider says it s OK to resume your activity. Having a second head injury before you fully recover from the first one can lead to serious brain injury. Follow-up care Follow up with your healthcare provider in 1 week, or as advised. If you had X-rays or CT scans taken, you will be told of any new findings that may affect your care. When to seek medical advice Call your healthcare provider right away if any of these occur: Facial swelling or pain that gets worse Fever of 100.4 F (38 C) or higher, or as directed by your healthcare provider Chills You can t swallow liquids Bleeding from mouth or gums You had to cut the wires placed on your teeth Call 911 Call 911 if you have: Repeated vomiting Severe headache or dizziness Headache or dizziness that gets worse Abnormal drowsiness, or you can't wake up as usual Confusion or change in behavior or speech Convulsion or seizure [id number] [employer]. [address] [place] [address]. All rights reserved. This information is not intended as a substitute for professional medical care. Always follow your healthcare professional's instructions. Dental Abscess An abscess is a sac of pus. A dental abscess forms when a tooth or the tissue around it becomes infected with bacteria. The bacteria can enter through a cavity or a crack in a tooth. It can also infect the gum tissue or bone around a tooth. An untreated abscess can cause the loss of the tooth. It can even spread to other parts of the body and become life-threatening. Symptoms of a dental abscess Signs of a dental abscess include: Toothache, often severe Tooth pain with hot, cold, or pressure Pain in the gums, cheek, or jaw Bad breath or bitter taste in the mouth Trouble swallowing or opening the mouth Fever Swollen or enlarged glands in the neck Diagnosing a dental abscess An abscess is diagnosed by looking at your teeth and gums. You will be told if any tests are needed, such as dental X-rays. Treating a dental abscess Treatments for a dental abscess may include the following: Antibiotic medicines. These treat the underlying infection. Pain relievers. These help you feel more comfortable. Your healthcare provider may prescribe a medicine for you. Or you may use rlun-hvr-vrwimbb pain relievers, such as acetaminophen or ibuprofen. Warm saltwater rinses. These can soothe discomfort and help clear away pus. Root canal surgery. This may be done if needed to save the tooth. With a root canal, the infected part of the tooth is removed. A special substance is then used to fill the empty space in the tooth. Draining the abscess. This may be doneif needed. Incisions are made to allow the infected material to drain from the tooth. Removing the tooth. This is done in cases of severe infection that can t be treated another way. You may need to be admitted to a hospital if the infection is severe, has spread, or doesn t respond to treatment. When to call the dentist Call your dentist right away if you have any of the following: Fever of 100.4 F (38 C) or higher Increased pain, redness, drainage, or swelling in the treated area Swelling of the face or jawbone Pain that can't be controlled with medicines Preventing dental abscess To prevent another abscess in the future, keep your teeth clean and healthy. Tiline twice a day and floss at least once daily. See your dentist for regular tooth cleanings. And stay away from sugary foods and drinks that can lead to tooth decay. 7260-8840 [employer]. [address] [place] [address], [place] [address]. All rights reserved. This information is not intended as a substitute for professional medical care. Always follow your healthcare professional's instructions. Additional Information VACCINATE! IT SAVES LIVES! Members of the community who have not yet received the COVID-19 vaccine and would like to receive it can visit one of [facility] vaccine clinics. There are many vaccine clinic locations within the [facility]. For locations and available times, please visit [email or web address] [email or web address] It is important to note that some COVID mobile vaccine clinics are held outdoors and may be canceled in rainy or stormy conditions. To learn more about pediatric vaccinations (ages 5-11), we invite you to visit the [employer] webpage. [email or web address] [email or web address]-[email or web address] To learn more about the COVID-19 vaccine, we invite you to visit the CDC website for a list of frequently asked questions. https://www.cdc.gov/coronavirus/ 2019-ncov/vaccines/faq.html [employer] Patient Portal Access Instructions: Stay connected with your healthcare team and access your personal medical information anytime with the [employer] Patient Portal. If you would like a full copy of your medical records please contact the [facility] Medical Records Department Sunday through Sunday between 8a.m. and 4:30p.m. Please follow the directions below to access the portal: 1.Access the email account you provided upon registration to the hospital.2.Look for an invitation email from [facility].3.Open the email and access the invitation link: Accept Invitation to [facility].Fill in the required garcia to create your account. Sign into [email or web address] with your username and password that you created in the above steps to stay up to date. You can then view a summary of results, a summary of your visits, and the ability to download your summaries to your computer or send the information securely to a physician. Remember that your healthcare information is confidential, so carefully consider who you will allow to register on the [employer] Patient Portal for access to your information. You can also access the [employer] Patient Portal on the [employer] kyleigh. Simply click on Health Records under Health Data and then click on the [employer] logo. HOW TO SAFELY DISPOSE OF PRESCRIPTION MEDICATIONS Please use one of the following methods to safely dispose of your unused medications. 1.Use a drug disposal kit: the drug disposal pouch allows you to safely discard your old and unused drugs. Ask your nurse to give you one when you are discharged.2.Visit a local take-back location: Many local pharmacies and police departments have programs that collect old and unwanted prescription drugs. Call your local pharmacy or go to http://Cellabus.[employer]/8I9Qd0b to find one close to you.3.Make use of household items: Use cat litter or old coffee grounds to dispose medications if other options are not available. Mix your drugs with these household products, seal them in an airtight container and throw it into the garbage. Call [facility]: [phone] to be sure your drugs can be disposed of in this way. Some medicines may require a different approach.4.Never flush your medications down the toilet. IF YOU HAVE BEEN PRESCRIBED AN OPIOIDS FOR PAIN If you have been prescribed an opioid (such as hydrocodone, oxycodone or morphine), it is critical to understand the possible side effects and risks of opioid pain medications. Even when taken as directed, opioids can have several side effects including: Tolerance, meaning you might need to take more of a medication for the same pain relief. Nausea, vomiting and/or constipation. Sleepiness, dizziness, dry mouth, confusion, depression or itching. Physical dependence, meaning you have withdrawal symptoms when a medication is stopped ? this can develop within a few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 Specialty Start Date End Date Dom Yanez MD [address] [place] [address] PCP - General Family Medicine 06/04/14 Administrative Fellow Relationship Specialty Start Date End Date Dom Yanez MD [address] [place] [address] PCP - General Family Medicine 06/04/14 Administrative Fellow Relationship Specialty Start Date End Date Abimael Carson MD [address] [place] [id number] PCP - General Family Medicine 05/02/23 Administrative Fellow Relationship Specialty Start Date End Date Abimael Carson MD [address] [place] [place] [id number] PCP - General Family Medicine 05/02/23 Administrative Fellow Relationship Specialty Start Date End Date Abimael Carson MD [address] [place] [address] [place] [address] PCP - General Family Medicine 05/02/23 Administrative Fellow Relationship Specialty Start Date End Date Abimael Carson MD [address] [facility] [address] [place] [address] PCP - General Family Medicine 05/02/23 Administrative Fellow Relationship Specialty Start Date End Date Abimael Carson MD [address] [facility] [place] [address] PCP - General Family Medicine 05/02/23 Administrative Fellow Relationship Specialty Start Date End Date Abimael Carson MD [address] [facility] [address] [place] [address] PCP - General Family Medicine 05/02/23 Administrative Fellow Relationship Specialty Start Date End Date Abimael Carson MD [address] [facility] [place] [address] PCP - General Family Medicine 05/02/23 Administrative Fellow Relationship Specialty Start Date End Date Abimael Carson MD [address] [facility] [place] [address] PCP - General Family Medicine 05/02/23 Administrative Fellow Relationship Specialty Start Date End Date Abimael Carson MD [address] [facility] [place] [address] PCP - General Family Medicine 05/02/23 Administrative Fellow Relationship Specialty Start Date End Date Abimael Carson MD [address] [place] [address] PCP - General Family Medicine 05/02/23 Administrative Fellow Relationship Specialty Start Date End Date Abimael Carson MD [address] [place] [address], [address] [place], [place] [id number] PCP - General Family Medicine 05/02/23 Administrative Fellow Relationship Specialty Start Date End Date Dom Yanez MD [address] [place], [place] [phone] PCP - General [facility] 06/04/14 Administrative Fellow Relationship Specialty Start Date End Date Dom Yanez MD [address] [place], [place] [id number] PCP - [facility] 06/04/14 Team Status: Active Member Role/Relationship Status Dates Dr. Dom Yanez MD Primary Care Provider Active Team Status: Inactive Member Role/Relationship Status Dates Dr. Dom Yanez MD Primary Care Provider Active Start: November 14, 2024 End: November 14, 2024 Dr. David Squires DO Emergency Provider Active S tart: November 14, 2024 End: November 14, 2024 Scheduled Active and Recently Administ ered Medications (unrecognized section and content) Medication Order 07/18/2023 07/19/2023 07/20/2023 haloperidol lactate (Haldol) injection 5 mg (COMPLETED) 5 mg, IntraMUSCular, Once, On Sun07/20/23 at 1325, For 1 dose, IM route of administration preferred. Because of the risk of TdP and QT prolongation, ECG monitoring is recommended if haloperidol is given IV 1327 (Given - Provid er: Cas Pavon RN) LORazepam (Ativan) injection 2 mg (COMPLETED) 2 mg, IntraMUSCular, Once, On Sun07/20/23 at 1325, For 1 dose, For IV doses dilute dose with 1ml NS. 1327 (Given - Provid er: Cas Pavon RN) Scheduled Medication Order 10/17/2023 10/18/2023 10/19/2023 acetaminophen (Tylenol) tablet 650 mg (COMPLETED) 650 mg, Oral, Once, On Meche 10/18/23 at 0830, For 1 dose, Maximum dose of acetaminophen is 4000 mg from all sources in 24 hours. 0934 (Given - Provider: Dasha Delarosa RN) ampicillin-sulbactam (Unasyn) 3,000 mg in sodium chloride 0.9 % 100 mL IVPB (Mini-Bag Plus) (COMPLETED) 3,000 mg, IntraVENous, at 200 mL/hr, Administer over 30 Minutes, Once, On Meche 10/18/23 at 1005, For 1 dose, Mini-Bag Plus bag, Suspected Indication (Select all that apply): Skin and Soft Tissue Infection 1014 (New Bag - Provider: Dasha Delarosa RN)1047 (Stopped - Provider: Dasha Delarosa RN) ampicillin-sulbactam (Unasyn) 3,000 mg in sodium chloride 0.9 % 100 mL IVPB (Mini-Bag Plus) 3,000 mg, IntraVENous, at 200 mL/hr, Administer over 30 Minutes, Every 6 hours, First dose on Meche 10/18/23 at 1640, Mini-Bag Plus bag, Suspected Indication (Select all that apply): Skin and Soft Tissue Infection 1703 (New Bag - Provider: Dasha Delarosa RN)1735 (Stopped - Provider: Dasha Delarosa RN)2255 (New Bag - Provider: Nicci Boyer LPN)2325 (Stopped - Provider: Nicci Boyer LPN) 0418 (New Bag - Provider: Nicci Boyer LPN)0448 (Stopped - Provider: Nicci Boyer LPN)1040 (Canceled Entry - Provider: Automatic Discharge Provider - Comment: Automatically canceled at discontinue of medication order) nicotine (Nicoderm, Step 1) 21 MG/24HR patch 1 patch (CANCELED) 1 patch, TransDERmal, Administer over 24 Hours, Once, On Meche 10/18/23 at 0905, For 1 dose, Apply new patch to nonhairy, clean, dry skin on the upper body or upper outer arm. Rotate patch sites. Notify Pharmacy if patient or provider prefers patch to be removed at bedtime and replaced in the morning. 0934 (Medication Applied - Provider: Dasha Delarosa RN)2225 (Medication Removed - Provider: Nicci Boyer LPN - Comment: Time automatically adjusted from order being discontinued) nicotine (Nicoderm, Step 1) 21 MG/24HR patch 1 patch(Linked Group 1) 1 patch, TransDERmal, Administer over 24 Hours, Daily, First dose on Sun10/19/23 at 0900, For 42 days, Apply new patch to nonhairy, clean, dry skin on the upper body or upper outer arm. Rotate patch sites. Notify Pharmacy if patient or provider prefers patch to be removed at bedtime and replaced in the morning. 0900 (Canceled Entry - Provider: Automatic Discharge Provider - Comment: Automatically canceled at discontinue of medication order) nicotine (Nicoderm, Step 2) 14 MG/24HR patch 1 patch(Linked Group 1) 1 patch, TransDERmal, Administer over 24 Hours, Daily, First dose on Sun11/30/23 at 0900, For 14 days, Apply new patch to nonhairy, clean, dry skin on the upper body or upper outer arm. Rotate patch sites. Notify Pharmacy if patient or provider prefers patch to be removed at bedtime and replaced in the morning. nicotine (Nicoderm, Step 3) 7 MG/24HR patch 1 patch(Linked Group 1) 1 patch, TransDERmal, Administer over 24 Hours, Daily, First dose on Sun12/14/23 at 0900, For 14 days, Apply new patch to nonhairy, clean, dry skin on the upper body or upper outer arm. Rotate patch sites. Notify Pharmacy if patient or provider prefers patch to be removed at bedtime and replaced in the morning. sodium chloride 0.9 % bolus 2,448 mL (COMPLETED) 2,448 mL (30 mL/kg 81.6 kg), IntraVENous, at 2,448 mL/hr, Administer over 1 Hours, Once, On Sun10/18/23 at 0835, For 1 dose 0926 (New Bag - Provider: Kasey Coon RN)1133 (Stopped - Provider: Dasha Delarosa RN) vancomycin (Vancocin) 1750 mg in NS 500 mL IVPB (compounded premix) 1,750 mg, IntraVENous, at 250 mL/hr, Administer over 120 Minutes, Every 12 hours, First dose (after last reorder) on Sun10/19/23 at 0100, premix bag, Suspected Indication (Select all that apply): Skin and Soft Tissue Infection 0034 (New Bag - Provider: Nicci Boyer LPN)0234 (Stopped - Provider: Nicci Boyer LPN) vancomycin IVPB 1250 mg in 250 mL NS (premix) (COMPLETED) 1,250 mg, IntraVENous, Administer over 90 Minutes, Once, On Meche 10/18/23 at 1300, For 1 dose, premix bag, Suspected Indication (Select all that apply): Skin and Soft Tissue Infection 1330 (New Bag - Provider: Dasha Delarosa, LAITH)1510 (Stopped - Provider: Dasha Delarosa RN) Continuous Medication Order 10/17/2023 10/18/2023 10/19/2023 sodium chloride 0.9 % infusion (CANCELED) 100 mL/hr, IntraVENous, Continuous, Starting on Meche 10/18/23 at 2230 2255 (New Bag - Provider: Nicci Boyer LPN) PRN Medication Order 10/17/2023 10/18/2023 10/19/2023 acetaminophen (Tylenol) suppository 650 mg(Linked Group 2) 650 mg, Rectal, Every 6 hours PRN, mild pain (1-3), fever, For temp greater than 100.4 F (38 C), Starting on Meche 10/18/23 at 2215, Administer if oral route cannot be used. Maximum dose of acetaminophen is 4000 mg from all sources in 24 hours. acetaminophen (Tylenol) tablet 650 mg(Linked Group 2) 650 mg, Oral, Every 6 hours PRN, mild pain (1-3), fever, For temp greater than 100.4 F (38 C), Starting on Meche 10/18/23 at 2215, Maximum dose of acetaminophen is 4000 mg from all sources in 24 hours. ondansetron (Zofran) injection 4 mg(Linked Group 3) 4 mg, IntraVENous, Every 6 hours PRN, nausea, vomiting, Starting on Meche 10/18/23 at 2215, 1st Line. Give IV if patient is unable to take orally. If inadequate response within 60 minutes, proceed to next-line agent or contact provider if no further options ordered. ondansetron ODT (Zofran-ODT) disintegrating tablet 4 mg(Linked Group 3) 4 mg, Oral, Every 8 hours PRN, nausea, vomiting, Starting on Meche 10/18/23 at 2215, 1st Line. If inadequate response within 60 minutes, proceed to next-line agent or contact provider if no further options ordered. Patient should allow tablet to dissolve on tongue. Do not remove from blister pack until just before administering. polyethylene glycol (PEG) 3350 (Miralax) packet 17 g 17 g, Oral, Daily PRN, constipation, Starting on Meche 10/18/23 at 2215, 1st line for treatment of constipation - give scheduled if no bowel movement in past 24 hours. Linked Groups Order Group 1: nicotine (Nicoderm, Step 1) 21 MG/24HR patch 1 patchJump to med 1 patch, TransDERmal, Administer over 24 Hours, Daily, First dose on Sun10/19/23 at 0900, For 42 days, Apply new patch to nonhairy, clean, dry skin on the upper body or upper outer arm. Rotate patch sites. Notify Pharmacy if patient or provider prefers patch to be removed at bedtime and replaced in the morning. Followed by nicotine (Nicoderm, Step 2) 14 MG/24HR patch 1 patchJump to med 1 patch, TransDERmal, Administer over 24 Hours, Daily, First dose on Sun11/30/23 at 0900, For 14 days, Apply new patch to nonhairy, clean, dry skin on the upper body or upper outer arm. Rotate patch sites. Notify Pharmacy if patient or provider prefers patch to be removed at bedtime and replaced in the morning. Followed by nicotine (Nicoderm, Step 3) 7 MG/24HR patch 1 patchJump to med 1 patch, TransDERmal, Administer over 24 Hours, Daily, First dose on Sun12/14/23 at 0900, For 14 days, Apply new patch to nonhairy, clean, dry skin on the upper body or upper outer arm. Rotate patch sites. Notify Pharmacy if patient or provider prefers patch to be removed at bedtime and replaced in the morning. Group 2: acetaminophen (Tylenol) tablet 650 mgJump to med 650 mg, Oral, Every 6 hours PRN, mild pain (1-3), fever, For temp greater than 100.4 F (38 C), Starting on Meche 10/18/23 at 2215, Maximum dose of acetaminophen is 4000 mg from all sources in 24 hours. Or acetaminophen (Tylenol) suppository 650 mgJump to med 650 mg, Rectal, Every 6 hours PRN, mild pain (1-3), fever, For temp greater than 100.4 F (38 C), Starting on Meche 10/18/23 at 2215, Administer if oral route cannot be used. Maximum dose of acetaminophen is 4000 mg from all sources in 24 hours. Group 3: ondansetron ODT (Zofran-ODT) disintegrating tablet 4 mgJump to med 4 mg, Oral, Every 8 hours PRN, nausea, vomiting, Starting on Meche 10/18/23 at 2215, 1st Line. If inadequate response within 60 minutes, proceed to next-line agent or contact provider if no further options ordered. Patient should allow tablet to dissolve on tongue. Do not remove from blister pack until just before administering. Or ondansetron (Zofran) injection 4 mgJump to med 4 mg, IntraVENous, Every 6 hours PRN, nausea, vomiting, Starting on Meche 10/18/23 at 2215, 1st Line. Give IV if patient is unable to take orally. If inadequate response within 60 minutes, proceed to next-line agent or contact provider if no further options ordered. Scheduled Medication Order 11/05/2023 11/06/2023 11/07/2023 naloxone (Narcan) injection 8 mg (COMPLETED) 8 mg, Nasal, Once, On Sun11/06/23 at 2235, For 1 dose, For oversedation/difficult to rouse, pinpoint pupils, RR < 8; notify primary team plant protection supervisor if used 2201 (Given - Provider: Didi Lozano RN) sodium chloride 0.9 % bolus 1,000 mL (COMPLETED) 1,000 mL, IntraVENous, at 1,000 mL/hr, Administer over 1 Hours, Once, On Sun11/06/23 at 2215, For 1 dose 2317 (New Bag - Provider: Didi Lozano RN) 0017 (Due: Stopped - Provider: Didi Lozano RN) PRN Medication Order 11/05/2023 11/06/2023 11/07/2023 naloxone (Narcan) injection 0.4 mg 0.4 mg, IntraVENous, PRN, opioid reversal, respiratory depression, Starting on Sun11/06/23 at 2212, For oversedation/difficult to rouse, pinpoint pupils, RR < 8; notify primary team plant protection supervisor if used 2300 (Given - Provider: Didi Lozano RN) Goals (unrecognized section and content) Goals may be documented in a n alternate section FOR RECORDS PERTAINING TO PATIENTS WHO ARE OR HAVE BEEN ENROLLED IN A CHEMICAL DEPENDENCY/SUBSTANCEABUSE PROGRAM, SOME INFORMATION MAY BE OMITTED. This clinical summary was aggregated from multiple sources. Caution should be exercised in using it in the provision of clinical care. This summary normalizes information from multiple sources, and as a consequence, information in this document may materially change the coding, format and clinical context of patient data. In addition, data may be omitted in some cases. CLINICAL DECISIONS SHOULD BE BASED ON THE PRIMARY CLINICAL RECORDS. [employer] provides no warranty or guarantee of the accuracy or completeness of information in this document.
--- OUTSIDE RECORDS SUMMARY | 2024-11-21 21:10 | XMS RPT_ITS | CCD ---
Author Organization [facility] Care Team Providers Care Marketing Support Manager Name Role Phone Unavailable Primary Care Provider UnavailDom Gagnon MD Primary Care Provider Dom Yanez MD Primary Care Provider [phone] Abimael Carson MD Primary Care Provider YAMILETH WHITTINGTON, DR WEVAER Primary Care Physician ANA JOYCE MD Attending [...] Unavailable YAMILETH, ABIMAEL Primary Care Unavailable Dom Yanez MD Primary Care Provider Dr. Dom Yanez MD Primary Care Provider Dr. David Squires DO Emergency Provider Dom Yanez Primary Care Unavailable David Squires Attending Unavailable Dom Yanez Primary Care Unavailable David Squires Attending Unavailable Allergies Allergy Classification Reported Allergen(s) Allergy Type Date of Onset Reaction(s) Facility cyclobenzaprine (2 sources) cyclobenzaprine Drug Allergy 10-24-19 [facility] (5 sources) traMADol Drug Allergy 03-08-20 12 [facility] (3 sources) NSAIDs Propensity to adverse reactions to drug 12-15-19 17 [facility] (20 sources) traMADol; Translations: [tramadol] Drug Allergy 03-08-20 12 [facility] (5 sources) traMADol Drug Allergy 03-08-20 12 [facility] (20 sources) Non-steroidal anti-inflammatory agent Drug Intolerance 12-15-19 [facility] (12 sources) cyclobenzaprine; Translations: [cyclobenzaprine] Drug Allergy 10-24-19 24 [facility] (3 sources) Naproxen; Translations: [naproxen] Drug Allergy 11-15-19 25 [facility] (2 sources) cyclobenzaprine; Translations: [cyclobenzaprine HCl] Drug Allergy 11-15-19 25 [facility] (1 source) Naproxen Drug Allergy 11-15-19 25 [facility] (1 source) traMADol Drug Allergy 11-15-19 25 [facility] Medications Current Medications Medication Drug Class(es) [...] disintegrating tablet 4 mg polyethylene glycol 3350 [id number] mg powder for oral solution (2 sources) [...] (1 source) Drug therapy finding; Translations: [Other terminologist (current) drug therapy] Episodic Other gastrointestinal disorders [...] Auto (Unsp spec) [#/Vol] 2.73 10*3/uL 0.83-4.51 [facility] Absolute neutrophil countOrd ered By: David Squires on 11-14-2024 Neutrophils (Bld) [#/Vol] 3.6 10*3/uL 2.0-7.7 [facility] Alcohol, Blood (Medical)-Ser umon 11-14-2024 SERUM ETOH < 10.1 Normal <=10.0 [facility] Comment on above: Result Comment: This test is for medical purposes only. The legal definition of intoxication varies according to local law. Performed By: #### L 500.2500, L501.9100, L505.5000, L100.0100 #### [facility] [address] [place], [place], [id number] Anion gap in Serum or Plasma Ordered By: David Squires on 11-14-2024 Anion gap [Moles/Vol] 10 mmol/L 5-15 [facility] Automated lymphocyte count a s percentage of total leukocytesOrdered By: [facility] Squires on 11-14-2024 Lymphocytes/100 WBC Auto (Unsp spec) 35.5 % 19-41 [facility] BUN/creatinine ratioOrdered By: David Squires on 11-14-2024 Urea nitrogen/Creatinine [Mass ratio] 11.3 mg/mg 10- [facility] Basic Metabolic Profile (BMP )on 11-14-2024 BUN/CRE 11.3 RATIO Normal - [facility] Comment on above: Performed By: #### L 500.2500, L501.9100, L505.5000, L100.0100 #### [facility] [address] [place], [address] Calcium [Mass/Vol] 8.8 mg/dL Normal 7.6-11.0 [facility] Comment on above: Performed By: #### L 500.2500, L501.9100, L505.5000, L100.0100 #### [facility] [address] [place], [address] Chloride [Moles/Vol] 106 mmol/L Normal 98-108 [facility] Comment on above: Performed By: #### L 500.2500, L501.9100, L505.5000, L100.0100 #### [facility] [address] [place], [address] CO2 [Moles/Vol] 25.4 mmol/L Normal 21.0-32.0 [facility] Comment on above: Performed By: #### L 500.2500, L501.9100, L505.5000, L100.0100 #### [facility] [address] [place], [address] Creatinine [Mass/Vol] 0.80 mg/dL Normal 0.70-1.20 [facility] Comment on above: Performed By: #### L 500.2500, L501.9100, L505.5000, L100.0100 #### [facility] [address] [place], [address] ECRCL 141.49 ml/min Normal 50-250 [facility] Comment on above: Performed By: #### L 500.2500, L501.9100, L505.5000, L100.0100 #### [facility] [address] [place], [address] GAP 10 Normal 5-15 [facility] Comment on above: Performed By: #### L 500.2500, L501.9100, L505.5000, L100.0100 #### [facility] [address] [place], [address] GFR/1.73 sq M.predicted among non-blacks MDRD (S/P/Bld) [Vol rate/Area] 116 mL/min/{1.73_m2} Normal >60 [facility] Comment on above: Result Comment: mL/m in/1.73m2 CKD-EPI Creatinine Equation (2020) Performed By: #### L 500.2500, L501.9100, L505.5000, L100.0100 #### [facility] [address] [place], [address] Glucose [Mass/Vol] 110 mg/dL High 70-99 [facility] Comment on above: Performed By: #### L 500.2500, L501.9100, L505.5000, L100.0100 #### [facility] [address] [place], [address] Potassium [Moles/Vol] 3.7 mmol/L Normal 3.3-5.1 [facility] Comment on above: Result Comment: Hemo lysis present, Results??could be affected. ?? Performed By: #### L 500.2500, L501.9100, L505.5000, L100.0100 #### [facility] [address] [place], [address] Sodium [Moles/Vol] 141 mmol/L Normal 133-145 [facility] Comment on above: Performed By: #### L 500.2500, L501.9100, L505.5000, L100.0100 #### [facility] [address] [place], [address] Urea nitrogen [Mass/Vol] 9 mg/dL Normal 4-19 [facility] Comment on above: Performed By: #### L 500.2500, L501.9100, L505.5000, L100.0100 #### [facility] [address] [place], [address] Basophil percentageOrdered B y: Remus Ungur on 11-14-2024 Basophils/100 WBC (Bld) 0.8 % 0-1 [facility] CBC W/Diff, Automatedon 10-20 Absolute Lymph 2.73 X10 3/uL Normal 0.83-4.51 [facility] Comment on above: Performed By: #### L 500.2500, L501.9100, L505.5000, L100.0100 #### [facility] [address] [place], [address] Absolute Neut 3.6 X10 3/uL Normal 2.0-7.7 [facility] Comment on above: Performed By: #### L 500.2500, L501.9100, L505.5000, L100.0100 #### [facility] [address] [place], [address] Basophils/100 WBC (Bld) 0.8 % Normal 0-1 [facility] Comment on above: Performed By: #### L 500.2500, L501.9100, L505.5000, L100.0100 #### [facility] [address] [place], [address] Eosinophils/100 WBC (Bld) 6.1 % High 0-5 [facility] Comment on above: Performed By: #### L 500.2500, L501.9100, L505.5000, L100.0100 #### [facility] [address] [place], [address] Erythrocyte distribution width (RBC) [Ratio] 12.4 % Normal 11.6-14.6 [facility] Comment on above: Performed By: #### L 500.2500, L501.9100, L505.5000, L100.0100 #### [facility] [address] [place], [address] Hematocrit (Bld) [Volume fraction] 42.5 % Normal 40-54 [facility] Comment on above: Performed By: #### L 500.2500, L501.9100, L505.5000, L100.0100 #### [facility] [address] [place], [address] Hemoglobin (Bld) [Mass/Vol] 14.2 g/dL Normal 13.0-16.5 [facility] Comment on above: Performed By: #### L 500.2500, L501.9100, L505.5000, L100.0100 #### [facility] [address] [place], [address] IG% 0.100 Normal 0.0-0.9 [facility] Comment on above: Result Comment: IG% - Immature Granulocytes (promyelocytes, myelocytes and metamyelocytes) > 1% indicates that a LEFT SHIFT is Present. Performed By: #### L 500.2500, L501.9100, L505.5000, L100.0100 #### [facility] [address] [place], [address] Lymphocytes/100 WBC (Bld) 35.5 % Normal 19-41 [facility] Comment on above: Performed By: #### L 500.2500, L501.9100, L505.5000, L100.0100 #### [facility] [address] [place], [address] MCH (RBC) [Entitic mass] 31.3 pg Normal 27.0-32.0 [facility] Comment on above: Performed By: #### L 500.2500, L501.9100, L505.5000, L100.0100 #### [facility] [address] [place], [address] MCHC (RBC) [Mass/Vol] 33.4 g/dL Normal 32-36 [facility] Comment on above: Performed By: #### L 500.2500, L501.9100, L505.5000, L100.0100 #### [facility] [address] [place], [address] MCV (RBC) [Entitic vol] 93.6 fL Normal 80-94 [facility] Comment on above: Performed By: #### L 500.2500, L501.9100, L505.5000, L100.0100 #### [facility] [address] [place], [address] Monocytes/100 WBC (Bld) 10.5 % High 0-10 [facility] Comment on above: Performed By: #### L 500.2500, L501.9100, L505.5000, L100.0100 #### [facility] [address] [place], [address] Neutrophils/100 WBC (Bld) 47.0 % Normal 47-70 [facility] Comment on above: Performed By: #### L 500.2500, L501.9100, L505.5000, L100.0100 #### [facility] [address] [place], [address] Nucleated RBC (Bld) [#/Vol] 0 10*3/uL Normal 0-5 [facility] Comment on above: Performed By: #### L 500.2500, L501.9100, L505.5000, L100.0100 #### [facility] [address] [place], [address] Platelet mean volume (Bld) [Entitic vol] 10.9 fL Normal 6.2-12.0 [facility] Comment on above: Performed By: #### L 500.2500, L501.9100, L505.5000, L100.0100 #### [facility] [address] [place], [address] Platelets (Bld) [#/Vol] 320 10*3/uL Normal 150-450 [facility] Comment on above: Performed By: #### L 500.2500, L501.9100, L505.5000, L100.0100 #### [facility] [address] [place], [address] RBC (Bld) [#/Vol] 4.54 10*6/uL Low 4.6-6.2 [facility] Comment on above: Performed By: #### L 500.2500, L501.9100, L505.5000, L100.0100 #### [facility] [address] [place], [address] RDW SD 43.2 fl Normal 35.1-43.9 [facility] Comment on above: Performed By: #### L 500.2500, L501.9100, L505.5000, L100.0100 #### [facility] [address] [place], [address] WBC (Bld) [#/Vol] 7.7 10*3/uL Normal 4.4-11.0 [facility] Comment on above: Performed By: #### L 500.2500, L501.9100, L505.5000, L100.0100 #### [facility] [address] [place], [address] Carbon dioxide, total [Moles /volume] in Central venous bloodOrdered By: David Squires on 11-14-2024 CO2 [Moles/Vol] 25.4 mmol/L 21.0-32.0 [facility] Chloride assayOrdered By: Tg Squires on 11-14-2024 Chloride [Moles/Vol] 106 mmol/L 98-108 [facility] Emergency Department Summary on 11-14-2024 Emergency Department Summary [facility] Medical Records Department [address] [place] [address] Emergency Department Summary 11/14/24 MR#: [id number] Acct: [id number] Name: GRANT DANIELLE A Rep #: [id number] : 1985 39 From: David Squires DO PCP: Dr. Dom Yanez MD Status:DEP ER Location: ED HPI History of Present Illness Chief Complaint: Syncope Detail of Chief Complaint: Syncope Informant: patient, EMS and police/peoplesoft Narrative Narrative: Patient brought to the emergency department by EMS for possible syncopal episode. Patient was found in a flower bed reported by passerby's and police was called. Patient apparently told police that he was tired and was taking a nap. Patient is homeless. Please give him the option to come to the hospital get checked out or go to care home as apparently he refused to leave at [...] no sens (more content not included)... Normal [facility] Eosinophil percentageOrdered By: David Squires on 11-14-2024 Eosinophils/100 WBC (Bld) 6.1 % High 0-5 [facility] Erythrocyte distribution wid th ratioOrdered By: David Squires on 11-14-2024 Erythrocyte distribution width (RBC) [Ratio] 12.4 % 11.6-14.6 [facility] Erythrocyte distribution wid th standard deviationOrdered By: David Squires on 11-14-2024 Erythrocyte distribution width (RBC) [Ratio] 43.2 fl 35.1-43.9 [facility] Glomerular filtration rate ( GFR) estimation/1.73 sq m using serum, plasma, or whole bOrdered By: David Squires on 11-14-2024 GFR/1.73 sq M.predicted among non-blacks MDRD (S/P/Bld) [Vol rate/Area] 116 mL/min/{1.73_m2} >60 [facility] Comment on above: mL/min/1.73m2 CKD-EP I Creatinine Equation (2020) Hematocrit Auto (Bld) [Volum e fraction]Ordered By: David Squires on 11-14-2024 Hematocrit (Bld) [Volume fraction] 42.5 % 40-54 [facility] Hemoglobin measurementOrdere d By: David Squires on 11-14-2024 Hemoglobin (Bld) [Mass/Vol] 14.2 g/dL 13.0-16.5 [facility] Immature granulocytes/100 WB C Auto (Bld)Ordered By: David Squires on 11-14-2024 Immature granulocytes/100 WBC (Bld) 0.100 % 0.0-0.9 [facility] Comment on above: IG% - Immature Granu locytes (promyelocytes, myelocytes and metamyelocytes) > 1% indicates that a LEFT SHIFT is Present. MCV (mean corpuscular volume ) determinationOrdered By: David Squires on 11-14-2024 MCV (RBC) [Entitic vol] 93.6 fL 80-94 [facility] Mean corpuscular hemoglobin (MCH) determinationOrdered By: Dvaid Squires on 11-14-2024 MCH (RBC) [Entitic mass] 31.3 pg 27.0-32.0 [facility] Mean corpuscular hemoglobin concentration (MCHC) determinationOrdered By: David Squires on 11-14-2024 MCHC (RBC) [Mass/Vol] 33.4 g/dL 32-36 [facility] Mean platelet volume determi nationOrdered By: David Squires on 11-14-2024 Platelet mean volume (Bld) [Entitic vol] 10.9 fL 6.2-12.0 [facility] Monocyte percentageOrdered B y: David Squires on 11-14-2024 Monocytes/100 WBC (Bld) 10.5 % High 0-10 [facility] Neutrophil percentageOrdered By: David Nunezkristyn on 11-14-2024 Neutrophils/100 WBC (Bld) 47.0 % 47-70 [facility] Nucleated red blood cell per centageOrdered By: David Nunezkristyn on 11-14-2024 Nucleated RBC/100 WBC (Bld) [Ratio] 0 % 0-5 [facility] Platelet countOrdered By: Tg srinivas Nunezkristyn on 11-14-2024 Platelets (Bld) [#/Vol] 320 10*3/uL 150-450 [facility] Potassium measurement (mass/ volume)Ordered By: David Nunezkristyn on 11-14-2024 Potassium (Unsp spec) [Mass/Vol] 3.7 mmol/L 3.3-5.1 [facility] Comment on above: Hemolysis present, R esults could be affected. RBC Auto (Bld) [#/Vol]Ordere d By: David Nunezkristyn on 11-14-2024 RBC (Bld) [#/Vol] 4.54 10*6/uL Low 4.6-6.2 [facility] Serum creatinine measurement (mass/volume)Ordered By: David Nunezkristyn on 11-14-2024 Creatinine [Mass/Vol] 0.80 mg/dL 0.70-1.20 [facility] Serum glucose measurement (m ass/volume)Ordered By: David Nunezkristyn on 11-14-2024 Glucose [Mass/Vol] 110 mg/dL High 70-99 [facility] Serum or plasma calcium ivette urement (mass/volume)Ordered By: David Nunezkristyn on 11-14-2024 Calcium [Mass/Vol] 8.8 mg/dL 7.6-11.0 [facility] Serum or plasma ethanol ivette urement (mass/volume)Ordered By: David Nunezkristyn on 11-14-2024 Ethanol [Mass/Vol] mg/dL <10.1 [facility] Comment on above: This test is for med ical purposes only. The legal definition of intoxication varies according to local law. Serum or plasma urea nitroge n measurement (mass/volume)Ordered By: David Squires on 11-14-2024 Urea nitrogen [Mass/Vol] 9 mg/dL 4-19 [facility] Sodium levelOrdered By: Wendy Squires on 11-14-2024 Sodium [Moles/Vol] 141 mmol/L 133-145 [facility] Urine Drug Screen (VISTA)on 11-14-2024 AMPHETAMINES Normal <1000 ng/mL [facility] Comment on above: Result Comment: PT D EPARTED ER OK BY LSPARR Performed By: #### L 500.2500, L501.9100, L505.5000, L100.0100 #### [facility] [address] [place], [address] BARBITIURATES Normal < 200 ng/mL [facility] Comment on above: Result Comment: PT D EPARTED ER OK BY LSPARR Performed By: #### L 500.2500, L501.9100, L505.5000, L100.0100 #### [facility] [address] [facility] [address] BENZODIAZIPINE Normal < 200 ng/mL [facility] Comment on above: Result Comment: PT D EPARTED ER OK BY LSPARR Performed By: #### L 500.2500, L501.9100, L505.5000, L100.0100 #### [facility] [address] [place], [address] BUP Ur Drug Scr Normal < 200 ng/mL [facility] Comment on above: Result Comment: PT D EPARTED ER OK BY LSPARR Performed By: #### L 500.2500, L501.9100, L505.5000, L100.0100 #### [facility] [address] [place], [address] COCAINE Normal < 300 ng/mL [facility] Comment on above: Result Comment: PT D EPARTED ER OK BY LSPARR Performed By: #### L 500.2500, L501.9100, L505.5000, L100.0100 #### [facility] [address] [place], [address] Fentanyl Normal [facility] Comment on above: Result Comment: PT D EPARTED ER OK BY LSPARR Performed By: #### L 500.2500, L501.9100, L505.5000, L100.0100 #### [facility] [address] [place], [address] METHADONE Normal < 300 ng/mL [facility] Comment on above: Result Comment: PT D EPARTED ER OK BY LSPARR Performed By: #### L 500.2500, L501.9100, L505.5000, L100.0100 #### [facility] [address] [place], [address] OPIATES Normal < 300 ng/mL [facility] Comment on above: Result Comment: PT D EPARTED ER OK BY LSPARR Performed By: #### L 500.2500, L501.9100, L505.5000, L100.0100 #### [facility] [address] [place], [address] OXYCODONE Normal < 100 ng/mL [facility] Comment on above: Result Comment: PT D EPARTED ER OK BY LSPARR Performed By: #### L 500.2500, L501.9100, L505.5000, L100.0100 #### [facility] [address] [place], [address] PCP Normal < 25 ng/mL [facility] Comment on above: Result Comment: PT D EPARTED ER OK BY LSPARR Performed By: #### L 500.2500, L501.9100, L505.5000, L100.0100 #### [facility] [address] [place], [address] THC Normal < 50 ng/mL [facility] Comment on above: Result Comment: PT D EPARTED ER OK BY LSPARR Performed By: #### L 500.2500, L501.9100, L505.5000, L100.0100 #### [facility] [address] [place], [address] White blood cell (WBC) count Ordered By: David Squires on 11-14-2024 WBC (Bld) [#/Vol] 7.7 10*3/uL 4.4-11.0 [facility] GRANT DANIELLE ([id number]) 1985 Date Time Provider Department 01/15/24 MERY HIGGINBOTHAM [facility] During your visit today, we recorded the [...] Date Reviewed: 10/20/2022 Reviewed by: Camryn Bruno APRN.[facility] CODER - Fully Assessed Reason for Visit: Appointment [...] Encounter Status:Closed by MERY HIGGINBOTHAM on 01/23/24 [facility] Emergency Department Summary on 01-11-2024 Emergency Department Summary [facility] Medical Records Department [address] [place] [address] Emergency Department Summary 01/11/24 MR#: [id number] Acct: [id number] Name: GRANT DANIELLE Rep #: [id number] : 1985 38 From: David Squires DO [...] and Local Irrigated (ml): 100 Number of Sutures/[place]: 6 Suture Information: Ethilon, Simple and 5-0 [...] laceration Inst (more content not included)... Normal [facility] Emergency Department Summary [facility] Medical Records Department [address] [place] [address] Emergency Department Summary 01/11/24 MR#: [id number] Acct: [id number] Name: GRANT DANIELLE Rep #: [id number] : 1985 38 From: David Squires DO [...] MD [Primary Care Provider] - Print Language: Vietnamese What to do if you have Problems For any increased pain, shortness of breath, bleeding, nausea or vomiting, chest pain, or any unexpected problems, contact your Primary Care Provider. Call [facility] ([phone]) or report to the closest Emergency Room. Call 911 if necessary. 01/12/24 0640 Cosigner Signature (if applicable): CC: Dr. Dom Yanez MD Signed [facility] 36on 01-07-2024 36 Patient does not have a working number, unable to reach. [facility] 36 Rx sent with no refills. Needs to reschedule appointment he no showed to on 12/12/23. Please schedule. [facility] 36 Prescription Request: Last medication check: 10/24/23 Last physical exam: 05/23/23 Last completed appointment: 11/28/23 Next scheduled appointment: none Last date of refill on this medication: 11/14/23 [facility] 36on 12-14-2023 36 Unable to call pt or MyChart pt to reschedule the missed 12/13 - appointment. [facility] 36on 12-12-2023 36 Grant missed the appointment scheduled at [facility] today. This appointment will need to be rescheduled. Pt does not have a phone number on file d/t not having a phone. [facility] Office Visiton 11-28-2023 Follow-up visit [id number] Grant Danielle 1985 M Date Provider Department Center 11/28/2023 [id number] CARSON [facility] Family History Problem Relation Age of Onset Emphysema Mother No Known Problems Father Family Status - Relation Status Age at Mother Father Level of Service:59025 [place] OFFICE/OUTPATIENT ESTABLISHED LOW MDM 20 MIN Reason for Visit and Comments: Anxiety [9] Depression [32] - Bipolar Follow-up [395643] - 2 week [facility] Progress Noteon 11-28-2023 Progress Note Slightly improved on the increased dose of Paxil will give him another 2 weeks and have him come back and see how he is doing. Normal [facility] Progress Note Slightly improved on the increased dose of Paxil will give him another 2 weeks and have him come back and see how he is doing. [facility] Progress Note 11/28/2023 Grant Danielle (: 1985) [...] days. He said he has been in [facility] for the last almost 2 [...] was used to authenticate this note. Abimael aCrson MD 11/28/2023 2:49 PM [facility] Progress Note Patient verified by last name and date of . [facility] Office Visiton 11-14-2023 [place] [id number] [place] 1985 M Date Provider Department Center 11/14/2023 [id number] Problem Relation Age of Onset Emphysema Mother No Known Problems Father Family Status - Relation Status Age at Mother Father Level of Service:27690 [place] OFFICE/OUTPATIENT ESTABLISHED LOW [facility] 20 MIN Reason for Visit and Comments: Anxiety [9] - Getting worse Depression [32] - bipolar Follow-up [400216] - 3 week ER Follow-up [831] - [facility] 11/12/23- pt is asking maybe to try rehab facility [facility] Progress Noteon 11-14-2023 Progress Note 11/14/2023 Grant Danielle (: 1985) is a 38 y.o. male , Established patient, here for evaluation of the following chief complaint(s): Anxiety (Getting worse ), Depression (bipolar), Follow-up (3 week ), and ER Follow-up ([facility] 11/12/23- pt is asking maybe to try rehab facility ) ASSESSMENT/PLAN: 1. Bipolar affective disorder, currently depressed, moderate ([facility]) Assessment & Plan: We will increase his [...] note. Abimael Carson MD 11/14/2023 10:03 AM [facility] Progress Note Patient verified by last name and date of . Normal [facility] Progress Note Currently active we will increase his Paxil to 40 mg daily and follow-up in 2 weeks. Normal [facility] Progress Note We will increase his Paxil to 40 mg, new Rx sent he is to follow-up in 2 weeks and at that time we will consider adding a mood stabilizer. [facility] 36on 11-13-2023 36 Patient notified [facility] 36 He needs to file a police report bring us a copy of it and then we can send in a prescription for enough pills till he can get his refill filled. [facility] 36 Patient stopped in and said his pills were stolen and there were about 10 left. States he was unsure if he should file a police report or if there is anything that we can do? [facility] ECG 12-LEADon 11-12-2023 ECG 12-LEAD IMPRESSION: Sinus rhythm RSR' in V1 When compared to 07/20/2023 there has been no significant change Electronically Signed On 11-12-2023 16:35:16 EDT by Shane Zamarripa [facility] ED Nursing Noteon 11-12-2023 ED Nursing Note This nurse to patient's room to give him discharge papers. Patient became angry and aggressive stating he doesn't want to leave. Patient screaming obscenities to this nurse, physician and director of physical security. Patient making claims that he shit himself [...] back to get shoesyelling more obscenities at director of physical security. This nurse then called 911 and made a report with [place] police informing them the patient is currently walking down [facility] and to be on the lookout for patient as he is extremely aggressive and violent. Dasha Delarosa RN 11/12/23 5356 [facility] ED Nursing Note Patient arrived via squad to room 6. Patient ambulated from [facility] to ED bed without difficulty. Medics state patient was found passed out behind an air conditioning unit and a 3rd democrat called EMS. Patient states he had an anxiety attack 2 hrs prior to passing out. Patient states he is constantly depressed because he is homeless. Patient states he is supposed to be on medication but has not taken any for the past 3 days. Patient verbally aggressive and rude to staff during triage. [facility] ED Provider Noteon ED Provider Note EMERGENCY [...] Depression PTSD (post-traumatic stress disorder) Substance abuse ([facility]) ([facility]) TBI (traumatic brain injury) ([facility]) SURGICAL HISTORY History reviewed. No pertinent surgical [...] differential diagnos (more content not included)... Normal [facility] No Panel Informationon 11-11 P Warden 36 degrees [facility] [place] Interval 120 ms [facility] QRS Warden 69 degrees [facility] QRSD Interval 106 ms [facility] QT Interval 379 ms [facility] QTC Interval 423 ms [facility] T Wave Warden 66 degrees [facility] Sinus rhythm RSR' in V1 When compared to 07/20/2023 there has been no significant change Electronically Signed On 11-12-2023 16:35:16 EDT by Shane Zamarripa Shane Pollock MD - 11/12/2023 IMPRESSION: Sinus rhythm RSR' in V1 When compared to 07/20/2023 there has been no significant change Electronically Signed On 11-12-2023 16:35:16 EDT by Shane Zamarripa [facility] Vital signson 11-12-2023 Heart rate 75 /min bpm [facility] Progress Noteon 11-09-2023 Progress Note Chart reviewed of ED follow up Seen in [facility] ED on 11/06/23 Reason: Drug Overdose Discharge instructions: Follow up with Abimael Carson MD Patient has appointment scheduled with PCP on 11/14/23. Normal [facility] ED Nursing Noteon 11-07-2023 ED Nursing Note Steady gait out of ER Ca Will RN 11/07/23 0725 Normal [facility] ED Nursing Note Steady gait to bathroom. Returned to room and advised that is free to leave. Asking where his belongings are-advised that everything he came with is in the room. Has socks, shoes, shorts, shirt Ca Will RN 11/07/23 0725 Normal [facility] CBC W Auto Differential pane l (Bld)on 11-06-2023 Basophils (Bld) [#/Vol] 0.1 10*3/uL 0.0 - 0.2 10*3/uL [facility] Basophils/100 WBC (Bld) 1.1 % 0.0 - 2.0 % [facility] Eosinophils (Bld) [#/Vol] 0.2 10*3/uL 0.0 - 0.5 10*3/uL [facility] Eosinophils/100 WBC (Bld) 2.8 % 0.0 - 6.0 % [facility] Erythrocyte distribution width (RBC) [Ratio] 13.8 % 11.5 - 15.0 % [facility] Hematocrit (Bld) [Volume fraction] 44.0 % 40.0 - 52.0 % [facility] Hemoglobin (Bld) [Mass/Vol] 14.7 g/dL 13.0 - 18.0 g/dL [facility] Immature granulocytes (Bld) [#/Vol] 0.0 10*3/uL NINF - 0.1 10*3/uL [facility] Immature granulocytes/100 WBC (Bld) 0.1 % 0.0 - 2.0 % [facility] Interpretation and review of laboratory results Normal [facility] Lymphocytes (Bld) [#/Vol] 3.1 10*3/uL 1.0 - 4.3 10*3/uL [facility] Lymphocytes/100 WBC (Bld) 41.2 % 15.0 - 45.0 % [facility] MCH (RBC) [Entitic mass] 31.8 pg 26.0 - 34.0 pg [facility] MCHC (RBC) [Mass/Vol] 33.4 % 30.5 - 36.0 % [facility] MCV (RBC) [Entitic vol] 95.2 fL 77.0 - 99.0 fL [facility] Monocytes (Bld) [#/Vol] 0.7 10*3/uL 0.0 - 0.9 10*3/uL [facility] Monocytes/100 WBC (Bld) 9.1 % 5.0 - 13.0 % [facility] Neutrophils (Bld) [#/Vol] 3.5 10*3/uL 1.8 - 7.5 10*3/uL [facility] Neutrophils/100 WBC (Bld) 45.7 % 38.0 - 82.0 % [facility] Nucleated RBC/100 WBC (Bld) [Ratio] 0.0 % [facility] Platelet mean volume (Bld) [Entitic vol] 9.9 fL 9.0 - 12.7 fL [facility] Comment on above: MPV is a calculated measurement using platelet volume ratio Platelets (Bld) [#/Vol] 381 10*3/uL 140 - 440 10*3/uL [facility] RBC (Bld) [#/Vol] 4.62 10*6/uL 4.40 - 5.9 0 10*6/uL [facility] WBC (Bld) [#/Vol] 7.6 10*3/uL 3.6 - 10.7 10*3/uL [facility] CBC WITH AUTO DIFFERENTIALon 11-06-2023 Basophils (Bld) [#/Vol] 0.1 10*3/uL Normal 0.0-0.2 [facility] Comment on above: Performed By: #### L [id number] ####Communication Spec: JERARDO NICHOLE ([id number])[facility] GAYLA RITTMAN (SWRLAB)[address] [place] [address] [place] Basophils/100 WBC (Bld) 1.1 % Normal 0.0-2.0 [facility] Comment on above: Performed By: #### L [id number] ####Communication Spec: JERARDO NICHOLE ([id number])[facility] GAYLA RITTMAN (SWRLAB)[address] [place] [address] [place] Eosinophils (Bld) [#/Vol] 0.2 10*3/uL Normal 0.0-0.5 [facility] Comment on above: Performed By: #### L [id number] ####Communication Spec: JERARDO NICHOLE ([id number])[facility] GAYLA RITTMAN (SWRLAB)[address] [place] [address] [place] Eosinophils/100 WBC (Bld) 2.8 % Normal 0.0-6.0 [facility] Comment on above: Performed By: #### L [id number] ####Communication Spec: JERARDO NICHOLE ([id number])[facility] GAYLA RITTMAN (SWRLAB)[address] [place] [address] Erythrocyte distribution width (RBC) [Ratio] 13.8 % Normal 11.5-15.0 [facility] Comment on above: Performed By: #### L [id number] ####Communication Spec: JERARDO NICHOLE ([id number])[facility]ash SHUKLA RITTMAN (SWRLAB)[address] [place] [address] Hematocrit (Bld) [Volume fraction] 44.0 % Normal 40.0-52.0 [facility] Comment on above: Performed By: #### L [id number] ####Communication Spec: JERARDO NICHOLE ([id number])[facility] SHUKLA RITTMAN (SWRLAB)[address] [place] [address] Hemoglobin (Bld) [Mass/Vol] 14.7 g/dL Normal 13.0-18.0 [facility] Comment on above: Performed By: #### L [id number] ####Communication Spec: JERARDO NICHOLE ([id number])[facility] SHUKLA RITTMAN (SWRLAB)[address] [place] [address] IMMATURE GRANS % 0.1 % Normal 0.0-2.0 [facility] Comment on above: Performed By: #### L [id number] ####Communication Spec: JERARDO NICHOLE ([id number])[facility]ITAL[facility] SHUKLA RITTMAN (SWRLAB)[address] [place] [address] IMMATURE GRANS ABSOLUTE 0.0 10*3/uL Normal <0.1 [facility] Comment on above: Performed By: #### L [id number] ####Communication Spec: JERARDO NICHOLE ([id number])[facility]ITAL[facility] SHUKLA RITTMAN (SWRLAB)[address] [place] [address] [place] Lymphocytes (Bld) [#/Vol] 3.1 10*3/uL Normal 1.0-4.3 [facility] Comment on above: Performed By: #### L [id number] ####Communication Spec: JERARDO NICHOLE ([id number])JEANNA SHUKLA RITTMAN (SWRLAB)[address] [place] [address] [place] Lymphocytes/100 WBC (Bld) 41.2 % Normal 15.0-45.0 [facility] Comment on above: Performed By: #### L [id number] ####Communication Spec: JERARDO NICHOLE ([id number])JEANNA SHUKLA RITTMAN (SWRLAB)[address] [place] [address] MCH (RBC) [Entitic mass] 31.8 pg Normal 26.0-34.0 [facility] Comment on above: Performed By: #### L [id number] ####Communication Spec: JERARDO NICHOLE ([id number])[facility]ITAL[facility] SHUKLA RITTMAN (SWRLAB)[address] [place] [address] MCHC 33.4 % Normal 30.5-36.0 [facility] Comment on above: Performed By: #### L [id number] ####Communication Spec: JERARDO NICHOLE ([id number])[facility]ITAL[facility] SHUKLA RITTMAN (SWRLAB)[address] [place] [address] [place] MCV (RBC) [Entitic vol] 95.2 fL Normal 77.0-99.0 [facility] Comment on above: Performed By: #### L [id number] ####Communication Spec: JERARDO NICHOLE ([id number])[facility]ITAL[facility] SHUKLA RITTMAN (SWRLAB)[address] [place] [address] [place] Monocytes (Bld) [#/Vol] 0.7 10*3/uL Normal 0.0-0.9 [facility] Comment on above: Performed By: #### L [id number] ####Communication Spec: JERARDO NICHOLE ([id number])[facility]ITAL[facility] SHUKLA RITTMAN (SWRLAB)[address] [place] [address] [place] Monocytes/100 WBC (Bld) 9.1 % Normal 5.0-13.0 [facility] Comment on above: Performed By: #### L [id number] ####Communication Spec: JERARDO NICHOLE ([id number])[facility]ITAL[facility] SHUKLA RITTMAN (SWRLAB)[address] [place] [address] [place] NEUTROPHILS ABSOLUTE 3.5 10*3/uL Normal 1.8-7.5 [facility] Comment on above: Performed By: #### L [id number] ####Communication Spec: JERARDO NICHOLE ([id number])JEANNA SHUKLA RITTMAN (SWRLAB)[address] [place] [address] Neutrophils/100 WBC (Bld) 45.7 % Normal 38.0-82.0 [facility] Comment on above: Performed By: #### L [id number] ####Communication Spec: JERARDO NICHOLE ([id number])JEANNA SHUKLA RITTMAN (SWRLAB)[address] [place] [address] NRBC 0.0 /100 WBCs Normal 0.0-2.0 [facility] Comment on above: Performed By: #### L [id number] ####Communication Spec: JERARDO NICHOLE ([id number])[facility]ITAL[facility]ash SHUKLA RITTMAN (SWRLAB)[address] [place] [address] Platelet mean volume (Bld) [Entitic vol] 9.9 fL Normal 9.0-12.7 [facility] Comment on above: Result Comment: MPV is a calculated measurement using platelet volume ratio Performed By: #### L [id number] ####Communication Spec: JERARDO NICHOLE ([id number])[facility]ITAL[facility] SHUKLA RITTMAN (SWRLAB)[address] [place] [address] [place] Platelets (Bld) [#/Vol] 381 10*3/uL Normal 140-440 [facility] Comment on above: Performed By: #### L [id number] ####Communication Spec: JERARDO NICHOLE ([id number])[facility]ITAL[facility] SHUKLA RITTMAN (SWRLAB)[address] [place] [address] [place] RBC (Bld) [#/Vol] 4.62 10*6/uL Normal 4.40-5.90 [facility] Comment on above: Performed By: #### L [id number] ####Communication Spec: JERARDO NICHOLE ([id number])[facility]ITAL[facility] SHUKLA RITTMAN (SWRLAB)[address] [place] [address] WBC (Bld) [#/Vol] 7.6 10*3/uL Normal 3.6-10.7 [facility] Comment on above: Performed By: #### L [id number] ####Communication Spec: JERARDO NICHOLE ([id number])[facility]ITALNash SHUKLA RITTMAN (SWRLAB)[address] CKon 11-06-2023 CK [Catalytic activity/Vol] 269 U/L High 30-170 [facility] Comment on above: Performed By: #### Rea KEMP46, LAB17, LAB62 ####Communication Spec: JERARDO NICHOLE ([id number])[facility]ITALNash SHUKLA RITTMAN (SWRLAB)[address] [place] [address] COMPREHENSIVE METABOLIC PANE Chavo 11-06-2023 Albumin [Mass/Vol] 4.0 g/dL Normal 3.5-5.0 [facility] Comment on above: Performed By: #### Rea KEMP46, LAB17, LAB62 ####Communication Spec: JERARDO NICHOLE ([id number])[facility]ITALN[facility] SHUKLA RITTMAN (SWRLAB)[address] [place] [address] ALP [Catalytic activity/Vol] 114 U/L Normal 38-126 [facility] Comment on above: Performed By: #### L AB46, LAB17, LAB62 ####Communication Spec: JERARDO NICHOLE ([id number])[facility]ITAL[facility] SHUKLA RITTMAN (SWRLAB)[address] ALT [Catalytic activity/Vol] 35 U/L Normal 0-49 [facility] Comment on above: Performed By: #### Rea AB46, LAB17, LAB62 ####Communication Spec: JERARDO NICHOLE ([id number])[facility]ITAL[facility] SHUKLA RITTMAN (SWRLAB)[address] [place] [address] [place] Anion gap [Moles/Vol] 12 mmol/L Normal 3-13 [facility] Comment on above: Performed By: #### L AB46, LAB17, LAB62 ####Communication Spec: JERARDO NICHOLE ([id number])[facility]ITAL[facility] SHUKLA RITTMAN (SWRLAB)[address] [place] [address] [place] AST [Catalytic activity/Vol] 51 U/L High 15-46 [facility] Comment on above: Performed By: #### Rea KEMP46, LAB17, LAB62 ####Communication Spec: JERARDO NICHOLE ([id number])[facility]ITAL[facility] SHUKLA RITTMAN (SWRLAB)[address] Bilirubin [Mass/Vol] 0.5 mg/dL Normal 0.2-1.3 [facility] Comment on above: Performed By: #### Rea VICENTE, LAB17, LAB62 ####Communication Spec: JERARDO NICHOLE ([id number])[facility]ITAL[facility] SHUKLA RITTMAN (SWRLAB)[address] [place] [address] [place] Calcium [Mass/Vol] 8.6 mg/dL Normal 8.4-10.4 [facility] Comment on above: Performed By: #### Rea KEMP46, LAB17, LAB62 ####Communication Spec: JERARDO NICHOLE ([id number])[facility]ITAL[facility] SHUKLA RITTMAN (SWRLAB)[address] [place] [address] [place] Chloride [Moles/Vol] 102 mmol/L Normal 98-107 [facility] Comment on above: Performed By: #### Rea KEMP46, LAB17, LAB62 ####Communication Spec: JERARDO NICHOLE ([id number])[facility]ITAL[facility] SHUKLA RITTMAN (SWRLAB)[address] [place] [address] [place] CO2 [Moles/Vol] 23 mmol/L Normal 22-30 [facility] Comment on above: Performed By: #### L AB46, LAB17, LAB62 ####Communication Spec: JERAROD NICHOLE ([id number])[facility]ITAL[facility] SHUKLA RITTMAN (SWRLAB)[address] [place] [address] [place] Creatinine [Mass/Vol] 0.85 mg/dL Normal 0.66-1.25 [facility] Comment on above: Performed By: #### Rea AB46, LAB17, LAB62 ####Communication Spec: JERARDO NICHOLE ([id number])[facility]ITALN[facility] SHUKLA RITTMAN (SWRLAB)[address] [place] [address] GLOMERULAR FILTRATION RATE ML/MIN/1.73 SQ M.PREDICTED >90.0 Normal >60.0 [facility] Comment on above: Result Comment: Calc ulation based on the Chronic Kidney Disease Epidemiology Collaboration (CKD-EPI) equation refit without adjustment for race Performed By: #### Rea VICENTE, LAB17, LAB62 ####Communication Spec: JERARDO NICHOLE ([id number])[facility]ITAL[facility] SHUKLA RITTMAN (SWRLAB)[address] [place] [address] [place] Glucose [Mass/Vol] 197 mg/dL High 70-100 [facility] Comment on above: Performed By: #### Rea KEMP46, LAB17, LAB62 ####Communication Spec: JERARDO NICHOLE ([id number])[facility]ITAL[facility] SHUKLA RITTMAN (SWRLAB)[address] [place] [address] [place] Potassium [Moles/Vol] 3.2 mmol/L Low 3.5-5.1 [facility] Comment on above: Performed By: #### Rea AB46, LAB17, LAB62 ####Communication Spec: JERARDO NICHOLE ([id number])[facility]ITAL[facility] SHUKLA RITTMAN (SWRLAB)[address] [place] [address] [place] Protein [Mass/Vol] 6.8 g/dL Normal 6.3-8.2 [facility] Comment on above: Performed By: #### Rea AB46, LAB17, LAB62 ####Communication Spec: JERARDO NICHOLE ([id number])SUMMNash SHUKLA RITTMAN (SWRLAB)[address] Sodium [Moles/Vol] 137 mmol/L Normal 135-145 [facility] Comment on above: Performed By: #### L AB46, LAB17, LAB62 ####Communication Spec: JERARDO NICHOLE ([id number])[facility]ITALGAYLA NILESHTMAN (SWRLAB)[address] Urea nitrogen [Mass/Vol] 13 mg/dL Normal 9-20 [facility] Comment on above: Performed By: #### L AB46, LAB17, LAB62 ####Communication Spec: JERARDO NICHOLE ([id number])[facility]OSPITALGAYLA REBECCAAN (SWRLAB)[address] Comprehensive metabolic 1998 panelon 11-06-2023 Albumin [Mass/Vol] 4.0 g/dL 3.5 - 5.0 g/dL [facility] ALP [Catalytic activity/Vol] 114 U/L 38 - 126 U/L [facility] ALT [Catalytic activity/Vol] 35 U/L 0 - 49 U/L [facility] Anion gap [Moles/Vol] 12 mmol/L 3 - 13 mmol/L [facility] AST [Catalytic activity/Vol] 51 U/L High 15 - 46 U/L [facility] Bilirubin [Mass/Vol] 0.5 mg/dL 0.2 - 1 .3 mg/dL [facility] Calcium [Mass/Vol] 8.6 mg/dL 8.4 - 10. 4 mg/dL [facility] Chloride [Moles/Vol] 102 mmol/L 98 - 10 7 mmol/L [facility] CO2 [Moles/Vol] 23 mmol/L 22 - 30 mmol/L [facility] Creatinine [Mass/Vol] 0.85 mg/dL 0.66 - 1.25 mg/dL [facility] GFR/1.73 sq M.predicted MDRD (S/P/Bld) [Vol rate/Area] - PINF [facility] Comment on above: Calculation based on the Chronic Kidney Disease Epidemiology Collaboration (CKD-EPI) equation refit without adjustment for race Glucose [Mass/Vol] 197 mg/dL High 70 - 100 mg/dL [facility] Potassium [Moles/Vol] 3.2 mmol/L Low 3.5 - 5.1 mmol/L [facility] Protein [Mass/Vol] 6.8 g/dL 6.3 - 8.2 g/dL [facility] Sodium [Moles/Vol] 137 mmol/L 135 - 145 mmol/L [facility] Urea nitrogen [Mass/Vol] 13 mg/dL 9 - 20 mg/d L [facility] ED Nursing Noteon 11-06-2023 ED Nursing Note Glucose 209, SPO2 decreased to 2 liters Normal [facility] ED Nursing Note Pt sleeping soundly. Pt [...] VSS, pt remains NSR on monitor Normal [facility] ED Nursing Note Pt arouses to voice. Pt positioned for comfort. VSS Normal [facility] ED Nursing Note Pt awake and alert. Pt given dc instructions and follow up care. Pt verbalizes understanding. IV dc'd, cannula intact. Pt waiting for ride home in [facility] Normal [facility] ED [facility] Note [facility]. Pt was found on the ground w pinpoint pupils per ems. Narcan 8mg given intranasal precinct police captain. Pt arouses w painful stimuli upon arrival. Pt admits to using heroin and meth. Pupils 3mm, equal and reactive. Pt remains drowsy. Narcan 4mg given intranasal upon arrival. IV started, labs drawn. Pt placed on tele, pt NSR in the 80's. Pt on 6L O2 via nasal cannula Normal [facility] ED Provider Noteon ED Provider Note EMERGENCY [...] PTSD (post-traumatic stress disorder) Substance abuse (CMS/HCC) ([facility]) TBI (traumatic brain injury) ([facility]) SURGICAL HISTORY No past surgical history on [...] DIFFERENTIAL DIAGNOSI (more content not included)... Normal [facility] ETHANOLon 11-06-2023 ETHANOL IN SER/PLAS <0.010 Normal 0.000-0.010 [facility] Comment on above: Result Comment: ORDE R COMMENTS: NOTE: This result is for medical treatment only. Analysis performed using non-forensic procedures. Performed By: #### L AB46, LAB17, LAB62 ####Communication Spec: JERARDO NICHOLE ([id number])[facility] GAYLA GALLOWAYMURPHY (SWRLAB)[address] [place] [address] Ethanol (Bld) [Mass/Vol]on 0 11-06-2023 Ethanol [Mass/Vol] g/dL 0.000 - 0 .010 g/dL [facility] Interpretation and review of laboratory results Normal [facility] Laboratory - Chemistry and C hemistry - challengeon 11-06-2023 CK [Catalytic activity/Vol] 269 U/L High 30 - 170 U/L [facility] No Panel Informationon 11-05 Interpretation and review of laboratory results Abnormal [facility] Office Visiton 10-24-2023 Follow-up visit [id number] Grant Danielle 1985 M Date Provider Department Center 10/24/2023 [id number]-ESLMYYABIMAEL [facility] Family History Problem Relation Age of Onset Emphysema Mother No Known Problems Father Family Status - Relation Status Age at Mother Father Level of Service:03683 [place] OFFICE/OUTPATIENT ESTABLISHED MOD MDM 30 MIN Reason for Visit and Comments: Transitional Care Management Outreach [31011] Hospital Follow-up [832] - [facility] 10/17-10/19/23 Cellulitis RLE pt states he was not sent home with anything Abdominal Pain [437931] - Thought from coffee and dairy -stopped both of them and still having pain Diarrhea - all the time Medication Adherence [893] - Pt is currently on no medications for psychiatric issues Normal [facility] Progress Noteon 10-24-2023 Progress Note Prescription for Imodium to be used as directed. Normal [facility] Progress Note Uncontrolled, Paxil 20 mg daily Normal [facility] Progress Note Uncontrolled, we will start him on Paxil 20 mg daily and he is to follow-up with his counselor MARIAMA. Normal [facility] Progress Note Patient verified by last name and date of . Normal [facility] Progress Note 10/24/2023 Grant Danielle (: 1985) is a 38 y.o. male , Established patient, here for evaluation of the following chief complaint(s): Transitional Care Management Outreach, Hospital Follow-up ([facility] 10/17-10/19/23/Celluli therese RLE pt states [...] Abimael Carson MD 10/24/2023 12:57 PM Normal [facility] 36on 10-23-2023 36 Complexity of Follow up: [] Moderate Complexity: follow up within 7-14 calendar days (36485) [x] Severe Complexity: follow up within 7 calendar days (72795) Follow up Testing, Pending results or Referrals [...] above time frame. Yes, 10/24/23 10am. Normal [facility] BUPRENORPHINE SCREENon 10-18 BUPRENORPHINE SCREEN-BUPR Negative Normal Negative [facility] Comment on above: Result Comment: SONYA Canela COMMENTS: Buprenorphine (Suboxone) has been screened for by Immunoassay at 5 ng/mL threshold. POSITIVE results are not confirmed by a more specific alternative method unless requested. If confirmation is needed, request confirmation under separate order. NOTE: These results are for medical treatment only. Analysis performed using non-forensic procedures. Performed By: #### L [id number] #### Communication Spec: JAROD ESPOSITO ([id number]) [facility] ([facility]) [address] [place], [place] [id number] [facility] C. DIFFICILE BY PCR WITH REF KIRSTEN TO EIAon 10-19-2023 C. DIFFICILE BY PCR WITH REFLEX TO EIA C. DIFFICILE TOXIN PCR Reference Not Detected Not Detected ORDER COMMENTS: C. difficile infection is unlikely to be present. Methodology: Real-time PCR Normal [facility] Comment on above: Performed By: #### L [id number] #### Communication Spec: JERARDO NICHOLE ([id number]) [facility] ([facility]) [address] [place] [address] C. difficile toxin genes TRUONG +probe Ql (Stl)on 10-19-2023 C. difficile toxin B tcdB gene TRUONG+probe Ql (Stl) Not detected Not Detected [facility] Interpretation and review of laboratory results Normal [facility] C. difficile infection is unlikely to be present. Methodology: Real-time PCR [facility] for homeless. Notified in rounds this morning, patient has signed out AMA. Normal [facility] CBC W Auto Differential pane l (Bld)on 10-19-2023 Basophils (Bld) [#/Vol] 0.0 10*3/uL 0.0 - 0.2 10*3/uL [facility] Basophils/100 WBC (Bld) 0.3 % 0.0 - 2.0 % [facility] Eosinophils (Bld) [#/Vol] 0.8 10*3/uL High 0.0 - 0.5 10*3/uL [facility] Eosinophils/100 WBC (Bld) 7.0 % High 0.0 - 6.0 % [facility] Erythrocyte distribution width (RBC) [Ratio] 13.2 % 11.5 - 15.0 % [facility] Hematocrit (Bld) [Volume fraction] 42.6 % 40.0 - 52.0 % [facility] Hemoglobin (Bld) [Mass/Vol] 14.4 g/dL 13.0 - 18.0 g/dL [facility] Immature granulocytes (Bld) [#/Vol] 0.0 10*3/uL NINF - 0.1 10*3/uL [facility] Immature granulocytes/100 WBC (Bld) 0.3 % 0.0 - 2.0 % [facility] Interpretation and review of laboratory results Abnormal [facility] Lymphocytes (Bld) [#/Vol] 1.9 10*3/uL 1.0 - 4.3 10*3/uL [facility] Lymphocytes/100 WBC (Bld) 15.9 % 15.0 - 45.0 % [facility] MCH (RBC) [Entitic mass] 32.0 pg 26.0 - 34.0 pg [facility] MCHC (RBC) [Mass/Vol] 33.8 % 30.5 - 36.0 % [facility] MCV (RBC) [Entitic vol] 94.7 fL 77.0 - 99.0 fL [facility] Monocytes (Bld) [#/Vol] 0.5 10*3/uL 0.0 - 0.9 10*3/uL [facility] Monocytes/100 WBC (Bld) 4.1 % Low 5.0 - 13.0 % [facility] Neutrophils (Bld) [#/Vol] 8.4 10*3/uL High 1.8 - 7.5 10*3/uL [facility] Neutrophils/100 WBC (Bld) 72.4 % 38.0 - 82.0 % [facility] Nucleated RBC/100 WBC (Bld) [Ratio] 0.0 % [facility] Platelet mean volume (Bld) [Entitic vol] 10.6 fL 9.0 - 12.7 fL [facility] Platelets (Bld) [#/Vol] 310 10*3/uL 140 - 440 10*3/uL [facility] RBC (Bld) [#/Vol] 4.50 10*6/uL 4.40 - 5.9 0 10*6/uL [facility] WBC (Bld) [#/Vol] 11.7 10*3/uL High 3.6 - 10.7 10*3/uL [facility] CBC WITH AUTO DIFFERENTIALon 10-19-2023 Basophils (Bld) [#/Vol] 0.0 10*3/uL Normal 0.0-0.2 [facility] Comment on above: Performed By: #### L [id number] ####Communication Spec: JAROD ESPOSITO ([id number])[facility] [place], [place] [id number] [facility] Basophils/100 WBC (Bld) 0.3 % Normal 0.0-2.0 S [facility] Comment on above: Performed By: #### L [id number] ####Communication Spec: JAROD ESPOSITO ([id number])[facility]A [facility] (SB[facility])[address] Eosinophils (Bld) [#/Vol] 0.8 10*3/uL High 0.0-0.5 [facility] Comment on above: Performed By: #### L [id number] ####Communication Spec: JAROD TOVARLINDA ([id number])[facility]A [facility] (SB[facility])[address] Eosinophils/100 WBC (Bld) 7.0 % High 0.0-6.0 [facility] Comment on above: Performed By: #### L [id number] ####Communication Spec: JAROD TOVARLINDA ([id number])[facility] ([facility])[address] [place] [address] Erythrocyte distribution width (RBC) [Ratio] 13.2 % Normal 11.5-15.0 [facility] Comment on above: Performed By: #### L [id number] ####Communication Spec: JAROD TOVARLINDA ([id number])[facility] ([facility])[address] [place] [address] Hematocrit (Bld) [Volume fraction] 42.6 % Normal 40.0-52.0 [facility] Comment on above: Performed By: #### L [id number] ####Communication Spec: JAROD ESPOSITO ([id number])[facility] ([facility])[address] [place] [address] Hemoglobin (Bld) [Mass/Vol] 14.4 g/dL Normal 13.0-18.0 [facility] Comment on above: Performed By: #### L [id number] ####Communication Spec: JAROD ESPOSITO ([id number])[facility] ([facility])[address] IMMATURE GRANS % 0.3 % Normal 0.0-2.0 [facility] Comment on above: Performed By: #### L [id number] ####Communication Spec: JAROD ESPOSITO ([id number])[facility]ITALNash GALANSandra (SBHLAB)[address] IMMATURE GRANS ABSOLUTE 0.0 10*3/uL Normal <0.1 [facility] Comment on above: Performed By: #### L [id number] ####Communication Spec: JAROD TOVARLINDA ([id number])[facility]ITALNash [facility] (SBHLAB)[address] Lymphocytes (Bld) [#/Vol] 1.9 10*3/uL Normal 1.0-4.3 [facility] Comment on above: Performed By: #### L [id number] ####Communication Spec: JAROD TOVARLINDA ([id number])[facility]ITALN[facility] (SBHLAB)[address] Lymphocytes/100 WBC (Bld) 15.9 % Normal 15.0-45.0 [facility] Comment on above: Performed By: #### L [id number] ####Communication Spec: JAROD TOVARLINDA ([id number])[facility]ITALN[facility]andra (SBHLAB)[address] MCH (RBC) [Entitic mass] 32.0 pg Normal 26.0-34.0 [facility] Comment on above: Performed By: #### L [id number] ####Communication Spec: JAROD ESPOSITO ([id number])[facility]ITALNash SELLERSANDREW (SBHLAB)[address] MCHC 33.8 % Normal 30.5-36.0 [facility] Comment on above: Performed By: #### L [id number] ####Communication Spec: JAROD ESPOSITO ([id number])[facility]ITALNash SELLERSANDREW (SBHLAB)[address] MCV (RBC) [Entitic vol] 94.7 fL Normal 77.0-99.0 S [facility] Comment on above: Performed By: #### L [id number] ####Communication Spec: JAROD ESPOSITO ([id number])[facility] (SB[facility])[address] Monocytes (Bld) [#/Vol] 0.5 10*3/uL Normal 0.0-0.9 [facility] Comment on above: Performed By: #### L [id number] ####Communication Spec: JAROD ESPOSITO ([id number])[facility]A [place] (SBHLAB)[address] Monocytes/100 WBC (Bld) 4.1 % Low 5.0-13.0 [facility] Comment on above: Performed By: #### L [id number] ####Communication Spec: JAROD ESPOSITO ([id number])[facility] [place] (SBHL[facility])[address] NEUTROPHILS ABSOLUTE 8.4 10*3/uL High 1.8-7.5 [facility] Comment on above: Performed By: #### L [id number] ####Communication Spec: JAROD ESPOSITO ([id number])[facility] [place] (SB[facility])[address] Neutrophils/100 WBC (Bld) 72.4 % Normal 38.0-82.0 [facility] Comment on above: Performed By: #### L [id number] ####Communication Spec: JAROD ESPOSITO ([id number])[facility]A [place] (SB[facility])[address] [place] [address] [place] NRBC 0.0 /100 WBCs Normal 0.0-2.0 [facility] Comment on above: Performed By: #### L [id number] ####Communication Spec: JAROD ESPOSITO ([id number])[facility] [place] ([facility])[address] Platelet mean volume (Bld) [Entitic vol] 10.6 fL Normal 9.0-12.7 [facility] Comment on above: Performed By: #### L [id number] ####Communication Spec: JAROD ESPOSITO ([id number])[facility] ([facility])[address] Platelets (Bld) [#/Vol] 310 10*3/uL Normal 140-440 [facility] Comment on above: Performed By: #### L [id number] ####Communication Spec: JAROD ESPOSITO ([id number])[facility] [place] (SB[facility])[address] RBC (Bld) [#/Vol] 4.50 10*6/uL Normal 4.40-5.90 [facility] Comment on above: Performed By: #### L [id number] ####Communication Spec: JAROD ESPOSITO ([id number])[facility] [place] (SB[facility])[address] WBC (Bld) [#/Vol] 11.7 10*3/uL High 3.6-10.7 [facility] Comment on above: Performed By: #### L [id number] ####Communication Spec: JAROD ESPOSITO ([id number])[facility]A [facility] (SB[facility]AB)[address] COMPREHENSIVE METABOLIC PANE Chavo 10-19-2023 Albumin [Mass/Vol] 3.0 g/dL Low 3.5-5.0 [facility] Comment on above: Performed By: #### L [id number] ####Communication Spec: JAROD ESPOSITO ([id number])[facility]A [facility]N (SBHLAB)[address] ALP [Catalytic activity/Vol] 86 U/L Normal 38-126 [facility] Comment on above: Performed By: #### L [id number] ####Communication Spec: JAROD ESPOSITO ([id number])[facility]A [facility]N (SBHLAB)[address] ALT [Catalytic activity/Vol] 20 U/L Normal 0-49 [facility] Comment on above: Performed By: #### L [id number] ####Communication Spec: JAROD ESPOSITO ([id number])[facility] [place] (SB[facility])[address] Anion gap [Moles/Vol] 9 mmol/L Normal 3-13 [facility] Comment on above: Performed By: #### L [id number] ####Communication Spec: JAROD ESPOSITO ([id number])[facility] [place] (SB[facility])[address] AST [Catalytic activity/Vol] 25 U/L Normal 15-46 [facility] Comment on above: Performed By: #### L [id number] ####Communication Spec: JAROD ESPOSITO ([id number])[facility] [place] (SB[facility]AB)[address] Bilirubin [Mass/Vol] 0.3 mg/dL Normal 0.2-1.3 [facility] Comment on above: Performed By: #### L [id number] ####Communication Spec: JAROD ESPOSITO ([id number])[facility] [place] (SB[facility])[address] Calcium [Mass/Vol] 8.2 mg/dL Low 8.4-10.4 [facility] Comment on above: Performed By: #### L [id number] ####Communication Spec: JAROD ESPOSITO ([id number])[facility] [place] (SBHLAB)[address] [place] [address] [place] Chloride [Moles/Vol] 104 mmol/L Normal 98-107 [facility] Comment on above: Performed By: #### L [id number] ####Communication Spec: JAROD ESPOSITO ([id number])[facility] [place] (SBHLAB)[address] [place] [address] [place] CO2 [Moles/Vol] 26 mmol/L Normal 22-30 [facility] Comment on above: Performed By: #### L [id number] ####Communication Spec: JAROD ESPOSITO ([id number])[facility] [place] (SBHLAB)[address] [place] [address] [place] Creatinine [Mass/Vol] 0.57 mg/dL Low 0.66-1.25 [facility] Comment on above: Performed By: #### L [id number] ####Communication Spec: JAROD ESPOSITO ([id number])[facility]ITALNash [facility]ERSandra ([facility])[address] GLOMERULAR FILTRATION RATE ML/MIN/1.73 SQ M.PREDICTED >90.0 Normal >60.0 [facility] Comment on above: Result Comment: Calc ulation based on the Chronic Kidney Disease Epidemiology Collaboration (CKD-EPI) equation refit without adjustment for race Performed By: #### L [id number] ####Communication Spec: JAROD ESPOSITO ([id number])[facility]ITALN[facility] [place] ([facility])[address] Glucose [Mass/Vol] 97 mg/dL Normal 70-100 [facility] Comment on above: Performed By: #### L [id number] ####Communication Spec: JAROD ESPOSITO ([id number])[facility] ([facility])[address] Potassium [Moles/Vol] 3.7 mmol/L Normal 3.5-5.1 [facility] Comment on above: Performed By: #### L [id number] ####Communication Spec: JAROD ESPOSITO ([id number])[facility] ([facility])[address] Protein [Mass/Vol] 5.5 g/dL Low 6.3-8.2 [facility] Comment on above: Performed By: #### L [id number] ####Communication Spec: JAROD ESPOSITO ([id number])[facility] HOSPITALN (HLAB)[address] Sodium [Moles/Vol] 139 mmol/L Normal 135-145 [facility] Comment on above: Performed By: #### L [id number] ####Communication Spec: JAROD ESPOSITO ([id number])[facility] ([facility])[address] [place] [address] [place] Urea nitrogen [Mass/Vol] 9 mg/dL Normal 9-20 [facility] Comment on above: Performed By: #### L [id number] ####Communication Spec: JAROD ESPOSITO ([id number])[facility] (SBHLAB)[address] CREATININE, URINE, RANDOMon 10-19-2023 CREATININE, URINE 94.3 mg/dL Normal No Range [facility] Comment on above: Performed By: #### L [id number], [id number], [id number], [id number], [id number] ####Communication Spec: JAROD ESPOSITO ([id number])[facility] (SBHLAB)[address] Comprehensive metabolic 1998 panelon 10-19-2023 Albumin [Mass/Vol] 3.0 g/dL Low 3.5 - 5.0 g/dL [facility] ALP [Catalytic activity/Vol] 86 U/L 38 - 126 U/L [facility] ALT [Catalytic activity/Vol] 20 U/L 0 - 49 U/L [facility] Anion gap [Moles/Vol] 9 mmol/L 3 - 13 mmol/L [facility] AST [Catalytic activity/Vol] 25 U/L 15 - 46 U/L [facility] Bilirubin [Mass/Vol] 0.3 mg/dL 0.2 - 1 .3 mg/dL [facility] Calcium [Mass/Vol] 8.2 mg/dL Low 8.4 - 10. 4 mg/dL [facility] Chloride [Moles/Vol] 104 mmol/L 98 - 10 7 mmol/L [facility] CO2 [Moles/Vol] 26 mmol/L 22 - 30 mmol/L [facility] Creatinine [Mass/Vol] 0.57 mg/dL Low 0.66 - 1.25 mg/dL [facility] GFR/1.73 sq M.predicted MDRD (S/P/Bld) [Vol rate/Area] - PINF [facility] Comment on above: Calculation based on the Chronic Kidney Disease Epidemiology Collaboration (CKD-EPI) equation refit without adjustment for race Glucose [Mass/Vol] 97 mg/dL 70 - 100 mg/dL [facility] Interpretation and review of laboratory results Abnormal [facility] Potassium [Moles/Vol] 3.7 mmol/L 3.5 - 5.1 mmol/L [facility] Protein [Mass/Vol] 5.5 g/dL Low 6.3 - 8.2 g/dL [facility] Sodium [Moles/Vol] 139 mmol/L 135 - 145 mmol/L [facility] Urea nitrogen [Mass/Vol] 9 mg/dL 9 - 20 mg/d L [facility] Creatinine (U) [Mass/Vol]on 10-19-2023 CREATININE, URINE 94.3 mg/dL No Range [facility] ealt DRUGS OF ABUSEon 10-19-2023 AMPHETAMINE SCREEN Negative Normal [facility] Comment on above: Performed By: #### L [id number], [id number], [id number], [id number], [id number] ####Communication Spec: JAROD ESPOSITO ([id number])[facility] (SBHLAB)[address] [place] [address] BARBITURATES SCREEN Negative Normal [facility] Comment on above: Performed By: #### L [id number], [id number], [id number], [id number], [id number] ####Communication Spec: JAROD ESOPSITO ([id number])[facility] (SB[facility])[address] [place] [address] BENZODIAZEPINE SCREEN Negative Normal [facility] Comment on above: Performed By: #### L AB748, [id number], [id number], [id number], [id number] ####Communication Spec: JAROD ESPOSITO ([id number])[facility] (SB[facility])[address] [place] [address] COCAINE METAB. SCREEN Negative Normal [facility] Comment on above: Performed By: #### L AB748, [id number], [id number], [id number], [id number] ####Communication Spec: JAROD ESPOSITO ([id number])[facility] ([facility])[address] [place] [address] METHADONE SCREEN Negative Normal [facility] Comment on above: Performed By: #### L AB748, [id number], [id number], [id number], [id number] ####Communication Spec: JAROD ESPOSITO ([id number])[facility] (SBHL[facility])[address] OPIATES SCREEN Negative Normal [facility] Comment on above: Performed By: #### L AB748, SVE989, CEH189, [id number], [id number] ####Communication Spec: JAROD ESPOSITO ([id number])[facility] (SBHLAB)[address] OXYCODONE SCREEN Negative Normal [facility] Comment on above: Performed By: #### L AB748, [id number], CPN557, [id number], [id number] ####Communication Spec: JAROD ESPOSITO ([id number])[facility] (HLAB)[address] PHENCYCLIDINE SCREEN Negative Normal [facility] Comment on above: Result Comment: SONYA Canela [...] separate order. Performed By: #### L AB748, [id number], DTR653, [id number], [id number] ####Communication Spec: JAROD ESPOSITO ([id number])[facility] (SB[facility])[address] ETHANOL, URINEon 10-19-2023 ETHANOL, URINE-CAT LIST Not detected Normal None Available. Reporting Limit 0.01 g/dL [facility] Comment on above: Result Comment: SONYA Canela COMMENTS: NOTE:These results are for medical treatment only. Analysis performed using non-forensic procedures. This test has not been cleared by the [place] Food and Drug Administration (FDA). The FDA has determined that such clearance or approval is not necessary. The performance chararcteristics have been determined by the clinical laboratories of [facility]. Performed By: #### L AB40 #### Communication Spec: JAROD ESPOSITO ([id number]) [facility] (SB[facility]) [address] FENTANYL, URINEon 10-19-2023 FENTANYL SCREEN, URINE Negative Normal Negative [facility] Comment on above: Result Comment: SONYA Canela COMMENTS: Fentanyl has been screened for by Immunoassay at a 1 ng/ml threshold. POSITIVE results are not confirmed by a more specific alternative method unless requested. If confirmation is needed, request confirmation under separate order. NOTE: These results are for medical treatment only. Analysis performed using non-forensic procedures. Performed By: #### L AB40 #### Communication Spec: JAROD ESPOSITO ([id number]) [facility] ([facility]) [address] GASTROINTESTINAL PCR PANELon 10-19-2023 GASTROINTESTINAL PCR [...] Norovirus specific assay. Methodology: Multiplex PCR Normal [facility] Comment on above: Performed By: #### L [id number] #### Communication Spec: JERARDO NICHOLE ([id number]) [facility] ([facility]) [address] [place] [address] Gastrointestinal pathogens p jose r TRUONG+probe (Stl)Ordered By: Deo Reyes on 10-19-2023 Adenovirus F 40/41 Not detected Not Detected [facility] Astrovirus Not detected Not Detected [facility] Campylobacter Not detected Not Detected [facility] ealth Cryptosporidium Not detected Not Detected [facility] Cyclospora cayetanensis Not detected Not Detect ed [facility] Entamoeba histolytica Not detected Not Detected [facility] Enterotoxigenic E coli (ETEC) Not detected Not Detected [facility] Giardia lamblia Not detected Not Detected [facility] Interpretation and review of laboratory results Abnormal [facility] Norovirus GI/GII Detected Abnormal Not Detected [facility] Plesiomonas shigelloides Not detected Not Detec peter [facility] Rotavirus A Not detected Not Detected [facility] Salmonella Not detected Not Detected [facility] Sapovirus Not detected Not Detected [facility] Shiga toxin-producing E coli (STEC) Not detected Not Detected [facility] Shigella/Enteroinvasive E coli (EIEC) Not detected Not Detected [facility] Vibrio cholerae Not detected Not Detected [facility] Vibrio species Not detected Not Detected [facility] Yersinia enterocolitica Not detected Not Detect ed [facility] A positive Norovirus result on the Film Array GI panel should be interpreted in the context of the patient's history and clinical picture. If results are not consistent, result should be confirmed with a Norovirus specific assay. Methodology: Multiplex PCR [facility] HEPATITIS PANEL, ACUTEon HCV Ab IA Ql Detected Abnormal Not Detected [facility] Comment on above: Result Comment: Rylee ents with DETECTED Hepatitis C Ab results should have a new specimen submitted for supplemental testing with a Hepatitis C Quantitative RNA assay (viral load), if clinically indicated. Performed By: #### L [id number] ####Communication Spec: JERARDO NICHOLE ([id number])[facility] ([facility])[address] HEPATITIS A VIRUS AB, IGM Not detected Normal Not Detected [facility] Comment on above: Performed By: #### L AB551 ####Communication Spec: JERARDO NICHOLE ([id number])[facility] ([facility])[address] [place] [address] HEPATITIS B VIRUS CORE IGM AB Not detected Normal Not Detected [facility] Comment on above: Performed By: #### L AB551 ####Communication Spec: JERARDO NICHOLE ([id number])[facility] ([facility])[address] [place] [address] HEPATITIS B VIRUS SURFACE AG Not detected Normal Not Detected [facility] Comment on above: Performed By: #### L AB551 ####Communication Spec: JERARDO NICHOLE ([id number])[facility] ([facility])[address] [place] [address] HIV 1+2 Ab+HIV1 p24 Ag IA Ql Ordered By: Pretty Diamond on 10-19-2023 Interpretation and review of laboratory results Normal [facility] HIV1,2 COMBO ANTIGEN-ANTIBOD Y SCREENon 10-19-2023 HIV 1,2 COMBO ANTIGEN/ANTIBODY Non-Reactive Normal Nonreactive [facility] Comment on above: Result Comment: The specimen was non-reactive for HIV-1 and HIV-2 antibodies and p24 antigen using an FDA-cleared 4th generation HIV test. Based on this non-reactive screen result, further reflexive testing was not indicated and was, therefore, not performed. Performed By: #### L [id number] ####Communication Spec: JERARDO NICHOLE ([id number])[facility] ([facility] [place] [address] Hepatitis 1995 panel (S)Orde red By: Meredith Ruano on 10-19-2023 HAV IgM IA Ql Not detected Not Detected [facility] ealth HBV core IgM IA Ql Not detected Not Detected [facility] HBV surface Ag IA Ql Not detected Not Detected [facility] HCV Ab IA Ql Detected Abnormal Not Detected [facility] Comment on above: Patients with DETECT ED Hepatitis C Ab results should have a new specimen submitted for supplemental testing with a Hepatitis C Quantitative RNA assay (viral load), if clinically indicated. Interpretation and review of laboratory results Abnormal [facility] Laboratory - Chemistry and C hemistry - challengeon 10-19-2023 Osmolality [Osmolality] 285 mosm/kg [facility] Sodium (24H U) [Mass/Vol] 88 mmol/L 30 - 90 mmol/L [facility] Urea nitrogen (U) [Mass/Vol] 639 mg/dL No Range [facility] Laboratory - Drug toxicology on 10-19-2023 Vancomycin [Mass/Vol] 17.6 ug/mL 15.0 - 20.0 ug/mL [facility] Laboratory - Drug toxicology Ordered By: Pretty Burnham on 10-19-2023 Amphetamines Screen method >1000 ng/mL Ql (U) Negative [facility] Barbiturates Screen method >200 ng/mL Ql (U) Negative [facility] Benzodiazepines Ql (U) Negative [facility] Methadone Screen Ql (U) Negative [facility] Opiates Screen Ql (U) Negative [facility] oxyCODONE Ql (U) Negative [facility] alth Phencyclidine Ql (U) Negative [facility] Laboratory - Microbiology an d Antimicrobial susceptibilityOrdered By: Pretty Diamond on 10-19-2023 HIV 1+2 Ab+HIV1 p24 Ag IA Ql Non-Reactive Nonreactive [facility] Comment on above: The specimen was non -reactive for HIV-1 and HIV-2 antibodies and p24 antigen using an FDA-cleared 4th generation HIV test. Based on this non-reactive screen result, further reflexive testing was not indicated and was, therefore, not performed. No Panel InformationOrdered By: Carla Simpson on 10-19-2023 BUPRENORPHINE SCREEN Negative Negative [facility] Buprenorphine (Suboxone) has been screened for by Immunoassay at 5 ng/mL threshold. POSITIVE results are not confirmed by a more specific alternative method unless requested. If confirmation is needed, request confirmation under separate order. NOTE: These results are for medical treatment only. Analysis performed using non-forensic procedures. [facility] No Panel Informationon 10-18 THC Positive Negative [facility] THC metabolites have been screened for by Immunoassay at 50 ng/mL threshold. POSITIVE results are not confirmed by a more specific alternative method unless requested. If confirmation is needed, request confirmation under separate order. NOTE: These results are for medical treatment only. Analysis performed using non-forensic procedures. [facility] FENTANYL SCREEN, URINE Negative Negative [facility] Fentanyl has been screened for by Immunoassay at a 1 ng/ml threshold. POSITIVE results are not confirmed by a more specific alternative method unless requested. If confirmation is needed, request confirmation under separate order. NOTE: These results are for medical treatment only. Analysis performed using non-forensic procedures. [facility] ETHANOL, URINE Not detected None Available. Reporting Limit 0.01 g/dL g/dL [facility] Interpretation and review of laboratory results Normal [facility] Interpretation and review of laboratory results Normal [facility] Interpretation and review of laboratory results Normal [facility] Interpretation and review of laboratory results Normal [facility] OSMOLALITY, URINE 456 [facility]alth [facility] No Panel InformationOrdered By: Pretty Burnham on 10-19-2023 COCAINE METAB. SCREEN Negative [facility] The expected value for all of the [...] is needed, request confirmation under separate order. [facility] Nursing Noteon 10-19-2023 Nursing Note This RN was informed by Dr. Zamora that patient wanted to leave [facility] and to have his iv removed. This [...] where to go to get out. Normal [facility] Nursing Note This [employer] was at bedside preparing to insert new IV, pt was cooperative and understanding at the time. Pt asked if cafeteria was open to have a mountain dew and this nurse stated that the cafeteria was open at 0600. Pt immediately became and agitated and sat up removing his tourniquet. Pt began to yell at this [employer], becoming verbally aggressive. This [employer] stepped out of room and called protective services at 0346. Pt became cooperative with protective services at bedside and allowed this [employer] put in new IV. Pt given jello and is calm at this time. Normal [facility] OSMOLALITY, SERUMon 10-19-19 24 OSMOLALITY, SERUM 285 mOsm/kg Normal 280-300 [facility] Comment on above: Performed By: #### L [id number] #### Communication Spec: JAROD ESPOSITO ([id number]) [facility] ([facility]) [address] [place] [address] OSMOLALITY, URINEon 10-19-19 24 OSMOLALITY, URINE 456 mOsm/kg Normal 300-1000 [facility] Comment on above: Performed By: #### L [id number], [id number], [id number], [id number], [id number] ####Communication Spec: JAROD ESPOSITO ([id number])[facility] ([facility])[address] [place] [address] SODIUM, URINE, RANDOMon 05- Sodium (U) [Moles/Vol] 88 mmol/L Normal 30-90 [facility] Comment on above: Performed By: #### L [id number], [id number], [id number], [id number], [id number] ####Communication Spec: JAROD ESPOSITO ([id number])[facility] ([facility])[address] THC SCREENon 10-19-2023 THC- THC50 Positive Normal Negative [facility] Comment on above: Result Comment: SONYA Canela COMMENTS: THC metabolites have been screened for by Immunoassay at 50 ng/mL threshold. POSITIVE results are not confirmed by a more specific alternative method unless requested. If confirmation is needed, request confirmation under separate order. NOTE: These results are for medical treatment only. Analysis performed using non-forensic procedures. Performed By: #### L [id number] #### Communication Spec: JAROD ESPOSITO ([id number]) [facility] ([facility]) [address] [place] [address] UREA NITROGEN, URINEon 10-18 UREA NITROGEN, URINE 639 mg/dL Normal No Range [facility] Comment on above: Performed By: #### L [id number], [id number], [id number], [id number], [id number] ####Communication Spec: JAROD ESPOSITO ([id number])[facility] ([facility])[address] [place] [address] VANCOMYCIN, RANDOMon 024 VANCOMYCIN 17.6 ug/mL Normal 15.0-20.0 [facility] Comment on above: Performed By: #### L [id number] #### Communication Spec: JAROD ESPOSITO ([id number]) [facility] ([facility]) [address] [place] [address] BASIC METABOLIC PANELon 09-20 Anion gap [Moles/Vol] 8 mmol/L Normal 3-13 [facility] Comment on above: Performed By: #### L [id number] #### Communication Spec: JERARDO NICHOLE ([id number]) [facility] ([facility]) [address] [place] [address] [place] Calcium [Mass/Vol] 8.7 mg/dL Normal 8.4-10.4 [facility] Comment on above: Performed By: #### L [id number] #### Communication Spec: JERARDO NICHOLE ([id number]) [facility] ([facility]) [address] [place] [address] [place] Chloride [Moles/Vol] 95 mmol/L Low 98-107 [facility] Comment on above: Performed By: #### L [id number] #### Communication Spec: JERARDO NICHOLE ([id number]) [facility] ([facility]) [address] [place] [address] CO2 [Moles/Vol] 27 mmol/L Normal 22-30 [facility] Comment on above: Performed By: #### L [id number] #### Communication Spec: JERARDO NICHOLE ([id number]) [facility] ([facility] [address] [place] [address] Creatinine [Mass/Vol] 0.86 mg/dL Normal 0.66-1.25 [facility] Comment on above: Performed By: #### L [id number] #### Communication Spec: JERARDO NICHOLE ([id number]) [facility] ([facility]) [address] [place] [address] GLOMERULAR FILTRATION RATE ML/MIN/1.73 SQ M.PREDICTED >90.0 Normal >60.0 [facility] Comment on above: Result Comment: Calc ulation based on the Chronic Kidney Disease Epidemiology Collaboration (CKD-EPI) equation refit without adjustment for race Performed By: #### L [id number] #### Communication Spec: JERARDO NICHOLE ([id number]) [facility] ([facility]) [address] [place] [address] Glucose [Mass/Vol] 109 mg/dL High 70-100 [facility] Comment on above: Performed By: #### L [id number] #### Communication Spec: JERARDO NICHOLE ([id number]) [facility] ([facility]) [address] [place] [address] [place] Potassium [Moles/Vol] 3.7 mmol/L Normal 3.5-5.1 [facility] Comment on above: Performed By: #### L [id number] #### Communication Spec: JERARDO NICHOLE ([id number]) [facility] ([facility]) [address] [place] [address] [place] Sodium [Moles/Vol] 130 mmol/L Low 135-145 [facility] Comment on above: Performed By: #### L [id number] #### Communication Spec: JERARDO NICHOLE ([id number]) [facility]) [address] [place] [address] Urea nitrogen [Mass/Vol] 11 mg/dL Normal 9-20 [facility] Comment on above: Performed By: #### L [id number] #### Communication Spec: JERARDO NICHOLE ([id number]) [facility]) [address] [place] [address] BLOOD CULTUREon 10-18-2023 Bacteria identified Cx Nom (Bld) BLOOD CULTURE Reference No growth at 5 days ORDER COMMENTS: Blood Collection Site: Right Antecubital [ S = SUSCEPTIBLE R = RESISTANT I = INTERMEDIATE S-DD = Susceptible-dose dependent NS = Non-susceptible NO = No Interpretation ] Normal [facility] Comment on above: Performed By: #### L [id number] #### Communication Spec: JERARDO NICHOLE ([id number]) [facility] ([facility]) [address] [place] [address] Basic metabolic 1998 panelon 10-18-2023 Anion gap [Moles/Vol] 8 mmol/L 3 - 13 mmol/L [facility] Calcium [Mass/Vol] 8.7 mg/dL 8.4 - 10. 4 mg/dL [facility] Chloride [Moles/Vol] 95 mmol/L Low 98 - 10 7 mmol/L [facility] CO2 [Moles/Vol] 27 mmol/L 22 - 30 mmol/L [facility] Creatinine [Mass/Vol] 0.86 mg/dL 0.66 - 1.25 mg/dL [facility] GFR/1.73 sq M.predicted MDRD (S/P/Bld) [Vol rate/Area] - PINF [facility] Comment on above: Calculation based on the Chronic Kidney Disease Epidemiology Collaboration (CKD-EPI) equation refit without adjustment for race Glucose [Mass/Vol] 109 mg/dL High 70 - 100 mg/dL [facility] Interpretation and review of laboratory results Abnormal [facility] Potassium [Moles/Vol] 3.7 mmol/L 3.5 - 5.1 mmol/L [facility] Sodium [Moles/Vol] 130 mmol/L Low 135 - 145 mmol/L [facility] Urea nitrogen [Mass/Vol] 11 mg/dL 9 - 20 mg/d L [facility] C-REACTIVE PROTEINon 024 CRP [Mass/Vol] 132.1 mg/L High <10.0 [facility] Comment on above: Performed By: #### L [id number] #### Communication Spec: JAROD ESPOSITO ([id number]) [facility] ([facility]) [address] [place] [address] CBC W Auto Differential pane l (Bld)on 10-18-2023 Basophils (Bld) [#/Vol] 0.1 10*3/uL 0.0 - 0.2 10*3/uL [facility] Basophils/100 WBC (Bld) 0.4 % 0.0 - 2.0 % [facility] Eosinophils (Bld) [#/Vol] 0.1 10*3/uL 0.0 - 0.5 10*3/uL [facility] Eosinophils/100 WBC (Bld) 0.4 % 0.0 - 6.0 % [facility] Erythrocyte distribution width (RBC) [Ratio] 12.9 % 11.5 - 15.0 % [facility] Hematocrit (Bld) [Volume fraction] 47.6 % 40.0 - 52.0 % [facility] Hemoglobin (Bld) [Mass/Vol] 16.3 g/dL 13.0 - 18.0 g/dL [facility] Immature granulocytes (Bld) [#/Vol] 0.1 10*3/uL High NINF - 0.1 10*3/uL [facility] Immature granulocytes/100 WBC (Bld) 0.3 % 0.0 - 2.0 % [facility] Interpretation and review of laboratory results Abnormal [facility] Lymphocytes (Bld) [#/Vol] 0.8 10*3/uL Low 1.0 - 4.3 10*3/uL [facility] Lymphocytes/100 WBC (Bld) 5.0 % Low 15.0 - 45.0 % [facility] MCH (RBC) [Entitic mass] 31.8 pg 26.0 - 34.0 pg [facility] MCHC (RBC) [Mass/Vol] 34.2 % 30.5 - 36.0 % [facility] MCV (RBC) [Entitic vol] 92.8 fL 77.0 - 99.0 fL [facility] Monocytes (Bld) [#/Vol] 0.7 10*3/uL 0.0 - 0.9 10*3/uL [facility] Monocytes/100 WBC (Bld) 4.5 % Low 5.0 - 13.0 % [facility] Neutrophils (Bld) [#/Vol] 14.6 10*3/uL High 1.8 - 7.5 10*3/uL [facility] Neutrophils/100 WBC (Bld) 89.4 % High 38.0 - 82.0 % [facility] Nucleated RBC/100 WBC (Bld) [Ratio] 0.0 % [facility] Platelet mean volume (Bld) [Entitic vol] 10.4 fL 9.0 - 12.7 fL [facility] Comment on above: MPV is a calculated measurement using platelet volume ratio Platelets (Bld) [#/Vol] 320 10*3/uL 140 - 440 10*3/uL [facility] RBC (Bld) [#/Vol] 5.13 10*6/uL 4.40 - 5.9 0 10*6/uL [facility] WBC (Bld) [#/Vol] 16.3 10*3/uL High 3.6 - 10.7 10*3/uL [facility] CBC WITH AUTO DIFFERENTIALon 10-18-2023 Basophils (Bld) [#/Vol] 0.1 10*3/uL Normal 0.0-0.2 [facility] Comment on above: Performed By: #### L [id number] #### Communication Spec: JAROD ESPOSITO ([id number]) [facility] ([facility]) [address] Basophils/100 WBC (Bld) 0.4 % Normal 0.0-2.0 [facility] Comment on above: Performed By: #### L [id number] #### Communication Spec: JAROD ESPOSITO ([id number]) [facility] ([facility]) [address] Eosinophils (Bld) [#/Vol] 0.1 10*3/uL Normal 0.0-0.5 [facility] Comment on above: Performed By: #### L AB40 #### Communication Spec: JAROD ESPOSITO ([id number]) [facility] ([facility]) [address] Eosinophils/100 WBC (Bld) 0.4 % Normal 0.0-6.0 [facility] Comment on above: Performed By: #### L AB40 #### Communication Spec: JAROD ESPOSITO ([id number]) [facility] ([facility]) [address] Erythrocyte distribution width (RBC) [Ratio] 12.9 % Normal 11.5-15.0 [facility] Comment on above: Performed By: #### L [id number] #### Communication Spec: JAROD ESPOSITO ([id number]) [facility] ([facility]) [address] [place] [address] Hematocrit (Bld) [Volume fraction] 47.6 % Normal 40.0-52.0 [facility] Comment on above: Performed By: #### L AB40 #### Communication Spec: JAROD ESPOSITO ([id number]) [facility] ([facility]) [address] [place] [address] Hemoglobin (Bld) [Mass/Vol] 16.3 g/dL Normal 13.0-18.0 [facility] Comment on above: Performed By: #### L AB40 #### Communication Spec: JAROD ESPOSITO ([id number]) [facility] ([facility]) [address] IMMATURE GRANS % 0.3 % Normal 0.0-2.0 [facility] Comment on above: Performed By: #### L AB40 #### Communication Spec: JAROD ESPOSITO ([id number]) [facility] ([facility]) [address] IMMATURE GRANS ABSOLUTE 0.1 10*3/uL High <0.1 [facility] Comment on above: Performed By: #### L [id number] #### Communication Spec: JAROD TOVARLINDA ([id number]) [facility] ([facility]) [address] Lymphocytes (Bld) [#/Vol] 0.8 10*3/uL Low 1.0-4.3 [facility] Comment on above: Performed By: #### L AB40 #### Communication Spec: JAROD TOVARLINDA ([id number]) [facility] ([facility]) [address] Lymphocytes/100 WBC (Bld) 5.0 % Low 15.0-45.0 [facility] Comment on above: Performed By: #### L AB40 #### Communication Spec: JAROD SUGGSNemesioLINDA ([id number]) [facility] ([facility]) [address] MCH (RBC) [Entitic mass] 31.8 pg Normal 26.0-34.0 [facility] Comment on above: Performed By: #### L AB40 #### Communication Spec: JAROD TOVARLINDA ([id number]) [facility] ([facility]) [address] MCHC 34.2 % Normal 30.5-36.0 [facility] Comment on above: Performed By: #### L AB40 #### Communication Spec: JAROD ESPOSITO ([id number]) [facility] ([facility]) [address] MCV (RBC) [Entitic vol] 92.8 fL Normal 77.0-99.0 [facility] Comment on above: Performed By: #### L AB40 #### Communication Spec: JAROD ESPOSITO ([id number]) [facility] ([facility]) [address] Monocytes (Bld) [#/Vol] 0.7 10*3/uL Normal 0.0-0.9 [facility] Comment on above: Performed By: #### L AB40 #### Communication Spec: JAROD ESPOSITO ([id number]) [facility]) [address] Monocytes/100 WBC (Bld) 4.5 % Low 5.0-13.0 [facility] Comment on above: Performed By: #### L AB40 #### Communication Spec: JAROD ESPOSITO ([id number]) [facility] ([facility]) [address] NEUTROPHILS ABSOLUTE 14.6 10*3/uL High 1.8-7.5 [facility] Comment on above: Performed By: #### L AB40 #### Communication Spec: JAROD ESPOSITO ([id number]) [facility] ([facility]) [address] Neutrophils/100 WBC (Bld) 89.4 % High 38.0-82.0 [facility] Comment on above: Performed By: #### L AB40 #### Communication Spec: JAROD ESPOSITO ([id number]) [facility] ([facility]) [address] NRBC 0.0 /100 WBCs Normal 0.0-2.0 [facility] Comment on above: Performed By: #### L AB40 #### Communication Spec: JAROD ESPOSITO ([id number]) [facility] [place] ([facility]) [address] Platelet mean volume (Bld) [Entitic vol] 10.4 fL Normal 9.0-12.7 [facility] Comment on above: Result Comment: MPV is a calculated measurement using platelet volume ratio Performed By: #### L AB40 #### Communication Spec: JAROD ESPOSITO ([id number]) [facility] ([facility]) [address] Platelets (Bld) [#/Vol] 320 10*3/uL Normal 140-440 [facility] Comment on above: Performed By: #### L AB40 #### Communication Spec: JAROD VAIBHAV ([id number]) [facility] ([facility]) [address] RBC (Bld) [#/Vol] 5.13 10*6/uL Normal 4.40-5.90 [facility] Comment on above: Performed By: #### L AB40 #### Communication Spec: JAROD ESPOSITO ([id number]) [facility] ([facility]) [address] WBC (Bld) [#/Vol] 16.3 10*3/uL High 3.6-10.7 [facility] Comment on above: Performed By: #### L AB40 #### Communication Spec: JAROD TOVARLINDA ([id number]) [facility] ([facility]) [address] [place] [address] CKon 10-18-2023 CK [Catalytic activity/Vol] 137 U/L Normal 30-170 [facility] Comment on above: Performed By: #### L AB40 #### Communication Spec: JAROD TOVARLINDA ([id number]) [facility] ([facility]) [address] [place] [address] CK [Catalytic activity/Vol]o n 10-18-2023 Interpretation and review of laboratory results Normal [facility] CRP [Mass/Vol]on 10-18-2023 Interpretation and review of laboratory results Abnormal [facility] Consulton 10-18-2023 Consult Pharmacy Managed Vancomycin Dosing [...] Calculated CrCl: 135 mL/min Consulted By: Dr. Cotsa Infectious Diagnosis: SSTI (AUC Goal 400-600 mg/L*hr) [...] creatinine, and vancomycin levels interfaced automatically to [employer] and data has been analyzed and interpreted. [...] DATE: 10/18/23 TIME: 10:35 PM Efrain Palmer [facility] Clinical Pharmacist Available via Secure Chat [facility] ED Nursing Noteon 10-18-2023 ED Nursing Note Report called to at [facility] Elvia Lee RN 10/18/232044 Normal [facility] ED Nursing Note Phoned [facility] regarding bed assignment. They are currently moving patients around and will be cleaning his room soon. Patient informed. Dasha Delarosa RN 10/18/23 1134 Normal [facility] ED Nursing Note Patient rang call light to go to restroom. IV antibx stopped and patient ambulated to restroom without difficulty. Dasha Delarosa RN 10/18/23 1421 [facility] ED Nursing Note Phoned patient's sister, Ca, and informed patient will be getting admitted. Communicated that he doesn't have a room yet and we don't know how long it will be for transportation. Sister verbalized understanding and appreciated information. Dasha Delarosa RN 10/18/23 1341 [facility] ED Nursing Note Patient disconnected from IV fluids to go to restroom. Patient given socks to ambulate to restroom. Patient carried socks in hands and states he'll be going outside to smoke a cigarette after he gets back. Informed patient he is not allowed to go outside to smoke and that he has nicotine patch on. Dasha Delarosa RN 10/18/23 1135 [facility] ED Nursing Note Patient requested that his sister be contacted to let her know he is currently in ED. Ca Danielle, sister, called and informed patient is currently here. Sister would like to be updated on patient's condition and whether or not he is admitted. Dasha Delarosa RN 10/18/23 1055 [facility] ED Nursing Note Patient rang call light to use restroom. Patient declined to put socks on to ambulate down hernandez. Patient ambulated down hernandez to restroom and back to room without socks on. Dasha Delarosa RN 10/18/23 1041 [facility] ED Nursing Note Tried for second set of blood cultures in left arm without success. After sticking patient twice in left arm, patient states that we are unable to use left arm due to his previous drug abuse. Patient refuses to be stuck again in right arm for second set of cultures. Physician informed. Dasha Delarosa RN 10/18/23 1005 [facility] ED Nursing Note Patient given a meal and taking a shower per request. Dasha Delarosa RN 10/18/23 0841 [facility] ED Nursing Note Patient arrived via [employer] to room 7. Patient transferred himself from [facility] to ED without difficulty. Medics state patient walked to station and asked for help with his bandage. Patient states he got a blister on his right ankle from walking and riding his bike. Patient unsure of timeline because he is homeless. Patient was seen at [facility] on 10/15 and patient states they wrapped his bandage too tight. Patient's ankle is red and warm to touch. Patient verbally aggressive to this nurse and physician during triage. [facility] ED Provider Noteon ED Provider Note [facility] ED EMERGENCY DEPARTMENT ENCOUNTER Pt Name: [...] he injured it and was seen at [facility] they put an Jb wrap on it [...] Depression PTSD (post-traumatic stress disorder) Substance abuse ([facility] ([facility]) TBI (traumatic brain injury) ([facility]) SURGICALHISTORY History reviewed. No pertinent surgical history. [...] 5.13 Hemoglob (more content not included)... Normal [facility] ESR (Bld) [Velocity]Ordered By: Shannan Lebron on 10-18-2023 Interpretation and review of laboratory results Abnormal [facility] LACTIC ACID WITH REFLEXon Lactate [Moles/Vol] 1.7 mmol/L Normal 0.7-2.0 [facility] Comment on above: Performed By: #### L [id number] #### Communication Spec: JERARDO NICHOLE ([id number]) [facility] ([facility]) [address] Lactate [Moles/Vol] 2.5 mmol/L High 0.7-2.0 [facility] Comment on above: Performed By: #### L AB40 #### Communication Spec: JAROD ESPOSITO ([id number]) [facility] (SBHLAB) [address] Laboratory - Chemistry and C hemistry - challengeon 10-18-2023 Lactate [Moles/Vol] 1.7 mmol/L 0.7 - 2. 0 mmol/L [facility] CRP [Mass/Vol] 132.1 mg/L High NINF - 10.0 mg/L [facility] Lactate [Moles/Vol] 2.5 mmol/L High 0.7 - 2. 0 mmol/L [facility] CK [Catalytic activity/Vol] 137 U/L 30 - 170 U/L [facility] Laboratory - Hematology and Cell countsOrdered By: Shannan Lebron on 10-18-2023 ESR (Bld) [Velocity] 19 mm/h High [facility] No Panel Informationon 10-17 Interpretation and review of laboratory results Normal [facility] Impression: Unremarkable right foot and ankle radiographs. Report Dictated on Electronically Signed By: Abhi Marrufo MD Electronically Signed Date/Time: 10/18/2023 10:29 AM EDT [facility] Interpretation and review of laboratory results Abnormal [facility] No Panel InformationOrdered By: Abhi Marrufo on 10-18-2023 [facility] Work Phone: Nursing Noteon 10-18-2023 Nursing Note [...] hands on some percocet I would. Normal [facility] Progress Noteon 10-18-2023 Progress Note [employer] Grant Danielle : 1985 Primary Care Physician: Abimael Carson MD The patient and/or family/surrogate voluntarily agreed to participate in ACP services. Patient?s cognitive capacity: intact Code Status: [X] [FULL CODE - Continue all advanced life support: CPR,intubation,invas angel procedures] [_] [DNR-CCA - DO NOT do CPR, intubation] [_] [DNR-BOAT JOINER HELPER - Comfort care only] [_] DNR form [...] of Hospitalist Medicine [employer] Normal [facility] Progress Note Culture result reviewed. No further treatment needed. Normal [facility] Progress Note Culture reviewed. Awaiting sensitivity results Normal [facility] SEDIMENTATION RATE, AUTOMATE Don 10-18-2023 SEDIMENTATION RATE, ERYTHROCYTE 19 mm/hr High 0-10 [facility] Comment on above: Performed By: #### L AB40 #### Communication Spec: JAROD ESPOSITO ([id number]) [facility] (SBHLAB) [address] [place] [address] XR Ankle - right 3 Viewson 0 10-18-2023 Patient Name: [place] [facility]ANIELLE : 1985 [id number] Exam Date/Time: 10/18/2023 10:17 Procedure: XR ANKLE [...] arthropathy. Normal soft tissues. Normal osseous mineralization. [facility] Abhi Marrufo MD - 10/18/2023 Patient Name: [...] Electronically Signed Date/Time: 10/18/2023 10:29 AM EDT [facility] Radiology Study observation (narrative) Jeanna Portillo alth [...] arthropathy. Normal soft tissues. Normal osseous mineralization. [facility] Abhi Marrufo MD - 10/18/2023 Patient Name: [...] Electronically Signed Date/Time: 10/18/2023 10:29 AM EDT [facility] Radiology Study observation (narrative) Jeanna Portillo alth [...] Sign Date: 09/05/2023 11:09:54 AM Ordering Provider: BETHAINE GUERRA [facility] ([facility] 36on 08-13-2023 36 Scheduled. [facility] 36 Rx sent, needs scheduled for follow-up appointment in November Normal [facility] 36 Prescription Request: Last medication check: none, new patient as of 05/23/23 Last physical exam: 05/23/23 Last completed appointment: 06/15/23 Next scheduled appointment: none Last date of refill on this medication: 06/15/23 [facility] 36on 08-10-2023 36 Called the patient and LM---he had a NCNS for an 8 week followup [facility] 36on 07-24-2023 36 Called patient and LM due to missed appointment. Please schedule the patient for an appointment with the same visit type if they call to reschedule. [facility] 36 Okay, thank you looks like he was just in the ER couple of days ago, looks like at that time he was doing methamphetamines [facility] 36 Patient walked into office this morning stating he wanted his blood pressure checked because he felt it is really high. While desk maker staff was scheduling a nurse visit appointment she stated he was pacing back and forth and frigidity trying to talk with him. Upon going out to waiting room to call patient back, he was no longer in waiting room, advised desk maker staff to advise me if he returns for Blood pressure check. Last Blood pressure documented was on 07/20/[address] [facility] ER and was 128/74. Normal [facility] CBC W Auto Differential pane l (Bld)on 07-20-2023 Basophils (Bld) [#/Vol] 0.1 10*3/uL 0.0 - 0.2 10*3/uL [facility] Basophils/100 WBC (Bld) 0.6 % 0.0 - 2.0 % [facility] Eosinophils (Bld) [#/Vol] 0.1 10*3/uL 0.0 - 0.5 10*3/uL [facility] Eosinophils/100 WBC (Bld) 0.7 % 0.0 - 6.0 % [facility] Erythrocyte distribution width (RBC) [Ratio] 13.1 % 11.5 - 15.0 % [facility] Hematocrit (Bld) [Volume fraction] 46.5 % 40.0 - 52.0 % [facility] Hemoglobin (Bld) [Mass/Vol] 15.6 g/dL 13.0 - 18.0 g/dL [facility] Immature granulocytes (Bld) [#/Vol] 0.0 10*3/uL NINF - 0.1 10*3/uL [facility] Immature granulocytes/100 WBC (Bld) 0.3 % 0.0 - 2.0 % [facility] Interpretation and review of laboratory results Abnormal [facility] Lymphocytes (Bld) [#/Vol] 2.0 10*3/uL 1.0 - 4.3 10*3/uL [facility] Lymphocytes/100 WBC (Bld) 14.6 % Low 15.0 - 45.0 % [facility] MCH (RBC) [Entitic mass] 31.1 pg 26.0 - 34.0 pg [facility] MCHC (RBC) [Mass/Vol] 33.5 % 30.5 - 36.0 % [facility] MCV (RBC) [Entitic vol] 92.8 fL 77.0 - 99.0 fL [facility] Monocytes (Bld) [#/Vol] 0.8 10*3/uL 0.0 - 0.9 10*3/uL [facility] Monocytes/100 WBC (Bld) 5.6 % 5.0 - 13.0 % [facility] Neutrophils (Bld) [#/Vol] 10.5 10*3/uL High 1.8 - 7.5 10*3/uL [facility] Neutrophils/100 WBC (Bld) 78.2 % 38.0 - 82.0 % [facility] Nucleated RBC/100 WBC (Bld) [Ratio] 0.0 % [facility] Platelet mean volume (Bld) [Entitic vol] 9.8 fL 9.0 - 12.7 fL [facility] Platelets (Bld) [#/Vol] 393 10*3/uL 140 - 440 10*3/uL [facility] RBC (Bld) [#/Vol] 5.01 10*6/uL 4.40 - 5.9 0 10*6/uL [facility] WBC (Bld) [#/Vol] 13.4 10*3/uL High 3.6 - 10.7 10*3/uL [facility] CBC WITH AUTO DIFFERENTIALon 07-20-2023 Basophils (Bld) [#/Vol] 0.1 10*3/uL Normal 0.0-0.2 [facility] Comment on above: Performed By: #### L [id number] ####Communication Spec: JAROD SUGGSNemesioLINDA ([id number])[facility] (SBHLAB)[address] Basophils/100 WBC (Bld) 0.6 % Normal 0.0-2.0 [facility] Comment on above: Performed By: #### L [id number] ####Communication Spec: JAROD VAIBHAV ([id number])[facility] (SBHLAB)[address] Eosinophils (Bld) [#/Vol] 0.1 10*3/uL Normal 0.0-0.5 [facility] Comment on above: Performed By: #### L [id number] ####Communication Spec: JAROD VAIBHAV ([id number])[facility] (SBHLAB)[address] Eosinophils/100 WBC (Bld) 0.7 % Normal 0.0-6.0 [facility] Comment on above: Performed By: #### L [id number] ####Communication Spec: JAROD VAIBHAV ([id number])[facility] [place] ([facility])[address] Erythrocyte distribution width (RBC) [Ratio] 13.1 % Normal 11.5-15.0 [facility] Comment on above: Performed By: #### L [id number] ####Communication Spec: JAROD TOVARLINDA ([id number])[facility] [place] ([facility])[address] Hematocrit (Bld) [Volume fraction] 46.5 % Normal 40.0-52.0 [facility] Comment on above: Performed By: #### L [id number] ####Communication Spec: JAROD TOVARLINDA ([id number])[facility] ([facility]HL[facility])[address] Hemoglobin (Bld) [Mass/Vol] 15.6 g/dL Normal 13.0-18.0 [facility] Comment on above: Performed By: #### L [id number] ####Communication Spec: JAROD ESPOSITO ([id number])[facility] (SB[facility])[address] IMMATURE GRANS % 0.3 % Normal 0.0-2.0 [facility] Comment on above: Performed By: #### L [id number] ####Communication Spec: JAROD ESPOSITO ([id number])[facility] (SBHLAB)[address] IMMATURE GRANS ABSOLUTE 0.0 10*3/uL Normal <0.1 [facility] Comment on above: Performed By: #### L [id number] ####Communication Spec: JAROD ESPOSITO ([id number])[facility] (SBAB)[address] [place] [address] Lymphocytes (Bld) [#/Vol] 2.0 10*3/uL Normal 1.0-4.3 [facility] Comment on above: Performed By: #### L [id number] ####Communication Spec: JAROD ESPOSITO ([id number])[facility] ([facility])[address] Lymphocytes/100 WBC (Bld) 14.6 % Low 15.0-45.0 [facility] Comment on above: Performed By: #### L [id number] ####Communication Spec: JAROD ESPOSITO ([id number])[facility] ([facility]HL[facility])[address] MCH (RBC) [Entitic mass] 31.1 pg Normal 26.0-34.0 [facility] Comment on above: Performed By: #### L [id number] ####Communication Spec: JAROD ESPOSITO ([id number])[facility] ([facility])[address] MCHC 33.5 % Normal 30.5-36.0 [facility] Comment on above: Performed By: #### L [id number] ####Communication Spec: JAROD ESPOSITO ([id number])[facility] ([facility])[address] MCV (RBC) [Entitic vol] 92.8 fL Normal 77.0-99.0 [facility] Comment on above: Performed By: #### L [id number] ####Communication Spec: JAROD ESPOSITO ([id number])[facility] ([facility]HL[facility])[address] Monocytes (Bld) [#/Vol] 0.8 10*3/uL Normal 0.0-0.9 [facility] Comment on above: Performed By: #### L [id number] ####Communication Spec: JAROD TOVARLINDA ([id number])[facility] [place] ([facility])[address] Monocytes/100 WBC (Bld) 5.6 % Normal 5.0-13.0 [facility] Comment on above: Performed By: #### L [id number] ####Communication Spec: JAROD TOVARLINDA ([id number])[facility] ([facility])[address] NEUTROPHILS ABSOLUTE 10.5 10*3/uL High 1.8-7.5 [facility] Comment on above: Performed By: #### L [id number] ####Communication Spec: JAROD ESPOSITO ([id number])[facility] [place] ([facility])[address] Neutrophils/100 WBC (Bld) 78.2 % Normal 38.0-82.0 [facility] Comment on above: Performed By: #### L [id number] ####Communication Spec: JAROD ESPOSITO ([id number])[facility] [place] ([facility])[address] NRBC 0.0 /100 WBCs Normal 0.0-2.0 [facility] Comment on above: Performed By: #### L [id number] ####Communication Spec: JAROD ESPOSITO ([id number])[facility] (SBHLAB)[address] Platelet mean volume (Bld) [Entitic vol] 9.8 fL Normal 9.0-12.7 [facility] Comment on above: Performed By: #### L [id number] ####Communication Spec: JAROD ESPOSITO ([id number])[facility] (SBHLAB)[address] Platelets (Bld) [#/Vol] 393 10*3/uL Normal 140-440 [facility] Comment on above: Performed By: #### L [id number] ####Communication Spec: JAROD ESPOSITO ([id number])[facility] (SB[facility])[address] RBC (Bld) [#/Vol] 5.01 10*6/uL Normal 4.40-5.90 [facility] Comment on above: Performed By: #### L [id number] ####Communication Spec: JAROD TOVARLINDA ([id number])[facility] (SB[facility])[address] WBC (Bld) [#/Vol] 13.4 10*3/uL High 3.6-10.7 [facility] Comment on above: Performed By: #### L [id number] ####Communication Spec: JAROD ESPOSITO ([id number])[facility] ([facility])[address] CKon 07-20-2023 CK [Catalytic activity/Vol] 271 U/L High 30-170 [facility] Comment on above: Performed By: #### L AB46, LAB17, [id number], LAB62 ####Communication Spec: JAROD TOVARLINDA ([id number])[facility] ([facility])[address] CK [Catalytic activity/Vol]o n 07-20-2023 Interpretation and review of laboratory results Abnormal [facility] COMPREHENSIVE METABOLIC PANE Chavo 07-20-2023 Albumin [Mass/Vol] 4.2 g/dL Normal 3.5-5.0 [facility] Comment on above: Performed By: #### L AB46, LAB17, UWL122, LAB62 ####Communication Spec: JAROD ESPOSITO ([id number])[facility] [place] ([facility])[address] ALP [Catalytic activity/Vol] 100 U/L Normal 38-126 [facility] Comment on above: Performed By: #### L AB46, LAB17, GSN098, LAB62 ####Communication Spec: JAROD ESPOSITO ([id number])[facility] ([facility])[address] ALT [Catalytic activity/Vol] 20 U/L Normal 0-49 [facility] Comment on above: Performed By: #### L AB46, LAB17, EIA461, LAB62 ####Communication Spec: JAROD ESPOSITO ([id number])[facility] [place] ([facility])[address] Anion gap [Moles/Vol] 7 mmol/L Normal 3-13 [facility] Comment on above: Performed By: #### L AB46, LAB17, LCP496, LAB62 ####Communication Spec: JAROD ESPOSITO ([id number])[facility] ([facility])[address] AST [Catalytic activity/Vol] 32 U/L Normal 15-46 [facility] Comment on above: Performed By: #### L AB46, LAB17, GOE715, LAB62 ####Communication Spec: JAROD ESPOSITO ([id number])[facility] ([facility])[address] Bilirubin [Mass/Vol] 0.4 mg/dL Normal 0.2-1.3 [facility] Comment on above: Performed By: #### L AB46, LAB17, BAP811, LAB62 ####Communication Spec: JAROD ESPOSITO ([id number])[facility] [place] ([facility])[address] Calcium [Mass/Vol] 9.3 mg/dL Normal 8.4-10.4 [facility] Comment on above: Performed By: #### L AB46, LAB17, XLP625, LAB62 ####Communication Spec: JAROD ESPOSITO ([id number])[facility] [place] ([facility])[address] Chloride [Moles/Vol] 104 mmol/L Normal 98-107 [facility] Comment on above: Performed By: #### L AB46, LAB17, RRL933, LAB62 ####Communication Spec: JAROD ESPOSITO ([id number])[facility] [place] (SBHLAB)[address] CO2 [Moles/Vol] 30 mmol/L Normal 22-30 [facility] Comment on above: Performed By: #### L AB46, LAB17, TYM711, LAB62 ####Communication Spec: JAROD ESPOSITO ([id number])[facility] SELLERSSANDEEPN (SBHLAB)[address] Creatinine [Mass/Vol] 0.84 mg/dL Normal 0.66-1.25 [facility] Comment on above: Performed By: #### L AB46, LAB17, RPU143, LAB62 ####Communication Spec: JAROD ESPOSITO ([id number])[facility] [place] ([facility])[address] GLOMERULAR FILTRATION RATE ML/MIN/1.73 SQ M.PREDICTED >90.0 Normal >60.0 [facility] Comment on above: Result Comment: Calc ulation based on the Chronic Kidney Disease Epidemiology Collaboration (CKD-EPI) equation refit without adjustment for race Performed By: #### L AB46, LAB17, BPB435, LAB62 ####Communication Spec: JAROD ESPOSITO ([id number])[facility] [place] ([facility])[address] Glucose [Mass/Vol] 89 mg/dL Normal 70-100 [facility] Comment on above: Performed By: #### L AB46, LAB17, SGW950, LAB62 ####Communication Spec: JAROD ESPOSITO ([id number])[facility] (SBHLAB)[address] Potassium [Moles/Vol] 4.4 mmol/L Normal 3.5-5.1 [facility] Comment on above: Performed By: #### L AB46, LAB17, USJ152, LAB62 ####Communication Spec: JAROD ESPOSITO ([id number])[facility] (SBHLAB)[address] Protein [Mass/Vol] 6.9 g/dL Normal 6.3-8.2 [facility] Comment on above: Performed By: #### L AB46, LAB17, DQP144, LAB62 ####Communication Spec: JAROD ESPOSITO ([id number])[facility] (SBHLAB)[address] Sodium [Moles/Vol] 141 mmol/L Normal 135-145 [facility] Comment on above: Performed By: #### L AB46, LAB17, EGM211, LAB62 ####Communication Spec: JAROD ESPOSITO ([id number])[facility] (SB[facility]AB)[address] Urea nitrogen [Mass/Vol] 9 mg/dL Normal 9-20 [facility] Comment on above: Performed By: #### L AB46, LAB17, MTJ251, LAB62 ####Communication Spec: JAROD ESPOSITO ([id number])[facility] ([facility])[address] Comprehensive metabolic 1998 panelon 07-20-2023 Albumin [Mass/Vol] 4.2 g/dL 3.5 - 5.0 g/dL [facility] ALP [Catalytic activity/Vol] 100 U/L 38 - 126 U/L [facility] ALT [Catalytic activity/Vol] 20 U/L 0 - 49 U/L [facility] Anion gap [Moles/Vol] 7 mmol/L 3 - 13 mmol/L [facility] AST [Catalytic activity/Vol] 32 U/L 15 - 46 U/L [facility] Bilirubin [Mass/Vol] 0.4 mg/dL 0.2 - 1 .3 mg/dL [facility] Calcium [Mass/Vol] 9.3 mg/dL 8.4 - 10. 4 mg/dL [facility] Chloride [Moles/Vol] 104 mmol/L 98 - 10 7 mmol/L [facility] CO2 [Moles/Vol] 30 mmol/L 22 - 30 mmol/L [facility] Creatinine [Mass/Vol] 0.84 mg/dL 0.66 - 1.25 mg/dL [facility] GFR/1.73 sq M.predicted MDRD (S/P/Bld) [Vol rate/Area] - PINF [facility] Comment on above: Calculation based on the Chronic Kidney Disease Epidemiology Collaboration (CKD-EPI) equation refit without adjustment for race Glucose [Mass/Vol] 89 mg/dL 70 - 100 mg/dL [facility] Potassium [Moles/Vol] 4.4 mmol/L 3.5 - 5.1 mmol/L [facility] Protein [Mass/Vol] 6.9 g/dL 6.3 - 8.2 g/dL [facility] Sodium [Moles/Vol] 141 mmol/L 135 - 145 mmol/L [facility] Urea nitrogen [Mass/Vol] 9 mg/dL 9 - 20 mg/d L [facility] ECG 12-LEADon 07-20-2023 ECG 12-LEAD IMPRESSION: Sinus rhythm Borderline short [place] interval Normal [place] No ST or T wave changes Electronically Signed On 07-20-2023 13:18:23 EST by Cas Salamanca Normal [facility] ED Provider Noteon ED Provider Note EMERGENCY [...] drugs and he admitted to 1 police or patrol park officer that he has used methamphetamines today. He [...] Depression PTSD (post-traumatic stress disorder) Substance abuse ([facility]) ([facility]) TBI (traumatic brain injury) ([facility]) SURGICAL HISTORY No past surgical history on [...] examiner. EK (more content not included)... Normal [facility] ETHANOLon 07-20-2023 ETHANOL IN SER/PLAS <0.010 Normal 0.000-0.010 [facility] Comment on above: Result Comment: SONYA Canela COMMENTS: NOTE: This result is for medical treatment only. Analysis performed using non-forensic procedures. Performed By: #### L AB46, LAB17, RJE863, LAB62 ####Communication Spec: JAROD ESPOSITO ([id number])[facility] (SBHLAB)[address] [place] [address] Ethanol (Bld) [Mass/Vol]on 0 07-20-2023 Ethanol [Mass/Vol] g/dL 0.000 - 0 .010 g/dL [facility] Laboratory - Chemistry and C hemistry - challengeon 07-20-2023 Troponin I.cardiac [Mass/Vol] ng/mL NINF - 0.034 ng/mL [facility] CK [Catalytic activity/Vol] 271 U/L High 30 - 170 U/L [facility] Laboratory - Microbiology an d Antimicrobial susceptibilityOrdered By: Dalila He on 07-20-2023 SARS-CoV-2 (COVID-19) Ag IA.rapid Ql (Resp) Negative Negative [facility] Comment on above: A negative result do es not rule out the possibility of SARS-CoV-2 infection. NAAT-based methods should be considered for symptomatic patients presenting greater than seven days after onset of symptoms. Method: Lateral flow immunoassay. Fact sheets for healthcare providers and patients can be found at the following sites: https://www.fda.gov/media/478624/download https://www.fda.gov/media/193322/download No Panel Informationon 07-19 Interpretation and review of laboratory results Normal [facility] P Warden 33 degrees [facility] [place] Interval 116 ms [facility] QRS Warden 59 degrees [facility] QRSD Interval 98 ms [facility] h QT Interval 337 ms [facility] QTC Interval 420 ms [facility] T Wave Warden 54 degrees [facility] Sinus rhythm Borderline short [place] interval Normal [place] No ST or T wave changes Electronically Signed On 07-20-2023 13:18:23 EST by Cas Salamanca CV Cas Ozuna MD - 07/20/2023 IMPRESSION: Sinus rhythm Borderline short [place] interval Normal Warden No ST or T wave changes Electronically Signed On 07-20-2023 13:18:23 EST by Cas Salamanca [facility] SARS-COV-2 ANTIGENon 024 SARS-COV-2 ANTIGEN SARS-COV-2 ANTIGEN -BINAX Reference Negative Negative A negative result does not rule out the possibility of SARS-CoV-2 infection. NAAT-based methods should be considered for symptomatic patients presenting greater than seven days after onset of symptoms. Method: Lateral flow immunoassay. Fact sheets for healthcare providers and patients can be found at the following sites: https://www.fda.gov/ media/313495/downloa d https://www.fda.gov/ media/895069/downloa d Normal [facility] Comment on above: Performed By: #### L AB462 #### Communication Spec: JERARDO NICHOLE ([id number]) [facility] ([facility]) [address] [place] [address] SARS-CoV-2 (COVID-19) Ag IA. rapid Ql (Resp)Ordered By: Dalila He on 07-20-2023 Interpretation and review of laboratory results Normal [facility] TROPONIN Ion 07-20-2023 Troponin I.cardiac [Mass/Vol] ng/mL Normal <0.034 [facility] Comment on above: Result Comment: SONYA Canela COMMENTS: Patients with high levels of Biotin oral intake (ie >5 mg/day) may have falsely decreased Troponin levels. Performed By: #### L AB46, LAB17, RHX985, LAB62 ####Communication Spec: JAROD ESPOSITO ([id number])[facility] ([facility])[address] [place] [address] Troponin I.cardiac [Mass/Vol ]on 07-20-2023 Interpretation and review of laboratory results Normal [facility] Patients with high levels of Biotin oral intake (ie >5 mg/day) may have falsely decreased Troponin levels. [facility] Vital signson 07-20-2023 Heart rate 93 /min bpm [facility] Office Visiton 06-15-2023 Follow-up visit [id number] Grant Danielle 1985 Date Provider Department Center 06/15/2023 [facility] Family History Problem Relation Age of Onset Emphysema Mother No Known Problems Father Family Status - Relation Status Age at Mother Father Level of Service:51470 [place] OFFICE/OUTPATIENT ESTABLISHED MOD MDM 30 MIN Reason for Visit and Comments: Bipolar [831386] Anxiety [9] PTSD (Post-Traumatic Stress Disorder) [466280] Follow-up [479440] Med Refill [080914] Normal [facility] Progress Noteon 06-15-2023 Progress Note Partial remission, continue Paxil 20 mg, Rx sent. 5 him follow-up in 8 weeks. Normal [facility] Progress Note Partial remission, continue Paxil 20 mg, Rx sent. 5 him follow-up in 8 weeks. Normal [facility] Progress Note Partial remission, continue Paxil 20 mg, Rx sent. 5 him follow-up in 8 weeks. Normal [facility] Progress Note Blood pressure was initially elevated, he left before we could recheck Normal [facility] Progress Note Awaiting on neurology to set up an appointment Normal [facility] Progress Note 06/15/2023 Grant Danielle (: 1985) [...] note. Abimael Carson MD 06/15/2023 11:00 AM [facility] 36on 06-14-2023 36 Pt came to office and was scheduled. [facility] 36 Abimael Carson MD 06/14/23 12:04 PM Note Refused, this person was to have a follow-up appointment in 3 weeks after his initial visit and that did not get scheduled he needs to come in to get more medication. Left a message to return call. [facility] 36 Refused, this person was to have a follow-up appointment in 3 weeks after his initial visit and that did not get scheduled he needs to come in to get more medication. [facility] 36 Prescription Request: Last medication check: none new patient as of 05/23/23 Last physical exam: 05/23/23 Next scheduled appointment: none Last date of refill on this medication: 05/23/23 [facility] 36on 05-28-2023 36 PATIENT STOPPED IN OFFICE, NOTIFIED OF LAB RESULTS [facility] 36on 05-25-2023 36 Left a message to return call. [facility] 36on 05-24-2023 36 ----- Message from Abimael Carson MD sent at 05/24/2023 7:34 AM EST ----- Blood sugar and chemistry are normal. Cholesterol total and good are good, bad is borderline, strict low-fat low-cholesterol diet Left a message to return call. [facility] Office Visiton 05-23-2023 Follow-up visit [id number] Grant Danielle 1985 M Date Provider Department Center 05/23/2023 [id number] CARSON [facility] Family History Problem Relation Age of Onset Emphysema Mother No Known Problems Father Family Status - Relation Status Age at Mother Father Level of Service:13301 [place] INITIAL PREVENTIVE MEDICINE NEW PT AGE 18-39YRS Reason for Visit and Comments: New Patient [542] Annual Exam [83] Blood Work [845006] Health Maintenance [872] - Flu vaccine- refuse Hep a vaccine- refuse Pcv 20 vaccine- refuse Mmr vaccine- not sure if he has had them Varicella vaccine- had chicken pox Covid vaccine- not done and will not get any Hiv/hep c screening - refuse Hep b vaccine- refuse [facility] Progress Noteon 05-23-2023 Progress Note Paxil 20 mg daily follow-up in 3 weeks [facility] Progress Note Paxil 20 mg daily follow-up in 3 weeks [facility] Progress Note Paxil 20 mg daily follow-up in 3 weeks [facility] Progress Note Patient verified by last name and date of . Pt agree to have a message sent to Lilia and she will contact pt to see if she has help for him [facility] Progress Note 05/23/2023 Grant Danielle (: 1985) [...] time he was on Depakote. Orders: - [facility] Neurology 6. Screening for diabetes mellitus [...] Abimael Carson MD 05/23/2023 12:57 PM Normal [facility] Ammoniaon 11-03-2021 Ammonia (P) [Moles/Vol] 38 umol/L High 9-30 [facility] Comment on above: Performed By: #### V ALP3, NH33 #### [facility] [address] [place] [address] #### CMP3 #### [facility] [address] [place] [address] Comp Metabolic Panelon 06-15 -2022 ALT [Catalytic activity/Vol] 16 U/L Normal 0-49 [facility] Comment on above: Result Comment: The ALT test is performed by an updated assay method. Please note that the reference intervals have been changed and are now sex specific. Performed By: #### V ALP3, NH33 #### [facility] [address] [place] [address] #### CMP3 #### [facility] [address] [place] [address] Calcium [Mass/Vol] 9.7 mg/dL Normal 8.4-10.4 [facility] Comment on above: Performed By: #### V ALP3, NH33 #### [place] [address] [place] [address] #### CMP3 #### [facility] [address] [place] [address] Glucose [Mass/Vol] 92 mg/dL Normal 70-100 [facility] Comment on above: Performed By: #### V ALP3, NH33 #### [place] [address] [place] [address] #### CMP3 #### [facility] [address] [place] [address] ALP [Catalytic activity/Vol] 84 U/L Normal 38-126 [facility] Comment on above: Performed By: #### V ALP3, NH33 #### [place] [address] [place] [address] #### CMP3 #### [facility] [address] [place] [address] Anion gap [Moles/Vol] 9 mmol/L Normal 3-13 [facility] Comment on above: Performed By: #### V ALP3, NH33 #### [facility] [address] [place] [address] #### CMP3 #### [facility] [address] [place] [address] AST [Catalytic activity/Vol] 26 U/L Normal 15-46 [facility] Comment on above: Performed By: #### V ALP3, NH33 #### [place] [address] [place] [address] #### CMP3 #### [facility] [address] [place] [address] Bilirubin [Mass/Vol] 0.6 mg/dL Normal 0.2-1.3 [facility] Comment on above: Performed By: #### V ALP3, NH33 #### [facility] [address] [place] [address] #### CMP3 #### [facility] [address] [place] [address] CO2 [Moles/Vol] 28 mmol/L Normal 22-30 [facility] Comment on above: Performed By: #### V ALP3, NH33 #### [facility] [address] [place] [address] #### CMP3 #### [facility] [address] [place] [address] Creatinine [Mass/Vol] 0.94 mg/dL Normal 0.52-1.25 [facility] Comment on above: Performed By: #### V ALP3, NH33 #### [facility] [address] [place] [address] #### CMP3 #### [facility] [address] [place] [address] eGFR OTHER > 90.0 Normal >60 [facility] Comment on above: Result Comment: KDIG [...] Performed By: #### V ALP3, NH33 #### [place] [address] [place] [address] #### CMP3 #### [facility] [address] [place] [address] GFR/1.73 sq M.predicted among blacks MDRD (S/P/Bld) [Vol rate/Area] mL/min/{1.73_m2} Normal >60 [facility] Comment on above: Performed By: #### V ALP3, NH33 #### [place] [address] [place] [address] #### CMP3 #### [facility] [address] [place] [address] Protein [Mass/Vol] 7.3 g/dL Normal 6.3-8.2 [facility] Comment on above: Performed By: #### V ALP3, NH33 #### [address] [place] [address] #### CMP3 #### [facility] [address] [place] [address] Urea nitrogen [Mass/Vol] 10 mg/dL Normal 7-17 [facility] Comment on above: Performed By: #### V ALP3, NH33 #### [address] [place] [address] #### CMP3 #### [facility] [address] [place] [address] Potassium [Moles/Vol] 4.1 mmol/L Normal 3.5-5.1 [facility] Comment on above: Performed By: #### V ALP3, NH33 #### [place] [address] [place] [address] #### CMP3 #### [facility] [address] [place] [address] Sodium [Moles/Vol] 140 mmol/L Normal 135-145 [facility] Comment on above: Performed By: #### V ALP3, NH33 #### [place] [address] [place] [address] #### CMP3 #### [facility] [address] [place] [address] Albumin [Mass/Vol] 4.5 g/dL Normal 3.5-5.0 [facility] Comment on above: Performed By: #### V ALP3, NH33 #### [facility] [address] [place] [address] #### CMP3 #### [facility] [address] [place] [address] Chloride [Moles/Vol] 103 mmol/L Normal 98-107 [facility] Comment on above: Performed By: #### V ALP3, NH33 #### [facility] [address] [place] [address] #### CMP3 #### [facility] [address] [place] [address] Comprehensive Metabolic Pane chavo 11-02-2021 Albumin [Mass/Vol] [...] - 1.25 mg/dL [facility] EGFR IF NonAfrican [place] >90.0 >60 mL/min [facility] Comment on above: [...] serum creatinine in children is the Bedside Ednney equation. It is less accurate in patients [...] - 17 mg/dL [facility] Test Performed by [facility], [address] LAB [facility] Valproic Acidon 11-02-2021 Valproic Acid 73 ug/mL Normal 50-120 [facility] Comment on above: Performed By: #### V ALP3, NH33 #### [facility] [address] [place] [address] #### CMP3 #### [facility] [address] [place] [address] Valproic Acid Level, Totalon 11-02-2021 Valproic Acid Lvl 73 ug/mL 50 - 120 ug/mL [facility] Test Performed by [facility], [address], [address] LAB [facility] Ammoniaon 09-13-2021 Ammonia (P) [Moles/Vol] 21 umol/L Normal 9-30 [facility] Comment on above: Performed By: #### L I3, NH33, VALP3 #### [facility] [address] [place] [address] #### CMP3, TSH5 #### [facility] [address] [place] [address] Ammonia (P) [Moles/Vol] 21 umol/L 9 - 30 umol/ L [facility] Test Performed by [place] [address] [place] [address] [facility] LAB [facility] Comp Metabolic Panelon 09-13 ALP [Catalytic activity/Vol] 92 U/L Normal 38-126 [facility] Comment on above: Performed By: #### L I3, NH33, VALP3 #### [address] [place] [address] #### CMP3, TSH5 #### [facility] [address] [place] [address] ALT [Catalytic activity/Vol] 16 U/L Normal 0-49 [facility] Comment on above: Result Comment: The ALT test is performed by an updated assay method. Please note that the reference intervals have been changed and are now sex specific. Performed By: #### L I3, NH33, VALP3 #### [place] [address] [place] [address] #### CMP3, TSH5 #### [facility] [address] [place] [address] Anion gap [Moles/Vol] 6 mmol/L Normal 3-13 [facility] Comment on above: Performed By: #### L I3, NH33, VALP3 #### [place] [address] [place] [address] #### CMP3, TSH5 #### [facility] [address] [place] [address] AST [Catalytic activity/Vol] 26 U/L Normal 15-46 [facility] Comment on above: Performed By: #### L I3, NH33, VALP3 #### [place] [address] [place] [address] #### CMP3, TSH5 #### [facility] [address] [place] [address] Bilirubin [Mass/Vol] 0.6 mg/dL Normal 0.2-1.3 [facility] Comment on above: Performed By: #### L I3, NH33, VALP3 #### [facility] [address] [place] [address] #### CMP3, TSH5 #### [facility] [address] [place] [address] Calcium [Mass/Vol] 9.7 mg/dL Normal 8.4-10.4 [facility] Comment on above: Performed By: #### L I3, NH33, VALP3 #### [place] [address] [place] [address] #### CMP3, TSH5 #### [facility] [address] [place] [address] CO2 [Moles/Vol] 28 mmol/L Normal 22-30 [facility] Comment on above: Performed By: #### L I3, NH33, VALP3 #### [place] [address] [place] [address] #### CMP3, TSH5 #### [facility] [address] [place] [address] Creatinine [Mass/Vol] 0.94 mg/dL Normal 0.52-1.25 [facility] Comment on above: Performed By: #### L I3, NH33, VALP3 #### [place] [address] [place] [address] #### CMP3, TSH5 #### [facility] [address] [place] [address] eGFR OTHER > 90.0 Normal >60 [facility] Comment on above: Result Comment: KDIG [...] By: #### L I3, NH33, VALP3 #### [facility] [address] [place] [address] #### CMP3, TSH5 #### [facility] [address] [place] [address] GFR/1.73 sq M.predicted among blacks MDRD (S/P/Bld) [Vol rate/Area] mL/min/{1.73_m2} Normal >60 [facility] Comment on above: Performed By: #### L I3, NH33, VALP3 #### [facility] [address] [place] [address] #### CMP3, TSH5 #### [facility] [address] [place] [address] Glucose [Mass/Vol] 88 mg/dL Normal 70-100 [facility] Comment on above: Performed By: #### L I3, NH33, VALP3 #### [facility] [address] [place] [address] #### CMP3, TSH5 #### [facility] [address] [place] [address] Protein [Mass/Vol] 7.6 g/dL Normal 6.3-8.2 [facility] Comment on above: Performed By: #### L I3, NH33, VALP3 #### [facility] [address] [place] [address] #### CMP3, TSH5 #### [facility] [address] [place] [address] Urea nitrogen [Mass/Vol] 11 mg/dL Normal 7-17 [facility] Comment on above: Performed By: #### L I3, NH33, VALP3 #### [place] [address] [place] [address] #### CMP3, TSH5 #### [facility] [address] [place] [address] Albumin [Mass/Vol] 4.6 g/dL Normal 3.5-5.0 [facility] Comment on above: Performed By: #### L I3, NH33, VALP3 #### [place] [address] [place] [address] #### CMP3, TSH5 #### [facility] [address] [place] [address] Potassium [Moles/Vol] 4.2 mmol/L Normal 3.5-5.1 [facility] Comment on above: Performed By: #### L I3, NH33, VALP3 #### [address] [place] [address] #### CMP3, TSH5 #### [facility] [address] [place] [address] Sodium [Moles/Vol] 137 mmol/L Normal 135-145 [facility] Comment on above: Performed By: #### L I3, NH33, VALP3 #### [place] [address] [place] [address] #### CMP3, TSH5 #### [facility] [address] [place] [address] Chloride [Moles/Vol] 103 mmol/L Normal 98-107 [facility] Comment on above: Performed By: #### L I3, NH33, VALP3 #### [place] [address] [place] [address] #### CMP3, TSH5 #### [facility] [address] [place] [address] Comprehensive Metabolic Pane hcavo 09-13-2021 Albumin [Mass/Vol] 4.6 g/dL 3.5 - 5.0 g/dL [facility] ALP (Bld) [Catalytic activity/Vol] 92 U/L 38 - 126 U/L [facility] ALT [Catalytic activity/Vol] 16 U/L [...] - 1.25 mg/dL [facility] EGFR IF NonAfrican [place] >90.0 >60 mL/min [facility] Comment on above: [...] - 17 mg/dL [facility] Test Performed by [facility], [address] LAB [facility] Lithiumon 09-13-2021 [place] [Moles/Vol] 0.3 mmol/L Low 0.6-1.2 [facility] Comment on above: Performed By: #### L I3, NH33, VALP3 #### [facility] [address] [place] [address] #### CMP3, TSH5 #### [facility] [address] [place] [address] [place] Levelon 09-13-2021 Interpretation and review of laboratory results Abnormal [facility] [place] Lvl 0.3 mmol/L Low 0.6 - 1.2 mmol/L [facility] Test Performed by [facility], [address] LAB [facility] TSHon 09-13-2021 TSH Qn 2.604 u[IU]/mL 0.465 - 4.680 u[IU]/mL [facility] Test Performed by [facility], [address] LAB [facility] Thyroid Stim. Hormoneon 08-20 Thyroid Stim. Hormone 2.604 u[IU]/mL Normal 0.465-4.68 0 [facility] Comment on above: Performed By: #### L I3, NH33, VALP3 #### [facility] [address] [place] [address] #### CMP3, TSH5 #### [facility] [address] [place] [address] Valproic Acidon 09-13-2021 Valproic Acid 27 ug/mL Low 50-120 [facility] Comment on above: Performed By: #### L I3, NH33, VALP3 #### [facility] [address] [place] [address] #### CMP3, TSH5 #### [facility] [address] [place] [address] Valproic Acid Level, Totalon 09-13-2021 Interpretation and review of laboratory results Abnormal [facility] Valproic Acid Lvl 27 ug/mL Low 50 - 120 ug/mL [facility] Test Performed by [facility], [facility] [address], [address] LAB [facility] Ammoniaon 02-15-2021 Ammonia (P) [Mass/Vol] ug/dL Normal 9-30 [facility] Comment on above: Performed By: #### V ALP3, NH33 #### [facility] [address] [place] [address] #### CMP3 #### [facility] [address] [place] [address] AmmoniaOrdered By: Tomas Pathak on 02-15-2021 Ammonia (P) [Mass/Vol] ug/dL 9 - 30 umol/L [facility] Work Phone: Test Performed by [facility], [address], [place] [address] [facility] Work Phone: 1 [facility] Work Phone: [...] (Bld) 58.8 % 40.0 - 80.0 % [employer] Work Phone: 1 Hematocrit (Bld) [Volume fraction] 44.6 % 40.0 - 52.0 % [employer] Work Phone: 1 Hemoglobin.gastrointesti nal spec 1 Ql (Stl) 15.1 g/dL 13.0 - 18.0 g/dL [employer] Work Phone: Interpretation and review of laboratory results Abnormal [employer] Work Phone: Lymphocytes (Bld) [#/Vol] 3.4 10*3/uL 1.0 - 4.3 10*3/uL [employer] Work Phone: 1 Lymphocytes/100 WBC (Bld) 31.4 % 20.0 - 40.0 % [employer] Work Phone: 1 MCH (RBC) [Entitic mass] 32.3 pg 26.0 - 34.0 pg [employer] Work Phone: MCHC (RBC) [Mass/Vol] 33.9 % 32.0 - 36.0 % [employer] Work Phone: MCV (RBC) [Entitic vol] 95.3 fL 80.0 - 98.0 fL [employer] Work Phone: Monocytes (Bld) [#/Vol] 0.7 10*3/uL 0.0 - 0.8 10*3/uL [employer] Work Phone: Monocytes/100 WBC (Bld) 6.7 % 2.0 - 10.0 % [employer] Work Phone: Platelet distribution width (Bld) [Ratio] 13.7 % 11.5 - 14.5 % [employer] Phone: Platelet mean volume (Bld) [Entitic vol] 7.7 fL 7.4 - 10.4 fL [employer] Work Phone: Platelets (Bld) [#/Vol] 386 10*3/uL 140 - 440 10*3/uL [employer] Work Phone: RBC (Bld) [#/Vol] 4.68 10*6/uL 4.40 - 5.9 0 10*6/uL [facility] Work Phone: WBC (Bld) [#/Vol] 10.9 10*3/uL High 3.6 - 10.7 10*3/uL [facility] Work Phone: Test Performed by [facility], [address] , [place], [place] [address] Work Phone: [phone] [facility] Work Phone: Comp Metabolic Panelon 02-15 ALP [Catalytic activity/Vol] 74 U/L Normal 38-126 [facility] Comment on above: Performed By: #### C MP3, HEMDF, TSH5 #### [facility] [address] [place] [address] #### LI3, VALP3, NH33 #### [facility] [address] [place] [address] ALT [Catalytic activity/Vol] 13 U/L Normal 0-49 [facility] Comment on above: Result Comment: The ALT test is performed by an updated assay method. Please note that the reference intervals have been changed and are now sex specific. Performed By: #### C MP3, HEMDF, TSH5 #### [facility] [address] [place] [address] #### LI3, VALP3, NH33 #### [facility] [address] [place] [address] Calcium [Mass/Vol] 9.7 mg/dL Normal 8.4-10.4 [facility] Comment on above: Performed By: #### C MP3, HEMDF, TSH5 #### [facility] [address] [place] [address] #### LI3, VALP3, NH33 #### [facility] [address] [facility] [address] Glucose [Mass/Vol] 97 mg/dL Normal 70-100 [facility] Comment on above: Performed By: #### C MP3, HEMDF, TSH5 #### [facility] [address] [place] [address] #### LI3, VALP3, NH33 #### [facility] [address] [place] [address] Protein [Mass/Vol] 7.3 g/dL Normal 6.3-8.2 [facility] Comment on above: Performed By: #### C MP3, HEMDF, TSH5 #### [facility] [address] [place] [address] #### LI3, VALP3, NH33 #### [facility] [address] [place] [address] Urea nitrogen [Mass/Vol] 7 mg/dL Normal 7-17 [facility] Comment on above: Performed By: #### C MP3, HEMDF, TSH5 #### [facility] [address] [place] [address] #### LI3, VALP3, NH33 #### [place] [address] [place] [address] Anion gap [Moles/Vol] 6 mmol/L Normal 3-13 [facility] Comment on above: Performed By: #### C MP3, HEMDF, TSH5 #### [facility] [address] [place] [address] #### LI3, VALP3, NH33 #### [facility] [address] [place] [address] AST [Catalytic activity/Vol] 23 U/L Normal 15-46 [facility] Comment on above: Performed By: #### C MP3, HEMDF, TSH5 #### [facility] [address] [place] [address] #### LI3, VALP3, NH33 #### [facility] [address] [place] [address] Bilirubin [Mass/Vol] 0.6 mg/dL Normal 0.2-1.3 [facility] Comment on above: Performed By: #### C MP3, HEMDF, TSH5 #### [facility] [address] [place] [address] #### LI3, VALP3, NH33 #### [facility] [address] [place] [address] CO2 [Moles/Vol] 29 mmol/L Normal 22-30 [facility] Comment on above: Performed By: #### C MP3, HEMDF, TSH5 #### [facility] [address] [place] [address] #### LI3, VALP3, NH33 #### [facility] [address] [place] [address] Creatinine [Mass/Vol] 0.86 mg/dL Normal 0.52-1.25 [facility] Comment on above: Performed By: #### C MP3, HEMDF, TSH5 #### [facility] [address] [place] [address] #### LI3, VALP3, NH33 #### [facility] [address] [place] [address] eGFR OTHER > 90.0 Normal >60 [facility] Comment on above: Result Comment: KDIG [...] By: #### C MP3, HEMDF, TSH5 #### [facility] [address] [place] [address] #### LI3, VALP3, NH33 #### [facility] [address] [place] [address] GFR/1.73 sq M.predicted among blacks MDRD (S/P/Bld) [Vol rate/Area] mL/min/{1.73_m2} Normal >60 [facility] Comment on above: Performed By: #### C MP3, HEMDF, TSH5 #### [facility] [address] [place] [address] #### LI3, VALP3, NH33 #### [facility] [address] [place] [address] Chloride [Moles/Vol] 106 mmol/L Normal 98-107 [facility] Comment on above: Performed By: #### C MP3, HEMDF, TSH5 #### [facility] [address] [place] [address] #### LI3, VALP3, NH33 #### [facility] [address] [place] [address] Potassium [Moles/Vol] 3.8 mmol/L Normal 3.5-5.1 [facility] Comment on above: Performed By: #### C MP3, HEMDF, TSH5 #### [facility] [address] [place] [address] #### LI3, VALP3, NH33 #### [facility] [address] [place] [address] Sodium [Moles/Vol] 141 mmol/L Normal 135-145 [facility] Comment on above: Performed By: #### C MP3, HEMDF, TSH5 #### [facility] [address] [place] [address] #### LI3, VALP3, NH33 #### [facility] [address] [place] [address] Albumin [Mass/Vol] 4.4 g/dL Normal 3.5-5.0 [facility] Comment on above: Performed By: #### C MP3, HEMDF, TSH5 #### [facility] [address] [place] [address] #### LI3, VALP3, NH33 #### [facility] [address] [place] [address] Comprehensive Metabolic Pane lOrdered By: Alfred Pathak on 02-15-2021 Albumin [Mass/Vol] 4.4 g/dL 3.5 - 5.0 g/dL [facility] Work Phone: [phone] ALP (Bld) [Catalytic activity/Vol] 74 U/L 38 - 126 U/L [facility] Work Phone: [phone] ALT [Catalytic activity/Vol] 13 U/L 0 - 49 U/L [facility] Work Phone: [phone] Comment on above: The ALT test is perf ormed by an updated assay method. Please note that the reference intervals have been changed and are now sex specific. Anion gap [Moles/Vol] 6 mmol/L 3 - 13 mmol/L [facility] Work Phone: [phone] AST [Catalytic activity/Vol] 23 U/L 15 - 46 U/L [facility] Work Phone: [phone] Bilirubin [Mass/Vol] 0.6 mg/dL 0.2 - 1 .3 mg/dL [facility] Work Phone: [phone] Calcium [Mass/Vol] 9.7 mg/dL 8.4 - 10. 4 mg/dL [facility] Work Phone: [phone] Chloride [Moles/Vol] 106 mmol/L 98 - 10 7 mmol/L [facility] Work Phone: CO2 [Moles/Vol] 29 mmol/L 22 - 30 mmol/L [facility] Work Phone: [phone] Creatinine [Mass/Vol] 0.86 mg/dL 0.52 - 1.25 mg/dL [facility] Work Phone: [phone] EGFR IF NonAfrican [place] >90.0 >60 mL/min [facility] Work Phone: [phone] Comment on above: KDIGO guidelines pro vide [...] 8.2 g/dL [facility] Work Phone: [phone] GFR/1.73 sq M.predicted among blacks MDRD (S/P/Bld) [Vol rate/Area] mL/min/{1.73_m2} >60 mL/min [facility] Work Phone: [phone] Glucose [Mass/Vol] 97 mg/dL 70 - 100 mg/dL [facility] Work Phone: [phone] Potassium [Moles/Vol] 3.8 mmol/L 3.5 - 5.1 mmol/L [facility] Work Phone: Sodium [Moles/Vol] 141 mmol/L 135 - 145 mmol/L [facility] Work Phone: [phone] Urea nitrogen (BldV) [Mass/Vol] 7 mg/dL 7 - 17 mg/dL [facility] Work Phone: Test Performed by [facility], [address] , [address] Work Phone: [phone] Work Phone: [phone] Hemogram w/ Autodiffon 02-15 Abs Baso Cnt 0.0 10*3/uL Normal 0.0-0.2 [facility] Comment on above: Performed By: #### C MP3, HEMDF, TSH5 #### [facility] [address] [place] [address] #### LI3, VALP3, NH33 #### [facility] [address] [place] [address] Abs Neutrophile Cnt 6.4 10*3/uL Normal 1.8-7.0 [facility] Comment on above: Performed By: #### C MP3, HEMDF, TSH5 #### [facility] [address] [place] [address] #### LI3, VALP3, NH33 #### [facility] [address] [place] [address] Basophils/100 WBC (Bld) 0.4 % Normal 0.0-2.0 [facility] Comment on above: Performed By: #### C MP3, HEMDF, TSH5 #### [facility] [address] [place] [address] #### LI3, VALP3, NH33 #### [facility] [address] [place] [address] Eosinophils (Bld) [#/Vol] 0.3 10*3/uL Normal 0.0-0.5 [facility] Comment on above: Performed By: #### C MP3, HEMDF, TSH5 #### [facility] [address] [place] [address] #### LI3, VALP3, NH33 #### [facility] [address] [place] [address] Eosinophils/100 WBC (Bld) 2.7 % Normal 1.0-6.0 [facility] Comment on above: Performed By: #### C MP3, HEMDF, TSH5 #### [facility] [address] [place] [address] #### LI3, VALP3, NH33 #### [facility] [address] [place] [address] Erythrocyte distribution width (RBC) [Ratio] 13.7 % Normal 11.5-14.5 [facility] Comment on above: Performed By: #### C MP3, HEMDF, TSH5 #### [facility] [address] [place] [address] #### LI3, VALP3, NH33 #### [facility] [address] [place] [address] Granulocytes/100 WBC (Bld) 58.8 % Normal 40.0-80.0 [facility] Comment on above: Performed By: #### C MP3, HEMDF, TSH5 #### [facility] [address] [place] [address] #### LI3, VALP3, NH33 #### [facility] [address] [place] [address] Hematocrit (Bld) [Volume fraction] 44.6 % Normal 40.0-52.0 [facility] Comment on above: Performed By: #### C MP3, HEMDF, TSH5 #### [facility] [address] [place] [address] #### LI3, VALP3, NH33 #### [facility] [address] [place] [address] Hemoglobin (Bld) [Mass/Vol] 15.1 g/dL Normal 13.0-18.0 [facility] Comment on above: Performed By: #### C MP3, HEMDF, TSH5 #### [address] [place] [address] #### LI3, VALP3, NH33 #### [place] [address] [place] [address] Lymphocytes (Bld) [#/Vol] 3.4 10*3/uL Normal 1.0-4.3 [facility] Comment on above: Performed By: #### C MP3, HEMDF, TSH5 #### [facility] [address] [place] [address] #### LI3, VALP3, NH33 #### [place] [address] [place] [address] Lymphocytes/100 WBC (Bld) 31.4 % Normal 20.0-40.0 [facility] Comment on above: Performed By: #### C MP3, HEMDF, TSH5 #### [address] [place] [address] #### LI3, VALP3, NH33 #### [facility] [address] [place] [address] MCH (RBC) [Entitic mass] 32.3 pg Normal 26.0-34.0 [facility] Comment on above: Performed By: #### C MP3, HEMDF, TSH5 #### [address] [place] [address] #### LI3, VALP3, NH33 #### [facility] [address] [place] [address] MCHC 33.9 % Normal 32.0-36.0 [facility] Comment on above: Performed By: #### C MP3, HEMDF, TSH5 #### [facility] [address] [place] [address] #### LI3, VALP3, NH33 #### [facility] [address] [place] [address] MCV (RBC) [Entitic vol] 95.3 fL Normal 80.0-98.0 [facility] Comment on above: Performed By: #### C MP3, HEMDF, TSH5 #### [facility] [address] [place] [address] #### LI3, VALP3, NH33 #### [place] [address] [place] [address] Monocytes (Bld) [#/Vol] 0.7 10*3/uL Normal 0.0-0.8 [facility] Comment on above: Performed By: #### C MP3, HEMDF, TSH5 #### [facility] [address] [place] [address] #### LI3, VALP3, NH33 #### [place] [address] [place] [address] Monocytes/100 WBC (Bld) 6.7 % Normal 2.0-10.0 [facility] Comment on above: Performed By: #### C MP3, HEMDF, TSH5 #### [facility] [address] [place] [address] #### LI3, VALP3, NH33 #### [facility] [address] [place] [address] Platelet mean volume (Bld) [Entitic vol] 7.7 fL Normal 7.4-10.4 [facility] Comment on above: Performed By: #### C MP3, HEMDF, TSH5 #### [facility] [address] [place] [address] #### LI3, VALP3, NH33 #### [facility] [address] [place] [address] Platelets (Bld) [#/Vol] 386 10*3/uL Normal 140-440 [facility] Comment on above: Performed By: #### C MP3, HEMDF, TSH5 #### [facility] [address] [place] [address] #### LI3, VALP3, NH33 #### [facility] [address] [place] [address] RBC (Bld) [#/Vol] 4.68 10*6/uL Normal 4.40-5.90 [facility] Comment on above: Performed By: #### C MP3, HEMDF, TSH5 #### [facility] [address] [place] [address] #### LI3, VALP3, NH33 #### [facility] [address] [place] [address] WBC (Bld) [#/Vol] 10.9 10*3/uL High 3.6-10.7 [facility] Comment on above: Performed By: #### C MP3, HEMDF, TSH5 #### [facility] [address] [place] [address] #### LI3, VALP3, NH33 #### [facility] [address] [place] [address] Lithiumon 02-15-2021 [place] [Moles/Vol] 0.5 mmol/L Low 0.6-1.2 [facility] Comment on above: Performed By: #### V ALP3, NH33 #### [facility] [address] [place] [address] #### CMP3 #### [facility] [address] [place] [address] [place] LevelOrdered By: Derek Pathak on 02-15-2021 Interpretation and review of laboratory results Abnormal [facility] Work Phone: [place] Lvl 0.5 mmol/L Low 0.6 - 1.2 mmol/L [facility] Work Phone: 1 Test Performed by [facility], [address], [place], [place] [address] [facility] Work Phone: 1 [facility] Work Phone: TSH without ReflexOrdered By : Alfred Pathak on 02-15-2021 TSH Qn 3.494 u[IU]/mL 0.465 - 4.680 u[IU]/mL [facility] Work Phone: 1 Test Performed by [facility], [address] , [place] [address] [facility] Work Phone: 1 [facility] Work Phone: 1 Thyroid Stim. Hormoneon 01-20 Thyroid Stim. Hormone 3.494 u[IU]/mL Normal 0.465-4.68 0 [facility] Comment on above: Performed By: #### V ALP3, NH33 #### [facility] [address] [place] [address] #### CMP3 #### [facility] [address] [place] [address] Valproic Acidon 02-15-2021 Valproic Acid 33 ug/mL Low 50-120 [facility] Comment on above: Performed By: #### V ALP3, NH33 #### [facility] [address] [place] [address] #### CMP3 #### [facility] [address] [place] [address] Valproic acid level, totalOr dered By: Alfred Pathak on 02-15-2021 Interpretation and review of laboratory results Abnormal [facility] Work Phone: 1 Valproic Acid Lvl 33 ug/mL Low 50 - 120 ug/mL [facility] Work Phone: Test Performed by [facility], [address] [place], [place] [address] [facility] Work Phone: 1 [facility] Work Phone: [phone] PROGRESSon 07-02-2020 PROGRESS HNO ID: [id number] Author: Alpa Nunez Service: ? Author Type: Nurse Practitioner Type: Progress Notes Filed: 07/02/2020 3:09 PM Note Text: Completed treatment for Hep C in January of 2020. Alpa Nunze RN MEDICATION TECH.[facility] US ABD RIGHT UPPER QUADRANTo n 11-13-2019 US ABD RIGHT UPPER QUADRANT Final Report DATE OF EXAM: Nov 13 2019 2:58PM [facility] 1032 - US ABD RIGHT UPPER [...] sonographic appearance of the right upper quadrant. Triage Rn: PSCB Transcribe Date/Time: Nov 13 2019 4:56P Dictated by : SERGEI DUMONT MD This examination was interpreted and the report reviewed and electronically signed by: SERGEI DUMONT MD on Nov 13 2019 4:57PM EST Normal [facility] Vital Signs Date Time Vital Sign Value Performing Clinician Facility 11-14-2024 17:15-0400 Diastolic blood pressure 66 mm[Hg] Dr. Dom Yanez MD Work Phone: [facility] 11-14-2024 17:15-0400 Heart rate 60 /min Dr. Dom Yanez MD Work Phone: [facility] 11-14-2024 17:15-0400 Respiratory rate 16 /min Dr. Dom Yanez MD Work Phone: [facility] 11-14-2024 17:15-0400 SaO2% (BldA) [Mass fraction] 98 % Dr. Dom Yanez MD Work Phone: [facility] 11-14-2024 17:15-0400 Systolic blood pressure 119 mm[Hg] Dr. Dom Yanez MD Work Phone: [facility] 11-14-2024 15:23-0400 Body height 185.[address] Dom Yanez MD Work Phone: [facility] 11-14-2024 15:23-0400 Body mass index (BMI) [Ratio] 26.6 kg/m2 Dr. Dom Yanez MD Work Phone: [facility] 11-14-2024 15:23-0400 Body temperature 98.4 [degF] Dr. Dom Yanez MD Work Phone: [facility] 11-14-2024 15:23-0400 Body weight 91.[address] Dom Yanez MD Work Phone: [facility] 11-28-2023 13:36-0400 Body height 182.9 cm Abimael Carson MD Work Phone: [facility] 11-28-2023 13:36-0400 Body mass index (BMI) [Ratio] 22.54 kg/m2 Abimael Carson MD Work Phone: [facility] 11-28-2023 13:36-0400 Body weight 75.39 kg Abimael Carson MD Work Phone: [facility] 11-28-2023 13:36-0400 Diastolic blood pressure 84 mm[Hg] Abimael Carson MD Work Phone: [facility] 11-28-2023 13:36-0400 Heart rate 82 /min Abimael Carson MD Work Phone: [facility] 11-28-2023 13:36-0400 SaO2% (BldA) [Mass fraction] 98 % Abimael Carson MD Work Phone: [facility] 11-28-2023 13:36-0400 Systolic blood pressure 134 mm[Hg] Abimael Carson MD Work Phone: [facility] 11-14-2023 09:44-0400 Body height 182.9 cm Abimael Carson MD Work Phone: [facility] 11-14-2023 09:44-0400 Body mass index (BMI) [Ratio] 22.92 kg/m2 Abimael Carson MD Work Phone: [facility] 11-14-2023 09:44-0400 Body weight 76.66 kg Abimael Carson MD Work Phone: [facility] 11-14-2023 09:44-0400 Diastolic blood pressure 87 mm[Hg] Abimael Carson MD Work Phone: [facility] 11-14-2023 09:44-0400 Heart rate 66 /min Abimael Carson MD Work Phone: [facility] 11-14-2023 09:44-0400 SaO2% (BldA) [Mass fraction] 97 % Abimael Carson MD Work Phone: [facility] 11-14-2023 09:44-0400 Systolic blood pressure 135 mm[Hg] Abimael Carson MD Work Phone: [facility] 11-12-2023 15:52-0400 Body mass index (BMI) [Ratio] 20.34 kg/m2 Shane Zamarripa MD Work Phone: [facility] 11-12-2023 15:52-0400 Body temperature 97.7 [degF] Shane Zamarripa MD Work Phone: [facility] 11-12-2023 15:52-0400 Body weight 68.04 kg Shane Zamarripa MD Work Phone: [facility] 11-12-2023 15:52-0400 Diastolic blood pressure 81 mm[Hg] Shane Zamarripa MD Work Phone: [facility] 11-12-2023 15:52-0400 Heart rate 79 /min Shane Zamarripa MD Work Phone: [facility] 11-12-2023 15:52-0400 Respiratory rate 18 /min Shane Zamarripa MD Work Phone: [facility] 11-12-2023 15:52-0400 SaO2% (BldA) [Mass fraction] 100 % Shane Zamarripa MD Work Phone: [facility] 11-12-2023 15:52-0400 Systolic blood pressure 134 mm[Hg] Shane Zamarripa MD Work Phone: [facility] 11-07-2023 06:05-0400 Diastolic blood pressure 84 mm[Hg] Dayna Jacob DO Work Phone: [facility] 11-07-2023 06:05-0400 Heart rate 59 /min Dayna Jacob DO Work Phone: [facility] 11-07-2023 06:05-0400 Respiratory rate 13 /min Dayna Jacob DO Work Phone: [facility] 11-07-2023 06:05-0400 SaO2% (BldA) [Mass fraction] 100 % Dayna Jacob DO Work Phone: [facility] 11-07-2023 06:05-0400 Systolic blood pressure 136 mm[Hg] Dayna Jacob DO Work Phone: [facility] 10-24-2023 09:56-0400 Body height 182.9 cm Abimael Carson MD Work Phone: [facility] 10-24-2023 09:56-0400 Body mass index (BMI) [Ratio] 22 kg/m2 Abimael Carson MD Work Phone: [facility] 10-24-2023 09:56-0400 Body weight 73.57 kg Abimael Carson MD Work Phone: [facility] 10-24-2023 09:56-0400 Diastolic blood pressure 81 mm[Hg] Abimael Carson MD Work Phone: [facility] 10-24-2023 09:56-0400 Heart rate 83 /min Abimael Carson MD Work Phone: [facility] 10-24-2023 09:56-0400 SaO2% (BldA) [Mass fraction] 97 % Abimael Carson MD Work Phone: [facility] 10-24-2023 09:56-0400 Systolic blood pressure 130 mm[Hg] Abimael Carson MD Work Phone: [facility] 10-19-2023 08:57-0400 Body height 182.9 cm Montrell Delarosa MD Work Phone: [facility] 10-19-2023 07:50-0400 Body temperature 97.81 [degF] Montrell Delarosa MD Work Phone: [facility] 10-19-2023 07:50-0400 Diastolic blood pressure 67 mm[Hg] Montrell Delarosa MD Work Phone: [facility] 10-19-2023 07:50-0400 Heart rate 78 /min Montrell Delarosa MD Work Phone: [facility] 10-19-2023 07:50-0400 Respiratory rate 16 /min Montrell Delarosa MD Work Phone: [facility] 10-19-2023 07:50-0400 SaO2% (BldA) [Mass fraction] 98 % Montrell Delarosa MD Work Phone: [facility] 10-19-2023 07:50-0400 Systolic blood pressure 127 mm[Hg] Montrell Delarosa MD Work Phone: [facility] 10-18-2023 08:16-0400 Body mass index (BMI) [Ratio] 24.41 kg/m2 Montrell Delarosa MD Work Phone: [facility] 10-18-2023 08:16-0400 Body weight 81.65 kg Montrell Delarosa MD Work Phone: [facility] 10-16-2023 19:48-0400 Body height 185.4 cm ANA JOYCE MD [facility] 10-16-2023 19:48-0400 Body temperature 100.04 [degF] ANA JOYCE MD [facility] 10-16-2023 19:48-0400 Body weight 81.8 kg ANA JOYCE MD [facility] 10-16-2023 19:48-0400 Diastolic Blood Pressure Non-Invasive 78 mm[Hg] ANA JOYCE MD [facility] 10-16-2023 19:48-0400 Heart rate 90 /min ANA JOYCE MD [facility] 10-16-2023 19:48-0400 Respiratory rate 18 /min ANA JOYCE MD [facility] 10-16-2023 19:48-0400 Systolic Blood Pressure Non-Invasive 148 mm[Hg] ANA JOYCE MD [facility] 09-05-2023 10:15-0400 Body temperature 97.7 [degF] BETHANIE GUERRA MD [facility] 09-05-2023 10:15-0400 Body weight 79.2 kg BETHANIE GUERRA MD [facility] 09-05-2023 10:15-0400 Diastolic Blood Pressure Non-Invasive 83 mm[Hg] BETHANIE GUERRA MD [facility] 09-05-2023 10:15-0400 Heart rate 95 /min BETHANIE GUERRA MD [facility] 09-05-2023 10:15-0400 Respiratory rate 16 /min BETHANIE GUERRA MD [facility] 09-05-2023 10:15-0400 Systolic Blood Pressure Non-Invasive 137 mm[Hg] BETHANIE GUERRA MD [facility] 07-20-2023 17:06-0500 Diastolic blood pressure 71 mm[Hg] Cas Salamanca MD Work Phone: [facility] 07-20-2023 17:06-0500 Heart rate 66 /min Cas Salamanca MD Work Phone: [facility] 07-20-2023 17:06-0500 Respiratory rate 14 /min Cas Salamanca MD Work Phone: [facility] 07-20-2023 17:06-0500 SaO2% (BldA) [Mass fraction] 98 % Cas Salamanca MD Work Phone: [facility] 07-20-2023 17:06-0500 Systolic blood pressure 122 mm[Hg] Cas Salamanca MD Work Phone: [facility] 07-20-2023 13:00-0500 Body height 182.9 cm Cas Salamanca MD Work Phone: [facility] 07-20-2023 13:00-0500 Body mass index (BMI) [Ratio] 25.5 kg/m2 Cas Salamanca MD Work Phone: [facility] 07-20-2023 13:00-0500 Body temperature 98.91 [degF] Cas Salamanca MD Work Phone: [facility] 07-20-2023 13:00-0500 Body weight 85.28 kg Cas Salamanca MD Work Phone: [facility] 05-23-2023 10:31-0500 Body height 185.4 cm Abimael Carson MD Work Phone: [facility] 05-23-2023 10:31-0500 Body mass index (BMI) [Ratio] 23.88 kg/m2 Abimael Carson MD Work Phone: [facility] 05-23-2023 10:31-0500 Body weight 82.1 kg Abimael Carson MD Work Phone: [facility] 05-23-2023 10:31-0500 Diastolic blood pressure 86 mm[Hg] Abimael Carson MD Work Phone: [facility] 05-23-2023 10:31-0500 Heart rate 80 /min Abimael Carson MD Work Phone: [facility] 05-23-2023 10:31-0500 SaO2% (BldA) [Mass fraction] 97 % Abimael Carson MD Work Phone: [facility] 05-23-2023 10:31-0500 Systolic blood pressure 134 mm[Hg] Abimael Carson MD Work Phone: [facility] 10-20-2022 18:06-0400 Body weight 94.35 kg Camryn Bruno MEDICATION TECH.[facility] Work Phone: [facility] 10-20-2022 18:06-0400 Diastolic blood pressure 95 mm[Hg] Camryn Bruno MEDICATION TECH.[facility] Work Phone: [facility] 10-20-2022 18:06-0400 Heart rate 77 /min Camryn Bruno MEDICATION TECH.[facility] [employer] Work Phone: [facility] 10-20-2022 18:06-0400 SaO2% (BldA) [Mass fraction] 97 % Camryn Bruno MEDICATION TECH.[facility] [employer] Work Phone: [facility] 10-20-2022 18:06-0400 Systolic blood pressure 140 mm[Hg] Camryn Bruno MEDICATION TECH.[facility] [employer] Work Phone: [facility] 02-23-2022 12:06-0400 Body weight 93.8 kg Sarah Prabha MEDICATION TECH.[facility] Work Phone: [facility] 02-23-2022 12:06-0400 Diastolic blood pressure 82 mm[Hg] Sarah Prabha MEDICATION TECH.[facility] [employer] Work Phone: [facility] 10-06-2022 12:06-0400 Heart rate 81 /min Sarah Armando MEDICATION TECH.[facility] [employer] Work Phone: [facility] 02-23-2022 12:06-0400 Respiratory rate 16 /min Sarah Armando MEDICATION TECH.[facility] Work Phone: [facility] 02-23-2022 12:06-0400 SaO2% (BldA) [Mass fraction] 98 % Sarah Armando MEDICATION TECH.[facility] Work Phone: [facility] 02-23-2022 12:06-0400 Systolic blood pressure 112 mm[Hg] Sarah Armando MEDICATION TECH.CPC CODER Work Phone: [facility] Encounters Encounter Date Encounter Type Care Provider Facility Start: 11-14-2024 End: 11-14-2024 Emergency department patient visit Dr. Dom Yanez MD Work Phone: -Emergency Department Work Phone: Start: 01-15-2024 End: 01-15-2024 Chart abstracting Mery Higginbotham MA [facility] [place] Comment on above: ER F/U ([facility] ) Start: 01-15-2024 End: 01-23-2024 Telephone encounter Mery Higginbotham MA [facility] [place] Comment on above: Appointment (ER appo intment ) Start: 01-11-2024 End: 01-11-2024 Emergency department patient visit Dom Yanez Facility:[facility] Start: 12-14-2023 End: 12-14-2023 Telephone encounter Abimael Carson MD Work Phone: [facility] Start: 11-28-2023 End: 11-28-2023 Office outpatient visit 15 minutes Abimael Carson MD Work Phone: [facility] Comment on above: Bipolar affective di sorder, currently depressed, moderate (HCC) (Primary Dx); PTSD (post-traumatic stress disorder) Start: 11-28-2023 End: 11-28-2023 ambulatory ABIMAEL CARSON [facility] Start: 11-14-2023 End: 11-14-2023 Office outpatient visit 15 minutes Abimael Carson MD Work Phone: [facility] Comment on above: Bipolar affective di sorder, currently depressed, moderate (HCC) (Primary Dx); Severe anxiety Start: 11-14-2023 End: 11-14-2023 ambulatory [facility] Start: 11-13-2023 End: 11-13-2023 Telephone encounter Abimael Carson MD Work Phone: [facility] Start: 11-12-2023 End: 11-12-2023 Emergency department patient visit Shane Zamarripa MD Work Phone: [facility] Comment on above: Adult situational st ress disorder (Primary Dx) Start: 11-06-2023 End: 11-07-2023 Emergency department patient visit Dayna Angulojhoana NICOLE Work Phone: [facility] Comment on above: Accidental overdose of heroin, initial encounter ([facility]) (Primary Dx); Methamphetamine abuse (CMS/HCC) (HCC) Start: 10-24-2023 End: 10-24-2023 Office outpatient visit 25 minutes Abimael Carson MD Work Phone: [facility] Comment on above: Bipolar affective di sorder, currently depressed, moderate (HCC) (Primary Dx); Severe anxiety; Functional diarrhea Start: 10-24-2023 End: 10-24-2023 ambulatory [facility] Start: 10-20-2023 End: 10-20-2023 Emergency department patient visit [facility] Start: 10-18-2023 End: 10-18-2023 Subsequent hospital visit by physician [facility] X[facility] Portable [facility] Comment on above: Arrived Start: 10-18-2023 End: 10-18-2023 Emergency department patient visit MONTRELL DELAROSA [facility] Start: 10-18-2023 End: 10-19-2023 Evaluation and management of inpatient Montrell Delarosa MD Work Phone: [facility] Comment on above: Cellulitis of right lower extremity (Primary Dx); Leukocytosis, unspecified type; Lactic acidosis Start: 10-16-2023 End: 10-16-2023 Emergency department patient visit ANA JOYCE MD [facility] Start: 09-05-2023 End: 09-05-2023 Emergency department patient visit BETHANIE GUERRA MD [facility] Start: 07-24-2023 Telephone encounter Karissa Menon [facility] Comment on above: Other Start: 07-20-2023 End: 07-20-2023 Emergency department patient visit Cas Salamanca MD Work Phone: [facility] Comment on above: Agitation (Primary D x); Methamphetamine abuse (CMS/HCC) (HCC) Start: 06-15-2023 End: 06-15-2023 ambulatory [facility] Start: 05-23-2023 End: 05-23-2023 Initial preventive medicine new pt age 18-39yrs Abimael Carson MD Work Phone: [facility] Comment on above: Annual physical exam (Primary Dx); Bipolar affective disorder, currently depressed, moderate (HCC); Severe anxiety; PTSD (post-traumatic stress disorder); History of traumatic brain injury; Screening for diabetes mellitus; Screening for lipid disorders Start: 05-23-2023 End: 05-23-2023 Patient encounter procedure Abimael Carson MD Work Phone: [facility] Work Phone: Start: 05-23-2023 End: 05-23-2023 ambulatory [facility] Start: 05-23-2023 End: 05-23-2023 Encounter for general adult medical examination without abnormal findings [facility] Start: 10-20-2022 End: 10-20-2022 Patient encounter procedure Camryn Bruno APRN.CNP Work Phone: [facility] Comment on above: Dental infection (Pr imary Dx) Start: 02-23-2022 End: 02-23-2022 Patient encounter procedure Sarah Armando CPC CODER Work Phone: [facility] Comment on above: Wellness examination (Primary Dx); On terminologist drug therapy; Screening for lipid disorders; Screening for thyroid disorder; Screening for diabetes mellitus; Encounter for immunization Start: 02-23-2022 End: 02-23-2022 Patient encounter status Sarah Armando CPC CODER Work Phone: [facility] [place] Start: 11-02-2021 End: 11-02-2021 Subsequent [...] 11-02-2021 Comprehensive metabo lic panel Alfred Pathak MEDICATION TECH Work Phone: Start: 11-02-2021 Drug assay valproic dipropylacetic acid total Alfred Ptahak MEDICATION TECH Work Phone: Start: 09-13-2021 Comprehensive metabo lic panel Alfred Pathak MEDICATION TECH Work Phone: Start: 09-13-2021 Drug assay valproic dipropylacetic acid total Alfred Pathak MEDICATION TECH Work Phone: Start: 02-15-2021 Comprehensive metabo lic panel Alfred Pathak MEDICATION TECH Work Phone: Start: 02-15-2021 Drug assay valproic dipropylacetic acid total Alfred Pathak MEDICATION TECH Work Phone: None (qualifier value) BETHANIE GUERRA MD Plan of Treatment Date Care Activity Detail Author Start: 2046 RSV Immunization age d 60 or older (1 - 1-dose 60+ series) RSV Immunization aged 60 or older (1 - 1-dose 60+ series) [facility] Start: 2036 Zoster Vaccines (1 of 2) Zoste r Vaccines (1 of 2) [facility] Start: 01-11-2034 Urine microalbumin profile DTaP,Tdap,Td Vaccine (3 - Td or Tdap) [facility] Start: 02-24-2032 DTaP/Tdap/Td Vaccine s (2 - Td or Tdap) DTaP/Tdap/Td Vaccines (2 - Td or Tdap) [facility] Start: 02-24-2032 Urine microalbumin profile DTAP,TDAP,TD (2 - Td or Tdap) [facility] Start: 05-23-2028 Lipid panel Lipid Panel [facility] Start: 05-30-2024 Depression [facility] Start: 05-23-2024 Hepatitis A Vaccines (1 of 2 - Risk 2-dose series) Hepatitis A Vaccines (1 of 2 - Risk 2-dose series) [facility] Comment on above: Postponed from 07/28 (Patient Refused) Start: 05-23-2024 Hepatitis B Vaccines (1 of 3 - 19+ 3-dose series) Hepatitis B Vaccines (1 of 3 - 19+ 3-dose series) [facility] Comment on above: Postponed from 07/28 (Patient Refused) Start: 05-23-2024 HIV screening HIV Screening [facility] ever Comment on above: Postponed from 07/28 (Patient Refused) Start: 05-23-2024 Pneumococcal Vaccine : Pediatrics (0 to 5 Years) and At-Risk Patients (6 to 64 Years) (1 of 2 - PCV) Pneumococcal Vaccine: Pediatrics (0 to 5 Years) and At-Risk Patients (6 to 64 Years) (1 of 2 - PCV) [facility] Comment on above: Postponed from 07/28 (Patient Refused) Start: 05-15-2024 Depression Monitoring Depression [facility] Start: 04-24-2024 Depression Monitoring Depression [facility] Start: 01-20-2024 Covid-19 Vaccine ( season) Covid-19 Vaccine ( season) [facility] Start: 01-20-2024 Influenza vaccination [facility] Start: 12-14-2023 End: 12-14-2023 Patient encounter procedure 12/14/2023 9:30 AM EDT Office Visit [address] [place] [address] Abimael Carson MD [address] [place], [place] [address] [address] [facility] Start: 12-12-2023 End: 12-12-2023 Patient encounter procedure 12/12/2023 1:00 PM EDT Office Visit [address] [place] [address] Abimael Carson MD [address] [place], [place] [address] [address] [facility] Start: 11-28-2023 End: 11-28-2023 Patient encounter procedure 11/28/2023 2:45 PM EDT Office Visit [address] [place] [address] Abimael Carson MD [address] [facility] [place] [address] [facility] Start: 11-21-2023 Depression Monitoring Depression Mon itoring [facility] Start: 11-21-2023 Depresssion Monitoring Depresssion M onitoring [facility] Start: 11-14-2023 End: 11-14-2023 Patient encounter procedure 11/14/2023 9:00 AM EDT Office Visit [facility] [address] [facility] [place] [address] Abimael Carson MD [address] [facility] [place] [address] [facility] Start: 08-10-2023 End: 08-10-2023 Patient encounter procedure 08/10/2023 11:15 AM EDT Office Visit [address] [place] [address] Abimael Carson MD [address] [facility] [place] [address] [facility] Start: 05-23-2023 End: 05-23-2024 Comprehensive metabolic 1998 panel - Serum or Plasma Comprehensive metabolic panel Lab Routine Screening for diabetes mellitus Expected: 05/23/2023 (Approximate), Expires: 05/23/2024 [facility] Comment on above: Expected: 05/23/2023 (Approximate), Expires: 05/23/2024 Start: 05-23-2023 End: 05-23-2024 Lipid 1996 panel - Serum or Plasma Lipid panel Lab Routine Screening for lipid disorders Expected: 05/23/2023 (Approximate), Expires: 05/23/2024 [facility] Work Phone: Comment on above: Expected: 05/23/2023 (Approximate), Expires: 05/23/2024 Start: 02-23-2023 COVID-19 VACCINE (#1) COVID-19 VACCI NE (#1) [facility] Comment on above: Postponed from 01/28 (Declined at this time) Start: 02-23-2023 HEPATITIS B (1 of 3 - 3-dose series) HEPATITIS B (1 of 3 - 3-dose series) [facility] Comment on above: Postponed from 07/28 (Declined at this time) Start: 02-23-2023 PNEUMOCOCCAL (1 - PCV) PNEUMOCOCCAL (1 - PCV) [facility] Comment on above: Postponed from 07/28 (Declined at this time) Start: 01-19-2023 Covid-19 Vaccine (2022- season) Covid-19 Vaccine ( season) [facility] Start: 01-19-2023 Influenza vaccination [facility] Start: 11-17-2022 Influenza vaccination INFLUENZA (#1) [facility] Comment on above: Postponed from 01/19 (Declined at this time) Start: 02-23-2022 End: 04-25-2022 25-hydroxyvitamin D3 [Mass/volume] in Serum or Plasma VITAMIN D 25 HYDROXY Lab Routine On terminologist drug therapy Wellness examination Expected: 02/23/2022, Expires: 04/25/2022 [facility] Work Phone: Comment on above: Expected: 02/23/2022 , Expires: 04/25/2022 Start: 02-23-2022 End: 04-25-2022 Ammonia [Moles/volume] in Plasma AMMONIA BLD Lab Routine On jail drug therapy Expected: 02/23/2022, Expires: 04/25/2022 [facility] Work Phone: Comment on above: Expected: 02/23/2022 , Expires: 04/25/2022 Start: 02-23-2022 End: 04-25-2022 CBC panel - Blood by Automated count CBC Lab Routine On terminologist drug therapy Wellness examination Screening for diabetes mellitus Expected: 02/23/2022, Expires: 04/25/2022 [facility] Work Phone: Comment on above: Expected: 02/23/2022 , Expires: 04/25/2022 Start: 02-23-2022 End: 04-25-2022 Comprehensive metabolic 2000 panel - Serum or Plasma COMP METABOLIC PANEL Lab Routine On jail drug therapy Wellness examination Screening for diabetes mellitus Expected: 02/23/2022, Expires: 04/25/2022 [facility] Work Phone: Comment on above: Expected: 02/23/2022 , Expires: 04/25/2022 Start: 02-23-2022 End: 04-25-2022 Hemoglobin A1c in Blood HGB A1C Lab Routine On jail drug therapy Wellness examination Screening for diabetes mellitus Expected: 02/23/2022, Expires: 04/25/2022 [facility] Work Phone: Comment on above: Expected: 02/23/2022 , Expires: 04/25/2022 Start: 02-23-2022 End: 04-25-2022 Lipid 1996 panel - Serum or Plasma LIPID PANEL BASIC Lab Routine Wellness examination Screening for lipid disorders Expected: 02/23/2022, Expires: 04/25/2022 [facility] Work Phone: Comment on above: Expected: 02/23/2022 , Expires: 04/25/2022 Start: 02-23-2022 End: 04-25-2022 Thyrotropin [Units/volume] in Serum or Plasma TSH BLD Lab Routine On terminologist drug therapy Wellness examination Screening for thyroid disorder Expected: 02/23/2022, Expires: 04/25/2022 [facility] Work Phone: Comment on above: Expected: 02/23/2022 , Expires: 04/25/2022 Start: 02-23-2022 End: 04-25-2022 Valproate [Mass/volume] in Serum or Plasma VALPROIC A/DEPAKENE Lab Routine On jail drug therapy Expected: 02/23/2022, Expires: 04/25/2022 [facility] Work Phone: Comment on above: Expected: 02/23/2022 , Expires: 04/25/2022 Start: 01-19-2022 Influenza vaccination Flu vacc ine (Season Ended) [facility] Start: 2021 Lipid panel Lipid Screening [facility] Start: 2021 LIPID SCREEN LIPID SCREEN [facility] Start: 01-19-2021 Influenza vaccination Flu vaccine (# 1) [facility] Start: 2005 DTaP/Tdap/Td vaccine (1 - Tdap) DTaP/Tdap/Td vaccine (1 - Tdap) [facility] Start: 2005 Hepatitis A Vaccines (1 of 2 - Risk 2-dose series) Hepatitis A Vaccines (1 of 2 - Risk 2-dose series) [facility] Start: 2005 Hepatitis B Vaccine (1 of 3 - 19+ 3-dose series) Hepatitis B Vaccine (1 of 3 - 19+ 3-dose series) [facility] Start: 2004 Hepatitis C screening Hepatitis C Sc reening [facility] Start: 1998 COVID-19 Vaccine (1) COVID-19 Vaccin e (1) [facility] Work Phone: Start: 1992 Pneumococcal vaccination Pneum ococcal Vaccine (1 of 2 - PCV) [facility] Start: 1992 Pneumococcal Vaccine : Pediatrics (0 to 5 Years) and At-Risk Patients (6 to 64 Years) (1 of 2 - PCV) Pneumococcal Vaccine: Pediatrics (0 to 5 Years) and At-Risk Patients (6 to 64 Years) (1 of 2 - PCV) [facility] Start: 07-29-1991 COVID-19 Vaccine (1) COVID-19 Vaccin e (1) [facility] Start: 07-29-1987 MMR Vaccines (1 of 1 - Standard series) MMR Vaccines (1 of 1 - Standard series) [facility] Start: 07-29-1987 Varicella vaccination Varicell a Vaccines (1 of 2 - 2-dose childhood series) [facility] Start: 01-28-1987 COVID-19 Vaccine (#1) COVID-19 Vacci ne (#1) [facility] Start: 1986 Hepatitis B Vaccines (1 of 3 - 3-dose series) Hepatitis B Vaccines (1 of 3 - 3-dose series) [facility] Start: 1986 HIV screening HIV Screening [facility] ever Start: 1986 Lipid panel Lipid Panel [facility] End: 11-02-2021 Ammonia [Mass/volume] in Plasma Ammonia Lab Routine Once for 1 Occurrences starting 11/02/2021 until 11/02/2021 [facility] Work Phone: Comment on above: Once for 1 Occurrenc es starting 11/02/2021 until 11/02/2021 Ammonia [Mass/volume ] in Plasma Ammonia Lab Routine 11/02/2021 2:50 PM EDT [facility] Work Phone: Amphetamines [Presen ce] in Urine by Screen method >1000 ng/mL [facility] Bacteria identified in Blood by Culture Blood culture Site #1 - Suspected Infection Microbiology STAT 10/18/2023 9:23 AM EDT [facility] Work Phone: Benzodiazepine measurement, urine [facility] Cocaine measurement, urine [facility] fentaNYL [Presence] in Urine by Screen method [facility] Methadone measuremen t, urine [facility] Phencyclidine [Prese nce] in Urine [facility] Urine cannabinoid measurement [facility] Urine opiate measurement [facility] acute [facility] Immunizations Immunization Date Immunization Notes Care Provider Brett jaramillo 01-12-2024 tetanus toxoid, redu brock diphtheria toxoid, and acellular pertussis vaccine, adsorbed Mery Higginbotham MA [facility] 01-11-2024 tetanus toxoid, redu brock diphtheria toxoid, and acellular pertussis vaccine, adsorbed Dr. Dom Yanez MD Work Phone: [facility] 02-23-2022 tetanus toxoid, redu brock diphtheria toxoid, and acellular pertussis vaccine, adsorbed Sarah Armando APRN.CNP Work Phone: [facility] Payers Date Payer Category Payer Self-pay 2023 Unknown MIHAI RESENDEZ [facility] [employer] [id number] 2023-Present [phone] [address] [address] [place] [address] Exchange Plan [id number] 2023 Unknown [id number] 2020 Unknown [id number] 2018 Medicaid [id number] 1986 Unknown [id number] 1986 Unknown [id number] Unknown [id number] Unknown [id number] Unknown [id number] Social History Date Type Detail Facility Start: 12-14-2016 End: 11-14-2024 Tobacco smoking status [facility] Start: 1985 Sex Assigned At Not on file [employer] Phone: History of tobacco use Cigarette Smoker [facility] Start: 02-23-2022 End: 06-13-2022 Cigarettes smoked current (pack per day) - Reported 1.5 [facility] Start: 02-23-2022 End: 11-12-2023 Tobacco use and exposure Smokeless tobacco non-user [facility] Start: 02-23-2022 End: 10-20-2022 Alcohol intake Current non-drinker of alcohol (finding) [facility] Start: 03-08-2012 History SDOH Alcohol Comment occasionally [facility] Start: 02-13-2022 End: 02-23-2022 Exposure to SARS-CoV-2 (event) Not sure [facility] Start: 05-23-2023 End: 11-28-2023 Alcohol intake Ex-drinker (finding) [facility] Start: 06-13-2022 End: 05-23-2023 Alcohol Use Disorder Identification Test - Consumption [AUDIT-C] [facility] Frequency of Alcohol Consumption Not on file [facility] How hard is it for y ou [...] Never [facility] Sex Assigned At Sex [facility] Start: 05-25-2015 Alcohol Alcohol [facility] Start: 05-25-2015 Drugs Drugs [facility] Start: 05-25-2015 Lives Lives [facility] Start: 1985 Sex Assigned At Male [facility] Functional Status Date Assessment Result Facility 10-16-2023 Functional Status ID band on, Call device within reach, Bed in low position, Wheels locked, Upper/Half-Length side-rails up [facility] 09-05-2023 Functional Status Independent [facility] spital [facility] 09-05-2023 Functional Status Standard Safet y ID band on, Allergy Band on, Call device within reach, Bed in low position, Wheels locked, personal items within reach [facility] Mental Status Date Assessment Result Facility 11-14-2024 Cognitive function Level Of Cons ciousness Awake;Alert;Appropriate;Follow s Commands [facility] Work Phone: 10-16-2023 Mental Status Orientation Oriented x 4 [facility] 09-05-2023 Mental Status Orientation Oriented x 4 [facility] 09-05-2023 Mental Status [facility] Clinical Notes 02-23-2022 to 01-15-2024 Telephone Encounter [...] will need a physical. Mery Higginbotham MA [facility] 01-15-2024 Miscellaneous Notes Left message for patient [...] Mery Higginbotham MA documented in this encounter [facility] 01-15-2024 Note HNO ID: [id number] Author: MERY HIGGINBOTHAM MA Service: ? Author Type: Nuclear Control Room Operator Type: Progress Notes Filed: 01/15/2024 08:40 [...] physical. SEE PHONE NOTE. Mery Higginbotham MA [facility] 01-15-2024 History of Presen t illness Narrative [...] Mery Higginbotham MA documented in this encounter [facility] 12-14-2023 Telephone encounter Note Unable to call pt or MyChart pt to reschedule the missed 12/13 - appointment. [facility] 12-14-2023 Miscellaneous Notes Unable to call pt or MyChart pt to reschedule the missed 12/13 - appointment. documented in this encounter [facility] 11-28-2023 Evaluation + Plan note Associated Problem(s): PTSD (post-traumatic stress disorder) Slightly improved on the increased dose of Paxil will give him another 2 weeks and have him come back and see how he is doing. [facility] 11-28-2023 Evaluation + Plan note Associated Problem(s): Bipolar disorder (HCC) Slightly improved on the increased dose of Paxil will give him another 2 weeks and have him come back and see how he is doing. [facility] 11-28-2023 Miscellaneous Notes Associated Problem(s): PTSD (post-traumatic [...] he is doing. documented in this encounter [facility] 11-28-2023 History of Presen t illness Narrative [...] days. He said he has been [facility] [place] [facility] [place] [facility] for the last almost 2 weeks and [...] 11/28/2023 2:49 PM documented in this encounter [facility] 11-14-2023 History of Presen t illness Narrative [...] 11/14/2023 10:03 AM documented in this encounter [facility] 11-14-2023 Evaluation + Plan note Associated Problem(s): Severe anxiety Currently active we will increase his Paxil to 40 mg daily and follow-up in 2 weeks. [facility] 11-14-2023 Evaluation + Plan note Associated Problem(s): Bipolar disorder (HCC) We will increase his Paxil to 40 mg, new Rx sent he is to follow-up in 2 weeks and at that time we will consider adding a mood stabilizer. [facility] 11-14-2023 Miscellaneous Notes Associated Problem(s): Severe anxiety Currently active we will increase his Paxil to 40 mg daily and follow-up in 2 weeks. Associated Problem(s): Bipolar disorder (HCC) We will increase his Paxil to 40 mg, new Rx sent he is to follow-up in 2 weeks and at that time we will consider adding a mood stabilizer. documented in this encounter [facility] 11-13-2023 Telephone encounter Note Patient notified [facility] 11-13-2023 Miscellaneous Notes Patient notified He needs [...] we can do? documented in this encounter [facility] 11-13-2023 Telephone encounter Note He needs to file a police report bring us a copy of it and then we can send in a prescription for enough pills till he can get his refill filled. [facility] 11-13-2023 Telephone encounter Note Patient stopped in and said his pills were stolen and there were about 10 left. States he was unsure if he should file a police report or if there is anything that we can do? [facility] 11-12-2023 Emergency department Note This nurse to patient's room to give him discharge papers. Patient became angry and aggressive stating he doesn't want to leave. Patient screaming obscenities to this nurse, physician and director of physical security. Patient making claims that he shit himself [...] to get shoes yelling more obscenities at director of physical security. This nurse then called 911 and made a report with [place] police informing them the patient is currently walking down [facility] and to be on the lookout for patient as he is extremely aggressive and violent. Dasha Delarosa RN 11/12/23 5738 [facility] 11-12-2023 Emergency department Note This nurse to patient's room to give him discharge papers. Patient became angry and aggressive stating he doesn't want to leave. Patient screaming obscenities to this nurse, physician and director of physical security. Patient making claims that he shit himself [...] to get shoes yelling more obscenities at director of physical security. This nurse then called 911 and made a report with [place] police informing them the patient is currently walking down [facility] and to be on the lookout for [...] Depression PTSD (post-traumatic stress disorder) Substance abuse ([facility]/HCC) ([facility]) TBI (traumatic brain injury) ([facility]) SURGICAL HISTORY History reviewed. No pertinent surgical [...] Physician EKG interpretation can be found in [facility] EMERGENCY DEPARTMENT COURSE and DIFFERENTIAL DIAGNOSIS/MDM: [...] PM PATIENT REFERRED TO: Abimael Carson MD [address] [place] [address], [facility] B [facility] [address] as previously scheduled [facility] Psychiatry [address] [facility] [phone] As needed DISCHARGE MEDICATIONS: New [...] an air conditioning unit and a 3rd democrat called EMS. Patient states he had an anxiety attack 2 hrs prior to passing out. Patient states he is constantly depressed because he is homeless. Patient states he is supposed to be on medication but has not taken any for the past 3 days. Patient verbally aggressive and rude to staff during triage. documented in this encounter [facility] 11-12-2023 Emergency department Triage note Patient arrived via squad to room 6. Patient ambulated from gurney to ED bed without difficulty. Medics state patient was found passed out behind an air conditioning unit and a 3rd democrat called EMS. Patient states he had an anxiety attack 2 hrs prior to passing out. Patient states he is constantly depressed because he is homeless. Patient states he is supposed to be on medication but has not taken any for the past 3 days. Patient verbally aggressive and rude to staff during triage. [facility] 11-12-2023 Physician Emergency department Note EMERGENCY DEPARTMENT [...] Depression PTSD (post-traumatic stress disorder) Substance abuse ([facility]) ([facility]) TBI (traumatic brain injury) ([facility]) SURGICAL HISTORY History reviewed. No pertinent surgical [...] Phys[facility]PART[facility] COURSE and DIFFERENTIAL DIAGNOSIS/MDM: Vitals: [...] PM PATIENT REFERRED TO: Abimael Carson MD [address] [place] [address] B [facility] [address] as previously scheduled [facility] Psychiatry [address] [place] [phone] As needed DISCHARGE MEDICATIONS: New Prescriptions [...] Medicine Provider Shane Zamarripa MD 11/12/23 1717 [facility] 11-07-2023 Emergency department Note Steady gait out of ER Ca Will RN 11/07/23 0725 [facility] 11-07-2023 Emergency department Note Steady gait out of ER aC Will RN 11/07/23 0725 Steady gait to [...] Depression PTSD (post-traumatic stress disorder) Substance abuse ([facility]) ([facility] TBI (traumatic brain injury) ([facility]) SURGICAL HISTORY No past surgical history on [...] 0648 Accidental overdose of heroin, initial encounter ([facility]) Methamphetamine abuse ([facility]) ([facility]) On reevaluation at 6:45 AM patient is [...] 1. Accidental overdose of heroin, initial encounter ([facility]) 2. Methamphetamine abuse (CMS/HCC) ([facility]) DISPOSITION Discharge 11/07/2023 05:41:03 AM PATIENT REFERRED TO: Abimael Carson MD [address] [facility], [address] [facility] [id number] In 1 week [facility] ED [address] [place] [address] [facility] [phone] As needed, If symptoms worsen DISCHARGE [...] 0649 Pt arrives to the ED via [place] [facility] for a overdose. Pt was found on the ground w pinpoint pupils per ems. Narcan 8mg given intranasal precinct police captain. Pt arouses w painful stimuli upon [...] home in lobby documented in this encounter [facility] 11-07-2023 Emergency department Note Steady gait to bathroom. Returned to room and advised that is free to leave. Asking where his belongings are-advised that everything he came with is in the room. Has socks, shoes, shorts, shirt Ca Will RN 11/07/23 0725 [facility] 11-06-2023 Note NOTE: This result is for medical treatment only. Analysis performed using non-forensic procedures. [facility] 11-06-2023 Emergency department Triage note Pt arrives to the ED via [place] [facility] for a overdose. Pt was found on the ground w pinpoint pupils per ems. Narcan 8mg given intranasal precinct police captain. Pt arouses w painful stimuli upon arrival. Pt admits to using heroin and meth. Pupils 3mm, equal and reactive. Pt remains drowsy. Narcan 4mg given intranasal upon arrival. IV started, labs drawn. Pt placed on tele, pt NSR in the 80's. Pt on 6L O2 via nasal cannula [facility] 11-06-2023 Emergency department Triage note Glucose 209, SPO2 decreased to 2 liters [facility] 11-06-2023 Emergency department Triage note Pt sleeping [...] position. VSS, pt remains NSR on monitor [facility] 11-06-2023 Emergency department Triage note Pt arouses to voice. Pt positioned for comfort. VSS [facility] 11-06-2023 Emergency department Triage note Pt awake and alert. Pt given dc instructions and follow up care. Pt verbalizes understanding. IV dc'd, cannula intact. Pt waiting for ride home in [facility] T [facility] 11-06-2023 Physician Emergency department Note EMERGENCY DEPARTMENT [...] PTSD (post-traumatic stress disorder) Substance abuse (CMS/HCC) ([facility]) TBI (traumatic brain injury) ([facility]) SURGICAL HISTORY No past surgical history on [...] 0648 Accidental overdose of heroin, initial encounter ([facility]) Methamphetamine abuse ([facility]) ([facility]) On reevaluation at 6:45 AM patient is [...] 1. Accidental overdose of heroin, initial encounter ([facility]) 2. Methamphetamine abuse ([facility]) ([facility]) DISPOSITION Discharge 11/07/2023 05:41:03 AM PATIENT REFERRED TO: Abimael Carson MD [address] [place] [address], [address] [facility] [address] In 1 week [facility] ED [address] [facility] [phone] As needed, If symptoms worsen [...] Medicine Provider Dayna James DO 11/07/23 0649 [facility] 10-24-2023 Evaluation + Plan note Associated Problem(s): Functional diarrhea Prescription for Imodium to be used as directed. [facility] 10-24-2023 Miscellaneous Notes Associated Problem(s): Functional diarrhea Prescription for Imodium to be used as directed. Associated Problem(s): Severe anxiety Uncontrolled, Paxil 20 mg daily Associated Problem(s): Bipolar disorder (HCC) Uncontrolled, we will start him on Paxil 20 mg daily and he is to follow-up with his counselor MARIAMA. documented in this encounter [facility] 10-24-2023 Evaluation + Plan note Associated Problem(s): Severe anxiety Uncontrolled, Paxil 20 mg daily [facility] 10-24-2023 Evaluation + Plan note Associated Problem(s): Bipolar disorder (HCC) Uncontrolled, we will start him on Paxil 20 mg daily and he is to follow-up with his counselor MARIAMA. [facility] 10-24-2023 History of Presen t illness Narrative Patient verified by last name and date of . Images from the original note were not included. 10/24/2023 Grant Danielle (: 1985) is a 38 y.o. male , Established patient, here for evaluation of the following chief complaint(s): Transitional Care Management Outreach, Hospital Follow-up ([facility] 10/17-10/19/23/Cellulitis RLE pt states he [...] 10/24/2023 12:57 PM documented in this encounter [facility] 10-19-2023 Note Formatting of this n ote might be different from the original. SW consult for homeless. Notified in rounds this morning, patient has signed out AMA. [facility] 10-19-2023 Note Formatting of this n ote might be different from the original. SW consult for homeless. Notified in rounds this morning, patient has signed out AMA. [facility] 10-19-2023 Miscellaneous Notes SW consult for homeless. [...] - DO NOT do CPR, intubation] [_] [DNR-BOAT JOINER HELPER - Comfort care only] [_] DNR form [...] Ruthie Costa MD Division of Hospitalist Medicine [facility] documented in this encounter [facility] 10-19-2023 Nurse Note This RN was informed [...] know where to go to get out. [facility] 10-19-2023 Nurse Note This RN was informed [...] where to go to get out. This [employer] was at bedside preparing to insert new IV, pt was cooperative and understanding at the time. Pt asked if cafeteria was open to have a mountain dew and this nurse stated that the cafeteria was open at 0600. Pt immediately became and agitated and sat up removing his tourniquet. Pt began to yell at this [employer], becoming verbally aggressive. This [employer] stepped out of room and called protective services at 0346. Pt became cooperative with protective services at bedside and allowed this [employer] put in new IV. Pt given jello [...] percocet I would. documented in this encounter [facility] 10-19-2023 Hospital course Narrative Hospitalist Discharge Summary Grant Danielle : 1985 Admit date: 10/18/2023 Discharge date: 10/19/2023 Admitting Physician: Liam Zamora MD Primary Care Physician: Abimael Carson MD Visit Status: OBS Code Status: Full Code BRIEF HOSPITAL COURSE: Mr. Danielle is a 38 year old male who presents to [facility] ED with complaints of right ankle pain. States that he injured it in [place] and placed in a wrap around it. [...] PTSD (post-traumatic stress disorder) Substance abuse (CMS/HCC) ([facility]) TBI (traumatic brain injury) ([facility]) Procedures: None Hospital Course: See discharge diagnoses [...] Disposition: Patient discharged in stable condition to [facility]. Spent 40 min discharging the patient and [...] [employer] Recommended Follow-up: Abimael Carson MD [address] [facility], [facility] [address] [facility] [address] Complexity of Follow up: [] Moderate Complexity: follow up within 7-14 calendar days (16590) [x] Severe Complexity: follow up within 7 calendar days (02548) Follow up Testing, Pending results or Referrals [...] Liam Zamora MD Division of Hospitalist Medicine [facility] 10/19/2023, 11:02 AM documented in this encounter [facility] 10-19-2023 Note Hospitalist Discharg e Summary Grant Danielle : 1985 Admit date: 10/18/2023 Discharge date: 10/19/2023 Admitting Physician: Liam Zamora MD Primary Care Physician: Abimael Carson MD Visit Status: OBS Code Status: Full Code BRIEF HOSPITAL COURSE: Mr. Danielle is a 38 year old male who presents to [facility] ED with complaints of right ankle pain. States that he injured it in [place] and placed in a wrap around it. [...] Depression PTSD (post-traumatic stress disorder) Substance abuse ([facility]/HCC) ([facility]) TBI (traumatic brain injury) ([facility]) Procedures: None Hospital Course: See discharge diagnoses [...] Disposition: Patient discharged in stable condition to [facility]. Spent 40 min discharging the patient and [...] as: [employer] Recommended Follow-up: Abimael Carson MD [address] [place] [address], [address] [facility] [address] Complexity of Follow up: [] Moderate Complexity: follow up within 7-14 calendar days (20520) [x] Severe Complexity: follow up within 7 calendar days (96894) Follow up Testing, Pending results or Referrals [...] Liam Zamora MD Division of Hospitalist Medicine [facility] 10/19/2023, 11:02 AM [facility] 10-19-2023 Note Hospitalist Progress Note 10/19/2023 Subjective: Admit Date: 10/18/2023 PCP: Abimael Carson MD Room#: B1145/[id number] A BRIEF HOSPITAL COURSE: Mr. Danielle is a 38 year old male who presents to [facility] ED with complaints of right ankle pain. States that he injured it in [place] and placed in a wrap around it. [...] Depression PTSD (post-traumatic stress disorder) Substance abuse ([facility]) ([facility]) TBI (traumatic brain injury) ([facility]) LABS: CBC: Recent Labs 10/18/2392210/19/23415 WBC 16.3* [...] 100 mL/hr, Last Rate: 100 mL/hr (10/18/23 4915) Assessment Data: (CAT1) Reviewed 3 or more [...] leaving. Patient insisted (more content not included)... [facility] 10-19-2023 History of Presen t illness Narrative Hospitalist Progress Note 10/19/2023 Subjective: Admit Date: 10/18/2023 PCP: Abimael Carson MD Room#: [id number]/[id number] A BRIEF HOSPITAL COURSE: Mr. Danielle is a 38 year old male who presents to [facility] ED with complaints of right ankle pain. States that he injured it in [place] and placed in a wrap around it. [...] Depression PTSD (post-traumatic stress disorder) Substance abuse ([facility]) ([facility]) TBI (traumatic brain injury) ([facility]) LABS: CBC: Recent Labs 10/18/23 0923 10/19/23 [...] 100 mL/hr, Last Rate: 100 mL/hr (10/18/23 6195) Assessment Data: (CAT1) Reviewed 3 or more [...] Liam Zamora MD Division of Hospitalist Medicine [employer] [facility] to Dose Vancomycin - Progress Note Recent Labs 10/18/2392210/19/23 0416 BUN 11 9 CREATININE 0.86 0.57* Lab Results Component Value Date VANCJUVENALNDOM 17.6 10/19/2023 Doses, serum creatinine, and vancomycin levels interfaced automatically to [employer] and data has been analyzed and interpreted. [...] via Secure Chat documented in this encounter [facility] 10-19-2023 Note NOTE:These results a re for medical treatment only. Analysis performed using non-forensic procedures. This test has not been cleared by the US Food and Drug Administration (FDA). The FDA has determined that such clearance or approval is not necessary. The performance chararcteristics have been determined by the clinical laboratories of [facility]. [facility] 10-19-2023 Note NOTE:These results a re for medical treatment only. Analysis performed using non-forensic procedures. This test has not been cleared by the US Food and Drug Administration (FDA). The FDA has determined that such clearance or approval is not necessary. The performance chararcteristics have been determined by the clinical laboratories of [facility]. [facility] 10-19-2023 Note Pharmacy to Dose Van comycin - Progress Note Recent Labs 05/30/24 0923 05/31/24 0416 BUN 11 9 CREATININE 0.86 0.57* Lab Results Component Value Date VANCORANDOM 17.6 10/19/2023 Doses, serum creatinine, and vancomycin levels interfaced automatically to [employer] and data has been analyzed and interpreted. [...] DATE: 10/19/23 TIME: 6:12 AM Naila Orellana [facility] Clinical Pharmacist Available via Secure Chat [facility] 10-19-2023 Nurse Note This [employer] was at bedside preparing to insert new IV, pt was cooperative and understanding at the time. Pt asked if cafeteria was open to have a mountain dew and this nurse stated that the cafeteria was open at 0600. Pt immediately became and agitated and sat up removing his tourniquet. Pt began to yell at this [employer], becoming verbally aggressive. This [employer] stepped out of room and called protective services at 0346. Pt became cooperative with protective services at bedside and allowed this [employer] put in new IV. Pt given jello and is calm at this time. [facility] 10-18-2023 Consult note Formatting of th is [...] creatinine, and vancomycin levels interfaced automatically to [employer] and data has been analyzed and interpreted. [...] Clinical Pharmacist Available via Secure Chat [employer] 10-18-2023 Consult note Formatting of th is [...] creatinine, and vancomycin levels interfaced automatically to [employer] and data has been analyzed and interpreted. [...] via Secure Chat documented in this encounter [facility] 10-18-2023 Note Formatting of this n ote is different from the original. [employer] Grant Danielle : 1985 Primary Care Physician: Abimael Carson MD The patient and/or family/surrogate voluntarily agreed to participate in ACP services. Patient s cognitive capacity: intact Code Status: [X] [FULL CODE - Continue all advanced life support: CPR,intubation,invasive procedures] [_] [DNR-CCA - DO NOT do CPR, intubation] [_] [DNR-BOAT JOINER HELPER - Comfort care only] [_] DNR form [...] Ruthie Costa MD Division of Hospitalist Medicine [facility] 10-18-2023 Note Formatting of this n [...] - DO NOT do CPR, intubation] [_] [DNR-BOAT JOINER HELPER - Comfort care only] [_] DNR form [...] Ruthie Costa MD Division of Hospitalist Medicine [facility] T [facility] 10-18-2023 Nurse Note Upon entering pt room [...] hands on some percocet I would. T [facility] 10-18-2023 History and physical note Images from the original note were not included. Attending History and Physical Admit Date: 10/18/2023 PCP: Abimael Carson MD CHIEF COMPLAINT: right leg pain Reason for Admission: cellulitis History Obtained From: patient HISTORY OF PRESENT ILLNESS: Grant is a 38 y.o. male with past medical history below who presents with chief complaint listed above. Patient presented to [place] [facility] - with 3 day history of [...] previously did heroine, rare alcohol use. In [place] ED, [address], [place] 2.[place] and down [...] Depression PTSD (post-traumatic stress disorder) Substance abuse ([facility]/HCC) ([facility]) TBI (traumatic brain injury) ([facility]) Past Surgical History: History reviewed. No pertinent [...] Date - - Location - home vs fpc - Pending the following - clinical improvement [...] - DO NOT do CPR, intubation] [_] [DNR-BOAT JOINER HELPER - Comfort care only] [_] DNR form [...] Ruthie Costa MD Division of Hospitalist Medicine [facility] [employer] Phone: 10-18-2023 Note Attending History an d Physical Admit Date: 10/18/2023 PCP: Abimael Carson MD CHIEF COMPLAINT: right leg pain Reason for Admission: cellulitis History Obtained From: patient HISTORY OF PRESENT ILLNESS: Grant is a 38 y.o. male with past medical history below who presents with chief complaint listed above. Patient presented to [place] ED - with 3 day history of [...] previously did heroine, rare alcohol use. In [place] ED, [address], [place] and down [...] PTSD (post-traumatic stress disorder) Substance abuse (CMS/HCC) ([facility]) TBI (traumatic brain injury) ([facility]) Past Surgical History: History reviewed. No pertinent [...] present. Heart s (more content not included)... [facility] 10-18-2023 History and physical note Images from the original note were not included. Attending History and Physical Admit Date: 10/18/2023 PCP: Abimael Carson MD CHIEF COMPLAINT: right leg pain Reason for Admission: cellulitis History Obtained From: patient HISTORY OF PRESENT ILLNESS: Grant is a 38 y.o. male with past medical history below who presents with chief complaint listed above. Patient presented to [place] ED - with 3 day history of [...] previously did heroine, rare alcohol use. In [place] ED, [address], [place] 2[place] and down [...] Depression PTSD (post-traumatic stress disorder) Substance abuse ([facility]) ([facility]) TBI (traumatic brain injury) ([facility]) Past Surgical History: History reviewed. No pertinent [...] - 2 - Location - home vs fpc - Pending the following - clinical improvement [...] - DO NOT do CPR, intubation] [_] [DNR-BOAT JOINER HELPER - Comfort care only] [_] DNR form [...] Ruthie Costa MD Division of Hospitalist Medicine [facility] documented in this encounter [facility] 10-18-2023 Emergency department Note Report called to 1E at [facility] Elvia Lee RN 10/18/232044 [facility] 10-18-2023 Emergency department Note Report called to 1E at [facility] Evlia Lee RN 10/18/232044 Phoned [facility] regarding bed [...] per request. Dasha Delarosa RN 10/18/23 0841 [facility] ED EMERGENCY DEPARTMENT ENCOUNTER Pt Name: [...] he injured it and was seen at [place] they put an Jb wrap on it [...] Depression PTSD (post-traumatic stress disorder) Substance abuse ([facility]) ([facility]) TBI (traumatic brain injury) ([facility]) SURGICALHISTORY History reviewed. No pertinent surgical history. [...] nicotine patch. ED Course as of 10/18/232050 [facility] October 18, [id number] I did write for every 6 hours Unasyn. Will also do every 12 hours vancomycin [GS] 2049 Patient's vancomycin was completed at 1:00 so is not yet due for second dose of that. He did get a second dose of Unasyn. Has been afebrile. Hemodynamically stable. He is being transferred to [place] at 850. [GS] ED Course User Index [...] that he was seen on the at [facility] however could not review those records. [...] MEDICATIONS: New Prescriptions No medications on file @[facility](7943,[id number]:LAST:1)@ (Comment: Please notethis report has been produced [...] Attending Emergency Physician Montrell Delarosa MD 10/18/23 4251 Montrell Delarosa MD 10/18/232050 Patient arrived via [employer] [facility] to room 7. Patient transferred himself from [facility] to ED without difficulty. Medics state patient walked to station and asked for help with his bandage. Patient states he got a blister on his right ankle from walking and riding his bike. Patient unsure of timeline because he is homeless. Patient was seen at [facility] on 10/15 and patient states they wrapped his bandage too tight. Patient's ankle is red and warm to touch. Patient verbally aggressive to this nurse and physician during triage. documented in this encounter [facility] 10-18-2023 Emergency department Note Phoned [facility] regarding bed assignment. They are currently moving patients around and will be cleaning his room soon. Patient informed. Dasha Delarosa RN 10/18/23 1839 [facility] 10-18-2023 Emergency department Note Patient rang call light to go to restroom. IV antibx stopped and patient ambulated to restroom without difficulty. Dasha Delarosa RN 10/18/23 1421 [facility] 10-18-2023 Emergency department Note Phoned patient's sister, Ca, and informed patient will be getting admitted. Communicated that he doesn't have a room yet and we don't know how long it will be for transportation. Sister verbalized understanding and appreciated information. Dasha Delarosa RN 10/18/23 1341 [facility] 10-18-2023 Emergency department Note Patient disconnected from IV fluids to go to restroom. Patient given socks to ambulate to restroom. Patient carried socks in hands and states he'll be going outside to smoke a cigarette after he gets back. Informed patient he is not allowed to go outside to smoke and that he has nicotine patch on. Dasha Delarosa RN 10/18/23 1135 [facility] 10-18-2023 Emergency department Note Patient requested that his sister be contacted to let her know he is currently in ED. Ca Danielle, sister, called and informed patient is currently here. Sister would like to be updated on patient's condition and whether or not he is admitted. Dasha Delarosa RN 10/18/23 1055 [facility] 10-18-2023 Emergency department Note Patient rang call light to use restroom. Patient declined to put socks on to ambulate down hernandez. Patient ambulated down hernandez to restroom and back to room without socks on. Dasha Delarosa RN 10/18/23 1041 [facility] 10-18-2023 Emergency department Note Tried for second set of blood cultures in left arm without success. After sticking patient twice in left arm, patient states that we are unable to use left arm due to his previous drug abuse. Patient refuses to be stuck again in right arm for second set of cultures. Physician informed. Dasha Delarosa RN 10/18/23 1005 [facility] 10-18-2023 Emergency department Note Patient given a meal and taking a shower per request. Dasha Delarosa RN 10/18/23 0841 [facility] 10-18-2023 Emergency department Triage note Patient arrived via [facility] [facility] to room 7. Patient transferred himself from [facility] to ED without difficulty. Medics state patient walked to station and asked for help with his bandage. Patient states he got a blister on his right ankle from walking and riding his bike. Patient unsure of timeline because he is homeless. Patient was seen at [facility] on 10/15 and patient states they wrapped his bandage too tight. Patient's ankle is red and warm to touch. Patient verbally aggressive to this nurse and physician during triage. [facility] 10-18-2023 Physician Emergency department Note [facility] ED EMERGENCY DEPARTMENT ENCOUNTER Pt Name: [...] he injured it and was seen at [facility] they put an Jb wrap on it [...] PTSD (post-traumatic stress disorder) Substance abuse (CMS/HCC) ([facility]) TBI (traumatic brain injury) ([facility]) SURGICALHISTORY History reviewed. No pertinent surgical history. [...] Hemodynamically stable. He is being transferred to [facility] at 850. [GS] ED Course User Index [...] that he was seen on the at [facility] however could not review those records. [...] MEDICATIONS: New Prescriptions No medications on file @[facility]7943,[id number]:LAST:1)@ (Comment: Please notethis report has been produced [...] Delarosa MD 10/18/231746 Montrell Delarosa MD 10/18/232050 [facility] 10-16-2023 Hospital Discharg e instructions Patient Education [...] or higher after 2 days on antibiotics 9778-0706 [employer]. [address] [place] [address], [place] [address]. All rights reserved. This information is not [...] by your healthcare provider. You may use ewyb-puq-zoobeyz pain medicines to control pain, unless another [...] doesn t get better after several days 7727-6862 [employer]. [address] [place] [address], [place] [address]. All rights reserved. This information is not intended as a substitute for professional medical care. Always follow your healthcare professional's instructions. Follow Up Care 10/16/2023 19:18:25 With:ABIMAEL CARSON Address: [address] [place] [id number] Business (1) When:2-4 days Comments:Schedule appointment for close follow-up.Daily wound care with application of topical antibiotic ointment and dressing changes.Use Tylenol for pain and fever as needed.Use antibiotic (cephalexin) as prescribed to treat for skin infection.Return to the ED if symptoms worsen. [facility] Jeff Porter 10-16-2023 Note Discharge Instructions [...] ABIMAEL CARSON When:Within 2-4 days Where:[address] [facility] [place] [address]- Business (1) Additional Information: Schedule appointment for [...] or higher after 2 days on antibiotics 1260-5200 [employer]. [address] [place] [address]. All rights reserved. This information is not [...] by your healthcare provider. You may use kvhr-cqa-pgunhxe pain medicines to control pain, unless another [...] doesn t get better after several days 6430-6178 [employer]. [address] [place] [address]. All rights reserved. This information is not intended as a substitute for professional medical care. Always follow your healthcare professional's instructions. Additional Information VACCINATE! IT SAVES LIVES! Members of the community who have not yet received the COVID-19 vaccine and would like to receive it can visit one of [facility] vaccine clinics. There are many vaccine clinic locations within the [facility]. For locations and available times, please visit [email or web address] [email or web address] It is important to note that some COVID mobile vaccine clinics are held outdoors and may be canceled in rainy or stormy conditions. To learn more about pediatric vaccinations (ages 5-11), we invite you to visit the [facility] webpage. [email or web address]://[email or web address]/p ages/9556-Vcyvn-Dlwxlaiweep-Freq ganktb-Zzbnk-Sgzqykxml.html To learn more about the COVID-19 vaccine, we invite you to visit the CDC website for a list of frequently asked questions. https://www.cdc.gov/coronavirus/ 2019-ncov/vaccines/faq.html [facility] Patient Portal Access Instructions: Stay connected with your healthcare team and access your personal medical information anytime with the [employer] Patient Portal. If you would like a full copy of your medical records please contact the [facility] Medical Records Department Sunday through Sunday between 8a.m. and 4:30p.m. Please follow the directions below to access the portal: 1.Access the email account you provided upon registration to the [facility].2.Look for an invitation email from [facility].3.Open the email and access the invitation link: Accept Invitation to [facility]4.Fill in the required garcia to create your account. Sign into [email or web address] with your username and password that you [...] you will allow to register on the [employer] Patient Portal for access to your information. You can also access the [employer] Patient Portal on the quitchen kyleigh. Simply click on Health Records under [...] Call your local pharmacy or go to http://[email or web address] aka 3Ditize/[email or web address] to find one close to you.3.Make use of household items: Use cat litter or old coffee grounds to dispose medications if other options are not available. Mix your drugs with these household products, seal them in an airtight container and throw it into the garbage. Call [facility]: [phone] to be sure your drugs can be [...] aware that I should contact my doctor. Patient/Informatics Scientist Signature: Date/Time: Relationship to Patient: Witness Name/Signature: Date/Time: [facility] 09-05-2023 Hospital Discharg e instructions Patient Education [...] directly on the skin. You may use knrh-mpb-ospryyu pain medicine to control pain, unless another [...] in behavior or speech Convulsion or seizure 4217-5326 [employer]. [address] [place] [address]. All rights reserved. This information is not [...] medicine for you. Or you may use uxps-glk-ygmmxrq pain relievers, such as acetaminophen or ibuprofen. [...] future, keep your teeth clean and healthy. Sevier twice a day and floss at least once daily. See your dentist for regular tooth cleanings. And stay away from sugary foods and drinks that can lead to tooth decay. 8415-7657 [employer]. [address] [place] [address]. All rights reserved. This information is not intended as a substitute for professional medical care. Always follow your healthcare professional's instructions. Follow Up Care 09/05/2023 10:14:05 With:VIRIDIANA DYE DO Address: [address] [place] [address] [phone] When:2-4 days With:NEVAEH NGUYEN MD, [facility] Address: [address] [facility] [address] [facility] [place] [address]- [phone] When:2-4 days With:ABIMAEL CARSON MD Address: [address] [place] [address]- When:2-4 days [facility] 09-05-2023 Note Discharge Instructions Thank you for [...] days Where: [address] [place], [place] [address]- [phone] Follow Up with NEVAEH NGUYEN MD, [facility] When Within 2-4 days Where: [address] [place] [address]- [phone] Follow Up with ABIMAEL CARSON MD When Within 2-4 days Where: [address] [place] [address]- Allergies Flexeril Ultram (Hives) naproxen Medications Please [...] may report side effects to FDA at 2-848-GSM-6881. What other drugs will affect penicillin V potassium? Penicillin V potassium can make control pills less effective. Ask your doctor about using a non-hormonal control (condom, diaphragm with spermicide) to prevent . Other drugs may affect penicillin V potassium, including prescription and zave-dhg-wxcrank medicines, vitamins, and herbal products. Tell your [...] to ensure that the information provided by [employer]. ('[employer]') is accurate, up-to-date, and complete, but no guarantee is made to that effect. Drug information contained herein may be time sensitive. [employer] information has been compiled for use by healthcare practitioners and consumers in the [place] and therefore [employer] does not warrant that uses outside of the [place] are appropriate, unless specifically indicated otherwise. [employer]'s drug information does not endorse drugs, diagnose patients or recommend therapy. [employer] drug information is an informational resource designed [...] effective or appropriate for any given patient. [employer] does not assume any responsibility for any aspect of healthcare administered with the aid of information [employer] provides. The information contained herein is not intended to cover all possible uses, directions, precautions, warnings, drug interactions, allergic reactions, or adverse effects. If you have questions about the drugs you are taking, check with your doctor, nurse or pharmacist. Copyright 0493-0538 [employer]. Version: 2.01. Revision Date: 02/03/2019. acetaminophen and [...] may report side effects to FDA at 7-771-TFJ-6122. What other drugs will affect acetaminophen and [...] affect acetaminophen and oxycodone, including prescription and xxtb-sbv-zqtwacu medicines, vitamins, and herbal products. Not all [...] to ensure that the information provided by [employer]. ('[employer]') is accurate, up-to-date, and complete, but no guarantee is made to that effect. Drug information contained herein may be time sensitive. [employer] information has been compiled for use by healthcare practitioners and consumers in the [place] and therefore [employer] does not warrant that uses outside of the [place] are appropriate, unless specifically indicated otherwise. [employer] drug information does not endorse drugs, diagnose patients or recommend therapy. [employer] drug information is an informational resource designed [...] effective or appropriate for any given patient. [employer] does not assume any responsibility for any aspect of healthcare administered with the aid of information [employer] provides. The information contained herein is not intended to cover all possible uses, directions, precautions, warnings, drug interactions, allergic reactions, or adverse effects. If you have questions about the drugs you are taking, check with your doctor, nurse or pharmacist. Copyright 2495-8470 [employer]. Version: 22.. Revision Date: 12/21/2022. penicillin V [...] may report side effects to FDA at 7-961-QDT-3707. What other drugs will affect penicillin V potassium? Penicillin V potassium can make control pills less effective. Ask your doctor about using a non-hormonal control (condom, diaphragm with spermicide) to prevent . Other drugs may affect penicillin V potassium, including prescription and iwps-wih-zvennqm medicines, vitamins, and herbal products. Tell your [...] to ensure that the information provided by [employer]. ('[employer]') is accurate, up-to-date, and complete, but no guarantee is made to that effect. Drug information contained herein may be time sensitive. [employer] information has been compiled for use by healthcare practitioners and consumers in the [place] and therefore [employer] does not warrant that uses outside of the [place] are appropriate, unless specifically indicated otherwise. [employer]'s drug information does not endorse drugs, diagnose patients or recommend therapy. [employer]'s drug information is an informational resource designed [...] effective or appropriate for any given patient. [facility] does not assume any responsibility for any aspect of healthcare administered with the aid of information [facility] provides. The information contained herein is not intended to cover all possible uses, directions, precautions, warnings, drug interactions, allergic reactions, or adverse effects. If you have questions about the drugs you are taking, check with your doctor, nurse or pharmacist. Copyright 0553-8662 [employer]. Version: 2.01. Revision Date: 02/03/2019. Education Materials [...] directly on the skin. You may use uwrs-knb-tbnnill pain medicine to control pain, unless another [...] in behavior or speech Convulsion or seizure 3851-1380 [employer]. [address] [place] [address]. All rights reserved. This information is not [...] medicine for you. Or you may use vcgg-dch-yxdvxao pain relievers, such as acetaminophen or ibuprofen. [...] future, keep your teeth clean and healthy. Sevier twice a day and floss at least once daily. See your dentist for regular tooth cleanings. And stay away from sugary foods and drinks that can lead to tooth decay. 4181-5094 [employer]. [address] [place] [address], [place] [address]. All rights reserved. This information is not intended as a substitute for professional medical care. Always follow your healthcare professional's instructions. Additional Information VACCINATE! IT SAVES LIVES! Members of the community who have not yet received the COVID-19 vaccine and would like to receive it can visit one of [facility] vaccine clinics. There are many vaccine clinic locations within the [facility]. For locations and available times, please visit [email or web address] [email or web address] It is important to note that some COVID mobile vaccine clinics are held outdoors and may be canceled in rainy or stormy conditions. To learn more about pediatric vaccinations (ages 5-11), we invite you to visit the [facility] webpage. https://www.[email or web address]/p ages/2304-Pjiri-Dhefhydrzcr-Freq nxbdrn-Hwetz-Hydigmnjn.html To learn more about the COVID-19 vaccine, we invite you to visit the CDC website for a list of frequently asked questions. https://www.cdc.gov/coronavirus/ 2019-ncov/vaccines/faq.html [facility] Patient Portal Access Instructions: Stay connected with your healthcare team and access your personal medical information anytime with the [employer] Patient Portal. If you would like a full copy of your medical records please contact the [facility] Medical Records Department Sunday through Sunday between 8a.m. and 4:30p.m. Please follow the directions below to access the portal: 1.Access the email account you provided upon registration to the hospital.2.Look for an invitation email from [facility].3.Open the email and access the invitation link: Accept Invitation to [employer]4.Fill in the required garcia to create your account. Sign into [email or web address] with your username and password that you [...] you will allow to register on the [employer] Patient Portal for access to your information. You can also access the [employer] Patient Portal on the quitchen kyleigh. Simply click on Health Records under Health Data and then click on the [employer] logo. HOW TO SAFELY DISPOSE OF PRESCRIPTION [...] Call your local pharmacy or go to [email or web address] aka 3Ditize/[email or web address] to find one close to you.3.Make use of household items: Use cat litter or old coffee grounds to dispose medications if other options are not available. Mix your drugs with these household products, seal them in an airtight container and throw it into the garbage. Call [facility]: [phone] to be sure your drugs can be [...] aware that I should contact my doctor. Patient/Informatics Scientist Signature: Date/Time: Relationship to Patient: Witness Name/Signature: Date/Time: [facility] 09-05-2023 Note ORIGINAL EXAMINATION: CT OF THE [...] Date: 09/05/2023 11:09:54 AM [facility] encounter Note Okay, thank you looks like he was just in the ER couple of days ago, looks like at that time he was doing methamphetamines [facility] 07-24-2023 Miscellaneous Notes Okay, thank you looks like he was just in the ER couple of days ago, looks like at that time he was doing methamphetamines Patient walked into office this morning stating he wanted his blood pressure checked because he felt it is really high. While desk maker staff was scheduling a nurse visit appointment she stated he was pacing back and forth and frigidity trying to talk with him. Upon going out to waiting room to call patient back, he was no longer in waiting room, advised desk maker staff to advise me if he returns for Blood pressure check. Last Blood pressure documented was on 07/20/23 at [facility] ER and was 128/74. documented in this encounter [facility] 07-24-2023 Telephone encounter Note Patient walked into office this morning stating he wanted his blood pressure checked because he felt it is really high. While desk maker staff was scheduling a nurse visit appointment she stated he was pacing back and forth and frigidity trying to talk with him. Upon going out to waiting room to call patient back, he was no longer in waiting room, advised desk maker staff to advise me if he returns for Blood pressure check. Last Blood pressure documented was on 07/20/[address] [facility] ER and was 128/74. [facility] 07-20-2023 Note NOTE: This result is for medical treatment only. Analysis performed using non-forensic procedures. [facility] 07-20-2023 Emergency department Note EMERGENCY DEPARTMENT ENCOUNTER Pt Name: Grant Danielle Birthdate 1985 Date of evaluation: 07/20/2023 ED Provider: Cas Salamanca MD CHIEF COMPLAINT Chief Complaint Patient presents with Altered Mental Status HISTORY OF PRESENT ILLNESS (Location/Symptom, Timing/Onset, Context/Setting, Quality, Duration, Modifying Factors, Severity) Note limiting factors. I wore appropriate PPE for the entirety of this encounter. HPI Garnt Danielle is a 37 y.o. male who presents to the emergency department with chief complaint of concern for altered mental status due to drug use. Apparently patient was at his 's workplace and causing a public disturbance. Concern was that he was intoxicated with drugs and he admitted to 1 [address] or patrol park officer that he has used methamphetamines today. He [...] PTSD (post-traumatic stress disorder) Substance abuse (CMS/HCC) ([facility]) TBI (traumatic brain injury) ([facility]) SURGICAL HISTORY No past surgical history on [...] Housing in the Last Year: Yes SCREENINGS [place] Coma Scale Best Eye Response: Spontaneous Best [...] FINAL IMPRESSION 1. Agitation 2. Methamphetamine abuse ([facility]) ([facility]) DISPOSITION Discharge 07/20/2023 05:44:42 PM PATIENT REFERRED TO: Abimael Carson MD [address] [facility] [phone] Call in 1 week DISCHARGE MEDICATIONS: New [...] plan of care documented in this encounter [facility] 07-20-2023 Emergency department Triage note Arrived via ems from [place] [employer] custody for possible public disturbance, pateint arrived in soft restraints and moved to ED bed w PD and protective services at bedside, patient placed in hospital clothattila, at beside, continue w plan of care [facility] 07-20-2023 Note Arrived via ems from [place] [employer] custody for possible public disturbance, pateint arrived in soft restraints and moved to ED bed w PD and protective services at bedside, patient placed in hospital MD asher at beside, continue w plan of care [facility] 07-20-2023 Physician Emergency department Note EMERGENCY DEPARTMENT [...] drugs and he admitted to 1 police or patrol park officer that he has used methamphetamines today. He [...] Depression PTSD (post-traumatic stress disorder) Substance abuse ([facility]) [facility] [facility] TBI (traumatic brain injury) ([facility]) SURGICAL HISTORY No past surgical history on [...] Response: Confused Best Motor Response: Follows commands [place] Coma Scale Score: 14 PHYSICAL EXAM ED [...] PM PATIENT REFERRED TO: Abimael Carson MD [address] [place] [address], [address] [place] [address] Call in 1 week DISCHARGE MEDICATIONS: New [...] Emergency Medicine Provider Cas Salamanca MD 07/20/23 3688 [facility] 05-23-2023 Evaluation + Plan note Associated Problem(s): Bipolar disorder (HCC) Paxil 20 mg daily follow-up in 3 weeks [facility] 05-23-2023 Evaluation + Plan note Associated Problem(s): PTSD (post-traumatic stress disorder) Paxil 20 mg daily follow-up in 3 weeks [facility] 05-23-2023 Miscellaneous Notes Associated Problem(s): Bipolar disorder [...] was on Depakote. documented in this encounter [facility] 05-23-2023 Evaluation + Plan note Associated Problem(s): Severe anxiety Paxil 20 mg daily follow-up in 3 weeks [facility] 05-23-2023 Evaluation + Plan note Associated Problem(s): History of traumatic brain injury Referral to neurology for workup to see if there is neurological issues. He says at one time he was on Depakote. [facility] 05-23-2023 Note Referral to neurolog y for workup to see if there is neurological issues. He says at one time he was on Depakote. [facility] 05-23-2023 History of Presen t illness Narrative [...] time he was on Depakote. Orders: - [facility] Neurology 6. Screening for diabetes mellitus [...] 05/23/2023 12:57 PM documented in this encounter [facility] 10-20-2022 Instructions Camryn Bruno APRN.[facility] 10/20/2022 6:18 PM EDT (K04.7) Dental [...] places you can go for dental care: [facility] [address] [facility]- [phone] Services:Extractions only- No wisdom teeth Hours: - 4:15 P.M. Fee: Free- Donations are accepted [facility]) [address]) Services: Health history, exam, cleaning, X-Rays, patient education and nutritional counseling. Hours: Varies with the school year. By appointment only. Fee: Over 12 years of age, $10.00; Under 12 year of age $6.00 [facility] [address] [facility] ([facility]): [phone] [facility]): [phone] (Note: These are the only [facility] which offer dental services) Services: Full dental services Hours: 8:30 a.m. to 5:30 p.m., Sunday through Sunday. By appointment. Fee: [place]es and Medicaid. Bring ID and proof of income. [facility] [address] [phone](ext. [phone]) Services: Full dental services. Hours: By appointment only. Fee: [place] and Medicaid. Bring ID and proof of income. [facility] [address] [facility]. [address] [phone] Services: Full dental services. Hours: 8:15 a.m.- 5:00 p.m. By appointment only. Fee: Flat fee. Medicaid and insurances. Bring ID and proof of income. [facility]: By main entrance of [facility] [phone] Services: Full dental services. Hours:Varies with school year. Call for appointment. Fee: Flat fee. Medicaid and insurances. Bring ID and proof of income. [facility] [address] (Between [facility]) [phone] Services: Full dental services. Hours: 8:30 a.m.-4:00 p.m. Sunday through Sunday. Appointments recommended. Emergency walk ins- 8:30 a.m.- 11:15 a.m. and 2:00 p.m-3:15 p.m. Fee: [place] and Medicaid. Bring ID and proof of income. [facility] [address] [place] [address] [phone] Services: Full dental services. Hours: 9:00 a.m.-4:45 p.m. Sunday through Sunday. Appointments and emergency walk in. Fee: [place]es and Medicaid. Bring ID and proof of income. documented in this encounter [facility] 10-20-2022 History of Presen t illness Narrative Images from the original note were not included. This note was created using [employer]. Subjective Grant Danielle is a 37 year [...] which included preparing to see the patient, [id number] patient care, completing clinical documentation, obtaining and/or reviewing separately obtained history, performing a medically appropriate examination, counseling and educating the patient/family/caregiver, and ordering medications, tests, or procedures. documented in this encounter [facility] 02-23-2022 Instructions Sarah Armando APRN.CNP - 02/23/2022 12:33 PM EDT Have your labs drawn, we'll have results in the next couple days. documented in this encounter [facility] 02-23-2022 History of Presen t illness Narrative [...] TDAP VACCINE AGE 7+ IM 2. On terminologist drug therapy - ICD9: V58.69, ICD10: Z79.899 [...] TDAP VACCINE AGE 7+ IM Sarah Armando APRN.CPC CODER documented in this encounter [facility] Evaluation + Plan note No data available for this section [facility] Evaluation note Diagnosis Wellness examination- Primary On jail drug therapy Screening for lipid disorders Screening for thyroid disorder Screening for diabetes mellitus Encounter for immunization Need for other specified prophylactic vaccination against single bacterial disease documented in this encounter [facility] note* Diagnosis Dental infection- Primary Acute apical periodontitis of pulpal origin [facility] Diagnosis Annual physical exam- Primary Routine [...] for lipid disorders [facility] Diagnosis Agitation- Primary Other and unspecified special symptom or syndrome, not elsewhere classified Methamphetamine abuse (CMS/HCC) (HCC) Nondependent amphetamine or related acting sympathomimetic abuse, unspecified [facility] Diagnosis Cellulitis of right lower extremity- Primary Cellulitis of right lower extremity Leukocytosis, unspecified type Lactic acidosis Acidosis [facility]* Diagnosis Bipolar affective disorder, currently depressed, moderate (HCC)- Primary Bipolar I disorder, most recent episode (or current) depressed, moderate Severe anxiety Functional diarrhea [facility] Diagnosis Accidental overdose of heroin, initial encounter (HCC)- Primary Methamphetamine abuse (CMS/[facility]) (HCC) Nondependent amphetamine or related acting sympathomimetic abuse, unspecified [facility]* Diagnosis Adult situational stress disorder- Primary [facility]* Diagnosis Bipolar affective disorder, currently depressed, moderate (HCC)- Primary Bipolar I disorder, most recent episode (or current) depressed, moderate Severe anxiety [facility]* Diagnosis Bipolar affective disorder, currently depressed, moderate (HCC)- Primary Bipolar I disorder, most recent episode (or current) depressed, moderate PTSD (post-traumatic stress disorder) Posttraumatic stress disorder [facility] noteNo assessment information availableWDunlap Memorial Hospital Work Phone: Hospital Discharge instructions* Attachments The following attachments cannot be sent through Care Everywhere. * Drug Abuse and Drug Addiction Discharge Instructions (Vietnamese) [facility] Attachments The following attachments cannot be sent through Care Everywhere. * Opioid Overdose Discharge Instructions (Vietnamese) documented in this [facility] Discharge instructions* Attachments The following attachments cannot be sent through Care Everywhere. * Adjustment Disorder (Vietnamese) [facility] Consultation (Routine) - Pending Review Specialty Diagnoses / Procedures Referred By Contvince t Referred To Contact Neurology Diagnoses History of traumatic brain injury Procedures [place] OFFICE/OUTPATIENT [facility] 60 MINUTES Abimael Carson MD [address] [facility], [place] [address] [facility] [address] [facility] [address] [place] [address] Referral ID Status Reason Start Date Expiration Date Visits Requested Visits Authorized [id number] Pending Review Specialty Services Required 05/23/2023 05/22/2024 1 1 [facility] for referral (narrative)No reason for referral information availableWDunlap Memorial Hospital Work Phone: Summary Purpose Family [...] Do you have a Healthcare Power of Continuum Of Care Manager? No November 14, 2024 4:24pm Chief Complaint and Reason for Visit Chief Complaint Admit Date SYNCOPAL November 14, 2024 3:15 pm Additional Source Comments (unrecognized sect ion and content) No Status Records FoundNo Status Records FoundNo Status Records FoundNo Status Records FoundNo Status Records FoundNo Status Records FoundNo Status Records Found INFORMATION SOURCE (unrecogn ized section and content) DATE CREATED AUTHOR 12/07/2019 [facility] DATE CREATED AUTHOR AUTHOR'S ORGANIZ ATION 07/04/2020 [facility] DATE CREATED AUTHOR AUTHOR'S ORGANIZ ATION 11/05/2021 [facility] DATE CREATED AUTHOR AUTHOR'S ORGANIZ ATION 11/04/2023 [facility] DATE CREATED AUTHOR AUTHOR'S ORGANIZ ATION 01/07/2024 [facility] DATE CREATED AUTHOR AUTHOR'S ORGANIZ ATION 01/25/2024 [facility] DATE CREATED AUTHOR AUTHOR'S ORGANIZ ATION 11/20/2024 [facility] Source Comments (unrecognize d section and content) In the event this informatio n is protected by the Federal Confidentiality of Alcohol and Drug Abuse Patient Records regulations: The Federal rules restrict any use of the information to criminally investigate or prosecute any alcohol or drug abuse patient.[facility] the event this information is protected by the Federal Confidentiality of Alcohol and Drug Abuse Patient Records regulations: The Federal rules restrict any use of the information to criminally investigate or prosecute any alcohol or drug abuse patient.[facility] Center[facility] the event this information is protected by the Federal Confidentiality of Alcohol and Drug Abuse Patient Records regulations: The Federal rules restrict any use of the information to criminally investigate or prosecute any alcohol or drug abuse patient.[facility] Center[facility] the event this information is protected by the Federal Confidentiality of Alcohol and Drug Abuse Patient Records regulations: The Federal rules restrict any use of the information to criminally investigate or prosecute any alcohol or drug abuse patient.[facility] Reason for Visit (unrecogniz ed section and [...] Diagnoses Cellulitis of right lower extremity Procedures [id number] of right lower extremity Liam Zamora MD [address] [place] [address] [facility] [address] [place] [address] Referral ID Status Reason Start Date Expiration Date Visits Re quested Visits Authorized [id number] 1 1 Reason Comments Ankle Pain Right Specialty Diagnoses / Procedures Referred By Richard gloria Referred To Contact Diagnoses Cellulitis of right lower extremity Procedures [id number] of right lower extremity Liam Zamora MD [address] [place] [address] [facility] [address] [place] [address] Reason Comments Transitional Care Management Outreach Hospital Follow-up [facility] 10/17-10/19/23Cell ulitis RLE pt states he was not sent home with anything Abdominal Pain Thought from coffee and dairy -stopped both of them and still having painDiarrhea - all the time Medication Adherence Pt is currently on no medications for psychiatric issues Reason Comments Drug Overdose Reason Comments Depression Reason Comments Anxiety Getting worse Depression bipolar Follow-up 3 week ER Follow-up [facility] 11/12/23- pt is a sking maybe to try rehab facility Reason Comments Anxiety Depression Bipolar Follow-up 2 week Reason Comments ER F/U [facility] Reason Comments Appointment ER appointment Care Teams (unrecognized sec tion and content) Marketing Support Manager Relationship Specialty Start Date End Date Dom Yanez MD [address] [place] [address] PCP - General Family Medicine 06/04/14 Marketing Support Manager Relationship Specialty Start Date End Date Dom Yanez MD [address] [place] [address] PCP - General Family Medicine 06/04/14 Marketing Support Manager Relationship Specialty Start Date End Date Abimael Carson MD [address] [place] [address] PCP - General Family Medicine 05/02/23 Marketing Support Manager Relationship Specialty Start Date End Date Abimael Carson MD [address] [place] [address] PCP - General Family Medicine 05/02/23 Marketing Support Manager Relationship Specialty Start Date End Date Abimael Carson MD [address] [place] [address] [place] [address] PCP - General Family Medicine 05/02/23 Marketing Support Manager Relationship Specialty Start Date End Date Abimael Carson MD [address] [facility] [place] [address] PCP - General Family Medicine 05/02/23 Marketing Support Manager Relationship Specialty Start Date End Date Abimael Carson MD [address] [facility] [place] [address] PCP - General Family Medicine 05/02/23 Marketing Support Manager Relationship Specialty Start Date End Date Abimael Carson MD [address] [facility] [place] [address] PCP - General Family Medicine 05/02/23 Marketing Support Manager Relationship Specialty Start Date End Date Abimael Carson MD [address] [facility] [place] [address] PCP - General Family Medicine 05/02/23 Marketing Support Manager Relationship Specialty Start Date End Date Abimael Carson MD [address] [facility] [place] [address] PCP - General Family Medicine 05/02/23 Marketing Support Manager Relationship Specialty Start Date End Date Abimael Carson MD [address] [facility] [place] [address] PCP - General Family Medicine 05/02/23 Marketing Support Manager Relationship Specialty Start Date End Date Abimael Carson MD [address] [place] [address] PCP - General Family Medicine 05/02/23 Marketing Support Manager Relationship Specialty Start Date End Date Abimael Carson MD [address] [place] [address], [address] [place], [place] [phone] PCP - General Family Medicine 05/02/23 Marketing Support Manager Relationship Specialty Start Date End Date Dom Yanez MD [address] [place], [place] [phone] PCP - General [facility] 06/04/14 Marketing Support Manager Relationship Specialty Start Date End Date Dom Yanez MD [address] [place], [place] [id number] PCP - [facility] 06/04/14 Team Status: Active Member [...] pupils, RR < 8; notify primary team vice president consulting services if used 2201 (Given - Provider: Didi [...] pupils, RR < 8; notify primary team vice president consulting services if used 2300 (Given - Provider: Didi [...] BE BASED ON THE PRIMARY CLINICAL RECORDS. [employer] provides no warranty or guarantee of the accuracy or completeness of information in this document.
[2024-11-21 21:30] VITALS: BP 135/92; PULSE 71; RESP 15; O2SAT 98
[2024-11-21 22:00] VITALS: BP 135/94; PULSE 72; RESP 16; O2SAT 98
[2024-11-21 23:38] VITALS: BP 151/96; PULSE 61; RESP 15; O2SAT 98
[2024-11-22 00:10] VITALS: BP 147/93; PULSE 66; RESP 16
[2024-11-22 01:44] VITALS: BP 134/66; PULSE 73; RESP 17; O2SAT 96
[2024-11-22 02:00] VITALS: BP 133/67; PULSE 70; RESP 16; O2SAT 97
[2024-11-22 03:00] VITALS: BP 163/81; PULSE 72; RESP 16; O2SAT 97
[2024-11-22 03:39] VITALS: BP 140/87; PULSE 74; RESP 18; TEMP 36.4; O2SAT 98
== END 2024-11-22 03:40 | disposition home or self-care (01) ==
PROVIDERS: Emergency Provider Emergency Medicine; PCP Family Medicine; Visit Provider Emergency Medicine
DX: S09.93XA Unspecified injury of face, initial encounter (principal); F15.10 Other stimulant abuse, uncomplicated; F17.210 Nicotine dependence, cigarettes, uncomplicated; F17.220 Nicotine dependence, chewing tobacco, uncomplicated; F17.290 Nicotine dependence, other tobacco product, uncomplicated; Y04.8XXA Assault by other bodily force, initial encounter
CPT/HCPCS: 70450; 72125; 99285